=== PATIENT | female | born 1945 | race American Indian/Alaskan Native ===

== ENCOUNTER 2017-06-01 16:04 | Emergency (ER) | payer OTHER ==
[2017-06-01] MEDS ORDERED: Dexamethasone 4 MG/ML SDV IM ONE (18:30)
--- NOTE | 2017-06-01 18:30 | EDM.PDOC ---
<Muriel Pires - Last Filed: 06/01/17 18:26> ED HPI GENERAL MEDICAL PROBLEM - General Chief Complaint: ENT Problem Stated Complaint: [id number] TROUBLE SWALLOWING Time Seen by Provider: 06/01/17 18:26 Source of Information: Reports: Patient History Limitations: Reports: No Limitations - History of Present Illness INITIAL COMMENTS - FREE TEXT/NARRATIVE: 72 yo female presents with difficulty swallowing for 2 days. states that she feels like "everything is getting stuck". Pt admits to having esophagus dilated 2 weeks ago in [facility]. States that she is unable to tolerate minimal amounts of food or pills. Able to drink fluids. no other complaints. Onset Date: 05/31/17 Duration: Constant Location: Reports: Chest Quality: Reports: Ache Severity: Mild Improves with: Reports: None Worsens with: Reports: Eating Associated Symptoms: Reports: No Other Symptoms Throat Pain Score (Numeric/FACES): 6 - Related Data Allergies Allergy/AdvReac Type Severity Reaction Status Date / Time ibuprofen Allergy Unknown unknown Verified 05/03/16 22:35 adhesive Allergy Cannot Verified 05/03/16 22:35 Remember iodine AdvReac Intermediate nausea only Verified 05/03/16 22:35 Home Meds: Home Meds Aspirin [Halfprin] 81 mg PO DAILY 11/28/13 [History] Carboxymethylcellulose Sodium [Revive Plus] 1 drop EYEBOTH QID PRN 11/28/13 [ History] Docusate Sodium/Sennosides [Senokot-S] 1 each PO BEDTIME PRN 11/28/13 [History] Famotidine 40 mg PO DAILY 11/28/13 [History] Fludrocortisone [Florinef] 0.1 mg PO ACBRK 11/28/13 [History] Hydrocortisone 2 tab PO ACBRK 11/28/13 [History] Lisinopril 10 mg PO DAILY 11/28/13 [History] Magnesium Oxide 400 mg PO BID 11/28/13 [History] Metoprolol Tartrate 12.5 mg PO BID 11/28/13 [History] Montelukast Sodium 10 mg PO BEDTIME 11/28/13 [History] Multivitamin [Multivitamins] 1 each PO DAILY 11/28/13 [History] sitaGLIPtin Phos/Metformin HCl [Janumet 50-1,000 MG] 1 each PO BID 11/28/13 [ History] Acetaminophen 650 mg PO Q6H PRN 01/14/15 [History] Albuterol/Ipratropium [DuoNeb 3.0-0.5 MG/3 ML] 3 ml NEB QID 01/14/15 [History] Cholecalciferol (Vitamin D3) [Vitamin D3] 1,000 units PO DAILY 01/14/15 [History ] Formoterol/Mometasone [Dulera 100 MCG/5 MCG] 2 puff PO BID 01/14/15 [History] Hydrocortisone 10 mg PO ACDINNER 01/14/15 [History] Levothyroxine [Synthroid] 100 mcg PO DAILY 01/14/15 [History] guaiFENesin/Dextromethorphan [Guaifenesin-Dm Solution] 5 ml PO QID PRN 01/14/15 [History] Benzonatate [Tessalon Perles] 100 mg PO BID PRN #30 cap 01/17/15 [Rx] Past Medical History HEENT History: Reports: None, Other (See Below) Other HEENT History: dry eyes Cardiovascular History: Reports: Bypass, Heart Murmur, Heart Valve Replacement, Hypertension Respiratory History: Reports: Asthma, COPD Gastrointestinal History: Reports: GERD Genitourinary History: Reports: None CIRCULATOR History: Reports: None Musculoskeletal History: Reports: None Neurological History: Reports: None Psychiatric History: Reports: None Endocrine/Metabolic History: Reports: Diabetes, Type II, Hypothyroidism Hematologic History: Reports: None Other Immunologic History: Addisons disease Oncologic (Cancer) History: Reports: None Dermatologic History: Reports: None - Infectious Disease History Infectious Disease History: Reports: None Social & Family History - Family History Family Medical History: Noncontributory - Tobacco Use Smoking Status *Q: Never Smoker Years of Tobacco use: 30 Used Tobacco, but Quit: Yes Month Tobacco Last Used: unknown Second Hand Smoke Exposure: No - Caffeine Use Caffeine Use: Reports: Coffee, Tea - Alcohol Use Days Per Week of Alcohol Use: 0 - Recreational Drug Use Recreational Drug Use: No - Living Situation & Occupation Living situation: Reports: with Family Occupation: Disabled ED ROS ENT - Review of Systems Review Of Systems: ROS reveals no pertinent complaints other than HPI. ED EXAM, ENT - Physical Exam Exam: See Below Exam Limited By: No Limitations General Appearance: Alert, WD/WN, No Apparent Distress Eye Exam: Bilateral Eye: PERRL Nose: Normal Inspection, Normal Mucousa, No Blood Mouth/Throat: Normal Inspection, Normal Gums, Normal Lips, Normal Oropharynx, Normal Teeth Respiratory/Chest: No Respiratory Distress, Lungs Clear, Normal Breath Sounds, No Accessory Muscle Use, Chest Non-Tender Cardiovascular: Normal Peripheral Pulses, Regular Rate, Rhythm, No Edema, No Gallop, No JVD, No Rub, Systolic Murmur GI/Abdominal: Normal Bowel Sounds, Soft, Non-Tender, No Organomegaly, No Distention, No Abnormal Bruit, No Mass Neurological: Alert, Oriented, CN II-XII Intact, Normal Cognition, Normal Gait, No Motor/Sensory Deficits Course - Vital Signs Last Recorded V/S: Last Vital Signs Temp 36.9 C 06/01/17 16:39 Pulse 71 06/01/17 16:39 Resp 12 06/01/17 16:39 BP 199/97 H 06/01/17 16:39 Pulse Ox 95 06/01/17 16:39 - Orders/Labs/Meds Meds: Medications Discontinued Medications Generic Name Dose Route Start Last Admin Trade Name Renae PRN Reason Stop Dose Admin Dexamethasone 8 mg 06/01/17 18:30 06/01/17 18:46 Dexamethasone IM 06/01/17 18:31 8 mg ONETIME ONE Administration Departure - Departure Disposition: Home, Self-Care 01 Clinical Impression: Stenosis of esophagus - Discharge Information Instructions: Dysphagia Diet Level 3, Mechanically Advanced Forms: ED Department Discharge Additional Instructions: 1) notify Gastrologist tomorrow 2) recheck if there is any change or concerns <Pj Yi - Last Filed: 06/01/17 19:26> Course - Re-Assessments/Exams Free Text/Narrative Re-Assessment/Exam: 06/01/17 19:24 re-exam; s/p IV Rx = much better now, likes to go home. Departure - Departure Time of Disposition: 19:24 Condition: Good
[2017-06-01 19:33] VITALS: BP 173/77
== END 2017-06-01 19:33 | disposition home or self-care (01) ==
LOC: DL.ED 16:04
DX: K22.2 Esophageal obstruction (principal); I10 Essential (primary) hypertension; J44.9 Chronic obstructive pulmonary disease, unspecified; K21.9 Gastro-esophageal reflux disease without esophagitis; E11.9 Type 2 diabetes mellitus without complications; E03.9 Hypothyroidism, unspecified; Z88.8 Allergy status to other drugs, medicaments and biological substances; Z91.048 Other nonmedicinal substance allergy status; Z79.82 Long term (current) use of aspirin; Z79.899 Other long term (current) drug therapy
CPT/HCPCS: 71020; 96372; 99282; J1100

== ENCOUNTER 2017-12-17 19:20 | Emergency (ER) | payer OTHER ==
--- NOTE | 2017-12-17 19:32 | EDM.PDOC ---
ED HPI GENERAL MEDICAL PROBLEM - General Chief Complaint: Respiratory Problem Stated Complaint: COUGHING,CHEST HURTS,HARD TO BREATH [id number] Time Seen by Provider: 12/17/17 19:30 Source of Information: Reports: Patient History Limitations: Reports: No Limitations - History of Present Illness INITIAL COMMENTS - FREE TEXT/NARRATIVE: been sick a week not better coughing chest hurts afterwards feels tight lost voice. - Related Data Allergies Allergy/AdvReac Type Severity Reaction Status Date / Time ibuprofen Allergy Unknown unknown Verified 12/17/17 19:51 adhesive Allergy Cannot Verified 12/17/17 19:51 Remember iodine AdvReac Intermediate nausea only Verified 12/17/17 19:51 Home Meds: Home Meds Aspirin [Halfprin] 81 mg PO DAILY 11/28/13 [History] Carboxymethylcellulose Sodium [Revive Plus] 1 drop EYEBOTH QID PRN 11/28/13 [ History] Docusate Sodium/Sennosides [Senokot-S] 1 each PO BEDTIME PRN 11/28/13 [History] Famotidine 40 mg PO DAILY 11/28/13 [History] Fludrocortisone [Florinef] 0.1 mg PO ACBRK 11/28/13 [History] Hydrocortisone 1 tab PO ASDIRECTED 11/28/13 [History] Lisinopril 30 mg PO DAILY 11/28/13 [History] Magnesium Oxide 400 mg PO BID 11/28/13 [History] Montelukast Sodium 10 mg PO BEDTIME 11/28/13 [History] Multivitamin [Multivitamins] 1 each PO DAILY 11/28/13 [History] sitaGLIPtin Phos/Metformin HCl [Janumet 50-1,000 MG] 1 each PO BID 11/28/13 [ History] Acetaminophen 650 mg PO Q6H PRN 01/14/15 [History] Albuterol/Ipratropium [DuoNeb 3.0-0.5 MG/3 ML] 3 ml NEB QID 01/14/15 [History] Cholecalciferol (Vitamin D3) [Vitamin D3] 1,000 units PO DAILY 01/14/15 [History ] Formoterol/Mometasone [Dulera 100 MCG/5 MCG] 2 puff PO BID 01/14/15 [History] Levothyroxine [Synthroid] 100 mcg PO DAILY 01/14/15 [History] Benzonatate [Tessalon Perles] 100 mg PO BID PRN #30 cap 01/17/15 [Rx] Cetirizine [ZyrTEC] 10 mg PO DAILY 07/25/17 [History] Dextrose [Glucose] 4 tab PO ASDIRECTED 07/25/17 [History] Levalbuterol Tartrate [Xopenex Hfa] 2 puff IH Q4HR PRN 07/25/17 [History] Potassium Chloride [Klor-Con 10] 10 meq PO BID 07/25/17 [History] LORazepam 1 mg PO ASDIRECTED 08/10/17 [History] Metoprolol Succinate [Toprol XL] 25 mg PO DAILY 08/10/17 [History] Saxagliptin HCl [Onglyza] 5 mg PO DAILY 08/10/17 [History] Past Medical History HEENT History: Reports: None, Other (See Below) Other HEENT History: dry eyes Cardiovascular History: Reports: Bypass, Heart Murmur, Heart Valve Replacement, Hypertension Respiratory History: Reports: Asthma, COPD Gastrointestinal History: Reports: GERD Genitourinary History: Reports: None 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 Musculoskeletal History: Reports: None Neurological History: Reports: None Psychiatric History: Reports: None Endocrine/Metabolic History: Reports: Diabetes, Type II, Hypothyroidism Hematologic History: Reports: None Other Immunologic History: Addisons disease Oncologic (Cancer) History: Reports: None Dermatologic History: Reports: None - Infectious Disease History Infectious Disease History: Reports: None Social & Family History - Family History Family Medical History: Noncontributory - Tobacco Use Smoking Status *Q: Never Smoker Years of Tobacco use: 30 Used Tobacco, but Quit: Yes Month/Year Tobacco Last Used: unknown Second Hand Smoke Exposure: No - Caffeine Use Caffeine Use: Reports: Coffee - Alcohol Use Days Per Week of Alcohol Use: 0 - Recreational Drug Use Recreational Drug Use: No - Living Situation & Occupation Living situation: Reports: with Family Occupation: Disabled ED ROS GENERAL - Review of Systems Review Of Systems: ROS reveals no pertinent complaints other than HPI. ED EXAM, GENERAL - Physical Exam Exam: See Below Exam Limited By: No Limitations General Appearance: Alert, WD/WN, Mild Distress, Other (cough spasms) Ears: Hearing Grossly Normal Ear Exam: Bilateral Ear: TM Dull Throat/Mouth: Normal Voice, No Airway Compromise Head: Atraumatic Neck: Non-Tender, Full Range of Motion Respiratory/Chest: No Accessory Muscle Use, Decreased Breath Sounds, Rhonchi, Wheezing Cardiovascular: Regular Rate, Rhythm GI/Abdominal: Soft, Non-Tender Neurological: Alert, Oriented, Normal Cognition, Normal Gait, No Motor/Sensory Deficits Psychiatric: Flat Affect Skin Exam: Warm, Dry, Normal Color Lymphatic: No Adenopathy Course - Vital Signs Last Recorded V/S: Last Vital Signs Temp 37.7 C 12/17/17 19:51 Pulse 65 12/17/17 19:51 Resp 18 12/17/17 19:51 BP 186/85 H 12/17/17 19:51 Pulse Ox 97 12/17/17 19:51 - Orders/Labs/Meds Orders: Active Orders 24 hr Category Date Time Status RT Aerosol Therapy [RC] ASDIRECTED Care 12/17/17 19:40 Active CULTURE BLOOD [BC] Stat Lab 12/17/17 19:35 Received CULTURE STREP A CONFIRMATION [] Stat Lab 12/17/17 20:29 Results STREP SCRN A RAPID W CULT CONF [] Stat Lab 12/17/17 20:29 Results Sodium Chloride 0.9% [Normal Saline] 1,000 ml Med 12/17/17 19:45 Active IV ASDIRECTED Medication Orders Sodium Chloride (Normal Saline) 1,000 mls @ 125 mls/hr IV ASDIRECTED LO Last Admin: 12/17/17 19:46 Dose: 125 mls/hr Labs: Laboratory Tests 12/17/17 12/17/17 12/17/17 Range/Units 19:35 19:35 19:35 WBC 6.9 (5.0-10.0) 10^3/uL RBC 4.58 (4.2-5.4) 10^6/uL Hgb 13.4 (12.0-16.0) g/dL Hct 40.1 (37.0-47.0) % MCV 87.6 (80-100) fL MCH 29.3 (27.0-34.0) pg MCHC 33.4 (33.0-35.0) g/dL Plt Count 194 (150-450) 10^3/uL Neut % (Auto) 77.3 H (42.2-75.2) % Lymph % (Auto) 10.7 L (20.5-50.1) % [place] % (Auto) 10.8 H (2-8) % Eos % (Auto) 0.6 L (1.0-3.0) % Baso % (Auto) 0.6 (0.0-1.0) % Sodium 136 (135-145) mmol/L Potassium 3.7 (3.6-5.0) mmol/L Chloride 98 L (101-111) mmol/L Carbon Dioxide 30.0 (21.0-31.0) mmol/L Anion Gap 11.7 BUN 9 (7-18) mg/dL Creatinine 0.6 (0.6-1.3) mg/dL Est Cr Clr Drug Dosing 67.03 mL/min Estimated GFR (MDRD) > 60 BUN/Creatinine Ratio 15.00 Glucose 166 H (74-105) mg/dL Lactic Acid 1.7 (0.5-2.2) mmol/L Calcium 9.0 (8.4-10.2) mg/dl Total Bilirubin 1.1 H (0.2-1.0) mg/dL AST 45 H (10-42) IU/L ALT 29 (10-60) IU/L Alkaline Phosphatase 94 (42-121) IU/L Troponin I < 0.02 (0.00-0.02) ng/ml Total Protein 7.2 (6.7-8.2) g/dl Albumin 3.8 (3.2-5.5) g/dl Globulin 3.4 Albumin/Globulin Ratio 1.12 Meds: Medications Generic Name Dose Route Start Last Admin Trade Name Freq PRN Reason Stop Dose Admin Sodium Chloride 1,000 mls @ 125 mls/hr 12/17/17 19:45 12/17/17 19:46 Normal Saline IV 125 mls/hr ASDIRECTED LO Administration Discontinued Medications Generic Name Dose Route Start Last Admin Trade Name Freq PRN Reason Stop Dose Admin Hydrocodone Bitart/Acetaminophen 1 tab 12/17/17 19:39 12/17/17 19:44 [place] 325-10 Mg PO 12/17/17 19:40 1 tab ONETIME ONE Administration Albuterol/Ipratropium 3 ml 12/17/17 19:40 12/17/17 19:46 Duoneb 3.0-0.5 Mg/3 Ml NEB 12/17/17 19:41 3 ml ONETIME ONE Administration Methylprednisolone Sodium Succinate 125 mg 12/17/17 20:36 12/17/17 20:44 Solu-Medrol IVPUSH 12/17/17 20:37 125 mg ONETIME ONE Administration - Re-Assessments/Exams Free Text/Narrative Re-Assessment/Exam: 12/17/17 21:08 results discussed with pt who is feeling much better s/p IV fluids+duoneb+IV solumed. wants to go home. Departure - Departure Time of Disposition: 21:09 Disposition: Home, Self-Care 01 Condition: Good Clinical Impression: Bronchospasm with bronchitis, acute - Discharge Information Instructions: Acute Bronchitis, Adult, [id number] Forms: ED Department Discharge Additional Instructions: 1) rest 2) don't sleep flat at night 3) continue nebs at home 4) recheck if there is any change or concern rx given; medrol dospak - My Orders Last 24 Hours: My Active Orders 12/17/17 19:35 CULTURE BLOOD [BC] Stat 12/17/17 19:40 RT Aerosol Therapy [RC] ASDIRECTED 12/17/17 19:45 Sodium Chloride 0.9% [Normal Saline] 1,000 ml IV ASDIRECTED 12/17/17 20:29 CULTURE STREP A CONFIRMATION [RM] Stat STREP SCRN A RAPID W CULT CONF [RM] Stat - Assessment/Plan Last 24 Hours: My Active Orders 12/17/17 19:35 CULTURE BLOOD [BC] Stat 12/17/17 19:40 RT Aerosol Therapy [RC] ASDIRECTED 12/17/17 19:45 Sodium Chloride 0.9% [Normal Saline] 1,000 ml IV ASDIRECTED 12/17/17 20:29 CULTURE STREP A CONFIRMATION [RM] Stat STREP SCRN A RAPID W CULT CONF [RM] Stat
[2017-12-17] MEDS ORDERED: Acetaminophen/HYDROcodone 325-10 MG Tab PO ONE (19:39)
[2017-12-17] MEDS ORDERED: Albuterol/Ipratropium 3.0-0.5 MG/3 ML Neb Soln NEB ONE (19:40)
[2017-12-17] MEDS ORDERED: Sodium Chloride 0.9% 1,000 ML IV SCH (19:45)
[2017-12-17 19:52] VITALS: BP 186/85
[2017-12-17 20:24] LABS: CHLORIDE,CL 98 mmol/L (101-111); SODIUM,NA 136 mmol/L (135-145)
[2017-12-17] MEDS ORDERED: methylPREDNISolone Sodium Succinate 125 MG/2 ML SDV IVPUSH ONE (20:36)
== END 2017-12-17 21:19 | disposition home or self-care (01) ==
LOC: DL.ED 19:20
DX: J20.9 Acute bronchitis, unspecified (principal); I10 Essential (primary) hypertension; J44.9 Chronic obstructive pulmonary disease, unspecified; K21.9 Gastro-esophageal reflux disease without esophagitis; E11.9 Type 2 diabetes mellitus without complications; E03.9 Hypothyroidism, unspecified; Z79.899 Other long term (current) drug therapy; Z79.82 Long term (current) use of aspirin; Z87.891 Personal history of nicotine dependence; Z88.6 Allergy status to analgesic agent; Z91.09 Other allergy status, other than to drugs and biological substances
CPT/HCPCS: 36415; 71045; 80053; 83605; 84484; 85025; 87040; 87081; 87430; 96361; 96374; 99285; A9270; J2930; J7030

== ENCOUNTER 2018-02-28 08:28 | Emergency (ER) | payer OTHER ==
[2018-02-28 08:51] VITALS: BP 120/67
--- NOTE | 2018-02-28 09:58 | EDM.PDOC ---
ED HPI GENERAL MEDICAL PROBLEM - General Chief Complaint: ENT Problem Stated Complaint: NOT FEELING GOOD Time Seen by Provider: 02/28/18 09:35 Source of Information: Reports: Patient History Limitations: Reports: No Limitations - History of Present Illness INITIAL COMMENTS - FREE TEXT/NARRATIVE: This 72 yo female patient reports to the ED due to feeling ill "all weekend". The patient reports she has not been able to swallow any foods and has only been able to take small sips of fluids. The patient reports she has a "tightening of her esophagus" and has had to have her esophagus stretched in the past (last time was in October). The patient reports she noticed that her heart was "racing" this morning and last night. Onset Date: 02/25/18 Duration: Constant, Getting Worse Location: Reports: Neck, Chest Quality: Reports: Ache, Dull Severity: Moderate Improves with: Reports: None Worsens with: Reports: None Associated Symptoms: Reports: Nausea/Vomiting - Related Data Allergies Allergy/AdvReac Type Severity Reaction Status Date / Time ibuprofen Allergy Unknown unknown Verified 12/17/17 19:51 adhesive Allergy Cannot Verified 12/17/17 19:51 Remember iodine AdvReac Intermediate nausea only Verified 12/17/17 19:51 Home Meds: Home Meds Aspirin [Halfprin] 81 mg PO DAILY 11/28/13 [History] Carboxymethylcellulose Sodium [Revive Plus] 1 drop EYEBOTH QID PRN 11/28/13 [ History] Docusate Sodium/Sennosides [Senokot-S] 1 each PO BEDTIME PRN 11/28/13 [History] Famotidine 40 mg PO DAILY 11/28/13 [History] Fludrocortisone [Florinef] 0.1 mg PO ACBRK 11/28/13 [History] Hydrocortisone 1 tab PO ASDIRECTED 11/28/13 [History] Lisinopril 30 mg PO DAILY 11/28/13 [History] Magnesium Oxide 400 mg PO BID 11/28/13 [History] Montelukast Sodium 10 mg PO BEDTIME 11/28/13 [History] Multivitamin [Multivitamins] 1 each PO DAILY 11/28/13 [History] sitaGLIPtin Phos/Metformin HCl [Janumet 50-1,000 MG] 1 each PO BID 11/28/13 [ History] Acetaminophen 650 mg PO Q6H PRN 01/14/15 [History] Albuterol/Ipratropium [DuoNeb 3.0-0.5 MG/3 ML] 3 ml NEB QID 01/14/15 [History] Cholecalciferol (Vitamin D3) [Vitamin D3] 1,000 units PO DAILY 01/14/15 [History ] Formoterol/Mometasone [Dulera 100 MCG/5 MCG] 2 puff PO BID 01/14/15 [History] Levothyroxine [Synthroid] 100 mcg PO DAILY 01/14/15 [History] Benzonatate [Tessalon Perles] 100 mg PO BID PRN #30 cap 01/17/15 [Rx] Cetirizine [ZyrTEC] 10 mg PO DAILY 07/25/17 [History] Dextrose [Glucose] 4 tab PO ASDIRECTED 07/25/17 [History] Levalbuterol Tartrate [Xopenex Hfa] 2 puff IH Q4HR PRN 07/25/17 [History] Potassium Chloride [Klor-Con 10] 10 meq PO BID 07/25/17 [History] LORazepam 1 mg PO ASDIRECTED 08/10/17 [History] Metoprolol Succinate [Toprol XL] 25 mg PO DAILY 08/10/17 [History] Saxagliptin HCl [Onglyza] 5 mg PO DAILY 08/10/17 [History] Past Medical History HEENT History: Reports: None, Other (See Below) Other HEENT History: dry eyes Cardiovascular History: Reports: Bypass, Heart Murmur, Heart Valve Replacement, Hypertension Respiratory History: Reports: Asthma, COPD Gastrointestinal History: Reports: GERD Genitourinary History: Reports: None 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 Musculoskeletal History: Reports: None Neurological History: Reports: None Psychiatric History: Reports: None Endocrine/Metabolic History: Reports: Diabetes, Type II, Hypothyroidism Hematologic History: Reports: None Other Immunologic History: Addisons disease Oncologic (Cancer) History: Reports: None Dermatologic History: Reports: None - Infectious Disease History Infectious Disease History: Reports: None Social & Family History - Family History Family Medical History: Noncontributory - Caffeine Use Caffeine Use: Reports: Coffee - Living Situation & Occupation Living situation: Reports: with Family Occupation: Disabled ED ROS GENERAL - Review of Systems Review Of Systems: ROS reveals no pertinent complaints other than HPI. ED EXAM, GENERAL - Physical Exam Exam: See Below Exam Limited By: No Limitations General Appearance: Alert, WD/WN, Moderate Distress, Thin Eye Exam: Bilateral Eye: EOMI, Normal Inspection, PERRL Ears: Normal External Exam, Normal Canal, Hearing Grossly Normal, Normal TMs Nose: Normal Inspection, Normal Mucosa, No Blood Throat/Mouth: Normal Inspection, Normal Lips, Normal Teeth, Normal Gums, Normal Oropharynx, Normal Voice, No Airway Compromise Head: Atraumatic, Normocephalic Neck: Normal Inspection, Supple, Non-Tender, Full Range of Motion Respiratory/Chest: No Respiratory Distress, Lungs Clear, Normal Breath Sounds, No Accessory Muscle Use, Chest Non-Tender Cardiovascular: Normal Peripheral Pulses, Regular Rate, Rhythm, No Edema, No Gallop, No JVD, No Rub, Systolic Murmur GI/Abdominal: Normal Bowel Sounds, Soft, Non-Tender, No Organomegaly, No Distention, No Abnormal Bruit, No Mass (Female) Exam: Deferred Rectal (Female) Exam: Deferred Back Exam: Normal Inspection, Full Range of Motion, NT Extremities: Normal Inspection, Normal Range of Motion, Non-Tender, Normal Capillary Refill, No Pedal Edema Neurological: Alert, Oriented, CN II-XII Intact, Normal Cognition, Normal Gait, Normal Reflexes, No Motor/Sensory Deficits Psychiatric: Normal Affect, Normal Mood Skin Exam: Warm, Dry, Intact, Normal Color, No Rash Lymphatic: No Adenopathy Course - Vital Signs Last Recorded V/S: Last Vital Signs Temp 37.0 C 02/28/18 08:36 Pulse 87 02/28/18 08:36 Resp 24 H 02/28/18 08:36 BP 120/67 02/28/18 08:36 Pulse Ox 98 02/28/18 08:36 - Orders/Labs/Meds Orders: Active Orders 24 hr Category Date Time Status EKG Documentation Completion [RC] URGENT Care 02/28/18 09:48 Ordered Heparin Sodium/0.45% NaCl [Heparin 25,000 Units in 1/2 Med 02/28/18 11:00 Ordered NS 500 ML] 25,000 units in 500 ml IV TITRATE Sodium Chloride 0.9% @ 125 MLS/HR (1000ml) Med 02/28/18 10:00 Ordered Sodium Chloride 0.9% [Normal Saline] 1,000 ml IV ASDIRECTED Medication Orders Sodium Chloride (Normal Saline) 1,000 mls @ 125 mls/hr IV ASDIRECTED LO Last Admin: 02/28/18 10:20 Dose: 125 mls/hr Heparin Sodium/Sodium Chloride (Heparin 25,000 Units In 1/2 Ns 500 Ml) 25,000 units in 500 mls @ 12.954 mls/hr IV TITRATE LO Last Admin: 02/28/18 11:20 Dose: 12 units/kg/hr, 12.954 mls/hr Labs: Laboratory Tests 02/28/18 02/28/18 Range/Units 10:08 10:08 WBC 8.9 (5.0-10.0) 10^3/uL RBC 4.93 (4.2-5.4) 10^6/uL Hgb 15.0 D (12.0-16.0) g/dL Hct 42.9 (37.0-47.0) % MCV 87.0 (80-100) fL MCH 30.4 (27.0-34.0) pg MCHC 35.0 (33.0-35.0) g/dL Plt Count 196 (150-450) 10^3/uL Neut % (Auto) 60.4 (42.2-75.2) % Lymph % (Auto) 16.2 L (20.5-50.1) % [place] % (Auto) 14.7 H (2-8) % Eos % (Auto) 8.1 H (1.0-3.0) % Baso % (Auto) 0.6 (0.0-1.0) % Sodium 133 L (135-145) mmol/L Potassium 3.0 L (3.6-5.0) mmol/L Chloride 95 L (101-111) mmol/L Carbon Dioxide 20.0 L D (21.0-31.0) mmol/L Anion Gap 21.0 BUN 20 H (7-18) mg/dL Creatinine 1.0 (0.6-1.3) mg/dL Est Cr Clr Drug Dosing 40.22 mL/min Estimated GFR (MDRD) 55 BUN/Creatinine Ratio 20.00 Glucose 84 (74-105) mg/dL Calcium 9.3 (8.4-10.2) mg/dl Total Bilirubin 3.3 H (0.2-1.0) mg/dL AST 56 H (10-42) IU/L ALT 29 (10-60) IU/L Alkaline Phosphatase 79 (42-121) IU/L Troponin I 0.13 H* (0.00-0.02) ng/ml Total Protein 7.5 (6.7-8.2) g/dl Albumin 3.8 (3.2-5.5) g/dl Globulin 3.7 Albumin/Globulin Ratio 1.03 Meds: Medications Generic Name Dose Route Start Last Admin Trade Name Freq PRN Reason Stop Dose Admin Sodium Chloride 1,000 mls @ 125 mls/hr 02/28/18 10:00 02/28/18 10:20 Normal Saline IV 125 mls/hr ASDIRECTED LO Administration Heparin Sodium/Sodium Chloride 25,000 units in 500 mls @ 12.954 mls/hr 11:00 02/28/18 11:20 Heparin 25,000 Units In 1/2 Ns 500 Ml IV 12 units/kg/hr TITRATE LO 12.954 mls/hr Administration 12 UNITS/KG/HR Discontinued Medications Generic Name Dose Route Start Last Admin Trade Name Freq PRN Reason Stop Dose Admin Aspirin 324 mg 02/28/18 10:43 02/28/18 10:51 Aspirin PO 02/28/18 10:44 324 mg ONETIME ONE Administration Heparin Sodium (Porcine) 3,100 units 02/28/18 11:00 02/28/18 11:13 Heparin Sodium IVPUSH 02/28/18 11:01 3,100 units .BOLUS ONE Administration Departure - Departure Time of Disposition: 11:06 Disposition: DC/Tfer to Acute Hospital 02 Condition: Fair Clinical Impression: NSTEMI (non-ST elevated myocardial infarction), Esophageal motility disorder - Discharge Information Forms: Interfacility Transfer EMTALA Care Plan Goals: Discussed the patients history, examination, lab, EKG and x-ray results with Dr. Campbell (Hospitalist with [facility] in [place]). Dr. Campbell accepted the patient for continued evaluation and further management. The patient will be transported by [facility]. - My Orders Last 24 Hours: My Active Orders 02/28/18 09:48 EKG Documentation Completion [RC] URGENT 02/28/18 10:00 Sodium Chloride 0.9% @ 125 MLS/HR (1000ml) Sodium Chloride 0.9% [Normal Saline] 1,000 ml IV ASDIRECTED 02/28/18 11:00 Heparin Sodium/0.45% NaCl [Heparin 25,000 Units in 1/2 NS 500 ML] 25,000 units in 500 ml IV TITRATE - Assessment/Plan Last 24 Hours: My Active Orders 02/28/18 09:48 EKG Documentation Completion [RC] URGENT 02/28/18 10:00 Sodium Chloride 0.9% @ 125 MLS/HR (1000ml) Sodium Chloride 0.9% [Normal Saline] 1,000 ml IV ASDIRECTED 02/28/18 11:00 Heparin Sodium/0.45% NaCl [Heparin 25,000 Units in 1/2 NS 500 ML] 25,000 units in 500 ml IV TITRATE
[2018-02-28] MEDS ORDERED: Sodium Chloride 0.9% 1,000 ML IV SCH (10:00)
[2018-02-28] MEDS ORDERED: Aspirin 81 MG Tab.Chew PO ONE (10:43)
--- NOTE | 2018-02-28 10:59 | CR ---
CLINICAL HISTORY: 72-year-old female with history of heart disease. INTERPRETATION: Upright AP portable chest film confirm sternotomy wires but normal cardiac silhouette , size and configuration without new cephalization of vascular flow, signs of alveolar edema or depen dent pleural fluid accumulation when compared to 17 December 2017 exam. Left-sided aortic arch. No new lung mass, hilar lymphadenopathy or focal lobar pneumonia. No atelectasis/collapse. No pneumothorax. CONCLUSION: No acute new cardiopulmonary abnormality.
[2018-02-28] MEDS ORDERED: Heparin Sodium/0.45% NaCl 25,000 UNITS/500 ML BAG IV SCH (11:00)
[2018-02-28] MEDS ORDERED: Heparin Sodium 5,000 Units/ML Vial IVPUSH ONE (11:00)
--- NOTE | 2018-03-01 20:02 | EKG ---
02/28/2018 - [facility] - TIME: 9:53 a.m. FINDINGS: EKG shows a heart rate of 90 beats per minute with sinus rhythm. There is left ventricular hypertrophy, is in the Sokolow-Castillo criteria. There are T-wave inversions in the lateral chest leads V5, V6, as well as T-wave inversion in lead II and flat T-waves in III and aVL. [facility] /[id number]
== END 2018-02-28 11:50 ==
LOC: DL.ED 08:28
DX: I21.4 Non-ST elevation (NSTEMI) myocardial infarction (principal); K22.4 Dyskinesia of esophagus; I10 Essential (primary) hypertension; E11.9 Type 2 diabetes mellitus without complications; J44.9 Chronic obstructive pulmonary disease, unspecified; Z88.8 Allergy status to other drugs, medicaments and biological substances; Z88.6 Allergy status to analgesic agent; Z79.82 Long term (current) use of aspirin; Z79.899 Other long term (current) drug therapy
CPT/HCPCS: 36415; 71045; 80053; 84484; 85025; 93005; 96361; 96365; 96376; 99285; A9270; J1644; J7030

== ENCOUNTER 2018-11-18 22:08 | Emergency (ER) | payer BC, OTHER ==
[2018-11-18 22:21] VITALS: BP 174/83
[2018-11-18 22:53] LABS: ANION GAP 13.1; CHLORIDE,CL 99 mmol/L (101-111); SODIUM,NA 136 mmol/L (135-145)
[2018-11-18] MEDS ORDERED: Metoclopramide 10 MG/2 ML SDV IVPUSH ONE (22:54)
[2018-11-18] MEDS ORDERED: Famotidine 20 MG/2 ML SDV IVPUSH ONE (22:54)
[2018-11-18] MEDS ORDERED: Potassium Chloride 10 MEQ in Premix Bag 1 BAG IV ONE (22:59)
[2018-11-18] MEDS ORDERED: Aspirin 81 MG Tab.Chew ONE (23:04)
--- NOTE | 2018-11-18 23:46 | EDM.PDOC ---
ED HPI GENERAL MEDICAL PROBLEM - General Chief Complaint: Gastrointestinal Problem Stated Complaint: THROWING UP Time Seen by Provider: 11/18/18 22:15 Source of Information: Reports: Patient History Limitations: Reports: No Limitations - History of Present Illness INITIAL COMMENTS - FREE TEXT/NARRATIVE: stomach churning this [place] small emesis. drank a lot of water to keep from getting dehydrated then vomited again. felt like alot of acid, hx reflux. Richards cold tonight. No constipation or diarrhea, burning, heavy sensation up chest with emesis , resolved after vomiting. Abdomen Pain Score (Numeric/FACES): 2 - Related Data Allergies Allergy/AdvReac Type Severity Reaction Status Date / Time ibuprofen Allergy Unknown unknown Verified 11/18/18 22:37 adhesive Allergy Cannot Verified 11/18/18 22:37 Remember iodine AdvReac Intermediate nausea only Verified 11/18/18 22:37 Home Meds: Home Meds Aspirin [Halfprin] 81 mg PO DAILY 11/28/13 [History] Carboxymethylcellulose Sodium [Revive Plus] 1 drop EYEBOTH QID PRN 11/28/13 [ History] Docusate Sodium/Sennosides [Senokot-S] 1 each PO BEDTIME PRN 11/28/13 [History] Famotidine 40 mg PO DAILY 11/28/13 [History] Fludrocortisone [Florinef] 0.1 mg PO ACBRK 11/28/13 [History] Hydrocortisone 1 tab PO ASDIRECTED 11/28/13 [History] Lisinopril 30 mg PO DAILY 11/28/13 [History] Magnesium Oxide 400 mg PO BID 11/28/13 [History] Montelukast Sodium 10 mg PO BEDTIME 11/28/13 [History] Multivitamin [Multivitamins] 1 each PO DAILY 11/28/13 [History] sitaGLIPtin Phos/Metformin HCl [Janumet 50-1,000 MG] 1 each PO BID 11/28/13 [ History] Acetaminophen 650 mg PO Q6H PRN 01/14/15 [History] Albuterol/Ipratropium [DuoNeb 3.0-0.5 MG/3 ML] 3 ml NEB QID 01/14/15 [History] Cholecalciferol (Vitamin D3) [Vitamin D3] 1,000 units PO DAILY 01/14/15 [History ] Formoterol/Mometasone [Dulera 100 MCG/5 MCG] 2 puff PO BID 01/14/15 [History] Levothyroxine [Synthroid] 100 mcg PO DAILY 01/14/15 [History] Benzonatate [Tessalon Perles] 100 mg PO BID PRN #30 cap 01/17/15 [Rx] Cetirizine [ZyrTEC] 10 mg PO DAILY 07/25/17 [History] Dextrose [Glucose] 4 tab PO ASDIRECTED 07/25/17 [History] Levalbuterol Tartrate [Xopenex Hfa] 2 puff IH Q4HR PRN 07/25/17 [History] Potassium Chloride [Klor-Con 10] 10 meq PO BID 07/25/17 [History] LORazepam 1 mg PO ASDIRECTED 08/10/17 [History] Metoprolol Succinate [Toprol XL] 25 mg PO DAILY 08/10/17 [History] Saxagliptin HCl [Onglyza] 5 mg PO DAILY 08/10/17 [History] Past Medical History HEENT History: Reports: None, Other (See Below) Other HEENT History: dry eyes Cardiovascular History: Reports: Bypass, Heart Murmur, Heart Valve Replacement, Hypertension Respiratory History: Reports: Asthma, COPD Gastrointestinal History: Reports: GERD Genitourinary History: Reports: None CATALOGUE ILLUSTRATOR History: Reports: None Musculoskeletal History: Reports: None Neurological History: Reports: None Psychiatric History: Reports: None Endocrine/Metabolic History: Reports: Diabetes, Type II, Hypothyroidism Hematologic History: Reports: None Immunologic History: Reports: Other (See Below) Other Immunologic History: Addisons disease Oncologic (Cancer) History: Reports: None Dermatologic History: Reports: None - Infectious Disease History Infectious Disease History: Reports: None Social & Family History - Family History Family Medical History: Noncontributory - Tobacco Use Smoking Status *Q: Never Smoker - Caffeine Use Caffeine Use: Reports: Coffee, Energy Drinks - Recreational Drug Use Recreational Drug Use: No - Living Situation & Occupation Living situation: Reports: with Family Occupation: Disabled ED ROS GENERAL - Review of Systems Review Of Systems: ROS reveals no pertinent complaints other than HPI. ED EXAM, GI/ABD - Physical Exam Exam: See Below Exam Limited By: No Limitations General Appearance: Alert, No Apparent Distress Eyes: Bilateral: Normal Appearance, EOMI Ears: Normal External Exam Nose: Normal Inspection Throat/Mouth: Normal Inspection, Normal Oropharynx Head: Atraumatic, Normocephalic Neck: Normal Inspection, Full Range of Motion Respiratory/Chest: Lungs Clear, Normal Breath Sounds Cardiovascular: Regular Rate, Rhythm GI/Abdominal Exam: Normal Bowel Sounds, Soft, Non-Tender. No: Distended, Guarding, Rebound, Abnormal Bowel Sounds, Mass Extremities: Normal Inspection, Normal Range of Motion Neurological: Alert, Oriented, Normal Cognition Psychiatric: Normal Affect, Normal Mood Skin Exam: Warm, Dry, Intact, Normal Color Course - Vital Signs Last Recorded V/S: Last Vital Signs Temp 98.2 F 11/18/18 22:14 Pulse 71 11/18/18 22:14 Resp 18 11/18/18 22:14 BP 174/83 H 11/18/18 22:14 Pulse Ox 98 11/18/18 22:14 - Orders/Labs/Meds Labs: Laboratory Tests 11/18/18 11/18/18 11/18/18 Range/Units 22:17 22:31 22:31 WBC 6.5 (5.0-10.0) 10^3/uL RBC 4.03 L (4.2-5.4) 10^6/uL Hgb 12.1 D (12.0-16.0) g/dL Hct 37.2 (37.0-47.0) % MCV 92.3 D (80-100) fL MCH 30.0 (27.0-34.0) pg MCHC 32.5 L (33.0-35.0) g/dL Plt Count 168 (150-450) 10^3/uL Neut % (Auto) 60.1 (42.2-75.2) % Lymph % (Auto) 20.0 L (20.5-50.1) % [place] % (Auto) 12.9 H (2-8) % Eos % (Auto) 5.9 H (1.0-3.0) % Baso % (Auto) 1.1 H (0.0-1.0) % Sodium 136 (135-145) mmol/L Potassium 3.1 L (3.6-5.0) mmol/L Chloride 99 L (101-111) mmol/L Carbon Dioxide 27.0 (21.0-31.0) mmol/L Anion Gap 13.1 BUN 8 (7-18) mg/dL Creatinine 0.6 (0.6-1.3) mg/dL Est Cr Clr Drug Dosing 64.53 mL/min Estimated GFR (MDRD) > 60 BUN/Creatinine Ratio 13.33 Glucose 96 (74-105) mg/dL POC Glucose 86 (83-110) mg/dl Lactic Acid (0.5-2.2) mmol/L Calcium 8.4 (8.4-10.2) mg/dl Magnesium 1.5 L (1.8-2.5) mg/dL Total Bilirubin 1.1 H (0.2-1.0) mg/dL AST 37 (10-42) IU/L ALT 19 (10-60) IU/L Alkaline Phosphatase 68 (42-121) IU/L CK-MB (CK-2) (0.4-4.7) ng/mL Troponin I 0.03 H* (0.00-0.02) ng/ml Total Protein 6.3 L (6.7-8.2) g/dl Albumin 3.4 (3.2-5.5) g/dl Globulin 2.9 Albumin/Globulin Ratio 1.17 Amylase 45 (28-100) U/L Lipase 52 H (22-51) U/L 11/18/18 11/18/18 Range/Units 22:31 22:31 WBC (5.0-10.0) 10^3/uL RBC (4.2-5.4) 10^6/uL Hgb (12.0-16.0) g/dL Hct (37.0-47.0) % MCV (80-100) fL MCH (27.0-34.0) pg MCHC (33.0-35.0) g/dL Plt Count (150-450) 10^3/uL Neut % (Auto) (42.2-75.2) % Lymph % (Auto) (20.5-50.1) % [place] % (Auto) (2-8) % Eos % (Auto) (1.0-3.0) % Baso % (Auto) (0.0-1.0) % Sodium (135-145) mmol/L Potassium (3.6-5.0) mmol/L Chloride (101-111) mmol/L Carbon Dioxide (21.0-31.0) mmol/L Anion Gap BUN (7-18) mg/dL Creatinine (0.6-1.3) mg/dL Est Cr Clr Drug Dosing mL/min Estimated GFR (MDRD) BUN/Creatinine Ratio Glucose (74-105) mg/dL POC Glucose (83-110) mg/dl Lactic Acid 1.3 (0.5-2.2) mmol/L Calcium (8.4-10.2) mg/dl Magnesium (1.8-2.5) mg/dL Total Bilirubin (0.2-1.0) mg/dL AST (10-42) IU/L ALT (10-60) IU/L Alkaline Phosphatase (42-121) IU/L CK-MB (CK-2) 2.70 (0.4-4.7) ng/mL Troponin I (0.00-0.02) ng/ml Total Protein (6.7-8.2) g/dl Albumin (3.2-5.5) g/dl Globulin Albumin/Globulin Ratio Amylase (28-100) U/L Lipase (22-51) U/L Meds: Medications Discontinued Medications Generic Name Dose Route Start Last Admin Trade Name Freq PRN Reason Stop Dose Admin Aspirin 162 mg 11/19/18 22:52 Aspirin PO 11/19/18 22:53 ONETIME ONE Aspirin Confirm 11/18/18 23:04 11/18/18 23:07 Aspirin Administered 11/18/18 23:05 162 mg Dose Administration 162 mg .ROUTE .STK-MED ONE Famotidine 20 mg 11/18/18 22:54 11/18/18 22:58 Pepcid IVPUSH 11/18/18 22:55 20 mg ONETIME ONE Administration Potassium Chloride 10 meq/ 100 mls @ 100 mls/hr 11/18/18 22:59 11/18/18 23:06 Premix IV 11/18/18 23:58 100 mls/hr ONETIME ONE Administration Metoclopramide HCl 5 mg 11/18/18 22:54 11/18/18 23:01 Reglan IVPUSH 11/18/18 22:55 5 mg ONETIME ONE Administration - Radiology Interpretation Free Text/Narrative:: CXR: negative - Re-Assessments/Exams Free Text/Narrative Re-Assessment/Exam: 11/20/18 03:33 Symptoms resolved requesting to leave, Discussed waiting to repeat troponin level. Patient declined. Departure - Departure Time of Disposition: 00:03 Disposition: Home, Self-Care 01 Condition: Good Clinical Impression: Vomiting, Hypokalemia GERD (gastroesophageal reflux disease) Qualifiers: Esophagitis presence: with esophagitis Qualified Code(s): K21.0 - Gastro- esophageal reflux disease with esophagitis - Discharge Information *PRESCRIPTION DRUG MONITORING PROGRAM REVIEWED*: Not Applicable *COPY OF PRESCRIPTION DRUG MONITORING REPORT IN PATIENT CHRISTINA: Not Applicable Instructions: Nausea and Vomiting, Adult Forms: ED Department Discharge Additional Instructions: light bland diet, advance slowly if tolerating liquids small amounts more frequently upright 30 minutes at least after meals home medications as directed urgent follow up if chest pain change in breathing worsening that usual breathing
[2018-11-19] MEDS ORDERED: Aspirin 81 MG Tab.Chew PO ONE (22:52)
== END 2018-11-19 00:15 | disposition home or self-care (01) ==
LOC: DL.ED 22:08
DX: K21.0 Gastro-esophageal reflux disease with esophagitis (principal); E87.6 Hypokalemia; J44.9 Chronic obstructive pulmonary disease, unspecified; I10 Essential (primary) hypertension; E03.9 Hypothyroidism, unspecified; Z79.899 Other long term (current) drug therapy; Z95.4 Presence of other heart-valve replacement; Z79.82 Long term (current) use of aspirin
CPT/HCPCS: 36415; 71045; 80053; 82150; 82553; 82962; 83605; 83690; 83735; 84484; 85025; 93005; 96365; 96375; 99284; A9270-GY; J2765; J3480; J3490

== ENCOUNTER 2019-03-04 11:30 | Observation (INO) | payer BC, OTHER ==
--- NOTE | 2019-03-04 11:41 | EDM.PDOC ---
ED HPI GENERAL MEDICAL PROBLEM - General Chief Complaint: Gastrointestinal Problem Stated Complaint: THROWING UP, DEHYDRATED Time Seen by Provider: 03/04/19 11:41 Source of Information: Reports: Patient, Old Records, RN, RN Notes Reviewed History Limitations: Reports: No Limitations - History of Present Illness INITIAL COMMENTS - FREE TEXT/NARRATIVE: Pt presents to ER from home by POV with c/o onset of nausea, vomiting, fever, and mild generalized abdominal discomfort yesterday. She denies abdominal distention, diarrhea, constipation, dysuria, severe abdominal pain, or chest pain. No one else at home has been ill recently. 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 Onset: Gradual Onset Date: 03/03/19 Duration: Constant, Getting Worse Location: Reports: Chest, Abdomen Quality: Reports: Dull Severity: Mild Improves with: Reports: None Worsens with: Reports: Eating Associated Symptoms: Reports: No Other Symptoms Abdominal Pain Score (Numeric/FACES): 0 - Related Data Allergies Allergy/AdvReac Type Severity Reaction Status Date / Time ibuprofen Allergy Unknown unknown Verified 03/01/19 10:45 adhesive Allergy Cannot Verified 03/01/19 10:45 Remember iodine AdvReac Intermediate nausea only Verified 03/01/19 10:45 Home Meds: Home Meds Aspirin [Halfprin] 81 mg PO DAILY 11/28/13 [History] Carboxymethylcellulose Sodium [Revive Plus] 1 drop EYEBOTH QID PRN 11/28/13 [ History] Fludrocortisone [Florinef] 0.1 mg PO ACBRK 11/28/13 [History] Hydrocortisone 1 tab PO ASDIRECTED 11/28/13 [History] Lisinopril 10 mg PO DAILY 11/28/13 [History] Magnesium Oxide 70 mg PO DAILY 11/28/13 [History] Montelukast Sodium 10 mg PO BEDTIME 11/28/13 [History] Multivitamin [Multivitamins] 1 each PO DAILY 11/28/13 [History] sitaGLIPtin Phos/Metformin HCl [Janumet 50-1,000 MG] 1 each PO BID 11/28/13 [ History] Acetaminophen 650 mg PO Q6H PRN 01/14/15 [History] Albuterol/Ipratropium [DuoNeb 3.0-0.5 MG/3 ML] 3 ml NEB QID 01/14/15 [History] Formoterol/Mometasone [Dulera 100 MCG/5 MCG] 2 puff PO BID 01/14/15 [History] Levothyroxine [Synthroid] 100 mcg PO DAILY 01/14/15 [History] Cetirizine [ZyrTEC] 10 mg PO BEDTIME 07/25/17 [History] Dextrose [Glucose] 4 tab PO ASDIRECTED 07/25/17 [History] Levalbuterol Tartrate [Xopenex Hfa] 2 puff IH Q4HR PRN 07/25/17 [History] Potassium Chloride [Klor-Con 10] 20 meq PO BID 07/25/17 [History] Metoprolol Succinate [Toprol XL] 12.5 mg PO BID 08/10/17 [History] Ca Carbonate/Vitamin D3/Vit K [Calcium + D Soft Chewable Tab] 1 tab PO DAILY 01/19 [History] Mometasone/Formoterol [Dulera 200 Mcg/5 Mcg Inhaler] 2 puff INH BID 12/04/18 [ History] Nystatin [Mycostatin] 1 squirt PO ASDIRECTED 12/04/18 [History] Pantoprazole Sodium [Protonix] 40 mg PO DAILY 12/04/18 [History] Past Medical History HEENT History: Reports: Other (See Below) Other HEENT History: dry eyes Cardiovascular History: Reports: Bypass, Heart Murmur, Heart Valve Replacement, Hypertension Respiratory History: Reports: Asthma, COPD Gastrointestinal History: Reports: GERD Genitourinary History: Reports: None CONTRACT ADMINISTRATION MANAGER History: Reports: None Musculoskeletal History: Reports: None Neurological History: Reports: None Psychiatric History: Reports: Anxiety 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, Diabetes, Type II, Hypothyroidism Hematologic History: Reports: None Immunologic History: Reports: Other (See Below) Other Immunologic History: Addisons disease Oncologic (Cancer) History: Reports: None Dermatologic History: Reports: None, Scleroderma, Other (See Below) Other Dermatologic History: CREST syndrome - Infectious Disease History Infectious Disease History: Reports: Measles - Past Surgical History HEENT Surgical History: Reports: Adenoidectomy, Tonsillectomy Cardiovascular Surgical History: Reports: Coronary Artery Bypass, Valve Replacement, Other (See Below) Other Cardiovascular Surgeries/Procedures: Septal defect repair GI Surgical History: Reports: Appendectomy, Cholecystectomy, Colonoscopy, EGD, Esophageal Dilatation Female Surgical History: Reports: None Social & Family History - Family History Family Medical History: Noncontributory - Tobacco Use Smoking Status *Q: Never Smoker - Caffeine Use Caffeine Use: Reports: Coffee Caffeine Use Comment: 16. oz daily - Recreational Drug Use Recreational Drug Use: No - Living Situation & Occupation Living situation: Reports: with Family Occupation: Disabled ED ROS GENERAL - Review of Systems Review Of Systems: ROS reveals no pertinent complaints other than HPI. ED EXAM, GI/ABD - Physical Exam Exam: See Below Exam Limited By: No Limitations General Appearance: Alert, No Apparent Distress, Other (Chronically ill appearing) Eyes: Bilateral: Normal Appearance, EOMI Ears: Normal External Exam, Hearing Grossly Normal Nose: Normal Inspection, Normal Mucosa, No Blood Throat/Mouth: Normal Lips, Normal Oropharynx, Normal Voice, No Airway Compromise , Other (Dry oral membranes) Head: Atraumatic, Normocephalic Neck: Normal Inspection, Supple, Non-Tender, Full Range of Motion Respiratory/Chest: No Respiratory Distress, No Accessory Muscle Use, Chest Non- Tender, Decreased Breath Sounds. No: Crackles, Rales, Rhonchi, Wheezing, Stridor Cardiovascular: Normal Peripheral Pulses, Regular Rate, Rhythm, No Edema, No JVD , Systolic Murmur GI/Abdominal Exam: Soft, Non-Tender (mild discomfort to palpation in general), No Distention. No: Guarding, Rigid, Rebound (Female) Exam: Deferred Rectal (Female) Exam: Deferred Back Exam: Normal Inspection. No: CVA Tenderness (L), CVA Tenderness (R) Extremities: Normal Inspection, Normal Range of Motion, Non-Tender, Normal Capillary Refill, No Pedal Edema Neurological: Alert, Oriented, CN II-XII Intact, Normal Cognition, Normal Gait, No Motor/Sensory Deficits Psychiatric: Normal Mood Skin Exam: Warm, Dry, Intact, Normal Color, No Rash Course - Vital Signs Last Recorded V/S: Last Vital Signs Temp 38.1 C 03/04/19 13:21 Pulse 73 03/04/19 13:21 Resp 20 03/04/19 13:21 BP 92/43 L 03/04/19 13:21 Pulse Ox 99 03/04/19 13:22 - Orders/Labs/Meds Orders: Active Orders 24 hr Category Date Time Status Blood Glucose Check, Bedside [RC] ONETIME Care 03/04/19 11:51 Active Peripheral IV Care [] . DIRECTED Care 03/04/19 11:49 Active CULTURE BLOOD [BC] Stat Lab 03/04/19 11:52 Received CULTURE BLOOD [BC] Stat Lab 03/04/19 12:22 Received Potassium Chloride [KCL 20 MEQ in Water 100 ML] 20 meq Med 03/04/19 12:26 Active Premix Bag 1 bag IV ONETIME Sodium Chloride 0.9% [Saline Flush] Med 03/04/19 11:47 Active 10 ml FLUSH ASDIRECTED PRN Blood Culture x2 Reflex Set [OM.PC] Stat Oth 03/04/19 11:48 Ordered Peripheral IV Insertion Adult [OM.PC] Stat Oth 03/04/19 11:47 Ordered Medication Orders Potassium Chloride 20 meq/ (Premix) 100 mls @ 50 mls/hr IV ONETIME ONE Stop: 03/04/19 14:25 Last Admin: 03/04/19 13:13 Dose: 50 mls/hr Sodium Chloride (Saline Flush) 10 ml FLUSH ASDIRECTED PRN PRN Reason: Keep Vein Open Last Admin: 03/04/19 12:03 Dose: 10 ml Labs: Laboratory Tests 03/04/19 03/04/19 03/04/19 Range/Units 11:52 11:52 11:52 WBC 7.5 (5.0-10.0) 10^3/uL RBC 4.03 L (4.2-5.4) 10^6/uL Hgb 12.3 (12.0-16.0) g/dL Hct 36.8 L (37.0-47.0) % MCV 91.3 (80-100) fL MCH 30.5 (27.0-34.0) pg MCHC 33.4 (33.0-35.0) g/dL Plt Count 154 (150-450) 10^3/uL Neut % (Auto) 81.9 H (42.2-75.2) % Lymph % (Auto) 7.9 L (20.5-50.1) % [place] % (Auto) 7.2 (2-8) % Eos % (Auto) 2.7 (1.0-3.0) % Baso % (Auto) 0.3 (0.0-1.0) % Sodium 136 (135-145) mmol/L Potassium 2.4 L (3.6-5.0) mmol/L Chloride 99 L (101-111) mmol/L Carbon Dioxide 25.0 (21.0-31.0) mmol/L Anion Gap 14.4 BUN 13 (7-18) mg/dL Creatinine 0.7 (0.6-1.3) mg/dL Est Cr Clr Drug Dosing 54.01 mL/min Estimated GFR (MDRD) > 60 BUN/Creatinine Ratio 18.57 Glucose 113 H (74-105) mg/dL POC Glucose (83-110) mg/dl Lactic Acid 1.1 (0.5-2.2) mmol/L Calcium 8.0 L (8.4-10.2) mg/dl Total Bilirubin 1.7 H (0.2-1.0) mg/dL AST 28 (10-42) IU/L ALT 13 (10-60) IU/L Alkaline Phosphatase 51 (42-121) IU/L Total Protein 7.3 (6.7-8.2) g/dl Albumin 3.5 (3.2-5.5) g/dl Globulin 3.8 Albumin/Globulin Ratio 0.92 Amylase 85 (28-100) U/L Lipase 48 (22-51) U/L Urine Color (YELLOW) Urine Appearance (CLEAR) Urine pH (5.0-9.0) Ur Specific [place] (1.005-1.030) Urine Protein (NEGATIVE) Urine Glucose (UA) (NEGATIVE) Urine Ketones (NEGATIVE) Urine Occult Blood (NEGATIVE) Urine Nitrite (NEGATIVE) Urine Bilirubin (NEGATIVE) Urine Urobilinogen (0.2-1.0) mg/dL Ur Leukocyte Esterase (NEGATIVE) Urine RBC /HPF Urine WBC (0-5/HPF) /HPF Ur Epithelial Cells (NOT SEEN) /HPF Amorphous Sediment (NOT SEEN) /HPF Urine Bacteria (0-FEW/HPF) /HPF Urine Mucus (NOT SEEN) /LPF 03/04/19 03/04/19 Range/Units 11:54 12:04 WBC (5.0-10.0) 10^3/uL RBC (4.2-5.4) 10^6/uL Hgb (12.0-16.0) g/dL Hct (37.0-47.0) % MCV (80-100) fL MCH (27.0-34.0) pg MCHC (33.0-35.0) g/dL Plt Count (150-450) 10^3/uL Neut % (Auto) (42.2-75.2) % Lymph % (Auto) (20.5-50.1) % [place] % (Auto) (2-8) % Eos % (Auto) (1.0-3.0) % Baso % (Auto) (0.0-1.0) % Sodium (135-145) mmol/L Potassium (3.6-5.0) mmol/L Chloride (101-111) mmol/L Carbon Dioxide (21.0-31.0) mmol/L Anion Gap BUN (7-18) mg/dL Creatinine (0.6-1.3) mg/dL Est Cr Clr Drug Dosing mL/min Estimated GFR (MDRD) BUN/Creatinine Ratio Glucose (74-105) mg/dL POC Glucose 110 (83-110) mg/dl Lactic Acid (0.5-2.2) mmol/L Calcium (8.4-10.2) mg/dl Total Bilirubin (0.2-1.0) mg/dL AST (10-42) IU/L ALT (10-60) IU/L Alkaline Phosphatase (42-121) IU/L Total Protein (6.7-8.2) g/dl Albumin (3.2-5.5) g/dl Globulin Albumin/Globulin Ratio Amylase (28-100) U/L Lipase (22-51) U/L Urine Color Dark yellow (YELLOW) Urine Appearance Cloudy (CLEAR) Urine pH 7.5 (5.0-9.0) Ur Specific [place] 1.015 (1.005-1.030) Urine Protein 30 H (NEGATIVE) Urine Glucose (UA) Negative (NEGATIVE) Urine Ketones Trace H (NEGATIVE) Urine Occult Blood Trace-intact H (NEGATIVE) Urine Nitrite Negative (NEGATIVE) Urine Bilirubin Negative (NEGATIVE) Urine Urobilinogen 2.0 H (0.2-1.0) mg/dL Ur Leukocyte Esterase Negative (NEGATIVE) Urine RBC 10-20 H /HPF Urine WBC 0-5 (0-5/HPF) /HPF Ur Epithelial Cells Few (NOT SEEN) /HPF Amorphous Sediment Rare (NOT SEEN) /HPF Urine Bacteria Rare (0-FEW/HPF) /HPF Urine Mucus Many H (NOT SEEN) /LPF Meds: Medications Generic Name Dose Route Start Last Admin Trade Name Freq PRN Reason Stop Dose Admin Potassium Chloride 20 meq/ 100 mls @ 50 mls/hr 03/04/19 12:26 03/04/19 13:13 Premix IV 03/04/19 14:25 50 mls/hr ONETIME ONE Administration Sodium Chloride 10 ml 03/04/19 11:47 03/04/19 12:03 Saline Flush FLUSH 10 ml ASDIRECTED PRN Administration Keep Vein Open Discontinued Medications Generic Name Dose Route Start Last Admin Trade Name Freq PRN Reason Stop Dose Admin Dexamethasone 4 mg 03/04/19 11:50 03/04/19 12:00 Dexamethasone IVPUSH 03/04/19 11:51 4 mg ONETIME ONE Administration Sodium Chloride 1,000 mls @ 999 mls/hr 03/04/19 11:49 03/04/19 11:59 Normal Saline IV 03/04/19 12:49 999 mls/hr .BOLUS ONE Administration Iopamidol 75 ml 03/04/19 12:35 03/04/19 12:35 Isovue-300 (61%) IVPUSH 03/04/19 12:36 75 ml ONETIME ONE Administration Lidocaine HCl 1 ml 03/04/19 12:27 03/04/19 13:15 Xylocaine-Mpf 1% .XX 03/04/19 12:28 1 ml ONETIME ONE Administration Ondansetron HCl 4 mg 03/04/19 11:49 03/04/19 12:03 Zofran IV 03/04/19 11:50 4 mg ONETIME ONE Administration - Radiology Interpretation Free Text/Narrative:: [facility] Final Radiology Report Call: [phone] assistance Online chat: [email or web address] Name: SEBASTIÁN FIERRO Age: 73Years F Date: 03/04/2019 SSN: -- : 1945 Study: XR CHEST 1 VIEW FRONTAL Requesting Physician: DIEGO FRIAS Images: 1 Addl Studies: Provided Clinical History: Contrast: Contrast Medium: Contrast Amount: Contrast Method: CONFIDENTIALITY STATEMENT This report is intended only for use by the referring physician, and only in accordance with law. If you received this in error, call [phone]. Page 1 of 1 EXAM: XR Chest, 1 View EXAM DATE/TIME: 03/04/2019 11:58 AM CLINICAL HISTORY: 73 years old, female; Signs and symptoms; Cough and fever and other: Vomiting TECHNIQUE: Imaging protocol: XR of the chest, 1 view. COMPARISON: CR Chest 1V Frontal 11/18/2018 10:26 PM FINDINGS: Lungs: Unremarkable. No consolidation. Pleural space: Unremarkable. No pleural effusion. No pneumothorax. Heart/Mediastinum: Unremarkable. No cardiomegaly. Bones/joints: Midline sternotomy is noted. Old right lower rib fracture again noted IMPRESSION: No acute process Thank you for allowing us to participate in the care of your patient. Dictated and Authenticated by: Gunnar King MD 03/04/2019 12:08 PM Central Time ([place] & [place]) Departure - Departure Time of Disposition: 14:20 (admitted to Dr. Garcia) Disposition: Admitted As Inpatient 66 Condition: Fair Clinical Impression: Hypokalemia, History of Chelan's disease Vomiting Qualifiers: Vomiting type: unspecified Vomiting Intractability: non-intractable Nausea presence: with nausea Qualified Code(s): R11.2 - Nausea with vomiting, unspecified - Discharge Information *PRESCRIPTION DRUG MONITORING PROGRAM REVIEWED*: No *COPY OF PRESCRIPTION DRUG MONITORING REPORT IN PATIENT CHRISTINA: No Forms: ED Department Discharge - My Orders Last 24 Hours: My Active Orders 03/04/19 11:47 Sodium Chloride 0.9% [Saline Flush] 10 ml FLUSH ASDIRECTED PRN Peripheral IV Insertion Adult [OM.PC] Stat 03/04/19 11:48 Blood Culture x2 Reflex Set [OM.PC] Stat 03/04/19 11:49 Peripheral IV Care [RC] . DIRECTED 03/04/19 11:51 Blood Glucose Check, Bedside [RC] ONETIME 03/04/19 11:52 CULTURE BLOOD [BC] Stat 03/04/19 12:22 CULTURE BLOOD [BC] Stat 03/04/19 12:26 Potassium Chloride [KCL 20 MEQ in Water 100 ML] 20 meq Premix Bag 1 bag IV ONETIME - Assessment/Plan Last 24 Hours: My Active Orders 03/04/19 11:47 Sodium Chloride 0.9% [Saline Flush] 10 ml FLUSH ASDIRECTED PRN Peripheral IV Insertion Adult [OM.PC] Stat 03/04/19 11:48 Blood Culture x2 Reflex Set [OM.PC] Stat 03/04/19 11:49 Peripheral IV Care [RC] . DIRECTED 03/04/19 11:51 Blood Glucose Check, Bedside [RC] ONETIME 03/04/19 11:52 CULTURE BLOOD [BC] Stat 03/04/19 12:22 CULTURE BLOOD [BC] Stat 03/04/19 12:26 Potassium Chloride [KCL 20 MEQ in Water 100 ML] 20 meq Premix Bag 1 bag IV ONETIME
[2019-03-04] MEDS ORDERED: Sodium Chloride 0.9% 10 ML Syringe FLUSH PRN (11:47)
[2019-03-04] MEDS ORDERED: Ondansetron 4 MG/2 ML SDV IV ONE (11:49)
[2019-03-04] MEDS ORDERED: Sodium Chloride 0.9% 1,000 ML IV ONE (11:49)
[2019-03-04] MEDS ORDERED: Dexamethasone 4 MG/ML SDV IVPUSH ONE (11:50)
[2019-03-04 12:21] LABS: CHLORIDE,CL 99 mmol/L (101-111); SODIUM,NA 136 mmol/L (135-145)
[2019-03-04 12:25] LABS: ANION GAP 14.4
[2019-03-04] MEDS ORDERED: Potassium Chloride 20 MEQ in Premix Bag 1 BAG IV ONE ×2 (12:26→16:15)
[2019-03-04] MEDS ORDERED: Lidocaine 1% 30 ML SDV ONE (12:27)
[2019-03-04] MEDS ORDERED: Iopamidol 612 MG/ML 75 ML Bottle IVPUSH ONE (12:35)
--- NOTE | 2019-03-04 15:02 | PCM.HP ---
H&P History of Present Illness - General Date of Service: 03/04/19 Admit Problem/Dx: Admitted with: Nausea, Vomiting, weakness and Hypokalemia Source of Information: Patient, Old Records - History of Present Illness Initial Comments - Free Text/Narative: Ms Anitha Black is a 73-year-old female with medical history of coronary artery disease, status post coronary artery bypass grafting, aortic valve stenosis, status post replacement with a bovine valve ( 2009) , hypothyroidism, diabetes mellitus, dyslipidemia, additions' Disease, hypertension, and prior history of esophageal stricture for which she has required multiple dilations. She had recent Coronary angiogram on 12/22/18 showed 60-70% LAD stenosis and also has severe stenosis of the Bovine Valve, Evaluated by CT surgery and not a candidate for Re-do AVR but will be referred to TAVR clinic. Pt presented to ED at [facility] with onset of nausea, vomiting , fever, and mild generalized abdominal discomfort since yesterday, she has vomited multiple times since yesterday and has not eat or drink anything since yesterday. pt had CT abdomen Showed no acute Process, distended distal fluid- filled esophagus. consider reflux vs esophagitis, Obstructive process at the [place]unction not excluded Onset of Symptoms: Reports: Gradual Duration of Symptoms: Reports: Day(s):, Getting Worse Associated Symptoms: Reports: Nausea/Vomiting, Weakness Abdominal Pain Score (Numeric/FACES): 0 - Related Data Allergies/Adverse Reactions: Allergies Allergy/AdvReac Type Severity Reaction Status Date / Time iodine AdvReac Intermediate nausea only Verified 03/04/19 15:46 adhesive AdvReac Mild Rash Verified 03/04/19 15:46 ibuprofen AdvReac Unknown Stomach Verified 03/04/19 15:46 Upset Home Medications: Home Meds Aspirin [Halfprin] 81 mg PO DAILY 11/28/13 [History] Carboxymethylcellulose Sodium [Revive Plus] 1 drop EYEBOTH QID PRN 11/28/13 [ History] Fludrocortisone [Florinef] 0.1 mg PO ACBRK 11/28/13 [History] Hydrocortisone 10 mg PO WITHBREAKFAST 11/28/13 [History] Lisinopril 10 mg PO DAILY 11/28/13 [History] Montelukast Sodium 10 mg PO BEDTIME 11/28/13 [History] Multivitamin [Multivitamins] 1 cap PO DAILY 11/28/13 [History] sitaGLIPtin Phos/Metformin HCl [Janumet 50-1,000 MG] 1 each PO BID 11/28/13 [ History] Acetaminophen 650 mg PO Q6H PRN 01/14/15 [History] Albuterol/Ipratropium [DuoNeb 3.0-0.5 MG/3 ML] 3 ml NEB QID PRN 01/14/15 [ History] Formoterol/Mometasone [Dulera 100 MCG/5 MCG] 2 puff PO BID 01/14/15 [History] Levothyroxine [Synthroid] 100 mcg PO DAILY 01/14/15 [History] Cetirizine [ZyrTEC] 10 mg PO BEDTIME 07/25/17 [History] Dextrose [Glucose] 4 tab PO ASDIRECTED 07/25/17 [History] Levalbuterol Tartrate [Xopenex Hfa] 2 puff IH Q4HR PRN 07/25/17 [History] Potassium Chloride [Klor-Con 10] 20 meq PO BID 07/25/17 [History] Metoprolol Succinate [Toprol XL] 25 mg PO DAILY 08/10/17 [History] Ca Carbonate/Vitamin D3/Vit K [Calcium + D Soft Chewable Tab] 1 tab PO DAILY 01/19 [History] Mometasone/Formoterol [Dulera 200 Mcg/5 Mcg Inhaler] 2 puff INH BID 12/04/18 [ History] Nystatin [Mycostatin] 1 squirt PO ASDIRECTED 12/04/18 [History] Pantoprazole Sodium [Protonix] 40 mg PO DAILY 12/04/18 [History] Hydrocortisone 5 mg PO BEDTIME 03/04/19 [History] Hydrocortisone 5 mg PO DAILY@1600 03/04/19 [History] Magnesium Chloride 70 mg PO DAILY 03/04/19 [History] Past Medical History HEENT History: Reports: Other (See Below) Other HEENT History: dry eyes Cardiovascular History: Reports: Bypass, Heart Murmur, Heart Valve Replacement, Hypertension Respiratory History: Reports: Asthma, COPD Gastrointestinal History: Reports: GERD Genitourinary History: Reports: None [employer] History: Reports: None Musculoskeletal History: Reports: None Neurological History: Reports: None Psychiatric History: Reports: Anxiety 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, Diabetes, Type II, Hypothyroidism Hematologic History: Reports: None Immunologic History: Reports: Other (See Below) Other Immunologic History: Addisons disease Oncologic (Cancer) History: Reports: None Dermatologic History: Reports: None, Scleroderma, Other (See Below) Other Dermatologic History: CREST syndrome - Infectious Disease History Infectious Disease History: Reports: Measles - Past Surgical History HEENT Surgical History: Reports: Adenoidectomy, Tonsillectomy Cardiovascular Surgical History: Reports: Coronary Artery Bypass, Valve Replacement, Other (See Below) Other Cardiovascular Surgeries/Procedures: Septal defect repair GI Surgical History: Reports: Appendectomy, Cholecystectomy, Colonoscopy, EGD, Esophageal Dilatation Female Surgical History: Reports: None Social & Family History - Family History Family Medical History: Noncontributory - Tobacco Use Smoking Status *Q: Never Smoker - Caffeine Use Caffeine Use: Reports: Coffee Caffeine Use Comment: 16. oz daily - Recreational Drug Use Recreational Drug Use: No - Living Situation & Occupation Living situation: Reports: with Family Occupation: Disabled H&P Review of Systems - Review of Systems: Review Of Systems: See Below General: Reports: Weakness, Other (nausea and Vomiting). Denies: Fever, Chills HEENT: Denies: Headaches, Sinus Congestion, Sore Throat, Visual Changes Pulmonary: Denies: Shortness of Breath, Wheezing, Pleuritic Chest Pain, Cough, Sputum Cardiovascular: Denies: Chest Pain, Dyspnea on Exertion, Edema Gastrointestinal: Reports: Nausea, Vomiting. Denies: Abdominal Pain, Diarrhea Genitourinary: Denies: Dysuria, Frequency, Burning, Urgency Musculoskeletal: Denies: Neck Pain, Shoulder Pain, Foot Pain, Muscle Pain Skin: Denies: Cyanosis, Jaundice, Bruising, Pruritis, Rash Psychiatric: Denies: Confusion, Anxiety, Hallucinations Neurological: Denies: Confusion, Tingling, Tremors Hematologic/Lymphatic: Reports: No Symptoms Exam - Exam Exam: See Below - Vital Signs Vital Signs: Last Vital Signs Temp 37.8 C 03/04/19 14:20 Pulse 73 03/04/19 14:20 Resp 21 H 03/04/19 14:20 BP 98/47 L 03/04/19 14:20 Pulse Ox 95 03/04/19 14:20 Weight: 56.245 kg - Exam Quality Assessment: DVT Prophylaxis. No: Supplemental Oxygen, Urinary Catheter General: Alert, Oriented, Cooperative HEENT: Conjunctiva Clear, EOMI, Mucosa Moist & [place], Pupils Reactive Neck: Supple. No: JVD, Thyromegaly Lungs: Clear to Auscultation, Normal Respiratory Effort. No: Wheezing Cardiovascular: Regular Rate, Regular Rhythm, Systolic Murmur GI/Abdominal Exam: Normal Bowel Sounds, Non-Tender, No Organomegaly, No Distention. No: Rebound (Female) Exam: Deferred Rectal (Female) Exam: Deferred Back Exam: Normal Inspection Extremities: Normal Inspection, No Pedal Edema Skin: Warm, Dry, Intact Neurological: Cranial Nerves Intact, Reflexes Equal Bilateral Neuro Extensive - Mental Status: Alert, Oriented x3, Normal Mood/Affect, Normal Cognition, Memory Intact Neuro Extensive - Motor, Sensory, Reflexes: CN II-XII Intact, Normal Gait, Normal Reflexes Psychiatric: Alert, Normal Affect, Normal Mood - Patient Data Lab Results Last 24 hrs: Laboratory Results - last 24 hr 03/04/19 03/04/19 03/04/19 Range/Units 11:52 11:52 11:52 WBC 7.5 (5.0-10.0) 10^3/uL RBC 4.03 L (4.2-5.4) 10^6/uL Hgb 12.3 (12.0-16.0) g/dL Hct 36.8 L (37.0-47.0) % MCV 91.3 (80-100) fL MCH 30.5 (27.0-34.0) pg MCHC 33.4 (33.0-35.0) g/dL Plt Count 154 (150-450) 10^3/uL Neut % (Auto) 81.9 H (42.2-75.2) % Lymph % (Auto) 7.9 L (20.5-50.1) % [place] % (Auto) 7.2 (2-8) % Eos % (Auto) 2.7 (1.0-3.0) % Baso % (Auto) 0.3 (0.0-1.0) % Sodium 136 (135-145) mmol/L Potassium 2.4 L (3.6-5.0) mmol/L Chloride 99 L (101-111) mmol/L Carbon Dioxide 25.0 (21.0-31.0) mmol/L Anion Gap 14.4 BUN 13 (7-18) mg/dL Creatinine 0.7 (0.6-1.3) mg/dL Est Cr Clr Drug Dosing 54.01 mL/min Estimated GFR (MDRD) > 60 BUN/Creatinine Ratio 18.57 Glucose 113 H (74-105) mg/dL POC Glucose (83-110) mg/dl Lactic Acid 1.1 (0.5-2.2) mmol/L Calcium 8.0 L (8.4-10.2) mg/dl Total Bilirubin 1.7 H (0.2-1.0) mg/dL AST 28 (10-42) IU/L ALT 13 (10-60) IU/L Alkaline Phosphatase 51 (42-121) IU/L Total Protein 7.3 (6.7-8.2) g/dl Albumin 3.5 (3.2-5.5) g/dl Globulin 3.8 Albumin/Globulin Ratio 0.92 Amylase 85 (28-100) U/L Lipase 48 (22-51) U/L Urine Color (YELLOW) Urine Appearance (CLEAR) Urine pH (5.0-9.0) Ur Specific [place] (1.005-1.030) Urine Protein (NEGATIVE) Urine Glucose (UA) (NEGATIVE) Urine Ketones (NEGATIVE) Urine Occult Blood (NEGATIVE) Urine Nitrite (NEGATIVE) Urine Bilirubin (NEGATIVE) Urine Urobilinogen (0.2-1.0) mg/dL Ur Leukocyte Esterase (NEGATIVE) Urine RBC /HPF Urine WBC (0-5/HPF) /HPF Ur Epithelial Cells (NOT SEEN) /HPF Amorphous Sediment (NOT SEEN) /HPF Urine Bacteria (0-FEW/HPF) /HPF Urine Mucus (NOT SEEN) /LPF 03/04/19 03/04/19 Range/Units 11:54 12:04 WBC (5.0-10.0) 10^3/uL RBC (4.2-5.4) 10^6/uL Hgb (12.0-16.0) g/dL Hct (37.0-47.0) % MCV (80-100) fL MCH (27.0-34.0) pg MCHC (33.0-35.0) g/dL Plt Count (150-450) 10^3/uL Neut % (Auto) (42.2-75.2) % Lymph % (Auto) (20.5-50.1) % [place] % (Auto) (2-8) % Eos % (Auto) (1.0-3.0) % Baso % (Auto) (0.0-1.0) % Sodium (135-145) mmol/L Potassium (3.6-5.0) mmol/L Chloride (101-111) mmol/L Carbon Dioxide (21.0-31.0) mmol/L Anion Gap BUN (7-18) mg/dL Creatinine (0.6-1.3) mg/dL Est Cr Clr Drug Dosing mL/min Estimated GFR (MDRD) BUN/Creatinine Ratio Glucose (74-105) mg/dL POC Glucose 110 (83-110) mg/dl Lactic Acid (0.5-2.2) mmol/L Calcium (8.4-10.2) mg/dl Total Bilirubin (0.2-1.0) mg/dL AST (10-42) IU/L ALT (10-60) IU/L Alkaline Phosphatase (42-121) IU/L Total Protein (6.7-8.2) g/dl Albumin (3.2-5.5) g/dl Globulin Albumin/Globulin Ratio Amylase (28-100) U/L Lipase (22-51) U/L Urine Color Dark yellow (YELLOW) Urine Appearance Cloudy (CLEAR) Urine pH 7.5 (5.0-9.0) Ur Specific [place] 1.015 (1.005-1.030) Urine Protein 30 H (NEGATIVE) Urine Glucose (UA) Negative (NEGATIVE) Urine Ketones Trace H (NEGATIVE) Urine Occult Blood Trace-intact H (NEGATIVE) Urine Nitrite Negative (NEGATIVE) Urine Bilirubin Negative (NEGATIVE) Urine Urobilinogen 2.0 H (0.2-1.0) mg/dL Ur Leukocyte Esterase Negative (NEGATIVE) Urine RBC 10-20 H /HPF Urine WBC 0-5 (0-5/HPF) /HPF Ur Epithelial Cells Few (NOT SEEN) /HPF Amorphous Sediment Rare (NOT SEEN) /HPF Urine Bacteria Rare (0-FEW/HPF) /HPF Urine Mucus Many H (NOT SEEN) /LPF Result Diagrams: 03/04/19 11:52 03/04/19 11:52 Venkat Results Last 24 hrs: Microbiology 03/04/19 12:06 Influenza Type A Antigen Screen - Final Nasal, Unspecified NEGATIVE INFLUENZA A VIRUS AG REFERENCE RANGE: NEGATIVE Influenza Type B Antigen Screen - Final NEGATIVE INFLUENZA B VIRUS AG REFERENCE RANGE: NEGATIVE - Problem List (1) Nausea & vomiting SNOMED Code(s): 60594964 ICD Code: R11.2 - NAUSEA WITH VOMITING, UNSPECIFIED Status: Acute Current Visit: Yes (2) Hypokalemia SNOMED Code(s): 58065849 ICD Code: E87.6 - HYPOKALEMIA Status: Acute Current Visit: No Problem List Initiated/Reviewed/Updated: Yes Orders Last 24hrs: Active Orders 24 hr Category Date Time Status Blood Glucose Check, Bedside [RC] ONETIME Care 03/04/19 11:51 Active Peripheral IV Care [] . DIRECTED Care 03/04/19 11:49 Active CULTURE BLOOD [BC] Stat Lab 03/04/19 11:52 Received CULTURE BLOOD [] Stat Lab 03/04/19 12:22 Received Sodium Chloride 0.9% [Saline Flush] Med 03/04/19 11:47 Active 10 ml FLUSH ASDIRECTED PRN Blood Culture x2 Reflex Set [OM.PC] Stat Oth 03/04/19 11:48 Ordered Peripheral IV Insertion Adult [OM.PC] Stat Oth 03/04/19 11:47 Ordered Medication Orders Sodium Chloride (Saline Flush) 10 ml FLUSH ASDIRECTED PRN PRN Reason: Keep Vein Open Last Admin: 03/04/19 12:03 Dose: 10 ml Assessment/Plan Comment:: This is a 73 y/O F with Multiple complex medical problem admitted with Nausea/ Vomiting and Hypokalemia Impression and Plan: 1. Nausea/Vomiting: This is likely viral Gastroenteritis -Will continue very gentle hydration ( Severe aortic stenosis) -Will start with clear diet and advance as tolerated -Will continue zofram 4 mg IV 1q6 hrs PRN for nausea 2. Hypokalemia: This is likely from poor appetite, jimi's Disease and she is home on potassium supplement, could not take medication because of Vomiting , will replace with potassium chloride 40 meq IV X 1 dose -Recheck 1 hr after the infusion 3. Ingham's Disease: Pt is on Hydrocortisone and florinef will continue has received dexamethasone in ED 4. Hypertension: BP acceptable and will continue lisinopril 40 mg daily and Losartan at 100 mg daily and Amlodipine at 2.5 mg daily ( she is hypotensive and will not start any medication moreover she does not know what is she taking , for [facility] ( [facility]) followed by Dr. Martinez and the med list is not reliable , need to call pharmacy in AM to get the exact list of medication the pt is taking) 5. Diabetes II: on Actos 15 mg and Metformin 500 mg 2 times a day 6. GI prophylaxis: Start Omeprazole at 20 mg BID 7. DVT prophylaxis: Heparin 5000 Units TID 8. Weakness: Will place PT/OT consult for tomorrow Code status: Code status discussed with pt and she is FULL CODE
[2019-03-04] MEDS ORDERED: Heparin Sodium 5,000 Units/ML Vial SUBCUT SCH (16:00)
[2019-03-04] MEDS ORDERED: Docusate Sodium 100 MG Cap PO PRN (16:11)
[2019-03-04] MEDS ORDERED: Acetaminophen 325 MG Tab PO PRN (16:11)
[2019-03-04] MEDS ORDERED: Ondansetron 4 MG/2 ML SDV IV PRN (16:15)
[2019-03-04] MEDS: Insulin Lispro 100 Units/ML 3 ML Vial SUBCUT SCH ×2 (17:00→20:58)
[2019-03-04] MEDS ORDERED: Sodium Chloride 0.9% 1,000 ML IV SCH (17:00)
[2019-03-04] MEDS: Omeprazole 20 MG Cap.CR PO SCH (17:05)
[2019-03-04] MEDS ORDERED: Hydrocortisone 20 MG Tab PO SCH ×2 (17:13→21:00)
[2019-03-04] MEDS: Fludrocortisone 0.1 MG Tab PO SCH (18:40)
[2019-03-04] MEDS: Heparin Sodium 5,000 Units/ML Vial SUBCUT SCH (21:00)
[2019-03-04] MEDS ORDERED: Potassium Chloride 20 MEQ in Premix Bag 2 BAG IV ONE (23:17)
[2019-03-04] MEDS ORDERED: Potassium Chloride 10 MEQ in Premix Bag 1 BAG IV ONE (23:17)
[2019-03-05] MEDS: Potassium Chloride 20 MEQ in Premix Bag 1 BAG IV SCH ×3 (02:16)
[2019-03-05] MEDS: Heparin Sodium 5,000 Units/ML Vial SUBCUT SCH (05:42)
[2019-03-05] MEDS: Omeprazole 20 MG Cap.CR PO SCH (05:43)
[2019-03-05 06:34] LABS: ANION GAP 12.6; CHLORIDE,CL 105 mmol/L (101-111); SODIUM,NA 136 mmol/L (135-145)
[2019-03-05] MEDS: Insulin Lispro 100 Units/ML 3 ML Vial SUBCUT SCH ×2 (07:45→11:46)
[2019-03-05] MEDS ORDERED: Hydrocortisone 20 MG Tab PO SCH ×3 (08:00→16:00)
[2019-03-05] MEDS ORDERED: Fludrocortisone 0.1 MG Tab PO SCH (08:00)
[2019-03-05] MEDS: Fludrocortisone 0.1 MG Tab PO SCH (08:16)
--- NOTE | 2019-03-05 09:48 | PCM.DCSUM1 ---
Discharge Summary - Hospital Course Free Text/Narrative:: Ms Anitha Black is a 73-year-old female with medical history of coronary artery disease, status post coronary artery bypass grafting, aortic valve stenosis, status post replacement with a bovine valve ( 2009) , hypothyroidism, diabetes mellitus, dyslipidemia, additions' Disease, hypertension, and prior history of esophageal stricture for which she has required multiple dilations. She had recent Coronary angiogram on 12/22/18 showed 60-70% LAD stenosis and also has severe stenosis of the Bovine Valve, Evaluated by CT surgery and not a candidate for Re-do AVR but will be referred to TAVR clinic. Pt presented to ED at [facility] with onset of nausea, vomiting , fever, and mild generalized abdominal discomfort since yesterday, she has vomited multiple times since yesterday and has not eat or drink anything since yesterday. pt had CT abdomen Showed no acute Process, distended distal fluid- filled esophagus. consider reflux vs esophagitis, Obstructive process at the [place] not excluded She was noted to have hypokalemia that was replaced. Her nausea/vomiting was treated symptomatically. By next morning she was able to advance her diet and felt well. for [place]'s Disease, hypertension and diabetes she will resume prior to admission medications. Diagnosis: Stroke: No - Discharge Data Discharge Date: 03/05/19 Discharge Disposition: Home, Self-Care 01 Condition: Good - Discharge Diagnosis/Problem(s) (1) Nausea & vomiting SNOMED Code(s): 11514318 ICD Code: R11.2 - NAUSEA WITH VOMITING, UNSPECIFIED Status: Acute Current Visit: Yes - Patient Summary/Data Consults: Consultations 03/04/19 17:25 OT Evaluation and Treatment [CONS] Routine PT Evaluation and Treatment [CONS] Routine - Patient Instructions Diet: Usual Diet as Tolerated Activity: As Tolerated - Discharge Plan *PRESCRIPTION DRUG MONITORING PROGRAM REVIEWED*: Not Applicable *COPY OF PRESCRIPTION DRUG MONITORING REPORT IN PATIENT CHRISTINA: Not Applicable Home Medications: Home Meds Aspirin [Halfprin] 81 mg PO DAILY 11/28/13 [History] Carboxymethylcellulose Sodium [Revive Plus] 1 drop EYEBOTH QID PRN 11/28/13 [ History] Fludrocortisone [Florinef] 0.1 mg PO ACBRK 11/28/13 [History] Hydrocortisone 10 mg PO WITHBREAKFAST 11/28/13 [History] Lisinopril 10 mg PO DAILY 11/28/13 [History] Montelukast Sodium 10 mg PO BEDTIME 11/28/13 [History] Multivitamin [Multivitamins] 1 cap PO DAILY 11/28/13 [History] sitaGLIPtin Phos/Metformin HCl [Janumet 50-1,000 MG] 1 each PO BID 11/28/13 [ History] Acetaminophen 650 mg PO Q6H PRN 01/14/15 [History] Albuterol/Ipratropium [DuoNeb 3.0-0.5 MG/3 ML] 3 ml NEB QID PRN 01/14/15 [ History] Formoterol/Mometasone [Dulera 100 MCG/5 MCG] 2 puff PO BID 01/14/15 [History] Levothyroxine [Synthroid] 100 mcg PO DAILY 01/14/15 [History] Cetirizine [ZyrTEC] 10 mg PO BEDTIME 07/25/17 [History] Dextrose [Glucose] 4 tab PO ASDIRECTED 07/25/17 [History] Levalbuterol Tartrate [Xopenex Hfa] 2 puff IH Q4HR PRN 07/25/17 [History] Potassium Chloride [Klor-Con 10] 20 meq PO BID 07/25/17 [History] Metoprolol Succinate [Toprol XL] 25 mg PO DAILY 08/10/17 [History] Ca Carbonate/Vitamin D3/Vit K [Calcium + D Soft Chewable Tab] 1 tab PO DAILY 01/19 [History] Mometasone/Formoterol [Dulera 200 Mcg/5 Mcg Inhaler] 2 puff INH BID 12/04/18 [ History] Nystatin [Mycostatin] 1 squirt PO ASDIRECTED 12/04/18 [History] Pantoprazole Sodium [Protonix] 40 mg PO DAILY 12/04/18 [History] Hydrocortisone 5 mg PO BEDTIME 03/04/19 [History] Hydrocortisone 5 mg PO DAILY@1600 03/04/19 [History] Magnesium Chloride 70 mg PO DAILY 03/04/19 [History] Patient Handouts: Nausea and Vomiting, Adult, [id number] Referrals: PCP,None [Primary Care Provider] - (dr. Castillo in 3-4 days) - Discharge Summary/Plan Comment DC Time >30 min.: No - General Info Date of Service: 03/05/19 - Review of Systems General: Denies: Fever, Weakness Pulmonary: Denies: Shortness of Breath Cardiovascular: Denies: Chest Pain Gastrointestinal: Denies: Abdominal Pain, Nausea, Vomiting Neurological: Denies: Confusion - Patient Data Vitals - Most Recent: Last Vital Signs Temp 36.7 C 03/05/19 08:00 Pulse 58 L 03/05/19 08:00 Resp 21 H 03/05/19 08:00 BP 116/48 L 03/05/19 08:00 Pulse Ox 97 03/05/19 08:00 Weight - Most Recent: 56.245 kg I&O - Last 24 hours: Intake & Output 03/04/19 03/05/19 03/05/19 22:59 06:59 14:59 Intake Total 381 752 400 Output Total 500 Balance 381 252 400 Lab Results - Last 24 hrs: Laboratory Results - last 24 hr 03/04/19 03/04/19 03/04/19 Range/Units 11:52 11:52 11:52 WBC 7.5 (5.0-10.0) 10^3/uL RBC 4.03 L (4.2-5.4) 10^6/uL Hgb 12.3 (12.0-16.0) g/dL Hct 36.8 L (37.0-47.0) % MCV 91.3 (80-100) fL MCH 30.5 (27.0-34.0) pg MCHC 33.4 (33.0-35.0) g/dL Plt Count 154 (150-450) 10^3/uL Neut % (Auto) 81.9 H (42.2-75.2) % Lymph % (Auto) 7.9 L (20.5-50.1) % [place] % (Auto) 7.2 (2-8) % Eos % (Auto) 2.7 (1.0-3.0) % Baso % (Auto) 0.3 (0.0-1.0) % Sodium 136 (135-145) mmol/L Potassium 2.4 L (3.6-5.0) mmol/L Chloride 99 L (101-111) mmol/L Carbon Dioxide 25.0 (21.0-31.0) mmol/L Anion Gap 14.4 BUN 13 (7-18) mg/dL Creatinine 0.7 (0.6-1.3) mg/dL Est Cr Clr Drug Dosing 54.01 mL/min Estimated GFR (MDRD) > 60 BUN/Creatinine Ratio 18.57 Glucose 113 H (74-105) mg/dL POC Glucose (83-110) mg/dl Lactic Acid 1.1 (0.5-2.2) mmol/L Calcium 8.0 L (8.4-10.2) mg/dl Total Bilirubin 1.7 H (0.2-1.0) mg/dL AST 28 (10-42) IU/L ALT 13 (10-60) IU/L Alkaline Phosphatase 51 (42-121) IU/L Total Protein 7.3 (6.7-8.2) g/dl Albumin 3.5 (3.2-5.5) g/dl Globulin 3.8 Albumin/Globulin Ratio 0.92 Amylase 85 (28-100) U/L Lipase 48 (22-51) U/L Urine Color (YELLOW) Urine Appearance (CLEAR) Urine pH (5.0-9.0) Ur Specific [place] (1.005-1.030) Urine Protein (NEGATIVE) Urine Glucose (UA) (NEGATIVE) Urine Ketones (NEGATIVE) Urine Occult Blood (NEGATIVE) Urine Nitrite (NEGATIVE) Urine Bilirubin (NEGATIVE) Urine Urobilinogen (0.2-1.0) mg/dL Ur Leukocyte Esterase (NEGATIVE) Urine RBC /HPF Urine WBC (0-5/HPF) /HPF Ur Epithelial Cells (NOT SEEN) /HPF Amorphous Sediment (NOT SEEN) /HPF Urine Bacteria (0-FEW/HPF) /HPF Urine Mucus (NOT SEEN) /LPF 03/04/19 03/04/19 03/04/19 Range/Units 11:54 12:04 16:57 WBC (5.0-10.0) 10^3/uL RBC (4.2-5.4) 10^6/uL Hgb (12.0-16.0) g/dL Hct (37.0-47.0) % MCV (80-100) fL MCH (27.0-34.0) pg MCHC (33.0-35.0) g/dL Plt Count (150-450) 10^3/uL Neut % (Auto) (42.2-75.2) % Lymph % (Auto) (20.5-50.1) % [place] % (Auto) (2-8) % Eos % (Auto) (1.0-3.0) % Baso % (Auto) (0.0-1.0) % Sodium (135-145) mmol/L Potassium (3.6-5.0) mmol/L Chloride (101-111) mmol/L Carbon Dioxide (21.0-31.0) mmol/L Anion Gap BUN (7-18) mg/dL Creatinine (0.6-1.3) mg/dL Est Cr Clr Drug Dosing mL/min Estimated GFR (MDRD) BUN/Creatinine Ratio Glucose (74-105) mg/dL POC Glucose 110 126 H (83-110) mg/dl Lactic Acid (0.5-2.2) mmol/L Calcium (8.4-10.2) mg/dl Total Bilirubin (0.2-1.0) mg/dL AST (10-42) IU/L ALT (10-60) IU/L Alkaline Phosphatase (42-121) IU/L Total Protein (6.7-8.2) g/dl Albumin (3.2-5.5) g/dl Globulin Albumin/Globulin Ratio Amylase (28-100) U/L Lipase (22-51) U/L Urine Color Dark yellow (YELLOW) Urine Appearance Cloudy (CLEAR) Urine pH 7.5 (5.0-9.0) Ur Specific [place] 1.015 (1.005-1.030) Urine Protein 30 H (NEGATIVE) Urine Glucose (UA) Negative (NEGATIVE) Urine Ketones Trace H (NEGATIVE) Urine Occult Blood Trace-intact H (NEGATIVE) Urine Nitrite Negative (NEGATIVE) Urine Bilirubin Negative (NEGATIVE) Urine Urobilinogen 2.0 H (0.2-1.0) mg/dL Ur Leukocyte Esterase Negative (NEGATIVE) Urine RBC 10-20 H /HPF Urine WBC 0-5 (0-5/HPF) /HPF Ur Epithelial Cells Few (NOT SEEN) /HPF Amorphous Sediment Rare (NOT SEEN) /HPF Urine Bacteria Rare (0-FEW/HPF) /HPF Urine Mucus Many H (NOT SEEN) /LPF 03/04/19 03/04/19 03/05/19 Range/Units 20:51 22:45 05:55 WBC 6.4 (5.0-10.0) 10^3/uL RBC 4.04 L (4.2-5.4) 10^6/uL Hgb 12.3 (12.0-16.0) g/dL Hct 37.8 (37.0-47.0) % MCV 93.6 (80-100) fL MCH 30.4 (27.0-34.0) pg MCHC 32.5 L (33.0-35.0) g/dL Plt Count 157 (150-450) 10^3/uL Neut % (Auto) 81.4 H (42.2-75.2) % Lymph % (Auto) 8.9 L (20.5-50.1) % [place] % (Auto) 8.4 H (2-8) % Eos % (Auto) 1.1 (1.0-3.0) % Baso % (Auto) 0.2 (0.0-1.0) % Sodium (135-145) mmol/L Potassium 2.9 L (3.6-5.0) mmol/L Chloride (101-111) mmol/L Carbon Dioxide (21.0-31.0) mmol/L Anion Gap BUN (7-18) mg/dL Creatinine (0.6-1.3) mg/dL Est Cr Clr Drug Dosing mL/min Estimated GFR (MDRD) BUN/Creatinine Ratio Glucose (74-105) mg/dL POC Glucose 157 H (83-110) mg/dl Lactic Acid (0.5-2.2) mmol/L Calcium (8.4-10.2) mg/dl Total Bilirubin (0.2-1.0) mg/dL AST (10-42) IU/L ALT (10-60) IU/L Alkaline Phosphatase (42-121) IU/L Total Protein (6.7-8.2) g/dl Albumin (3.2-5.5) g/dl Globulin Albumin/Globulin Ratio Amylase (28-100) U/L Lipase (22-51) U/L Urine Color (YELLOW) Urine Appearance (CLEAR) Urine pH (5.0-9.0) Ur Specific [place] (1.005-1.030) Urine Protein (NEGATIVE) Urine Glucose (UA) (NEGATIVE) Urine Ketones (NEGATIVE) Urine Occult Blood (NEGATIVE) Urine Nitrite (NEGATIVE) Urine Bilirubin (NEGATIVE) Urine Urobilinogen (0.2-1.0) mg/dL Ur Leukocyte Esterase (NEGATIVE) Urine RBC /HPF Urine WBC (0-5/HPF) /HPF Ur Epithelial Cells (NOT SEEN) /HPF Amorphous Sediment (NOT SEEN) /HPF Urine Bacteria (0-FEW/HPF) /HPF Urine Mucus (NOT SEEN) /LPF 03/05/19 03/05/19 Range/Units 05:55 07:40 WBC (5.0-10.0) 10^3/uL RBC (4.2-5.4) 10^6/uL Hgb (12.0-16.0) g/dL Hct (37.0-47.0) % MCV (80-100) fL MCH (27.0-34.0) pg MCHC (33.0-35.0) g/dL Plt Count (150-450) 10^3/uL Neut % (Auto) (42.2-75.2) % Lymph % (Auto) (20.5-50.1) % [place] % (Auto) (2-8) % Eos % (Auto) (1.0-3.0) % Baso % (Auto) (0.0-1.0) % Sodium 136 (135-145) mmol/L Potassium 3.6 (3.6-5.0) mmol/L Chloride 105 (101-111) mmol/L Carbon Dioxide 22.0 (21.0-31.0) mmol/L Anion Gap 12.6 BUN 14 (7-18) mg/dL Creatinine 0.8 (0.6-1.3) mg/dL Est Cr Clr Drug Dosing 47.26 mL/min Estimated GFR (MDRD) > 60 BUN/Creatinine Ratio Glucose 90 (74-105) mg/dL POC Glucose 84 (83-110) mg/dl Lactic Acid (0.5-2.2) mmol/L Calcium 7.4 L (8.4-10.2) mg/dl Total Bilirubin (0.2-1.0) mg/dL AST (10-42) IU/L ALT (10-60) IU/L Alkaline Phosphatase (42-121) IU/L Total Protein (6.7-8.2) g/dl Albumin (3.2-5.5) g/dl Globulin Albumin/Globulin Ratio Amylase (28-100) U/L Lipase (22-51) U/L Urine Color (YELLOW) Urine Appearance (CLEAR) Urine pH (5.0-9.0) Ur Specific [place] (1.005-1.030) Urine Protein (NEGATIVE) Urine Glucose (UA) (NEGATIVE) Urine Ketones (NEGATIVE) Urine Occult Blood (NEGATIVE) Urine Nitrite (NEGATIVE) Urine Bilirubin (NEGATIVE) Urine Urobilinogen (0.2-1.0) mg/dL Ur Leukocyte Esterase (NEGATIVE) Urine RBC /HPF Urine WBC (0-5/HPF) /HPF Ur Epithelial Cells (NOT SEEN) /HPF Amorphous Sediment (NOT SEEN) /HPF Urine Bacteria (0-FEW/HPF) /HPF Urine Mucus (NOT SEEN) /LPF TIANNA Results - Last 24 hrs: Microbiology 03/04/19 12:06 Influenza Type A Antigen Screen - Final Nasal, Unspecified NEGATIVE INFLUENZA A VIRUS AG REFERENCE RANGE: NEGATIVE Influenza Type B Antigen Screen - Final NEGATIVE INFLUENZA B VIRUS AG REFERENCE RANGE: NEGATIVE Med Orders - Current: Current Medications Acetaminophen (Tylenol) 650 mg PO Q4H PRN PRN Reason: Pain (mild 1-3 )/fever Docusate Sodium (Colace) 100 mg PO DAILY PRN PRN Reason: Constipation Fludrocortisone Acetate (Florinef) 0.1 mg PO WITHBREAKFAST [facility] Last Admin: 03/05/19 08:16 Dose: 0.1 mg Heparin Sodium (Porcine) (Heparin Sodium) 5,000 units SUBCUT Q8H [facility] Last Admin: 03/05/19 05:42 Dose: 5,000 units Hydrocortisone (Cortef) 10 mg PO WITHBREAKFAST [facility] Last Admin: 03/05/19 08:17 Dose: 10 mg Hydrocortisone (Cortef) 5 mg PO BEDTIME [facility] Last Admin: 03/04/19 20:53 Dose: 5 mg Hydrocortisone (Cortef) 5 mg PO DAILY@1600 LO Sodium Chloride (Normal Saline) 1,000 mls @ 50 mls/hr IV ASDIRECTED [facility] Last Admin: 03/04/19 16:59 Dose: 50 mls/hr Insulin Human Lispro (Humalog) 0 unit SUBCUT ACBED LO; Protocol Last Admin: 03/05/19 07:45 Dose: Not Given Omeprazole (Omeprazole) 20 mg PO BIDAC [facility] Last Admin: 03/05/19 05:43 Dose: 20 mg Ondansetron HCl (Zofran) 4 mg IV Q6H PRN PRN Reason: Nausea/Vomiting Sodium Chloride (Saline Flush) 10 ml FLUSH ASDIRECTED PRN PRN Reason: Keep Vein Open Last Admin: 03/04/19 12:03 Dose: 10 ml Discontinued Medications Dexamethasone (Dexamethasone) 4 mg IVPUSH ONETIME ONE Stop: 03/04/19 11:51 Last Admin: 03/04/19 12:00 Dose: 4 mg Fludrocortisone Acetate (Florinef) 0.1 mg PO WITHBREAKFAST LO Heparin Sodium (Porcine) (Heparin Sodium) 5,000 units SUBCUT Q8H LO Last Admin: 03/04/19 16:53 Dose: Not Given Hydrocortisone (Cortef) 10 mg PO WITHBREAKFAST LO Hydrocortisone (Cortef) 10 mg PO WITHBREAKFAST LO Last Admin: 03/04/19 18:15 Dose: Not Given Sodium Chloride (Normal Saline) 1,000 mls @ 999 mls/hr IV .BOLUS ONE Stop: 03/04/19 12:49 Last Admin: 03/04/19 11:59 Dose: 999 mls/hr Potassium Chloride 20 meq/ (Premix) 100 mls @ 50 mls/hr IV ONETIME ONE Stop: 03/04/19 14:25 Last Admin: 03/04/19 13:13 Dose: 50 mls/hr Potassium Chloride 20 meq/ (Premix) 100 mls @ 50 mls/hr IV ONETIME ONE Stop: 03/04/19 18:14 Last Admin: 03/04/19 17:00 Dose: 50 mls/hr Potassium Chloride 10 meq/ (Premix) 100 mls @ 100 mls/hr IV ONETIME ONE Stop: 03/05/19 00:16 Last Infusion: 03/04/19 23:40 Dose: 50 mls/hr Potassium Chloride 20 meq/ (Premix) 0 mls @ 50 mls/hr IV ONETIME ONE Stop: 03/04/19 23:18 Last Admin: 03/04/19 23:49 Dose: Not Given Potassium Chloride 20 meq/ (Premix) 100 mls @ 50 mls/hr IV Q2H LO Stop: 03/05/19 03:44 Last Admin: 03/05/19 02:16 Dose: 50 mls/hr Iopamidol (Isovue-300 (61%)) 75 ml IVPUSH ONETIME ONE Stop: 03/04/19 12:36 Last Admin: 03/04/19 12:35 Dose: 75 ml Lidocaine HCl (Xylocaine-Mpf 1%) 1 ml .XX ONETIME ONE Stop: 03/04/19 12:28 Last Admin: 03/04/19 13:15 Dose: 1 ml Ondansetron HCl (Zofran) 4 mg IV ONETIME ONE Stop: 03/04/19 11:50 Last Admin: 03/04/19 12:03 Dose: 4 mg - Exam General: Reports: Alert, Oriented Neck: Reports: Supple Lungs: Reports: Clear to Auscultation, Normal Respiratory Effort Cardiovascular: Reports: Regular Rate, Regular Rhythm, Murmurs (syst) GI/Abdominal Exam: Normal Bowel Sounds, Soft, Non-Tender Extremities: No Pedal Edema
[2019-03-05 11:56] VITALS: BP 139/65
== END 2019-03-05 13:05 | disposition home or self-care (01) ==
LOC: DL.ED 11:30 → UNDOADMOB 14:48 → DL.MS 14:48
PROVIDERS: ADMIT Internal Medicine Nephrology; ATTEND Internal Medicine
DX: R11.2 Nausea with vomiting, unspecified (principal); E87.6 Hypokalemia; E27.1 Primary adrenocortical insufficiency; I25.10 Atherosclerotic heart disease of native coronary artery without angina pectoris; E11.9 Type 2 diabetes mellitus without complications; K21.9 Gastro-esophageal reflux disease without esophagitis; I10 Essential (primary) hypertension; E03.9 Hypothyroidism, unspecified; E78.5 Hyperlipidemia, unspecified; J45.909 Unspecified asthma, uncomplicated; J44.9 Chronic obstructive pulmonary disease, unspecified; Z79.82 Long term (current) use of aspirin; Z79.52 Long term (current) use of systemic steroids; Z79.51 Long term (current) use of inhaled steroids; Z79.84 Long term (current) use of oral hypoglycemic drugs; Z95.1 Presence of aortocoronary bypass graft; Z95.2 Presence of prosthetic heart valve; Z79.899 Other long term (current) drug therapy; Z88.6 Allergy status to analgesic agent; Z91.048 Other nonmedicinal substance allergy status
CPT/HCPCS: 36415; 71045; 74177; 80048; 80053; 81001; 82150; 82962; 83605; 83690; 84132; 85025; 87040; 87804; 96365; 96366; 96375; 97161; 97165; 99285; A4217; A9270; J1100; J1644; J1815; J2001; J2405; J3480; J7030; Q9967

== ENCOUNTER 2019-03-09 19:19 | Emergency (ER) | payer BC, OTHER ==
[2019-03-09 19:42] VITALS: BP 156/84
--- NOTE | 2019-03-09 20:22 | EDM.PDOC ---
ED HPI GENERAL MEDICAL PROBLEM - General Chief Complaint: Respiratory Problem Stated Complaint: SOB Time Seen by Provider: 03/09/19 20:10 Source of Information: Reports: Patient History Limitations: Reports: No Limitations - History of Present Illness INITIAL COMMENTS - FREE TEXT/NARRATIVE: This 73 yo female patient reports to the ED with a 2 day history of a cough and runny nose. The patient reports she was seen in the [facility] yesterday and was given a cough medication. The patient has not been taking her cough medication and last used her nebulizer last night. The patient reports she has had similar symptoms in the past that were improved with a steroid shot and a nebulizer treatment. Onset Date: 03/08/19 Duration: Day(s): (2) Location: Reports: Chest Quality: Reports: Other Severity: Moderate Improves with: Reports: None Worsens with: Reports: None Context: Reports: Other Associated Symptoms: Reports: No Other Symptoms Right Arm Pain Score (Numeric/FACES): 5 - Related Data Allergies Allergy/AdvReac Type Severity Reaction Status Date / Time iodine AdvReac Intermediate nausea only Verified 03/09/19 19:48 adhesive AdvReac Mild Rash Verified 03/09/19 19:48 ibuprofen AdvReac Unknown Stomach Verified 03/09/19 19:48 Upset Home Meds: Home Meds Aspirin [Halfprin] 81 mg PO DAILY 11/28/13 [History] Carboxymethylcellulose Sodium [Revive Plus] 1 drop EYEBOTH QID PRN 11/28/13 [ History] Fludrocortisone [Florinef] 0.1 mg PO ACBRK 11/28/13 [History] Hydrocortisone 10 mg PO WITHBREAKFAST 11/28/13 [History] Lisinopril 10 mg PO DAILY 11/28/13 [History] Montelukast Sodium 10 mg PO BEDTIME 11/28/13 [History] Multivitamin [Multivitamins] 1 cap PO DAILY 11/28/13 [History] sitaGLIPtin Phos/Metformin HCl [Janumet 50-1,000 MG] 1 each PO BID 11/28/13 [ History] Acetaminophen 650 mg PO Q6H PRN 01/14/15 [History] Albuterol/Ipratropium [DuoNeb 3.0-0.5 MG/3 ML] 3 ml NEB QID PRN 04/14/15 [ History] Formoterol/Mometasone [Dulera 100 MCG/5 MCG] 2 puff PO BID 01/14/15 [History] Levothyroxine [Synthroid] 100 mcg PO DAILY 01/14/15 [History] Cetirizine [ZyrTEC] 10 mg PO BEDTIME 07/25/17 [History] Dextrose [Glucose] 4 tab PO ASDIRECTED 07/25/17 [History] Levalbuterol Tartrate [Xopenex Hfa] 2 puff IH Q4HR PRN 07/25/17 [History] Potassium Chloride [Klor-Con 10] 20 meq PO BID 07/25/17 [History] Metoprolol Succinate [Toprol XL] 25 mg PO DAILY 08/10/17 [History] Ca Carbonate/Vitamin D3/Vit K [Calcium + D Soft Chewable Tab] 1 tab PO DAILY 01/19 [History] Mometasone/Formoterol [Dulera 200 Mcg/5 Mcg Inhaler] 2 puff INH BID 12/04/18 [ History] Nystatin [Mycostatin] 1 squirt PO ASDIRECTED 12/04/18 [History] Pantoprazole Sodium [Protonix] 40 mg PO DAILY 12/04/18 [History] Hydrocortisone 5 mg PO BEDTIME 03/04/19 [History] Hydrocortisone 5 mg PO DAILY@1600 03/04/19 [History] Magnesium Chloride 70 mg PO DAILY 03/04/19 [History] Past Medical History HEENT History: Reports: Other (See Below) Other HEENT History: dry eyes Cardiovascular History: Reports: Bypass, Heart Murmur, Heart Valve Replacement, Hypertension Respiratory History: Reports: Asthma, COPD Gastrointestinal History: Reports: GERD Genitourinary History: Reports: None DESK ASSISTANT History: Reports: None Musculoskeletal History: Reports: None Neurological History: Reports: None Psychiatric History: Reports: Anxiety Endocrine/Metabolic History: Reports: [place]'s Disease, Diabetes, Type II, Hypothyroidism Hematologic History: Reports: None Immunologic History: Reports: Other (See Below) Other Immunologic History: Addisons disease Oncologic (Cancer) History: Reports: None Dermatologic History: Reports: None, Scleroderma, Other (See Below) Other Dermatologic History: CREST syndrome - Infectious Disease History Infectious Disease History: Reports: Measles - Past Surgical History HEENT Surgical History: Reports: Adenoidectomy, Tonsillectomy Cardiovascular Surgical History: Reports: Coronary Artery Bypass, Valve Replacement, Other (See Below) Other Cardiovascular Surgeries/Procedures: Septal defect repair GI Surgical History: Reports: Appendectomy, Cholecystectomy, Colonoscopy, EGD, Esophageal Dilatation Female Surgical History: Reports: None Social & Family History - Family History Family Medical History: Noncontributory - Tobacco Use Smoking Status *Q: Never Smoker - Caffeine Use Caffeine Use: Reports: Coffee Caffeine Use Comment: 16. oz daily - Recreational Drug Use Recreational Drug Use: No - Living Situation & Occupation Living situation: Reports: with Family Occupation: Disabled ED ROS GENERAL - Review of Systems Review Of Systems: ROS reveals no pertinent complaints other than HPI. ED EXAM, GENERAL - Physical Exam Exam: See Below Exam Limited By: No Limitations General Appearance: Alert, WD/WN, Mild Distress Eye Exam: Bilateral Eye: EOMI, Normal Inspection, PERRL Ears: Normal External Exam, Normal Canal, Hearing Grossly Normal, Normal TMs Nose: Normal Inspection, Normal Mucosa, No Blood Throat/Mouth: Normal Inspection, Normal Lips, Normal Teeth, Normal Gums, Normal Oropharynx, Normal Voice, No Airway Compromise, Other (post nasal drainage) Head: Atraumatic, Normocephalic Neck: Normal Inspection, Supple, Non-Tender, Full Range of Motion Respiratory/Chest: No Respiratory Distress, Lungs Clear, Normal Breath Sounds, No Accessory Muscle Use, Chest Non-Tender Cardiovascular: Normal Peripheral Pulses, Regular Rate, Rhythm, No Edema, No Gallop, No JVD, No Murmur, No Rub GI/Abdominal: Normal Bowel Sounds, Soft, Non-Tender, No Organomegaly, No Distention, No Abnormal Bruit, No Mass (Female) Exam: Deferred Rectal (Female) Exam: Deferred Back Exam: Normal Inspection, Full Range of Motion, NT Extremities: Normal Inspection, Normal Range of Motion, Non-Tender, Normal Capillary Refill, No Pedal Edema Neurological: Alert, Oriented, CN II-XII Intact, Normal Cognition, Normal Gait, Normal Reflexes, No Motor/Sensory Deficits Psychiatric: Normal Affect, Normal Mood Skin Exam: Warm, Dry, Intact, Normal Color, No Rash Lymphatic: No Adenopathy Course - Vital Signs Last Recorded V/S: Last Vital Signs Temp 37.1 C 03/09/19 19:39 Pulse 73 03/09/19 19:39 Resp 22 H 03/09/19 19:39 BP 156/84 H 03/09/19 19:39 Pulse Ox 98 03/09/19 19:39 - Orders/Labs/Meds Orders: Active Orders 24 hr Category Date Time Status RT Aerosol Therapy [RC] ASDIRECTED Care 03/09/19 21:01 Ordered CULTURE BLOOD [BC] Stat Lab 03/09/19 19:53 Received Albuterol/Ipratropium [DuoNeb 3.0-0.5 MG/3 ML] Med 03/09/19 21:01 Once 3 ml NEB ONETIME ONE Potassium Chloride [KCl 10 MEQ in Water 100 ML] 10 meq Med 03/09/19 20:26 Ordered Premix Bag 1 bag IV ONETIME Medication Orders Potassium Chloride 10 meq/ (Premix) 100 mls @ 100 mls/hr IV ONETIME ONE Stop: 03/09/19 21:25 Last Admin: 03/09/19 20:38 Dose: 100 mls/hr Labs: Laboratory Tests 03/09/19 03/09/19 03/09/19 Range/Units 19:53 19:53 19:53 WBC 5.3 (5.0-10.0) 10^3/uL RBC 4.24 (4.2-5.4) 10^6/uL Hgb 12.8 (12.0-16.0) g/dL Hct 38.5 (37.0-47.0) % MCV 90.8 (80-100) fL MCH 30.2 (27.0-34.0) pg MCHC 33.2 (33.0-35.0) g/dL Plt Count 221 (150-450) 10^3/uL Neut % (Auto) 67.5 (42.2-75.2) % Lymph % (Auto) 16.9 L (20.5-50.1) % [place] % (Auto) 13.5 H (2-8) % Eos % (Auto) 1.7 (1.0-3.0) % Baso % (Auto) 0.4 (0.0-1.0) % Sodium 140 (135-145) mmol/L Potassium 2.9 L (3.6-5.0) mmol/L Chloride 102 (101-111) mmol/L Carbon Dioxide 26.0 (21.0-31.0) mmol/L Anion Gap 14.9 BUN 4 L (7-18) mg/dL Creatinine 0.5 L (0.6-1.3) mg/dL Est Cr Clr Drug Dosing 75.62 mL/min Estimated GFR (MDRD) > 60 BUN/Creatinine Ratio 8.00 Glucose 128 H (74-105) mg/dL Lactic Acid 1.6 (0.5-2.2) mmol/L Calcium 9.0 D (8.4-10.2) mg/dl Total Bilirubin 1.2 H (0.2-1.0) mg/dL AST 36 (10-42) IU/L ALT 18 (10-60) IU/L Alkaline Phosphatase 63 (42-121) IU/L Total Protein 7.9 (6.7-8.2) g/dl Albumin 3.9 (3.2-5.5) g/dl Globulin 4.0 Albumin/Globulin Ratio 0.98 Meds: Medications Generic Name Dose Route Start Last Admin Trade Name Freq PRN Reason Stop Dose Admin Potassium Chloride 10 meq/ 100 mls @ 100 mls/hr 03/09/19 20:26 03/09/19 20:38 Premix IV 03/09/19 21:25 100 mls/hr ONETIME ONE Administration Discontinued Medications Generic Name Dose Route Start Last Admin Trade Name Freq PRN Reason Stop Dose Admin Methylprednisolone Sodium Succinate 40 mg 03/09/19 20:31 03/09/19 20:37 Solu-Medrol IVPUSH 03/09/19 20:32 40 mg ONETIME ONE Administration - Re-Assessments/Exams Free Text/Narrative Re-Assessment/Exam: 03/09/19 20:27 Potassium level was 2.9 today. An order was placed for IV potassium (10 meq) Departure - Departure Time of Disposition: 21:39 Disposition: Home, Self-Care 01 Condition: Fair Clinical Impression: COPD exacerbation - Discharge Information *PRESCRIPTION DRUG MONITORING PROGRAM REVIEWED*: Not Applicable *COPY OF PRESCRIPTION DRUG MONITORING REPORT IN PATIENT CHRISTINA: Not Applicable Instructions: Chronic Obstructive Pulmonary Disease Exacerbation, [id number] Forms: ED Department Discharge Care Plan Goals: The patient and were advised of the examination, lab and x-ray results during the visit. The patient was given a dose of IV potassium, IV steroids and a nebulizer treatment while in the ED. The patient was discharged with a script for Prednisone (20 mg) #10 to take 2 by mouth daily for 5 days. The patient was advised to use her home nebulizer treatments 4 times per day to assist with her breathing. If the patient has any additional symptoms or concerns, the patient should either return to the emergency department or visit her primary care facility. - My Orders Last 24 Hours: My Active Orders 03/09/19 19:53 CULTURE BLOOD [BC] Stat 03/09/19 20:26 Potassium Chloride [KCl 10 MEQ in Water 100 ML] 10 meq Premix Bag 1 bag IV ONETIME 03/09/19 21:01 RT Aerosol Therapy [RC] ASDIRECTED Albuterol/Ipratropium [DuoNeb 3.0-0.5 MG/3 ML] 3 ml NEB ONETIME ONE - Assessment/Plan Last 24 Hours: My Active Orders 03/09/19 19:53 CULTURE BLOOD [BC] Stat 03/09/19 20:26 Potassium Chloride [KCl 10 MEQ in Water 100 ML] 10 meq Premix Bag 1 bag IV ONETIME 03/09/19 21:01 RT Aerosol Therapy [RC] ASDIRECTED Albuterol/Ipratropium [DuoNeb 3.0-0.5 MG/3 ML] 3 ml NEB ONETIME ONE
[2019-03-09 20:23] LABS: ANION GAP 14.9; CHLORIDE,CL 102 mmol/L (101-111); SODIUM,NA 140 mmol/L (135-145)
[2019-03-09] MEDS ORDERED: Potassium Chloride 10 MEQ in Premix Bag 1 BAG IV ONE (20:26)
[2019-03-09] MEDS ORDERED: methylPREDNISolone Sodium Succinate 40 MG/1 ML SDV IVPUSH ONE (20:31)
[2019-03-09] MEDS ORDERED: Albuterol/Ipratropium 3.0-0.5 MG/3 ML Neb Soln NEB ONE (21:01)
== END 2019-03-09 22:21 | disposition home or self-care (01) ==
LOC: DL.ED 19:19
DX: J44.1 Chronic obstructive pulmonary disease with (acute) exacerbation (principal); I10 Essential (primary) hypertension; E11.9 Type 2 diabetes mellitus without complications; E03.9 Hypothyroidism, unspecified; Z95.1 Presence of aortocoronary bypass graft; Z98.890 Other specified postprocedural states; Z90.49 Acquired absence of other specified parts of digestive tract; Z88.6 Allergy status to analgesic agent; Z91.09 Other allergy status, other than to drugs and biological substances; Z79.899 Other long term (current) drug therapy; Z79.82 Long term (current) use of aspirin; Z88.8 Allergy status to other drugs, medicaments and biological substances
CPT/HCPCS: 36415; 71046; 80053; 83605; 85025; 87040; 96365; 96366; 96375; 99285; A4217; J2920; J3480; J7620-GY

== ENCOUNTER 2019-03-15 14:50 | Emergency (ER) | payer BC, OTHER ==
--- NOTE | 2019-03-15 15:20 | EDM.PDOC ---
ED HPI GENERAL MEDICAL PROBLEM - General Chief Complaint: Respiratory Problem Stated Complaint: PNEUMONIA ? Time Seen by Provider: 03/15/19 15:00 Source of Information: Reports: Patient, Provider History Limitations: Reports: No Limitations - History of Present Illness INITIAL COMMENTS - FREE TEXT/NARRATIVE: This 73 yo female patient was sent to the ED by [facility] from the [facility] due to weakness and cough. The patient's provider reports the patient has a WBC of 10.7 and an x-ray that may show pneumonia or a pleural effusion. The patient was seen in the ED 1 week ago with shortness of breath. The patient was given steroids and advised to do her nebulizer treatment as prescribed. The patient did get a nebulizer treatment at the [facility] prior to transport. The patient reports she has continued to have a cough with no improvement. The patient reports she was following up with the clinic, but was sent back here. Duration: Week(s):, Constant, Getting Worse Location: Reports: Chest Quality: Reports: Other Severity: Moderate Improves with: Reports: None Worsens with: Reports: None Context: Reports: Other Associated Symptoms: Reports: cough w sputum, Weakness - Related Data Allergies Allergy/AdvReac Type Severity Reaction Status Date / Time iodine AdvReac Intermediate nausea only Verified 03/12/19 10:25 adhesive AdvReac Mild Rash Verified 03/12/19 10:25 ibuprofen AdvReac Unknown Stomach Verified 03/12/19 10:25 Upset Home Meds: Home Meds Aspirin [Halfprin] 81 mg PO DAILY 11/28/13 [History] Carboxymethylcellulose Sodium [Revive Plus] 1 drop EYEBOTH QID PRN 11/28/13 [ History] Fludrocortisone [Florinef] 0.1 mg PO ACBRK 11/28/13 [History] Hydrocortisone 10 mg PO WITHBREAKFAST 11/28/13 [History] Lisinopril 10 mg PO DAILY 11/28/13 [History] Montelukast Sodium 10 mg PO BEDTIME 11/28/13 [History] Multivitamin [Multivitamins] 1 cap PO DAILY 11/28/13 [History] sitaGLIPtin Phos/Metformin HCl [Janumet 50-1,000 MG] 1 each PO BID 11/28/13 [ History] Acetaminophen 650 mg PO Q6H PRN 01/14/15 [History] Albuterol/Ipratropium [DuoNeb 3.0-0.5 MG/3 ML] 3 ml NEB QID PRN 01/14/15 [ History] Formoterol/Mometasone [Dulera 100 MCG/5 MCG] 2 puff PO BID 01/14/15 [History] Levothyroxine [Synthroid] 100 mcg PO DAILY 01/14/15 [History] Cetirizine [ZyrTEC] 10 mg PO BEDTIME 07/25/17 [History] Dextrose [Glucose] 4 tab PO ASDIRECTED 07/25/17 [History] Levalbuterol Tartrate [Xopenex Hfa] 2 puff IH Q4HR PRN 07/25/17 [History] Potassium Chloride [Klor-Con 10] 20 meq PO BID 07/25/17 [History] Metoprolol Succinate [Toprol XL] 25 mg PO DAILY 08/10/17 [History] Ca Carbonate/Vitamin D3/Vit K [Calcium + D Soft Chewable Tab] 1 tab PO DAILY 01/19 [History] Mometasone/Formoterol [Dulera 200 Mcg/5 Mcg Inhaler] 2 puff INH BID 12/04/18 [ History] Nystatin [Mycostatin] 1 squirt PO ASDIRECTED 12/04/18 [History] Pantoprazole Sodium [Protonix] 40 mg PO DAILY 12/04/18 [History] Hydrocortisone 5 mg PO BEDTIME 03/04/19 [History] Hydrocortisone 5 mg PO DAILY@1600 03/04/19 [History] Magnesium Chloride 70 mg PO DAILY 03/04/19 [History] Past Medical History HEENT History: Reports: Other (See Below) Other HEENT History: dry eyes Cardiovascular History: Reports: Bypass, Heart Murmur, Heart Valve Replacement, Hypertension Respiratory History: Reports: Asthma, COPD Gastrointestinal History: Reports: GERD Genitourinary History: Reports: None CARGO AGENT History: Reports: None Musculoskeletal History: Reports: None Neurological History: Reports: None Psychiatric History: Reports: Anxiety Endocrine/Metabolic History: Reports: [place]'s Disease, Diabetes, Type II, Hypothyroidism Hematologic History: Reports: None Immunologic History: Reports: Other (See Below) Other Immunologic History: Addisons disease Oncologic (Cancer) History: Reports: None Dermatologic History: Reports: None, Scleroderma, Other (See Below) Other Dermatologic History: CREST syndrome - Infectious Disease History Infectious Disease History: Reports: Measles - Past Surgical History HEENT Surgical History: Reports: Adenoidectomy, Tonsillectomy Cardiovascular Surgical History: Reports: Coronary Artery Bypass, Valve Replacement, Other (See Below) Other Cardiovascular Surgeries/Procedures: Septal defect repair GI Surgical History: Reports: Appendectomy, Cholecystectomy, Colonoscopy, EGD, Esophageal Dilatation Female Surgical History: Reports: None Social & Family History - Family History Family Medical History: Noncontributory - Caffeine Use Caffeine Use: Reports: Coffee Caffeine Use Comment: 16. oz daily - Living Situation & Occupation Living situation: Reports: with Family Occupation: Disabled ED ROS GENERAL - Review of Systems Review Of Systems: ROS reveals no pertinent complaints other than HPI. ED EXAM, GENERAL - Physical Exam Exam: See Below Exam Limited By: No Limitations General Appearance: Alert, WD/WN, Moderate Distress Eye Exam: Bilateral Eye: EOMI, Normal Inspection, PERRL Ears: Normal External Exam, Normal Canal, Hearing Grossly Normal, Normal TMs Nose: Normal Inspection, Normal Mucosa, No Blood Throat/Mouth: Normal Inspection, Normal Lips, Normal Teeth, Normal Gums, Normal Oropharynx, Normal Voice, No Airway Compromise Head: Atraumatic, Normocephalic Neck: Normal Inspection, Supple, Non-Tender, Full Range of Motion Respiratory/Chest: Decreased Breath Sounds (throughout), Rhonchi (faint bilateral lower lobes) Cardiovascular: Normal Peripheral Pulses, Regular Rate, Rhythm, No Edema, No Gallop, No JVD, No Rub, Diastolic Murmur GI/Abdominal: Normal Bowel Sounds, Soft, Non-Tender, No Organomegaly, No Distention, No Abnormal Bruit, No Mass (Female) Exam: Deferred Rectal (Female) Exam: Deferred Back Exam: Normal Inspection, Full Range of Motion, NT Extremities: Normal Inspection, Normal Range of Motion, Non-Tender, Normal Capillary Refill, No Pedal Edema Neurological: Alert, Oriented, CN II-XII Intact, Normal Cognition, Normal Gait, Normal Reflexes, No Motor/Sensory Deficits Psychiatric: Normal Affect, Normal Mood Skin Exam: Warm, Dry, Intact, Normal Color, No Rash Lymphatic: No Adenopathy Course - Vital Signs Last Recorded V/S: Last Vital Signs Temp 37.1 C 03/15/19 14:57 Pulse 80 03/15/19 14:57 Resp 20 03/15/19 14:57 BP 155/76 H 03/15/19 14:57 Pulse Ox 93 L 03/15/19 14:57 - Orders/Labs/Meds Orders: Active Orders 24 hr Category Date Time Status CULTURE BLOOD [BC] Stat Lab 03/15/19 14:55 Ordered Sodium Chloride 0.9% [Normal Saline] 500 ml Med 03/15/19 15:45 Ordered IV .BOLUS cefTRIAXone [Rocephin] 1 gm Med 03/15/19 15:39 Ordered Sodium Chloride 0.9% [Normal Saline] 50 ml IV ONETIME Medication Orders Sodium Chloride (Normal Saline) 500 mls @ 999 mls/hr IV .BOLUS LO Ceftriaxone Sodium 1 gm/ (Sodium Chloride) 50 mls @ 50 mls/hr IV ONETIME ONE Stop: 03/15/19 16:38 Labs: Laboratory Tests 03/15/19 03/15/19 03/15/19 Range/Units 15:02 15:02 15:02 WBC 11.1 H (5.0-10.0) 10^3/uL RBC 4.68 (4.2-5.4) 10^6/uL Hgb 14.3 D (12.0-16.0) g/dL Hct 42.8 (37.0-47.0) % MCV 91.5 (80-100) fL MCH 30.6 (27.0-34.0) pg MCHC 33.4 (33.0-35.0) g/dL Plt Count 272 (150-450) 10^3/uL Neut % (Auto) 92.5 H (42.2-75.2) % Lymph % (Auto) 5.5 L (20.5-50.1) % [place] % (Auto) 2.0 (2-8) % Eos % (Auto) 0.0 L (1.0-3.0) % Baso % (Auto) 0.0 (0.0-1.0) % Sodium 138 (135-145) mmol/L Potassium 3.8 (3.6-5.0) mmol/L Chloride 98 L (101-111) mmol/L Carbon Dioxide 28.0 (21.0-31.0) mmol/L Anion Gap 15.8 BUN 9 (7-18) mg/dL Creatinine 0.7 (0.6-1.3) mg/dL Est Cr Clr Drug Dosing 54.01 mL/min Estimated GFR (MDRD) > 60 BUN/Creatinine Ratio 12.85 Glucose 302 H (74-105) mg/dL Lactic Acid 1.4 (0.5-2.2) mmol/L Calcium 8.6 (8.4-10.2) mg/dl Total Bilirubin 1.1 H (0.2-1.0) mg/dL AST 33 (10-42) IU/L ALT 16 (10-60) IU/L Alkaline Phosphatase 71 (42-121) IU/L Total Protein 7.7 (6.7-8.2) g/dl Albumin 3.6 (3.2-5.5) g/dl Globulin 4.1 Albumin/Globulin Ratio 0.88 Meds: Medications Generic Name Dose Route Start Last Admin Trade Name Freq PRN Reason Stop Dose Admin Sodium Chloride 500 mls @ 999 mls/hr 03/15/19 15:45 Normal Saline IV .BOLUS LO Ceftriaxone Sodium 1 gm/ 50 mls @ 50 mls/hr 03/15/19 15:39 Sodium Chloride IV 03/15/19 16:38 ONETIME ONE Departure - Departure Time of Disposition: 16:45 Disposition: Home, Self-Care 01 Condition: Fair Clinical Impression: CAP (community acquired pneumonia) Qualifiers: Laterality: unspecified laterality Qualified Code(s): J18.9 - Pneumonia, unspecified organism - Discharge Information *PRESCRIPTION DRUG MONITORING PROGRAM REVIEWED*: Not Applicable *COPY OF PRESCRIPTION DRUG MONITORING REPORT IN PATIENT CHRISTINA: Not Applicable Instructions: Community-Acquired Pneumonia, Adult, [id number] Forms: ED Department Discharge Care Plan Goals: The patient was advised of the examination, lab and x-ray results during the visit. The patient was given IV fluids and a dose of IV antibiotics while in the ED. The patient was discharged with a script for Azithromycin (250 mg) #6 to take 2 by mouth on day 1 and 1 by mouth on days 2-5. The patient was encouraged to continue to use her nebulizer treatments as prescribed. If the patient has any additional symptoms or concerns, the patient should either return to the emergency department or visit her primary care facility. - My Orders Last 24 Hours: My Active Orders 03/15/19 14:55 CULTURE BLOOD [BC] Stat 03/15/19 15:39 cefTRIAXone [Rocephin] 1 gm Sodium Chloride 0.9% [Normal Saline] 50 ml IV ONETIME 03/15/19 15:45 Sodium Chloride 0.9% [Normal Saline] 500 ml IV .BOLUS - Assessment/Plan Last 24 Hours: My Active Orders 03/15/19 14:55 CULTURE BLOOD [BC] Stat 03/15/19 15:39 cefTRIAXone [Rocephin] 1 gm Sodium Chloride 0.9% [Normal Saline] 50 ml IV ONETIME 03/15/19 15:45 Sodium Chloride 0.9% [Normal Saline] 500 ml IV .BOLUS
[2019-03-15 15:33] LABS: ANION GAP 15.8; CHLORIDE,CL 98 mmol/L (101-111); SODIUM,NA 138 mmol/L (135-145)
[2019-03-15] MEDS ORDERED: cefTRIAXone 1 GM in Sodium Chloride 0.9% 50 ML IV ONE (15:39)
[2019-03-15] MEDS ORDERED: Sodium Chloride 0.9% 500 ML IV SCH (15:45)
[2019-03-15 17:21] VITALS: BP 152/60; PULSE 78
== END 2019-03-15 17:15 | disposition home or self-care (01) ==
LOC: DL.ED 14:50
DX: J18.9 Pneumonia, unspecified organism (principal); J44.9 Chronic obstructive pulmonary disease, unspecified; F41.9 Anxiety disorder, unspecified; K21.9 Gastro-esophageal reflux disease without esophagitis; E11.9 Type 2 diabetes mellitus without complications; E03.9 Hypothyroidism, unspecified; Z79.899 Other long term (current) drug therapy; Z88.2 Allergy status to sulfonamides; Z88.6 Allergy status to analgesic agent; Z91.09 Other allergy status, other than to drugs and biological substances
CPT/HCPCS: 36415; 71046; 80053; 83605; 85025; 87040; 96365; 99284; J0696; J7040; J7050

== ENCOUNTER 2019-03-19 13:28 | Inpatient (IN) | payer MEDICARE, BC, OTHER ==
[2019-03-19] MEDS ORDERED: Albuterol/Ipratropium 3.0-0.5 MG/3 ML Neb Soln NEB PRN (15:30)
[2019-03-19] MEDS ORDERED: Non-Formulary Medication 1 Each (Carboxymethylcellulose Sodium 1 DROP) EYEBOTH PRN (15:30)
[2019-03-19] MEDS ORDERED: Nystatin Susp 100,000 Unit/ML 5 ML UD Cup PO PRN (15:30)
[2019-03-19] MEDS ORDERED: Acetaminophen 325 MG Tab PO PRN (15:30)
[2019-03-19] MEDS ORDERED: Glucose Gel 15 GM in 37.5 GM Tube PO SCH (15:30)
[2019-03-19] MEDS: Hydrocortisone 20 MG Tab PO SCH ×2 (16:45→21:42)
[2019-03-19 17:20] LABS: ANION GAP 14.7; CHLORIDE,CL 101 mmol/L (101-111); SODIUM,NA 139 mmol/L (135-145)
[2019-03-19] MEDS ORDERED: Potassium Chloride 20 MEQ in Premix Bag 1 BAG IV ONE (17:49)
[2019-03-19] MEDS ORDERED: Potassium Chloride 10 MEQ Tab.ER PO ONE (17:49)
[2019-03-19] MEDS ORDERED: Glucose Gel 15 GM in 37.5 GM Tube PO ONE (18:06)
[2019-03-19] MEDS: Sodium Chloride 0.9% 10 ML Syringe FLUSH PRN ×2 (18:21→20:37)
[2019-03-19] MEDS ORDERED: Formoterol/Mometasone 100-5 MCG 8.8 GM Inhaler IH SCH (21:00)
[2019-03-19] MEDS ORDERED: Potassium Chloride 10 MEQ Tab.ER PO SCH (21:00)
[2019-03-19] MEDS: Montelukast 10 MG Tab PO SCH (21:43)
[2019-03-19] MEDS: Loratadine 10 MG Tab PO SCH (21:43)
[2019-03-19] MEDS: Formoterol/Mometasone 200-5 MCG 8.8 GM Inhaler IH SCH (21:44)
--- NOTE | 2019-03-19 23:48 | PCM.HP ---
H&P History of Present Illness - General Date of Service: 03/19/19 Admit Problem/Dx: Admission Diagnosis/Problem Admission Diagnosis/Problem Weakness Source of Information: Patient - History of Present Illness Initial Comments - Free Text/Narative: patient is a 73 year old female was admitted due to generalized weakness. patient was brought to [facility] today becuase of weakness in which she is not able to get up at all. she was recently treated for pneumonia on an outpatient basis, but continue to have dry cough, subjective fever. at the clinic, was noted to have oxygen saturaiton at 90% and has improved to 94% after a dose of nebulization. on inquiry, patient denies any shortness of breath , she was noted to have hypokalemia as well she denies any diarrhea, nausea nor vomiting. patient has underlying heart disease, seeing Dr Osei. denies any chest pain or palpitaitons. denies any dizziness. - Related Data Allergies/Adverse Reactions: Allergies Allergy/AdvReac Type Severity Reaction Status Date / Time iodine AdvReac Intermediate nausea only Verified 03/19/19 14:34 adhesive AdvReac Mild Rash Verified 03/19/19 14:34 ibuprofen AdvReac Unknown Stomach Verified 03/19/19 14:34 Upset Home Medications: Home Meds Aspirin [Halfprin] 81 mg PO DAILY 11/28/13 [History] Carboxymethylcellulose Sodium [Revive Plus] 1 drop EYEBOTH QID PRN 11/28/13 [ History] Fludrocortisone [Florinef] 0.1 mg PO ACBRK 11/28/13 [History] Hydrocortisone 10 mg PO WITHBREAKFAST 11/28/13 [History] Lisinopril 10 mg PO DAILY 11/28/13 [History] Montelukast Sodium 10 mg PO BEDTIME 11/28/13 [History] Multivitamin [Multivitamins] 1 cap PO DAILY 11/28/13 [History] sitaGLIPtin Phos/Metformin HCl [Janumet 50-1,000 MG] 1 tab PO BIDMEALS 11/28/13 [History] Acetaminophen 650 mg PO Q6H PRN 01/14/15 [History] Albuterol/Ipratropium [DuoNeb 3.0-0.5 MG/3 ML] 3 ml NEB QID PRN 01/14/15 [ History] Levothyroxine [Synthroid] 100 mcg PO DAILY 01/14/15 [History] Cetirizine [ZyrTEC] 10 mg PO BEDTIME 07/25/17 [History] Dextrose [Glucose] 4 tab PO ASDIRECTED 07/25/17 [History] Levalbuterol Tartrate [Xopenex Hfa] 2 puff IH Q4HR PRN 07/25/17 [History] Potassium Chloride [Klor-Con 10] 20 meq PO BID 07/25/17 [History] Metoprolol Succinate [Toprol XL] 25 mg PO DAILY 08/10/17 [History] Ca Carbonate/Vitamin D3/Vit K [Calcium + D Soft Chewable Tab] 1 tab PO DAILY 01/19 [History] Mometasone/Formoterol [Dulera 200 Mcg/5 Mcg Inhaler] 2 puff INH BID 12/04/18 [ History] Nystatin [Mycostatin] 5 ml PO BID PRN 12/04/18 [History] Pantoprazole Sodium [Protonix] 40 mg PO DAILY 12/04/18 [History] Hydrocortisone 5 mg PO BEDTIME 03/04/19 [History] Hydrocortisone 5 mg PO DAILY@1600 03/04/19 [History] Magnesium Chloride 70 mg PO DAILY 03/04/19 [History] Past Medical History HEENT History: Reports: Other (See Below) Other HEENT History: dry eyes Cardiovascular History: Reports: Bypass, Heart Murmur, Heart Valve Replacement, Hypertension Respiratory History: Reports: Asthma, COPD Gastrointestinal History: Reports: GERD Genitourinary History: Reports: None BODY ENGINEER History: Reports: None Musculoskeletal History: Reports: None Neurological History: Reports: None Psychiatric History: Reports: Anxiety 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, Diabetes, Type II, Hypothyroidism Hematologic History: Reports: None Immunologic History: Reports: Other (See Below) Other Immunologic History: Addisons disease Oncologic (Cancer) History: Reports: None Dermatologic History: Reports: None, Scleroderma, Other (See Below) Other Dermatologic History: CREST syndrome, hyperpigmentation - Infectious Disease History Infectious Disease History: Reports: Measles - Past Surgical History HEENT Surgical History: Reports: Adenoidectomy, Tonsillectomy Cardiovascular Surgical History: Reports: Coronary Artery Bypass, Valve Replacement, Other (See Below) Other Cardiovascular Surgeries/Procedures: Septal defect repair GI Surgical History: Reports: Appendectomy, Cholecystectomy, Colonoscopy, EGD, Esophageal Dilatation Female Surgical History: Reports: None Dermatological Surgical History: Reports: None Social & Family History - Family History Family Medical History: Noncontributory - Tobacco Use Smoking Status *Q: Never Smoker Second Hand Smoke Exposure: No - Caffeine Use Caffeine Use: Reports: Coffee Caffeine Use Comment: 16. oz daily - Recreational Drug Use Recreational Drug Use: No - Living Situation & Occupation Living situation: Reports: with Family Occupation: Disabled H&P Review of Systems - Review of Systems: Review Of Systems: See Below General: Reports: Fever, Weakness Pulmonary: Reports: No Symptoms Cardiovascular: Reports: No Symptoms Gastrointestinal: Reports: No Symptoms Genitourinary: Reports: No Symptoms Exam - Vital Signs Vital Signs: Last Vital Signs Temp 98.7 F 03/19/19 20:00 Pulse 63 03/19/19 20:00 Resp 18 03/19/19 20:00 BP 144/68 H 03/19/19 20:00 Pulse Ox 94 L 03/19/19 20:00 Weight: 109 lb 6.4 oz - Patient Data Lab Results Last 24 hrs: Laboratory Results - last 24 hr 03/19/19 03/19/19 03/19/19 Range/Units 16:30 16:30 16:55 WBC 5.4 (5.0-10.0) 10^3/uL RBC 4.28 (4.2-5.4) 10^6/uL Hgb 12.8 D (12.0-16.0) g/dL Hct 39.3 (37.0-47.0) % MCV 91.8 (80-100) fL MCH 29.9 (27.0-34.0) pg MCHC 32.6 L (33.0-35.0) g/dL Plt Count 229 (150-450) 10^3/uL Neut % (Auto) 75.6 H (42.2-75.2) % Lymph % (Auto) 13.6 L (20.5-50.1) % [place] % (Auto) 8.3 H (2-8) % Eos % (Auto) 1.8 (1.0-3.0) % Baso % (Auto) 0.7 (0.0-1.0) % Sodium 139 (135-145) mmol/L Potassium 2.7 L (3.6-5.0) mmol/L Chloride 101 (101-111) mmol/L Carbon Dioxide 26.0 (21.0-31.0) mmol/L Anion Gap 14.7 BUN 8 (7-18) mg/dL Creatinine 0.6 (0.6-1.3) mg/dL Est Cr Clr Drug Dosing 63.01 mL/min Estimated GFR (MDRD) > 60 Glucose 95 (74-105) mg/dL POC Glucose (83-110) mg/dl Calcium 8.4 (8.4-10.2) mg/dl Magnesium 1.8 (1.8-2.5) mg/dL Urine Color Yellow (YELLOW) Urine Appearance Slightly cloudy (CLEAR) Urine pH 7.5 (5.0-9.0) Ur Specific [place] 1.015 (1.005-1.030) Urine Protein Negative (NEGATIVE) Urine Glucose (UA) Negative (NEGATIVE) Urine Ketones 40 H (NEGATIVE) Urine Occult Blood Negative (NEGATIVE) Urine Nitrite Negative (NEGATIVE) Urine Bilirubin Negative (NEGATIVE) Urine Urobilinogen 1.0 (0.2-1.0) mg/dL Ur Leukocyte Esterase Negative (NEGATIVE) Urine RBC 0-5 /HPF Urine WBC 0-5 (0-5/HPF) /HPF Ur Epithelial Cells Few (NOT SEEN) /HPF Amorphous Sediment Moderate H (NOT SEEN) /HPF Urine Bacteria Rare (0-FEW/HPF) /HPF Urine Mucus Few H (NOT SEEN) /LPF 03/19/19 03/19/19 Range/Units 17:28 21:03 WBC (5.0-10.0) 10^3/uL RBC (4.2-5.4) 10^6/uL Hgb (12.0-16.0) g/dL Hct (37.0-47.0) % MCV (80-100) fL MCH (27.0-34.0) pg MCHC (33.0-35.0) g/dL Plt Count (150-450) 10^3/uL Neut % (Auto) (42.2-75.2) % Lymph % (Auto) (20.5-50.1) % [place] % (Auto) (2-8) % Eos % (Auto) (1.0-3.0) % Baso % (Auto) (0.0-1.0) % Sodium (135-145) mmol/L Potassium (3.6-5.0) mmol/L Chloride (101-111) mmol/L Carbon Dioxide (21.0-31.0) mmol/L Anion Gap BUN (7-18) mg/dL Creatinine (0.6-1.3) mg/dL Est Cr Clr Drug Dosing mL/min Estimated GFR (MDRD) Glucose (74-105) mg/dL POC Glucose 116 H 142 H (83-110) mg/dl Calcium (8.4-10.2) mg/dl Magnesium (1.8-2.5) mg/dL Urine Color (YELLOW) Urine Appearance (CLEAR) Urine pH (5.0-9.0) Ur Specific [place] (1.005-1.030) Urine Protein (NEGATIVE) Urine Glucose (UA) (NEGATIVE) Urine Ketones (NEGATIVE) Urine Occult Blood (NEGATIVE) Urine Nitrite (NEGATIVE) Urine Bilirubin (NEGATIVE) Urine Urobilinogen (0.2-1.0) mg/dL Ur Leukocyte Esterase (NEGATIVE) Urine RBC /HPF Urine WBC (0-5/HPF) /HPF Ur Epithelial Cells (NOT SEEN) /HPF Amorphous Sediment (NOT SEEN) /HPF Urine Bacteria (0-FEW/HPF) /HPF Urine Mucus (NOT SEEN) /LPF Result Diagrams: 03/19/19 16:30 03/19/19 16:30 Problem List Initiated/Reviewed/Updated: Yes Orders Last 24hrs: Active Orders 24 hr Category Date Time Status Patient Status [ADT] Routine ADT 03/19/19 15:28 Active Antiembolic Devices [RC] 08,20 Care 03/19/19 15:29 Active Oxygen Therapy [RC] .PRN Care 03/19/19 15:28 Active POC Glucose [Blood Glucose Check, Bedside] [RC] Care 03/19/19 16:14 Active QIDACANDBED VTE/DVT Education [RC] PER UNIT ROUTINE Care 03/19/19 15:28 Active Vital Signs [RC] 00,04,08,12,16,20 Care 03/19/19 15:28 Active OT Evaluation and Treatment [CONS] Routine Cons 03/19/19 21:22 Active PT Evaluation and Treatment [CONS] Routine Cons 03/19/19 21:22 Active Heart Healthy Diet [DIET] Diet 03/19/19 Dinner Active Chest 2V [CR] Routine Exams 03/19/19 15:27 Taken BMP [BASIC METABOLIC PANEL,BMP] [CHEM] Routine Lab 03/20/19 06:00 Ordered CULTURE BLOOD [BC] Stat Lab 03/19/19 16:30 Received CULTURE BLOOD [BC] Stat Lab 03/19/19 16:35 Received CULTURE URINE [RM] Stat Lab 03/19/19 16:55 Received Acetaminophen [Tylenol] Med 03/19/19 15:30 Active 650 mg PO Q6HR PRN Albuterol/Ipratropium [DuoNeb 3.0-0.5 MG/3 ML] Med 03/19/19 15:30 Active 3 ml NEB QIDRT PRN Aspirin [Halfprin] Med 03/20/19 09:00 Active 81 mg PO DAILY Ca Carbonate/Vitamin D3/Vit K [Calcium + D Soft Med 03/20/19 09:00 Pending Chewable Tab] 1 tab PO DAILY Carboxymethylcellulose Sodium Med 03/19/19 15:30 Pending 1 drop EYEBOTH QID PRN Enoxaparin [Lovenox] Med 03/20/19 09:00 Active 40 mg SUBCUT DAILY Fludrocortisone [Florinef] Med 03/20/19 06:00 Active 0.1 mg PO ACBRK Hydrocortisone [Cortef] Med 03/20/19 08:00 Active 10 mg PO WITHBREAKFAST Hydrocortisone [Cortef] Med 03/19/19 21:00 Active 5 mg PO BEDTIME Hydrocortisone [Cortef] Med 03/19/19 16:00 Active 5 mg PO DAILY@1600 Levothyroxine [Synthroid] Med 03/20/19 06:00 Active 100 mcg PO ACBREAKFAST Lisinopril [Prinivil] Med 03/20/19 09:00 Active 10 mg PO DAILY Loratadine [Claritin] Med 03/19/19 21:00 Active 10 mg PO BEDTIME Magnesium Chloride [Magnesium Chloride] Med 03/20/19 09:00 Pending 70 mg PO DAILY Metoprolol Succinate [Toprol XL] Med 03/20/19 09:00 Active 25 mg PO DAILY Mometasone/Formoterol [Dulera 200-5 MCG] Med 03/19/19 21:00 Active 0 puff IH BID Montelukast [Singulair] Med 03/19/19 21:00 Active 10 mg PO BEDTIME Multivitamins,Therapeutic [Thera] Med 03/20/19 09:00 Active 1 each PO DAILY Nystatin [Mycostatin] Med 03/19/19 15:30 Active 5 ml PO BID PRN Pantoprazole [ProTONIX] Med 03/20/19 08:00 Active 40 mg PO DAILY@0800 Potassium Chloride [Klor-Con 10] Med 03/19/19 21:00 Active 20 meq PO BID Sodium Chloride 0.9% [Saline Flush] Med 03/19/19 16:26 Active 10 ml FLUSH ASDIRECTED PRN sitaGLIPtin Phos/Metformin HCl [Janumet 50-1,000 MG] Med 03/19/19 18:00 Pending 1 tab PO BIDMEALS Antiembolic Hose [OM.PC] Per Unit Routine Oth 03/19/19 15:29 Ordered Blood Culture x2 Reflex Set [OM.PC] Stat Oth 03/19/19 15:28 Ordered Saline Lock Insert [OM.PC] Routine Oth 03/19/19 16:26 Ordered Resuscitation Status Routine Resus Stat 03/19/19 15:28 Ordered Medication Orders Acetaminophen (Tylenol) 650 mg PO Q6HR PRN PRN Reason: Pain (mild, 1-3)/Fever Albuterol/Ipratropium (Duoneb 3.0-0.5 Mg/3 Ml) 3 ml NEB QIDRT PRN PRN Reason: Shortness of Breath Aspirin (Halfprin) 81 mg PO DAILY [facility] Enoxaparin Sodium (Lovenox) 40 mg SUBCUT DAILY [facility] Fludrocortisone Acetate (Florinef) 0.1 mg PO ACBRK [facility] Hydrocortisone (Cortef) 5 mg PO BEDTIME [facility] Last Admin: 03/19/19 21:42 Dose: 5 mg Hydrocortisone (Cortef) 5 mg PO DAILY@1600 [facility] Last Admin: 03/19/19 16:45 Dose: 5 mg Hydrocortisone (Cortef) 10 mg PO WITHBREAKFAST [facility] Levothyroxine Sodium (Synthroid) 100 mcg PO ACBREAKFAST [facility] Lisinopril (Prinivil) 10 mg PO DAILY [facility] Loratadine (Claritin) 10 mg PO BEDTIME [facility] Last Admin: 03/19/19 21:43 Dose: 10 mg Metoprolol Succinate (Toprol Xl) 25 mg PO DAILY [facility] Mometasone Furoate/Formoterol Fumar (Dulera 200-5 Mcg) 0 puff IH BID [facility] Last Admin: 03/19/19 21:44 Dose: 2 puff Montelukast Sodium (Singulair) 10 mg PO BEDTIME [facility] Last Admin: 03/19/19 21:43 Dose: 10 mg Multivitamins (Thera) 1 each PO DAILY [facility] Non-Formulary Medication (Ca Carbonate/Vitamin D3/Vit K [Calcium + D Soft Chewable Tab]) 1 tab PO DAILY [facility] Non-Formulary Medication (Carboxymethylcellulose Sodium) 1 drop EYEBOTH QID PRN PRN Reason: Dry Eyes Non-Formulary Medication (Magnesium Chloride [Magnesium Chloride]) 70 mg PO DAILY [facility] Non-Formulary Medication (Sitagliptin Phos/Metformin Hcl [Janumet 50-1,000 Mg]) 1 tab PO BIDMEALS [facility] Nystatin (Mycostatin) 5 ml PO BID PRN PRN Reason: Other Pantoprazole Sodium (Protonix) 40 mg PO DAILY@0800 [facility] Potassium Chloride (Klor-Con 10) 20 meq PO BID [facility] Last Admin: 03/19/19 21:44 Dose: 20 meq Sodium Chloride (Saline Flush) 10 ml FLUSH ASDIRECTED PRN PRN Reason: Keep Vein Open Last Admin: 03/19/19 20:37 Dose: 10 ml Admin: 03/19/19 18:21 Dose: 10 ml Assessment/Plan Comment:: 1. hypoakalemia, unclear etiology - replaced with Kdur 20meq and kcl 20mq IV, these in addition to her home medication of Kcl 20meq - repeat potassium and replaced as needed 2. generalized weakness - PT OT consult - likely from hypokalemia as well - no other signs of infection 3. addisons disease - continue with prednisone dose 4. Diabetes mellitus - glucochecks - continue sitagliptin and metformin 5. DVT prophylaxis - lovenox SQ
[2019-03-20] MEDS: Fludrocortisone 0.1 MG Tab PO SCH (05:58)
[2019-03-20] MEDS ORDERED: Levothyroxine 100 MCG Tab PO SCH (06:00)
[2019-03-20 06:31] LABS: ANION GAP 11.4; CHLORIDE,CL 105 mmol/L (101-111); SODIUM,NA 138 mmol/L (135-145)
[2019-03-20] MEDS: Metoprolol Succinate 25 MG Tab.ER PO SCH (08:51)
[2019-03-20] MEDS: Pantoprazole 40 MG Tab.CR PO SCH (08:51)
[2019-03-20] MEDS: Aspirin 81 MG Tab.EC PO SCH (08:52)
[2019-03-20] MEDS: Lisinopril 10 MG Tab PO SCH (08:52)
[2019-03-20] MEDS: Multivitamins,Therapeutic Tab PO SCH (08:52)
[2019-03-20] MEDS: Hydrocortisone 20 MG Tab PO SCH ×3 (08:52→20:52)
[2019-03-20] MEDS: Enoxaparin 40 MG/0.4 ML Syringe SUBCUT SCH (08:53)
[2019-03-20] MEDS: Potassium Chloride 10 MEQ Tab.ER PO SCH ×2 (08:53→20:54)
[2019-03-20] MEDS: Formoterol/Mometasone 200-5 MCG 8.8 GM Inhaler IH SCH ×2 (08:55→20:57)
[2019-03-20] MEDS ORDERED: MAGNESIUM CHLORIDE PO SCH (09:00)
[2019-03-20] MEDS ORDERED: MINERAL OIL EYEBOTH PRN (10:03)
[2019-03-20] MEDS ORDERED: MINERAL OIL LIGHT EYEBOTH PRN (10:03)
[2019-03-20] MEDS: Non-Formulary Medication 1 Each (Sitagliptin Phos/Metformin Hcl [Janumet 50-1,000 Mg] 1 TA PO SCH ×2 (10:30→10:31)
[2019-03-20] MEDS ORDERED: Levothyroxine 112 MCG Tab PO ONE (10:30)
[2019-03-20] MEDS: Doxycycline 100 MG Cap PO SCH ×2 (10:57→20:57)
[2019-03-20] MEDS: metFORMIN 500 MG Tab PO SCH ×2 (11:29→17:24)
[2019-03-20] MEDS ORDERED: methylPREDNISolone 4 MG Tab 21 Tab/Dosepak PO SCH ×3 (12:30→21:00)
--- NOTE | 2019-03-20 15:00 | PCM.PN ---
- General Info Date of Service: 03/20/19 Subjective Update: Patient 70-year-old female admitted because of generalized weakness, was noted to have hypokalemia. IV and oral replacement were done yesterday. Today, patient feels significantly better although she had an episode of coughing and shortness of breath this morning that is improved with nebulization. Chest x- ray done yesterday, Dr. pedersen. Of note, patient was treated with IV Rocephin and completed course of azithromycin last week when she was in the emergency room for pneumonia. No fever since admission. No chest pain or any palpitations. Functional Status: Reports: Pain Controlled, Tolerating Diet, Ambulating - Patient Data Vitals - Most Recent: Last Vital Signs Temp 97.4 F 03/20/19 12:00 Pulse 66 03/20/19 12:00 Resp 15 03/20/19 12:00 BP 143/67 H 03/20/19 12:00 Pulse Ox 97 03/20/19 12:00 Weight - Most Recent: 109 lb 6.4 oz I&O - Last 24 Hours: Intake & Output 03/19/19 03/20/19 03/20/19 22:59 06:59 14:59 Intake Total 981 67 9184 Output Total 200 1200 Balance 250 84 106 Lab Results Last 24 Hours: Laboratory Results - last 24 hr 03/19/19 03/19/19 03/19/19 Range/Units 16:30 16:30 16:55 WBC 5.4 (5.0-10.0) 10^3/uL RBC 4.28 (4.2-5.4) 10^6/uL Hgb 12.8 D (12.0-16.0) g/dL Hct 39.3 (37.0-47.0) % MCV 91.8 (80-100) fL MCH 29.9 (27.0-34.0) pg MCHC 32.6 L (33.0-35.0) g/dL Plt Count 229 (150-450) 10^3/uL Neut % (Auto) 75.6 H (42.2-75.2) % Lymph % (Auto) 13.6 L (20.5-50.1) % [place] % (Auto) 8.3 H (2-8) % Eos % (Auto) 1.8 (1.0-3.0) % Baso % (Auto) 0.7 (0.0-1.0) % Sodium 139 (135-145) mmol/L Potassium 2.7 L (3.6-5.0) mmol/L Chloride 101 (101-111) mmol/L Carbon Dioxide 26.0 (21.0-31.0) mmol/L Anion Gap 14.7 BUN 8 (7-18) mg/dL Creatinine 0.6 (0.6-1.3) mg/dL Est Cr Clr Drug Dosing 63.01 mL/min Estimated GFR (MDRD) > 60 Glucose 95 (74-105) mg/dL POC Glucose (83-110) mg/dl Calcium 8.4 (8.4-10.2) mg/dl Magnesium 1.8 (1.8-2.5) mg/dL Creatine Kinase (26-174) IU/L B-Natriuretic Peptide (0-100) pg/ml TSH, Ultra Sensitive (0.45-5.33) uIu/mL Urine Color Yellow (YELLOW) Urine Appearance Slightly cloudy (CLEAR) Urine pH 7.5 (5.0-9.0) Ur Specific Russell 1.015 (1.005-1.030) Urine Protein Negative (NEGATIVE) Urine Glucose (UA) Negative (NEGATIVE) Urine Ketones 40 H (NEGATIVE) Urine Occult Blood Negative (NEGATIVE) Urine Nitrite Negative (NEGATIVE) Urine Bilirubin Negative (NEGATIVE) Urine Urobilinogen 1.0 (0.2-1.0) mg/dL Ur Leukocyte Esterase Negative (NEGATIVE) Urine RBC 0-5 /HPF Urine WBC 0-5 (0-5/HPF) /HPF Ur Epithelial Cells Few (NOT SEEN) /HPF Amorphous Sediment Moderate H (NOT SEEN) /HPF Urine Bacteria Rare (0-FEW/HPF) /HPF Urine Mucus Few H (NOT SEEN) /LPF 03/19/19 03/19/19 03/20/19 Range/Units 17:28 21:03 05:55 WBC (5.0-10.0) 10^3/uL RBC (4.2-5.4) 10^6/uL Hgb (12.0-16.0) g/dL Hct (37.0-47.0) % MCV (80-100) fL MCH (27.0-34.0) pg MCHC (33.0-35.0) g/dL Plt Count (150-450) 10^3/uL Neut % (Auto) (42.2-75.2) % Lymph % (Auto) (20.5-50.1) % [place] % (Auto) (2-8) % Eos % (Auto) (1.0-3.0) % Baso % (Auto) (0.0-1.0) % Sodium 138 (135-145) mmol/L Potassium 3.4 L (3.6-5.0) mmol/L Chloride 105 (101-111) mmol/L Carbon Dioxide 25.0 (21.0-31.0) mmol/L Anion Gap 11.4 BUN 8 (7-18) mg/dL Creatinine 0.6 (0.6-1.3) mg/dL Est Cr Clr Drug Dosing 63.01 mL/min Estimated GFR (MDRD) > 60 Glucose 90 (74-105) mg/dL POC Glucose 116 H 142 H (83-110) mg/dl Calcium 7.9 L (8.4-10.2) mg/dl Magnesium (1.8-2.5) mg/dL Creatine Kinase 32 (26-174) IU/L B-Natriuretic Peptide (0-100) pg/ml TSH, Ultra Sensitive (0.45-5.33) uIu/mL Urine Color (YELLOW) Urine Appearance (CLEAR) Urine pH (5.0-9.0) Ur Specific [place] (1.005-1.030) Urine Protein (NEGATIVE) Urine Glucose (UA) (NEGATIVE) Urine Ketones (NEGATIVE) Urine Occult Blood (NEGATIVE) Urine Nitrite (NEGATIVE) Urine Bilirubin (NEGATIVE) Urine Urobilinogen (0.2-1.0) mg/dL Ur Leukocyte Esterase (NEGATIVE) Urine RBC /HPF Urine WBC (0-5/HPF) /HPF Ur Epithelial Cells (NOT SEEN) /HPF Amorphous Sediment (NOT SEEN) /HPF Urine Bacteria (0-FEW/HPF) /HPF Urine Mucus (NOT SEEN) /LPF 03/20/19 03/20/19 03/20/19 Range/Units 05:55 05:55 07:16 WBC (5.0-10.0) 10^3/uL RBC (4.2-5.4) 10^6/uL Hgb (12.0-16.0) g/dL Hct (37.0-47.0) % MCV (80-100) fL MCH (27.0-34.0) pg MCHC (33.0-35.0) g/dL Plt Count (150-450) 10^3/uL Neut % (Auto) (42.2-75.2) % Lymph % (Auto) (20.5-50.1) % [place] % (Auto) (2-8) % Eos % (Auto) (1.0-3.0) % Baso % (Auto) (0.0-1.0) % Sodium (135-145) mmol/L Potassium (3.6-5.0) mmol/L Chloride (101-111) mmol/L Carbon Dioxide (21.0-31.0) mmol/L Anion Gap BUN (7-18) mg/dL Creatinine (0.6-1.3) mg/dL Est Cr Clr Drug Dosing mL/min Estimated GFR (MDRD) Glucose (74-105) mg/dL POC Glucose 101 (83-110) mg/dl Calcium (8.4-10.2) mg/dl Magnesium 1.9 (1.8-2.5) mg/dL Creatine Kinase (26-174) IU/L B-Natriuretic Peptide 95 (0-100) pg/ml TSH, Ultra Sensitive 13.80 H (0.45-5.33) uIu/mL Urine Color (YELLOW) Urine Appearance (CLEAR) Urine pH (5.0-9.0) Ur Specific [place] (1.005-1.030) Urine Protein (NEGATIVE) Urine Glucose (UA) (NEGATIVE) Urine Ketones (NEGATIVE) Urine Occult Blood (NEGATIVE) Urine Nitrite (NEGATIVE) Urine Bilirubin (NEGATIVE) Urine Urobilinogen (0.2-1.0) mg/dL Ur Leukocyte Esterase (NEGATIVE) Urine RBC /HPF Urine WBC (0-5/HPF) /HPF Ur Epithelial Cells (NOT SEEN) /HPF Amorphous Sediment (NOT SEEN) /HPF Urine Bacteria (0-FEW/HPF) /HPF Urine Mucus (NOT SEEN) /LPF 03/20/19 Range/Units 11:29 WBC (5.0-10.0) 10^3/uL RBC (4.2-5.4) 10^6/uL Hgb (12.0-16.0) g/dL Hct (37.0-47.0) % MCV (80-100) fL MCH (27.0-34.0) pg MCHC (33.0-35.0) g/dL Plt Count (150-450) 10^3/uL Neut % (Auto) (42.2-75.2) % Lymph % (Auto) (20.5-50.1) % [place] % (Auto) (2-8) % Eos % (Auto) (1.0-3.0) % Baso % (Auto) (0.0-1.0) % Sodium (135-145) mmol/L Potassium (3.6-5.0) mmol/L Chloride (101-111) mmol/L Carbon Dioxide (21.0-31.0) mmol/L Anion Gap BUN (7-18) mg/dL Creatinine (0.6-1.3) mg/dL Est Cr Clr Drug Dosing mL/min Estimated GFR (MDRD) Glucose (74-105) mg/dL POC Glucose 147 H (83-110) mg/dl Calcium (8.4-10.2) mg/dl Magnesium (1.8-2.5) mg/dL Creatine Kinase (26-174) IU/L B-Natriuretic Peptide (0-100) pg/ml TSH, Ultra Sensitive (0.45-5.33) uIu/mL Urine Color (YELLOW) Urine Appearance (CLEAR) Urine pH (5.0-9.0) Ur Specific [place] (1.005-1.030) Urine Protein (NEGATIVE) Urine Glucose (UA) (NEGATIVE) Urine Ketones (NEGATIVE) Urine Occult Blood (NEGATIVE) Urine Nitrite (NEGATIVE) Urine Bilirubin (NEGATIVE) Urine Urobilinogen (0.2-1.0) mg/dL Ur Leukocyte Esterase (NEGATIVE) Urine RBC /HPF Urine WBC (0-5/HPF) /HPF Ur Epithelial Cells (NOT SEEN) /HPF Amorphous Sediment (NOT SEEN) /HPF Urine Bacteria (0-FEW/HPF) /HPF Urine Mucus (NOT SEEN) /LPF Venkat Results Last 24 Hours: Microbiology 03/20/19 12:45 Gram Stain - Final Sputum - Expectorated Med Orders - Current: Current Medications Acetaminophen (Tylenol) 650 mg PO Q6HR PRN PRN Reason: Pain (mild, 1-3)/Fever Albuterol/Ipratropium (Duoneb 3.0-0.5 Mg/3 Ml) 3 ml NEB QIDRT PRN PRN Reason: Shortness of Breath Last Admin: 03/20/19 06:15 Dose: 3 ml Aspirin (Halfprin) 81 mg PO DAILY [facility] [place] Last Admin: 03/20/19 08:52 Dose: 81 mg Doxycycline Hyclate (Vibramycin) 100 mg PO Q12HR [facility] [place] Last Admin: 03/20/19 10:57 Dose: 100 mg Enoxaparin Sodium (Lovenox) 40 mg SUBCUT DAILY [facility] [place] Last Admin: 03/20/19 08:53 Dose: 40 mg Fludrocortisone Acetate (Florinef) 0.1 mg PO ACBRK [facility] [place] Last Admin: 03/20/19 05:58 Dose: 0.1 mg Hydrocortisone (Cortef) 5 mg PO BEDTIME [facility] [place] Last Admin: 03/19/19 21:42 Dose: 5 mg Hydrocortisone (Cortef) 5 mg PO DAILY@1600 [facility] [place] Last Admin: 03/19/19 16:45 Dose: 5 mg Hydrocortisone (Cortef) 10 mg PO WITHBREAKFAST [facility] [place] Last Admin: 03/20/19 08:52 Dose: 10 mg Lisinopril (Prinivil) 10 mg PO DAILY [facility] [place] Last Admin: 03/20/19 08:52 Dose: 10 mg Loratadine (Claritin) 10 mg PO BEDTIME [facility] [place] Last Admin: 03/19/19 21:43 Dose: 10 mg Magnesium Oxide (Magnesium Oxide) 250 mg PO DAILY [facility] [place] Metformin HCl (Glucophage) 1,000 mg PO BIDMEALS [facility] [place] Last Admin: 03/20/19 11:29 Dose: 1,000 mg Methylprednisolone (Medrol) 8 mg PO 2100 LO; Protocol Stop: 03/20/19 21:01 Methylprednisolone (Medrol) 4 mg PO 1800 [facility] [place]; Protocol Stop: 03/20/19 18:01 Methylprednisolone (Medrol) 8 mg PO 2100 [facility] [place] Stop: 03/22/19 21:01 Methylprednisolone (Medrol) 4 mg PO 0730,1230,1800 [facility] [place] Stop: 03/21/19 18:01 Methylprednisolone (Medrol) 4 mg PO 0730,1230,1800,2100 [facility] [place] Stop: 03/22/19 21:01 Methylprednisolone (Medrol) 4 mg PO 0730,1230,2100 [facility] [place] Stop: 03/23/19 21:01 Methylprednisolone (Medrol) 4 mg PO 0730,2100 [facility] [place] Stop: 03/24/19 21:01 Methylprednisolone (Medrol) 4 mg PO 0730 [facility] [place] Stop: 03/25/19 07:31 Metoprolol Succinate (Toprol Xl) 25 mg PO DAILY [facility] [place] Last Admin: 03/20/19 08:51 Dose: 25 mg Mometasone Furoate/Formoterol Fumar (Dulera 200-5 Mcg) 0 puff IH BID [facility] [place] Last Admin: 03/20/19 08:55 Dose: 2 puff Montelukast Sodium (Singulair) 10 mg PO BEDTIME [facility] [place] Last Admin: 03/19/19 21:43 Dose: 10 mg Multivitamins (Thera) 1 each PO DAILY [facility] [place] Last Admin: 03/20/19 08:52 Dose: 1 each Calcium Citrate/Vitamin D3 [Citracal + D Maximum Caplet] Own Med 1 tab PO BID [facility] [place] Mineral Oil, Light/Mineral Oil [Soothe Xp Eye Drops] Own Med 1 drop EYEBOTH DAILY PRN PRN Reason: Dry Eyes Nystatin (Mycostatin) 5 ml PO BID PRN PRN Reason: Other Pantoprazole Sodium (Protonix) 40 mg PO DAILY@0800 [facility] [place] Last Admin: 03/20/19 08:51 Dose: 40 mg Potassium Chloride (Klor-Con 10) 30 meq PO BID [facility] [place] Last Admin: 03/20/19 08:53 Dose: 30 meq Sodium Chloride (Saline Flush) 10 ml FLUSH ASDIRECTED PRN PRN Reason: Keep Vein Open Last Admin: 03/19/19 20:37 Dose: 10 ml Discontinued Medications Dextrose (Glutose 15) 15 gm PO ASDIRECTED LO Dextrose (Glutose 15) 15 gm PO ASDIRECTED ONE Stop: 03/19/19 18:07 Last Admin: 03/19/19 19:17 Dose: Not Given Potassium Chloride 20 meq/ (Premix) 100 mls @ 50 mls/hr IV ONETIME ONE Stop: 03/19/19 19:48 Last Admin: 03/19/19 18:19 Dose: 50 mls/hr Levothyroxine Sodium (Synthroid) 100 mcg PO ACBREAKFAST [facility] [place] Last Admin: 03/20/19 05:58 Dose: 100 mcg Levothyroxine Sodium (Levothyroxine) 112 mcg PO ONETIME ONE Stop: 03/20/19 10:31 Last Admin: 03/20/19 11:29 Dose: 112 mcg Methylprednisolone (Medrol) 12 mg PO 1230 LO; Protocol Stop: 03/20/19 12:31 Last Admin: 03/20/19 12:23 Dose: 3 tab Non-Formulary Medication (Magnesium Chloride [Magnesium Chloride]) 70 mg PO DAILY [facility] [place] Last Admin: 03/20/19 14:14 Dose: Not Given Non-Formulary Medication (Sitagliptin Phos/Metformin Hcl [Janumet 50-1,000 Mg]) 1 tab PO BIDMEALS [facility] [place] Last Admin: 03/20/19 10:31 Dose: Not Given Potassium Chloride (Klor-Con 10) 20 meq PO BID [facility] [place] Last Admin: 03/19/19 21:44 Dose: 20 meq Potassium Chloride (Klor-Con 10) 20 meq PO ONETIME ONE Stop: 03/19/19 17:50 Last Admin: 03/19/19 18:17 Dose: 20 meq - Exam General: Alert, Oriented HEENT: Pupils Equal Lungs: Normal Respiratory Effort, Other (Coarse breath sounds). No: Clear to Auscultation Cardiovascular: Regular Rate, Regular Rhythm, No Murmurs GI/Abdominal Exam: Normal Bowel Sounds, Soft, Non-Tender - Problem List Review Problem List Initiated/Reviewed/Updated: Yes - My Orders Last 24 Hours: My Active Orders 03/19/19 15:28 Patient Status [ADT] Routine Oxygen Therapy [RC] .PRN VTE/DVT Education [RC] PER UNIT ROUTINE Vital Signs [RC] 00,04,08,12,16,20 Blood Culture x2 Reflex Set [OM.PC] Stat Resuscitation Status Routine 03/19/19 15:29 Antiembolic Devices [RC] 08,20 Antiembolic Hose [OM.PC] Per Unit Routine 03/19/19 15:30 Acetaminophen [Tylenol] 650 mg PO Q6HR PRN Albuterol/Ipratropium [DuoNeb 3.0-0.5 MG/3 ML] 3 ml NEB QIDRT PRN Nystatin [Mycostatin] 5 ml PO BID PRN 03/19/19 16:00 Hydrocortisone [Cortef] 5 mg PO DAILY@1600 03/19/19 16:14 POC Glucose [Blood Glucose Check, Bedside] [RC] QIDACANDBED 03/19/19 16:26 Sodium Chloride 0.9% [Saline Flush] 10 ml FLUSH ASDIRECTED PRN Saline Lock Insert [OM.PC] Routine 03/19/19 16:30 CULTURE BLOOD [BC] Stat 03/19/19 16:35 CULTURE BLOOD [BC] Stat 03/19/19 16:55 CULTURE URINE [RM] Stat 03/19/19 21:00 Hydrocortisone [Cortef] 5 mg PO BEDTIME Loratadine [Claritin] 10 mg PO BEDTIME Mometasone/Formoterol [Dulera 200-5 MCG] 0 puff IH BID Montelukast [Singulair] 10 mg PO BEDTIME 03/19/19 21:22 OT Evaluation and Treatment [CONS] Routine PT Evaluation and Treatment [CONS] Routine 03/19/19 Dinner Heart Healthy Diet [DIET] 03/20/19 06:00 Fludrocortisone [Florinef] 0.1 mg PO ACBRK 03/20/19 07:23 RT Chest Physiotherapy [RC] ASDIRECTED 03/20/19 08:00 Hydrocortisone [Cortef] 10 mg PO WITHBREAKFAST Pantoprazole [ProTONIX] 40 mg PO DAILY@0800 03/20/19 09:00 Aspirin [Halfprin] 81 mg PO DAILY Enoxaparin [Lovenox] 40 mg SUBCUT DAILY Lisinopril [Prinivil] 10 mg PO DAILY Metoprolol Succinate [Toprol XL] 25 mg PO DAILY Multivitamins,Therapeutic [Thera] 1 each PO DAILY Potassium Chloride [Klor-Con 10] 30 meq PO BID 03/20/19 09:58 Up With Assistance [RC] ASDIRECTED 03/20/19 10:00 Doxycycline [Vibramycin] 100 mg PO Q12HR 03/20/19 10:03 Mineral Oil, Light/Mineral Oil [Soothe Xp Eye Drops] 1 drop EYEBOTH DAILY PRN 03/20/19 12:00 metFORMIN [Glucophage] 1,000 mg PO BIDMEALS 03/20/19 12:45 CULTURE SPUTUM + SMEAR [RM] Routine 03/20/19 18:00 methylPREDNISolone [Medrol] 4 mg PO 1800 03/20/19 21:00 Calcium Citrate/Vitamin D3 [Citracal + D Maximum Caplet] 1 tab PO BID methylPREDNISolone [Medrol] 8 mg PO 2100 03/21/19 07:30 methylPREDNISolone [Medrol] 4 mg PO 0730,1230,1800 03/21/19 08:00 Magnesium Oxide 250 mg PO DAILY 03/21/19 21:00 methylPREDNISolone [Medrol] 8 mg PO 209903/22/19 07:30 methylPREDNISolone [Medrol] 4 mg PO 0730,1230,1800,209903/23/19 07:30 methylPREDNISolone [Medrol] 4 mg PO 0730,1230,2100 03/24/19 07:30 methylPREDNISolone [Medrol] 4 mg PO 0730,209903/25/19 07:30 methylPREDNISolone [Medrol] 4 mg PO 0730 - Plan Plan:: 1. hypoakalemia, unclear etiology - A phone call was done today to double check potassium supplementation patient from outpatient. Apparently, she was only prescribed 4 day course of potassium pills total of 60 mEq a day. - Potassium today has improved, mildly low. For now, we will change the potassium supplementation to 30 mEq twice a day. Repeat BMP tomorrow. 2. generalized weakness - PT OT consult - likely from hypokalemia 3. Bronchitis - Chest x-ray on admission show any acute findings; noted coarse crackles on auscultation today. - Do doxycycline twice a day, start Medrol Dosepak, continue with nebulizations. - Attenuated flutter valve 4. Diabetes mellitus - glucochecks - Only on metformin 5. Hypothyroidism, TSH under replaced, can still be a contributory factor to the weakness; has been taking Synthroid 100 g since December - We will increase Synthroid to 110 g - Need to have TSH rechecked in 2 months 6. DVT prophylaxis - lovenox SQ
[2019-03-20] MEDS: VITAMIN D3 PO SCH (20:50)
[2019-03-20] MEDS: CALCIUM CITRATE PO SCH (20:50)
[2019-03-20] MEDS: Loratadine 10 MG Tab PO SCH (20:52)
[2019-03-20] MEDS: Montelukast 10 MG Tab PO SCH (20:57)
[2019-03-20] MEDS: Sodium Chloride 0.9% 10 ML Syringe FLUSH PRN (21:00)
[2019-03-21] MEDS: Fludrocortisone 0.1 MG Tab PO SCH (05:21)
[2019-03-21 06:33] LABS: ANION GAP 12.5; CHLORIDE,CL 103 mmol/L (101-111); SODIUM,NA 135 mmol/L (135-145)
[2019-03-21] MEDS: Doxycycline 100 MG Cap PO SCH ×2 (08:49→20:45)
[2019-03-21] MEDS: Metoprolol Succinate 25 MG Tab.ER PO SCH (08:49)
[2019-03-21] MEDS: Multivitamins,Therapeutic Tab PO SCH (08:49)
[2019-03-21] MEDS: Potassium Chloride 10 MEQ Tab.ER PO SCH ×2 (08:49→20:45)
[2019-03-21] MEDS: Aspirin 81 MG Tab.EC PO SCH (08:49)
[2019-03-21] MEDS: Hydrocortisone 20 MG Tab PO SCH ×3 (08:50→20:46)
[2019-03-21] MEDS: Pantoprazole 40 MG Tab.CR PO SCH (08:50)
[2019-03-21] MEDS: metFORMIN 500 MG Tab PO SCH ×2 (08:50→17:04)
[2019-03-21] MEDS: Lisinopril 10 MG Tab PO SCH (08:51)
[2019-03-21] MEDS: Enoxaparin 40 MG/0.4 ML Syringe SUBCUT SCH (08:51)
[2019-03-21] MEDS: methylPREDNISolone 4 MG Tab 21 Tab/Dosepak PO SCH ×3 (08:52→17:05)
[2019-03-21] MEDS: Formoterol/Mometasone 200-5 MCG 8.8 GM Inhaler IH SCH ×2 (08:52→21:12)
[2019-03-21] MEDS: VITAMIN D3 PO SCH ×2 (08:53→20:45)
[2019-03-21] MEDS: CALCIUM CITRATE PO SCH ×2 (08:53→20:45)
[2019-03-21] MEDS: Sodium Chloride 0.9% 10 ML Syringe FLUSH PRN (09:04)
--- NOTE | 2019-03-21 10:16 | PCM.PN ---
- General Info Date of Service: 03/21/19 - Review of Systems General: Reports: Weakness, Malaise Pulmonary: Reports: Cough, Wheezing Cardiovascular: Reports: No Symptoms Gastrointestinal: Reports: No Symptoms - Patient Data Vitals - Most Recent: Last Vital Signs Temp 36.8 C 03/21/19 08:00 Pulse 70 03/21/19 08:49 Resp 22 H 03/21/19 08:00 BP 127/54 L 03/21/19 08:51 Pulse Ox 94 L 03/21/19 08:00 Weight - Most Recent: 49.623 kg I&O - Last 24 Hours: Intake & Output 03/20/19 03/21/19 03/21/19 22:59 06:59 14:59 Intake Total 770 350 Output Total 400 350 Balance 370 0 Lab Results Last 24 Hours: Laboratory Results - last 24 hr 03/20/19 03/20/19 03/20/19 Range/Units 05:55 11:29 17:01 Sodium (135-145) mmol/L Potassium (3.6-5.0) mmol/L Chloride (101-111) mmol/L Carbon Dioxide (21.0-31.0) mmol/L Anion Gap BUN (7-18) mg/dL Creatinine (0.6-1.3) mg/dL Est Cr Clr Drug Dosing mL/min Estimated GFR (MDRD) Glucose (74-105) mg/dL POC Glucose 147 H 206 H (83-110) mg/dl Calcium (8.4-10.2) mg/dl Magnesium 1.9 (1.8-2.5) mg/dL B-Natriuretic Peptide 95 (0-100) pg/ml 03/20/19 03/21/19 03/21/19 Range/Units 20:47 05:50 07:49 Sodium 135 (135-145) mmol/L Potassium 4.5 (3.6-5.0) mmol/L Chloride 103 (101-111) mmol/L Carbon Dioxide 24.0 (21.0-31.0) mmol/L Anion Gap 12.5 BUN 7 (7-18) mg/dL Creatinine 0.6 (0.6-1.3) mg/dL Est Cr Clr Drug Dosing 63.01 mL/min Estimated GFR (MDRD) > 60 Glucose 167 H (74-105) mg/dL POC Glucose 192 H 139 H (83-110) mg/dl Calcium 8.4 (8.4-10.2) mg/dl Magnesium (1.8-2.5) mg/dL B-Natriuretic Peptide (0-100) pg/ml Venkat Results Last 24 Hours: Microbiology 03/19/19 16:55 Urine Culture - Preliminary Urine, Bladder 03/20/19 12:45 Gram Stain - Final Sputum - Expectorated Sputum Culture - Preliminary 03/19/19 16:35 Aerobic Blood Culture - Preliminary Blood - Venous - Lab Draw NO GROWTH AFTER 1 DAY Anaerobic Blood Culture - Preliminary NO GROWTH AFTER 1 DAY 03/19/19 16:30 Aerobic Blood Culture - Preliminary Blood - Venous NO GROWTH AFTER 1 DAY Anaerobic Blood Culture - Preliminary NO GROWTH AFTER 1 DAY Med Orders - Current: Current Medications Acetaminophen (Tylenol) 650 mg PO Q6HR PRN PRN Reason: Pain (mild, 1-3)/Fever Albuterol/Ipratropium (Duoneb 3.0-0.5 Mg/3 Ml) 3 ml NEB QIDRT PRN PRN Reason: Shortness of Breath Last Admin: 03/20/19 06:15 Dose: 3 ml Albuterol/Ipratropium (Duoneb 3.0-0.5 Mg/3 Ml) 3 ml NEB QID LO Aspirin (Halfprin) 81 mg PO DAILY [facility] Last Admin: 03/21/19 08:49 Dose: 81 mg Doxycycline Hyclate (Vibramycin) 100 mg PO Q12HR [facility] Last Admin: 03/21/19 08:49 Dose: 100 mg Enoxaparin Sodium (Lovenox) 40 mg SUBCUT DAILY [facility] Last Admin: 03/21/19 08:51 Dose: 40 mg Fludrocortisone Acetate (Florinef) 0.1 mg PO ACBRK [facility] Last Admin: 03/21/19 05:21 Dose: 0.1 mg Hydrocortisone (Cortef) 5 mg PO BEDTIME [facility] Last Admin: 03/20/19 20:52 Dose: 5 mg Hydrocortisone (Cortef) 5 mg PO DAILY@1600 [facility] Last Admin: 03/20/19 16:00 Dose: 5 mg Hydrocortisone (Cortef) 10 mg PO WITHBREAKFAST [facility] Last Admin: 03/21/19 08:50 Dose: 10 mg Lisinopril (Prinivil) 10 mg PO DAILY [facility] Last Admin: 03/21/19 08:51 Dose: 10 mg Loratadine (Claritin) 10 mg PO BEDTIME [facility] Last Admin: 03/20/19 20:52 Dose: 10 mg Magnesium Oxide (Magnesium Oxide) 250 mg PO DAILY [facility] Last Admin: 03/21/19 09:02 Dose: Not Given Metformin HCl (Glucophage) 1,000 mg PO BIDMEALS [facility] Last Admin: 03/21/19 08:50 Dose: 1,000 mg Methylprednisolone (Medrol) 8 mg PO 2100 [facility] Stop: 03/22/19 21:01 Methylprednisolone (Medrol) 4 mg PO 0730,1230,1800 [facility] Stop: 03/21/19 18:01 Last Admin: 03/21/19 08:52 Dose: 4 mg Methylprednisolone (Medrol) 4 mg PO 0730,1230,1800,2100 [facility] Stop: 03/22/19 21:01 Methylprednisolone (Medrol) 4 mg PO 0730,1230,2100 [facility] Stop: 03/23/19 21:01 Methylprednisolone (Medrol) 4 mg PO 0730,2100 [facility] Stop: 03/24/19 21:01 Methylprednisolone (Medrol) 4 mg PO 0730 [facility] Stop: 03/25/19 07:31 Metoprolol Succinate (Toprol Xl) 25 mg PO DAILY [facility] Last Admin: 03/21/19 08:49 Dose: 25 mg Mometasone Furoate/Formoterol Fumar (Dulera 200-5 Mcg) 0 puff IH BID [facility] Last Admin: 03/21/19 08:52 Dose: 2 puff Montelukast Sodium (Singulair) 10 mg PO BEDTIME [facility] Last Admin: 03/20/19 20:57 Dose: 10 mg Multivitamins (Thera) 1 each PO DAILY [facility] Last Admin: 03/21/19 08:49 Dose: 1 each Calcium Citrate/Vitamin D3 [Citracal + D Maximum Caplet] Own Med 1 tab PO BID [facility] Last Admin: 03/21/19 08:53 Dose: 1 tab Mineral Oil, Light/Mineral Oil [Soothe Xp Eye Drops] Own Med 1 drop EYEBOTH DAILY PRN PRN Reason: Dry Eyes Nystatin (Mycostatin) 5 ml PO BID PRN PRN Reason: Other Pantoprazole Sodium (Protonix) 40 mg PO DAILY@0800 PENDING SALE TO [facility] Last Admin: 03/21/19 08:50 Dose: 40 mg Potassium Chloride (Klor-Con 10) 30 meq PO BID LO Last Admin: 03/21/19 08:49 Dose: 30 meq Sodium Chloride (Saline Flush) 10 ml FLUSH ASDIRECTED PRN PRN Reason: Keep Vein Open Last Admin: 03/21/19 09:04 Dose: 10 ml Discontinued Medications Dextrose (Glutose 15) 15 gm PO ASDIRECTED LO Dextrose (Glutose 15) 15 gm PO ASDIRECTED ONE Stop: 03/19/19 18:07 Last Admin: 03/19/19 19:17 Dose: Not Given Potassium Chloride 20 meq/ (Premix) 100 mls @ 50 mls/hr IV ONETIME ONE Stop: 03/19/19 19:48 Last Admin: 03/19/19 18:19 Dose: 50 mls/hr Levothyroxine Sodium (Synthroid) 100 mcg PO ACBREAKFAST PENDING SALE TO [facility] Last Admin: 03/20/19 05:58 Dose: 100 mcg Levothyroxine Sodium (Levothyroxine) 112 mcg PO ONETIME ONE Stop: 03/20/19 10:31 Last Admin: 03/20/19 11:29 Dose: 112 mcg Methylprednisolone (Medrol) 8 mg PO 2100 LO; Protocol Stop: 03/20/19 21:01 Last Admin: 03/20/19 20:55 Dose: 8 mg Methylprednisolone (Medrol) 12 mg PO 1230 LO; Protocol Stop: 03/20/19 12:31 Last Admin: 03/20/19 12:23 Dose: 3 tab Methylprednisolone (Medrol) 4 mg PO 1800 LO; Protocol Stop: 03/20/19 18:01 Last Admin: 03/20/19 17:25 Dose: 4 mg Non-Formulary Medication (Magnesium Chloride [Magnesium Chloride]) 70 mg PO DAILY PENDING SALE TO [facility] Last Admin: 03/20/19 14:14 Dose: Not Given Non-Formulary Medication (Sitagliptin Phos/Metformin Hcl [Janumet 50-1,000 Mg]) 1 tab PO BIDMEALS PENDING SALE TO [facility] Last Admin: 03/20/19 10:31 Dose: Not Given Potassium Chloride (Klor-Con 10) 20 meq PO BID LO Last Admin: 03/19/19 21:44 Dose: 20 meq Potassium Chloride (Klor-Con 10) 20 meq PO ONETIME ONE Stop: 03/19/19 17:50 Last Admin: 03/19/19 18:17 Dose: 20 meq - Exam General: Alert, Cooperative Lungs: Rhonchi, Wheezing Cardiovascular: Regular Rate, Regular Rhythm GI/Abdominal Exam: Normal Bowel Sounds, Soft, Non-Tender, No Organomegaly, No Distention, No Abnormal Bruit, No Mass, Pelvis Stable Extremities: Normal Inspection - Problem List Review Problem List Initiated/Reviewed/Updated: Yes - My Orders Last 24 Hours: My Active Orders 03/21/19 10:10 RT Aerosol Therapy [RC] ASDIRECTED 03/21/19 13:00 Albuterol/Ipratropium [DuoNeb 3.0-0.5 MG/3 ML] 3 ml NEB QID - Plan Plan:: 1. hypoakalemia, unclear etiology Replace when necessary 2. generalized weakness - PT OT consult - likely from hypokalemia 3. Bronchitis Patient continues to cough. - Chest x-ray on admission show any acute findings; n. - Continue doxycycline. Continue Medrol Mike - Attenuated flutter valve Sputum Gram stain is showing gram-positive and gram-negative rods. 4. Diabetes mellitus - glucochecks - Only on metformin 5. Hypothyroidism, Dose of levothyroxine increased due to elevated TSH Recheck TSH in 2 months 6. DVT prophylaxis - lovenox SQ
[2019-03-21] MEDS: Albuterol/Ipratropium 3.0-0.5 MG/3 ML Neb Soln NEB SCH ×3 (13:13→20:46)
[2019-03-21] MEDS: Loratadine 10 MG Tab PO SCH (20:45)
[2019-03-21] MEDS: Montelukast 10 MG Tab PO SCH (20:45)
[2019-03-21] MEDS ORDERED: methylPREDNISolone 4 MG Tab 21 Tab/Dosepak PO SCH (21:00)
[2019-03-21] MEDS ORDERED: Ondansetron 4 MG Tab.DIS PO PRN (23:39)
[2019-03-22] MEDS: Fludrocortisone 0.1 MG Tab PO SCH (05:40)
[2019-03-22] MEDS: Albuterol/Ipratropium 3.0-0.5 MG/3 ML Neb Soln NEB SCH ×4 (07:43→20:28)
[2019-03-22] MEDS: Aspirin 81 MG Tab.EC PO SCH (08:21)
[2019-03-22] MEDS: metFORMIN 500 MG Tab PO SCH ×2 (08:21→17:03)
[2019-03-22] MEDS: Potassium Chloride 10 MEQ Tab.ER PO SCH ×2 (08:21→20:26)
[2019-03-22] MEDS: Lisinopril 10 MG Tab PO SCH (08:21)
[2019-03-22] MEDS: Multivitamins,Therapeutic Tab PO SCH (08:21)
[2019-03-22] MEDS: Doxycycline 100 MG Cap PO SCH (08:21)
[2019-03-22] MEDS: Pantoprazole 40 MG Tab.CR PO SCH (08:22)
[2019-03-22] MEDS: Hydrocortisone 20 MG Tab PO SCH ×3 (08:22→20:27)
[2019-03-22] MEDS: Metoprolol Succinate 25 MG Tab.ER PO SCH (08:22)
[2019-03-22] MEDS: Enoxaparin 40 MG/0.4 ML Syringe SUBCUT SCH (08:23)
[2019-03-22] MEDS: methylPREDNISolone 4 MG Tab 21 Tab/Dosepak PO SCH ×4 (08:24→20:26)
[2019-03-22] MEDS: CALCIUM CITRATE PO SCH ×2 (08:25→20:29)
[2019-03-22] MEDS: VITAMIN D3 PO SCH ×2 (08:25→20:29)
[2019-03-22] MEDS: Formoterol/Mometasone 200-5 MCG 8.8 GM Inhaler IH SCH ×2 (08:26→20:28)
--- NOTE | 2019-03-22 11:48 | PCM.PN ---
- General Info Date of Service: 03/22/19 Admission Dx/Problem (Free Text): Admission Diagnosis/Problem Admission Diagnosis/Problem Weakness Subjective Update: Patient 70-year-old female admitted because of generalized weakness Noted to have hypokalemia, acute bronchitis. Feels that the shortness of breath is somewhat better. Still feeling weak. Cough with some sputum production. Functional Status: Reports: Tolerating Diet - Review of Systems General: Reports: Weakness Pulmonary: Reports: Shortness of Breath (Improved) Cardiovascular: Denies: Chest Pain Neurological: Denies: Dizziness, Headache - Patient Data Vitals - Most Recent: Last Vital Signs Temp 37.1 C 03/22/19 08:00 Pulse 63 03/22/19 11:38 Resp 16 03/22/19 08:00 BP 140/62 03/22/19 08:22 Pulse Ox 99 03/22/19 08:00 Weight - Most Recent: 49.623 kg I&O - Last 24 Hours: Intake & Output 03/21/19 03/22/19 03/22/19 22:59 06:59 14:59 Intake Total 420 Balance 420 Lab Results Last 24 Hours: Laboratory Results - last 24 hr 03/21/19 03/21/19 03/22/19 Range/Units 16:54 21:13 07:59 POC Glucose 189 H 175 H 120 H (83-110) mg/dl Venkat Results Last 24 Hours: Microbiology 03/19/19 16:55 Urine Culture - Final Urine, Bladder 03/20/19 12:45 Gram Stain - Final Sputum - Expectorated Sputum Culture - Final Klebsiella Pneumoniae 03/19/19 16:35 Aerobic Blood Culture - Preliminary Blood - Venous - Lab Draw NO GROWTH AFTER 2 DAYS Anaerobic Blood Culture - Preliminary NO GROWTH AFTER 2 DAYS 03/19/19 16:30 Aerobic Blood Culture - Preliminary Blood - Venous NO GROWTH AFTER 2 DAYS Anaerobic Blood Culture - Preliminary NO GROWTH AFTER 2 DAYS Med Orders - Current: Current Medications Acetaminophen (Tylenol) 650 mg PO Q6HR PRN PRN Reason: Pain (mild, 1-3)/Fever Albuterol/Ipratropium (Duoneb 3.0-0.5 Mg/3 Ml) 3 ml NEB QIDRT PRN PRN Reason: Shortness of Breath Last Admin: 03/20/19 06:15 Dose: 3 ml Albuterol/Ipratropium (Duoneb 3.0-0.5 Mg/3 Ml) 3 ml NEB QIDRT [facility] Last Admin: 03/22/19 11:38 Dose: 3 ml Aspirin (Halfprin) 81 mg PO DAILY [facility] Last Admin: 03/22/19 08:21 Dose: 81 mg Doxycycline Hyclate (Vibramycin) 100 mg PO Q12HR [facility] Last Admin: 03/22/19 08:21 Dose: 100 mg Enoxaparin Sodium (Lovenox) 40 mg SUBCUT DAILY [facility] Last Admin: 03/22/19 08:23 Dose: 40 mg Fludrocortisone Acetate (Florinef) 0.1 mg PO ACBRK [facility] Last Admin: 03/22/19 05:40 Dose: 0.1 mg Hydrocortisone (Cortef) 5 mg PO BEDTIME [facility] Last Admin: 03/21/19 20:46 Dose: 5 mg Hydrocortisone (Cortef) 5 mg PO DAILY@1600 [facility] Last Admin: 03/21/19 17:07 Dose: 5 mg Hydrocortisone (Cortef) 10 mg PO WITHBREAKFAST [facility] Last Admin: 03/22/19 08:22 Dose: 10 mg Lisinopril (Prinivil) 10 mg PO DAILY [facility] Last Admin: 03/22/19 08:21 Dose: 10 mg Loratadine (Claritin) 10 mg PO BEDTIME [facility] Last Admin: 03/21/19 20:45 Dose: 10 mg Magnesium Oxide (Magnesium Oxide) 250 mg PO DAILY [facility] Last Admin: 03/22/19 08:21 Dose: 250 mg Metformin HCl (Glucophage) 1,000 mg PO BIDMEALS [facility] Last Admin: 03/22/19 08:21 Dose: 1,000 mg Methylprednisolone (Medrol) 8 mg PO 2100 [facility] Stop: 03/22/19 21:01 Last Admin: 03/21/19 20:45 Dose: 8 mg Methylprednisolone (Medrol) 4 mg PO 0730,1230,1800,2100 [facility] Stop: 03/22/19 21:01 Last Admin: 03/22/19 08:24 Dose: 4 mg Methylprednisolone (Medrol) 4 mg PO 0730,1230,2100 [facility] Stop: 03/23/19 21:01 Methylprednisolone (Medrol) 4 mg PO 0730,2100 [facility] Stop: 03/24/19 21:01 Methylprednisolone (Medrol) 4 mg PO 0730 [facility] Stop: 03/25/19 07:31 Metoprolol Succinate (Toprol Xl) 25 mg PO DAILY [facility] Last Admin: 03/22/19 08:22 Dose: 25 mg Mometasone Furoate/Formoterol Fumar (Dulera 200-5 Mcg) 0 puff IH BID [facility] Last Admin: 03/22/19 08:26 Dose: 2 puff Montelukast Sodium (Singulair) 10 mg PO BEDTIME [facility] Last Admin: 03/21/19 20:45 Dose: 10 mg Multivitamins (Thera) 1 each PO DAILY [facility] Last Admin: 03/22/19 08:21 Dose: 1 each Calcium Citrate/Vitamin D3 [Citracal + D Maximum Caplet] Own Med 1 tab PO BID [facility] Last Admin: 03/22/19 08:25 Dose: 1 tab Mineral Oil, Light/Mineral Oil [Soothe Xp Eye Drops] Own Med 1 drop EYEBOTH DAILY PRN PRN Reason: Dry Eyes Nystatin (Mycostatin) 5 ml PO BID PRN PRN Reason: Other Ondansetron HCl (Zofran Odt) 4 mg PO Q6H PRN PRN Reason: Nausea Last Admin: 03/21/19 23:47 Dose: 4 mg Pantoprazole Sodium (Protonix) 40 mg PO DAILY@0800 [facility] Last Admin: 03/22/19 08:22 Dose: 40 mg Potassium Chloride (Klor-Con 10) 30 meq PO BID [facility] Last Admin: 03/22/19 08:21 Dose: 30 meq Sodium Chloride (Saline Flush) 10 ml FLUSH ASDIRECTED PRN PRN Reason: Keep Vein Open Last Admin: 03/21/19 09:04 Dose: 10 ml Discontinued Medications Dextrose (Glutose 15) 15 gm PO ASDIRECTED LO Dextrose (Glutose 15) 15 gm PO ASDIRECTED ONE Stop: 03/19/19 18:07 Last Admin: 03/19/19 19:17 Dose: Not Given Potassium Chloride 20 meq/ (Premix) 100 mls @ 50 mls/hr IV ONETIME ONE Stop: 03/19/19 19:48 Last Admin: 03/19/19 18:19 Dose: 50 mls/hr Levothyroxine Sodium (Synthroid) 100 mcg PO ACBREAKFAST [facility] Last Admin: 03/20/19 05:58 Dose: 100 mcg Levothyroxine Sodium (Levothyroxine) 112 mcg PO ONETIME ONE Stop: 03/20/19 10:31 Last Admin: 03/20/19 11:29 Dose: 112 mcg Methylprednisolone (Medrol) 8 mg PO 2100 LO; Protocol Stop: 03/20/19 21:01 Last Admin: 03/20/19 20:55 Dose: 8 mg Methylprednisolone (Medrol) 12 mg PO 1230 LO; Protocol Stop: 03/20/19 12:31 Last Admin: 03/20/19 12:23 Dose: 3 tab Methylprednisolone (Medrol) 4 mg PO 1800 LO; Protocol Stop: 03/20/19 18:01 Last Admin: 03/20/19 17:25 Dose: 4 mg Methylprednisolone (Medrol) 4 mg PO 0730,1230,1800 [facility] Stop: 03/21/19 18:01 Last Admin: 03/21/19 17:05 Dose: 4 mg Non-Formulary Medication (Magnesium Chloride [Magnesium Chloride]) 70 mg PO DAILY [facility] Last Admin: 03/20/19 14:14 Dose: Not Given Non-Formulary Medication (Sitagliptin Phos/Metformin Hcl [Janumet 50-1,000 Mg]) 1 tab PO BIDMEALS [facility] Last Admin: 03/20/19 10:31 Dose: Not Given Potassium Chloride (Klor-Con 10) 20 meq PO BID [facility] Last Admin: 03/19/19 21:44 Dose: 20 meq Potassium Chloride (Klor-Con 10) 20 meq PO ONETIME ONE Stop: 03/19/19 17:50 Last Admin: 03/19/19 18:17 Dose: 20 meq - Exam General: Alert, Oriented Neck: Supple Lungs: Normal Respiratory Effort, Rhonchi. No: Wheezing Cardiovascular: Regular Rate, Regular Rhythm GI/Abdominal Exam: Normal Bowel Sounds, Soft, Non-Tender Extremities: No Pedal Edema - Problem List & Annotations (1) Bronchospasm with bronchitis, acute SNOMED Code(s): 99899487 Code(s): J20.9 - ACUTE BRONCHITIS, UNSPECIFIED Status: Acute Current Visit: No - Problem List Review Problem List Initiated/Reviewed/Updated: Yes - Plan Plan:: 1. hypoakalemia, unclear etiology Replaced recheck Alberto 2. generalized weakness - cont with PT OT consult 3. acute Bronchitis - Chest x-ray on admission did not show any acute findings sputum cx: klebsiella - stop doxycycline. - treat with levofloxacin 4. Wheezing improved Continue Medrol Mike 4. Diabetes mellitus - glucochecks - cont on metformin 5. Hypothyroidism, Dose of levothyroxine was increased due to elevated TSH Recheck TSH in 2 months 6. DVT prophylaxis - lovenox SQ
[2019-03-22] MEDS: Levofloxacin 500 MG Tab PO SCH (14:03)
[2019-03-22] MEDS ORDERED: Calcium Carbonate 500 MG Tab.Chew PO PRN (17:37)
[2019-03-22] MEDS: Montelukast 10 MG Tab PO SCH (20:26)
[2019-03-22] MEDS: Loratadine 10 MG Tab PO SCH (20:27)
[2019-03-23] MEDS: Fludrocortisone 0.1 MG Tab PO SCH (05:41)
[2019-03-23 07:00] LABS: ANION GAP 14.4; CHLORIDE,CL 100 mmol/L (101-111); SODIUM,NA 134 mmol/L (135-145)
[2019-03-23] MEDS: Albuterol/Ipratropium 3.0-0.5 MG/3 ML Neb Soln NEB SCH ×2 (07:16→13:04)
[2019-03-23 07:58] VITALS: BP 107/62
[2019-03-23] MEDS: methylPREDNISolone 4 MG Tab 21 Tab/Dosepak PO SCH ×2 (08:09→12:43)
[2019-03-23] MEDS: metFORMIN 500 MG Tab PO SCH (08:10)
[2019-03-23] MEDS: Lisinopril 10 MG Tab PO SCH (08:10)
[2019-03-23] MEDS: Multivitamins,Therapeutic Tab PO SCH (08:10)
[2019-03-23] MEDS: Hydrocortisone 20 MG Tab PO SCH (08:11)
[2019-03-23] MEDS: Metoprolol Succinate 25 MG Tab.ER PO SCH (08:12)
[2019-03-23] MEDS: Aspirin 81 MG Tab.EC PO SCH (08:13)
[2019-03-23] MEDS: Pantoprazole 40 MG Tab.CR PO SCH (08:13)
[2019-03-23] MEDS: VITAMIN D3 PO SCH (08:14)
[2019-03-23] MEDS: Formoterol/Mometasone 200-5 MCG 8.8 GM Inhaler IH SCH (08:14)
[2019-03-23] MEDS: CALCIUM CITRATE PO SCH (08:14)
[2019-03-23] MEDS: Enoxaparin 40 MG/0.4 ML Syringe SUBCUT SCH (08:15)
[2019-03-23] MEDS: Potassium Chloride 10 MEQ Tab.ER PO SCH (08:17)
--- NOTE | 2019-03-23 11:09 | PCM.DCSUM1 ---
Discharge Summary - Hospital Course Free Text/Narrative:: h/o adrenal insufficiency, dm, hypothyroidism, copd presented with sob, cough, hypokalemia 1. hypoakalemia, Replaced continue hydrocortisone and K supplement 2. generalized weakness - improved with PT OT consult 3. acute Bronchitis - Chest x-ray on admission did not show any acute findings sputum cx: klebsiella - treat with levofloxacin 4. acute copd exacerbation improved treated with steroids, nebs cont inhalers at home 4. Diabetes mellitus - cont on metformin, januvia 5. Hypothyroidism, Dose of levothyroxine was increased from 100 to 125 mcg due to elevated TSH Recheck TSH as out pt Diagnosis: Stroke: No - Discharge Data Discharge Date: 03/23/19 Discharge Disposition: Home, Self-Care 01 Condition: Good - Discharge Diagnosis/Problem(s) (1) Bronchospasm with bronchitis, acute SNOMED Code(s): 39709794 ICD Code: J20.9 - ACUTE BRONCHITIS, UNSPECIFIED Status: Acute Current Visit: No - Patient Summary/Data Consults: Consultations 03/19/19 21:22 OT Evaluation and Treatment [CONS] Routine PT Evaluation and Treatment [CONS] Routine - Patient Instructions Diet: Diabetic Diet Activity: As Tolerated - Discharge Plan *PRESCRIPTION DRUG MONITORING PROGRAM REVIEWED*: Not Applicable *COPY OF PRESCRIPTION DRUG MONITORING REPORT IN PATIENT CHRISTINA: Not Applicable Prescriptions/Med Rec: levoFLOXacin [Levaquin] 750 mg PO Q24H #5 tablet Levothyroxine 125 mcg PO ACBREAKFAST #30 tablet Home Medications: Home Meds Aspirin [Halfprin] 81 mg PO DAILY 11/28/13 [History] Fludrocortisone [Florinef] 0.1 mg PO ACBRK 11/28/13 [History] Hydrocortisone 10 mg PO WITHBREAKFAST 11/28/13 [History] Lisinopril 10 mg PO DAILY 11/28/13 [History] Montelukast Sodium 10 mg PO BEDTIME 11/28/13 [History] Multivitamin [Multivitamins] 1 cap PO DAILY 11/28/13 [History] sitaGLIPtin Phos/Metformin HCl [Janumet 50-1,000 MG] 1 tab PO BIDMEALS 11/28/13 [History] Acetaminophen 650 mg PO Q6H PRN 01/14/15 [History] Albuterol/Ipratropium [DuoNeb 3.0-0.5 MG/3 ML] 3 ml NEB QID PRN 01/14/15 [ History] Cetirizine [ZyrTEC] 10 mg PO BEDTIME 07/25/17 [History] Dextrose [Glucose] 4 tab PO ASDIRECTED 07/25/17 [History] Levalbuterol Tartrate [Xopenex Hfa] 2 puff IH Q4HR PRN 07/25/17 [History] Potassium Chloride [Klor-Con 10] 20 meq PO BID 07/25/17 [History] Metoprolol Succinate [Toprol XL] 25 mg PO DAILY 08/10/17 [History] Mometasone/Formoterol [Dulera 200 Mcg/5 Mcg Inhaler] 2 puff INH BID 12/04/18 [ History] Nystatin [Mycostatin] 5 ml PO BID PRN 12/04/18 [History] Pantoprazole Sodium [Protonix] 40 mg PO DAILY 12/04/18 [History] Hydrocortisone 5 mg PO BEDTIME 03/04/19 [History] Hydrocortisone 5 mg PO DAILY@1600 03/04/19 [History] Magnesium Chloride 70 mg PO DAILY 03/04/19 [History] Calcium Citrate/Vitamin D3 [Citracal + D Maximum Caplet] 1 tab PO BID 03/20/19 [ History] Mineral Oil, Light/Mineral Oil [Soothe Xp Eye Drops] 1 drop EYEBOTH DAILY PRN [History] Levothyroxine 125 mcg PO ACBREAKFAST #30 tablet 03/23/19 [Rx] levoFLOXacin [Levaquin] 750 mg PO Q24H #5 tablet 03/23/19 [Rx] - Discharge Summary/Plan Comment DC Time >30 min.: No - General Info Date of Service: 03/23/19 Subjective Update: Patient 70-year-old female admitted because of generalized weakness Noted to have hypokalemia, acute bronchitis. Feels that the shortness of breath is better. Cough with some sputum production. has been able to ambulate Functional Status: Reports: Tolerating Diet, Ambulating - Review of Systems General: Denies: Fever, Weakness Pulmonary: Reports: Cough. Denies: Shortness of Breath Cardiovascular: Denies: Chest Pain Genitourinary: Denies: Dysuria Neurological: Denies: Confusion - Patient Data Vitals - Most Recent: Last Vital Signs Temp 36.7 C 03/23/19 07:57 Pulse 67 03/23/19 08:12 Resp 16 03/23/19 07:57 BP 107/62 03/23/19 08:12 Pulse Ox 100 03/23/19 07:57 Weight - Most Recent: 49.623 kg I&O - Last 24 hours: Intake & Output 03/22/19 03/23/19 03/23/19 22:59 06:59 14:59 Intake Total 220 320 Balance 220 320 Lab Results - Last 24 hrs: Laboratory Results - last 24 hr 03/22/19 03/22/19 03/22/19 Range/Units 12:01 16:49 20:53 WBC (5.0-10.0) 10^3/uL RBC (4.2-5.4) 10^6/uL Hgb (12.0-16.0) g/dL Hct (37.0-47.0) % MCV (80-100) fL MCH (27.0-34.0) pg MCHC (33.0-35.0) g/dL Plt Count (150-450) 10^3/uL Neut % (Auto) (42.2-75.2) % Lymph % (Auto) (20.5-50.1) % Greenlee % (Auto) (2-8) % Eos % (Auto) (1.0-3.0) % Baso % (Auto) (0.0-1.0) % Sodium (135-145) mmol/L Potassium (3.6-5.0) mmol/L Chloride (101-111) mmol/L Carbon Dioxide (21.0-31.0) mmol/L Anion Gap BUN (7-18) mg/dL Creatinine (0.6-1.3) mg/dL Est Cr Clr Drug Dosing mL/min Estimated GFR (MDRD) Glucose (74-105) mg/dL POC Glucose 165 H 164 H 157 H (83-110) mg/dl Calcium (8.4-10.2) mg/dl 03/23/19 03/23/19 03/23/19 Range/Units 06:17 06:17 07:52 WBC 6.2 (5.0-10.0) 10^3/uL RBC 3.73 L (4.2-5.4) 10^6/uL Hgb 11.3 L D (12.0-16.0) g/dL Hct 34.5 L (37.0-47.0) % MCV 92.5 (80-100) fL MCH 30.3 (27.0-34.0) pg MCHC 32.8 L (33.0-35.0) g/dL Plt Count 207 (150-450) 10^3/uL Neut % (Auto) 75.8 H (42.2-75.2) % Lymph % (Auto) 14.1 L (20.5-50.1) % Greenlee % (Auto) 9.7 H (2-8) % Eos % (Auto) 0.2 L (1.0-3.0) % Baso % (Auto) 0.2 (0.0-1.0) % Sodium 134 L (135-145) mmol/L Potassium 4.4 (3.6-5.0) mmol/L Chloride 100 L (101-111) mmol/L Carbon Dioxide 24.0 (21.0-31.0) mmol/L Anion Gap 14.4 BUN 9 (7-18) mg/dL Creatinine 0.7 (0.6-1.3) mg/dL Est Cr Clr Drug Dosing 54.01 mL/min Estimated GFR (MDRD) > 60 Glucose 131 H (74-105) mg/dL POC Glucose 115 H (83-110) mg/dl Calcium 8.4 (8.4-10.2) mg/dl TIANNA Results - Last 24 hrs: Microbiology 03/19/19 16:35 Aerobic Blood Culture - Preliminary Blood - Venous - Lab Draw NO GROWTH AFTER 3 DAYS Anaerobic Blood Culture - Preliminary NO GROWTH AFTER 3 DAYS 03/19/19 16:30 Aerobic Blood Culture - Preliminary Blood - Venous NO GROWTH AFTER 3 DAYS Anaerobic Blood Culture - Preliminary NO GROWTH AFTER 3 DAYS 03/19/19 16:55 Urine Culture - Final Urine, Bladder 03/20/19 12:45 Gram Stain - Final Sputum - Expectorated Sputum Culture - Final Klebsiella Pneumoniae Med Orders - Current: Current Medications Acetaminophen (Tylenol) 650 mg PO Q6HR PRN PRN Reason: Pain (mild, 1-3)/Fever Albuterol/Ipratropium (Duoneb 3.0-0.5 Mg/3 Ml) 3 ml NEB QIDRT PRN PRN Reason: Shortness of Breath Last Admin: 03/20/19 06:15 Dose: 3 ml Albuterol/Ipratropium (Duoneb 3.0-0.5 Mg/3 Ml) 3 ml NEB QIDRT [facility] Last Admin: 03/23/19 07:16 Dose: 3 ml Aspirin (Halfprin) 81 mg PO DAILY [facility] Last Admin: 03/23/19 08:13 Dose: 81 mg Calcium Carbonate/Glycine (Tums) 500 mg PO Q4H PRN PRN Reason: Heartburn Last Admin: 03/23/19 09:33 Dose: 500 mg Enoxaparin Sodium (Lovenox) 40 mg SUBCUT DAILY [facility] Last Admin: 03/23/19 08:15 Dose: 40 mg Fludrocortisone Acetate (Florinef) 0.1 mg PO ACBRK [facility] Last Admin: 03/23/19 05:41 Dose: 0.1 mg Hydrocortisone (Cortef) 5 mg PO BEDTIME [facility] Last Admin: 03/22/19 20:27 Dose: 5 mg Hydrocortisone (Cortef) 5 mg PO DAILY@1600 [facility] Last Admin: 03/22/19 17:03 Dose: 5 mg Hydrocortisone (Cortef) 10 mg PO WITHBREAKFAST [facility] Last Admin: 03/23/19 08:11 Dose: 10 mg Levofloxacin (Levaquin) 750 mg PO Q24H [facility] Last Admin: 03/22/19 14:03 Dose: 750 mg Levothyroxine Sodium (Levothyroxine) 125 mcg PO ACBREAKFAST [facility] Lisinopril (Prinivil) 10 mg PO DAILY [facility] Last Admin: 03/23/19 08:10 Dose: 10 mg Loratadine (Claritin) 10 mg PO BEDTIME [facility] Last Admin: 03/22/19 20:27 Dose: 10 mg Magnesium Oxide (Magnesium Oxide) 250 mg PO DAILY [facility] Last Admin: 03/23/19 08:12 Dose: 250 mg Metformin HCl (Glucophage) 1,000 mg PO BIDMEALS [facility] Last Admin: 03/23/19 08:10 Dose: 1,000 mg Methylprednisolone (Medrol) 4 mg PO 0730,1230,2100 [facility] Stop: 03/23/19 21:01 Last Admin: 03/23/19 08:09 Dose: 4 mg Methylprednisolone (Medrol) 4 mg PO 0730,2100 [facility] Stop: 03/24/19 21:01 Methylprednisolone (Medrol) 4 mg PO 0730 [facility] Stop: 03/25/19 07:31 Metoprolol Succinate (Toprol Xl) 25 mg PO DAILY [facility] Last Admin: 03/23/19 08:12 Dose: 25 mg Mometasone Furoate/Formoterol Fumar (Dulera 200-5 Mcg) 0 puff IH BID [facility] Last Admin: 03/23/19 08:14 Dose: 2 puff Montelukast Sodium (Singulair) 10 mg PO BEDTIME [facility] Last Admin: 03/22/19 20:26 Dose: 10 mg Multivitamins (Thera) 1 each PO DAILY [facility] Last Admin: 03/23/19 08:10 Dose: 1 each Calcium Citrate/Vitamin D3 [Citracal + D Maximum Caplet] Own Med 1 tab PO BID [facility] Last Admin: 03/23/19 08:14 Dose: 1 tab Mineral Oil, Light/Mineral Oil [Soothe Xp Eye Drops] Own Med 1 drop EYEBOTH DAILY PRN PRN Reason: Dry Eyes Nystatin (Mycostatin) 5 ml PO BID PRN PRN Reason: Other Ondansetron HCl (Zofran Odt) 4 mg PO Q6H PRN PRN Reason: Nausea Last Admin: 03/21/19 23:47 Dose: 4 mg Pantoprazole Sodium (Protonix) 40 mg PO DAILY@0800 [facility] Last Admin: 03/23/19 08:13 Dose: 40 mg Potassium Chloride (Klor-Con 10) 30 meq PO BID [facility] Last Admin: 03/23/19 08:17 Dose: 30 meq Sodium Chloride (Saline Flush) 10 ml FLUSH ASDIRECTED PRN PRN Reason: Keep Vein Open Last Admin: 03/21/19 09:04 Dose: 10 ml Discontinued Medications Dextrose (Glutose 15) 15 gm PO ASDIRECTED [facility] Dextrose (Glutose 15) 15 gm PO ASDIRECTED ONE Stop: 03/19/19 18:07 Last Admin: 03/19/19 19:17 Dose: Not Given Doxycycline Hyclate (Vibramycin) 100 mg PO Q12HR [facility] Last Admin: 03/22/19 08:21 Dose: 100 mg Potassium Chloride 20 meq/ (Premix) 100 mls @ 50 mls/hr IV ONETIME ONE Stop: 03/19/19 19:48 Last Admin: 03/19/19 18:19 Dose: 50 mls/hr Levothyroxine Sodium (Synthroid) 100 mcg PO ACBREAKFAST [facility] Last Admin: 03/20/19 05:58 Dose: 100 mcg Levothyroxine Sodium (Levothyroxine) 112 mcg PO ONETIME ONE Stop: 03/20/19 10:31 Last Admin: 03/20/19 11:29 Dose: 112 mcg Methylprednisolone (Medrol) 8 mg PO 2100 LO; Protocol Stop: 03/20/19 21:01 Last Admin: 03/20/19 20:55 Dose: 8 mg Methylprednisolone (Medrol) 12 mg PO 1230 LO; Protocol Stop: 03/20/19 12:31 Last Admin: 03/20/19 12:23 Dose: 3 tab Methylprednisolone (Medrol) 4 mg PO 1800 LO; Protocol Stop: 03/20/19 18:01 Last Admin: 03/20/19 17:25 Dose: 4 mg Methylprednisolone (Medrol) 8 mg PO 2100 [facility] Stop: 03/22/19 21:01 Last Admin: 03/21/19 20:45 Dose: 8 mg Methylprednisolone (Medrol) 4 mg PO 0730,1230,1800 [facility] Stop: 03/21/19 18:01 Last Admin: 03/21/19 17:05 Dose: 4 mg Methylprednisolone (Medrol) 4 mg PO 0730,1230,1800,2100 [facility] Stop: 03/22/19 21:01 Last Admin: 03/22/19 20:26 Dose: 4 mg Non-Formulary Medication (Magnesium Chloride [Magnesium Chloride]) 70 mg PO DAILY [facility] Last Admin: 03/20/19 14:14 Dose: Not Given Non-Formulary Medication (Sitagliptin Phos/Metformin Hcl [Janumet 50-1,000 Mg]) 1 tab PO BIDMEALS [facility] Last Admin: 03/20/19 10:31 Dose: Not Given Potassium Chloride (Klor-Con 10) 20 meq PO BID [facility] Last Admin: 03/19/19 21:44 Dose: 20 meq Potassium Chloride (Klor-Con 10) 20 meq PO ONETIME ONE Stop: 03/19/19 17:50 Last Admin: 03/19/19 18:17 Dose: 20 meq - Exam Quality Assessment: Denies: Supplemental Oxygen General: Reports: Alert, Oriented Neck: Reports: Supple Lungs: Reports: Clear to Auscultation, Normal Respiratory Effort. Denies: Rales , Wheezing GI/Abdominal Exam: Normal Bowel Sounds, Soft, Non-Tender Extremities: No Pedal Edema Skin: Reports: Warm Neurological: Reports: No New Focal Deficit Psy/Mental Status: Reports: Alert, Normal Affect, Normal Mood
[2019-03-23] MEDS ORDERED: Levothyroxine 125 MCG Tab PO SCH (11:15)
[2019-03-23] MEDS: Levofloxacin 500 MG Tab PO SCH (12:40)
[2019-03-24] MEDS ORDERED: methylPREDNISolone 4 MG Tab 21 Tab/Dosepak PO SCH (07:30)
[2019-03-25] MEDS ORDERED: methylPREDNISolone 4 MG Tab 21 Tab/Dosepak PO SCH (07:30)
== END 2019-03-23 13:10 | disposition home or self-care (01) | DRG 191 ==
LOC: DL.MS 13:54 → UNDOADMIN 13:54 → DL.MS 15:28
PROVIDERS: ADMIT Internal Medicine; ATTEND Internal Medicine
DX: J44.0 Chronic obstructive pulmonary disease with (acute) lower respiratory infection (principal); E27.1 Primary adrenocortical insufficiency; E03.9 Hypothyroidism, unspecified; J44.1 Chronic obstructive pulmonary disease with (acute) exacerbation; J20.9 Acute bronchitis, unspecified; E11.9 Type 2 diabetes mellitus without complications; E87.6 Hypokalemia; R53.1 Weakness; I10 Essential (primary) hypertension; K21.9 Gastro-esophageal reflux disease without esophagitis; F41.9 Anxiety disorder, unspecified; Z90.89 Acquired absence of other organs; Z90.49 Acquired absence of other specified parts of digestive tract; B96.1 Klebsiella pneumoniae [K. pneumoniae] as the cause of diseases classified elsewhere; Z79.899 Other long term (current) drug therapy; Z79.82 Long term (current) use of aspirin; Z88.8 Allergy status to other drugs, medicaments and biological substances; Z91.048 Other nonmedicinal substance allergy status; Z95.2 Presence of prosthetic heart valve
CPT/HCPCS: 36415; 71046; 80048; 81001; 82550; 82962; 83735; 83880; 84443; 85025; 87040; 87070; 87077; 87086; 87186; 87205; 94010; 94640; 94667; 97161-GP; 97165-GO; A4217; A9270-GY; J1650; J3480; J7620-GY

== ENCOUNTER 2019-03-25 23:00 | Emergency (ER) | payer BC, MEDICARE, OTHER ==
[2019-03-25 23:18] VITALS: BP 119/69
[2019-03-25] MEDS ORDERED: Albuterol/Ipratropium 3.0-0.5 MG/3 ML Neb Soln NEB ONE (23:25)
--- NOTE | 2019-03-25 23:28 | EDM.PDOC ---
ED HPI GENERAL MEDICAL PROBLEM - General Chief Complaint: Respiratory Problem Stated Complaint: CAN HARDLY BREATHE,COUGHING Time Seen by Provider: 03/25/19 23:26 Source of Information: Reports: Patient History Limitations: Reports: No Limitations - History of Present Illness INITIAL COMMENTS - FREE TEXT/NARRATIVE: been having coughing problem for 3 weeks, been to clinic and given Rx then was hosp' here and d/c Tuesday but still not better and been having cough spasms. - Related Data Allergies Allergy/AdvReac Type Severity Reaction Status Date / Time iodine AdvReac Intermediate nausea only Verified 03/25/19 23:14 adhesive AdvReac Mild Rash Verified 03/25/19 23:14 ibuprofen AdvReac Unknown Stomach Verified 03/25/19 23:14 Upset Home Meds: Home Meds Aspirin [Halfprin] 81 mg PO DAILY 11/28/13 [History] Fludrocortisone [Florinef] 0.1 mg PO ACBRK 11/28/13 [History] Hydrocortisone 10 mg PO WITHBREAKFAST 11/28/13 [History] Lisinopril 10 mg PO DAILY 11/28/13 [History] Montelukast Sodium 10 mg PO BEDTIME 11/28/13 [History] Multivitamin [Multivitamins] 1 cap PO DAILY 11/28/13 [History] sitaGLIPtin Phos/Metformin HCl [Janumet 50-1,000 MG] 1 tab PO BIDMEALS 11/28/13 [History] Acetaminophen 650 mg PO Q6H PRN 01/14/15 [History] Albuterol/Ipratropium [DuoNeb 3.0-0.5 MG/3 ML] 3 ml NEB QID PRN 01/14/15 [ History] Cetirizine [ZyrTEC] 10 mg PO BEDTIME 07/25/17 [History] Dextrose [Glucose] 4 tab PO ASDIRECTED 07/25/17 [History] Levalbuterol Tartrate [Xopenex Hfa] 2 puff IH Q4HR PRN 07/25/17 [History] Potassium Chloride [Klor-Con 10] 20 meq PO BID 07/25/17 [History] Metoprolol Succinate [Toprol XL] 25 mg PO DAILY 08/10/17 [History] Mometasone/Formoterol [Dulera 200 Mcg/5 Mcg Inhaler] 2 puff INH BID 12/04/18 [ History] Nystatin [Mycostatin] 5 ml PO BID PRN 12/04/18 [History] Pantoprazole Sodium [Protonix] 40 mg PO DAILY 12/04/18 [History] Hydrocortisone 5 mg PO BEDTIME 03/04/19 [History] Hydrocortisone 5 mg PO DAILY@1600 03/04/19 [History] Magnesium Chloride 70 mg PO DAILY 03/04/19 [History] Calcium Citrate/Vitamin D3 [Citracal + D Maximum Caplet] 1 tab PO BID 03/20/19 [ History] Mineral Oil, Light/Mineral Oil [Soothe Xp Eye Drops] 1 drop EYEBOTH DAILY PRN [History] Levothyroxine 125 mcg PO ACBREAKFAST #30 tablet 03/23/19 [Rx] levoFLOXacin [Levaquin] 750 mg PO Q24H #5 tablet 03/23/19 [Rx] Past Medical History HEENT History: Reports: Other (See Below) Other HEENT History: dry eyes Cardiovascular History: Reports: Bypass, Heart Murmur, Heart Valve Replacement, Hypertension Respiratory History: Reports: Asthma, COPD Gastrointestinal History: Reports: GERD Genitourinary History: Reports: None 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 Musculoskeletal History: Reports: None Neurological History: Reports: None Psychiatric History: Reports: Anxiety 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, Diabetes, Type II, Hypothyroidism Hematologic History: Reports: None Immunologic History: Reports: Other (See Below) Other Immunologic History: Addisons disease Oncologic (Cancer) History: Reports: None Dermatologic History: Reports: None, Scleroderma, Other (See Below) Other Dermatologic History: CREST syndrome, hyperpigmentation - Infectious Disease History Infectious Disease History: Reports: Measles - Past Surgical History HEENT Surgical History: Reports: Adenoidectomy, Tonsillectomy Cardiovascular Surgical History: Reports: Coronary Artery Bypass, Valve Replacement, Other (See Below) Other Cardiovascular Surgeries/Procedures: Septal defect repair GI Surgical History: Reports: Appendectomy, Cholecystectomy, Colonoscopy, EGD, Esophageal Dilatation Female Surgical History: Reports: None Dermatological Surgical History: Reports: None Social & Family History - Family History Family Medical History: Noncontributory - Caffeine Use Caffeine Use: Reports: Coffee Caffeine Use Comment: 16. oz daily - Living Situation & Occupation Living situation: Reports: with Family Occupation: Disabled [facility] - Review of Systems Review Of Systems: ROS reveals no pertinent complaints other than HPI. ED EXAM, GENERAL - Physical Exam Exam: See Below Exam Limited By: No Limitations General Appearance: Alert, WD/WN, Mild Distress, Other (cough spasms) Course - Vital Signs Last Recorded V/S: Last Vital Signs Temp 36.9 C 03/25/19 23:14 Pulse 73 03/25/19 23:14 Resp 14 03/25/19 23:14 BP 119/69 03/25/19 23:14 Pulse Ox 100 03/25/19 23:14 - Orders/Labs/Meds Orders: Active Orders 24 hr Category Date Time Status RT Aerosol Therapy [RC] ASDIRECTED Care 03/25/19 23:25 Active Labs: Laboratory Tests 03/25/19 03/25/19 Range/Units 23:35 23:35 WBC 6.7 (5.0-10.0) 10^3/uL RBC 4.28 (4.2-5.4) 10^6/uL Hgb 12.8 D (12.0-16.0) g/dL Hct 39.0 (37.0-47.0) % MCV 91.1 (80-100) fL MCH 29.9 (27.0-34.0) pg MCHC 32.8 L (33.0-35.0) g/dL Plt Count 207 (150-450) 10^3/uL Neut % (Auto) 76.1 H (42.2-75.2) % Lymph % (Auto) 13.8 L (20.5-50.1) % Collier % (Auto) 8.9 H (2-8) % Eos % (Auto) 0.9 L (1.0-3.0) % Baso % (Auto) 0.3 (0.0-1.0) % Sodium 134 L (135-145) mmol/L Potassium 3.2 L (3.6-5.0) mmol/L Chloride 100 L (101-111) mmol/L Carbon Dioxide 25.0 (21.0-31.0) mmol/L Anion Gap 12.2 BUN 8 (7-18) mg/dL Creatinine 0.7 (0.6-1.3) mg/dL Est Cr Clr Drug Dosing 54.01 mL/min Estimated GFR (MDRD) > 60 BUN/Creatinine Ratio 11.42 Glucose 102 (74-105) mg/dL Calcium 8.4 (8.4-10.2) mg/dl Total Bilirubin 1.2 H (0.2-1.0) mg/dL AST 29 (10-42) IU/L ALT 20 (10-60) IU/L Alkaline Phosphatase 50 (42-121) IU/L B-Natriuretic Peptide 67 (0-100) pg/ml Total Protein 7.3 (6.7-8.2) g/dl Albumin 3.8 (3.2-5.5) g/dl Globulin 3.5 Albumin/Globulin Ratio 1.09 Meds: Medications Discontinued Medications Generic Name Dose Route Start Last Admin Trade Name Freq PRN Reason Stop Dose Admin Albuterol/Ipratropium 3 ml 03/25/19 23:25 03/25/19 23:38 Duoneb 3.0-0.5 Mg/3 Ml NEB 03/25/19 23:26 3 ml ONETIME ONE Administration Benzonatate 100 mg 03/26/19 00:36 03/26/19 00:46 Tessalon Perles PO 03/26/19 00:37 100 mg ONETIME ONE Administration - Re-Assessments/Exams Free Text/Narrative Re-Assessment/Exam: 03/26/19 00:37 results discussed with pt Departure - Departure Time of Disposition: 00:55 Disposition: Home, Self-Care 01 Condition: Fair Clinical Impression: Bronchospasm with bronchitis, acute - Discharge Information Instructions: Acute Bronchitis, Adult, [id number] Forms: ED Department Discharge Additional Instructions: 1) continue with neb treatments 2) follow up at clinic rx given; tessalon pearles 100mg bid prn x 6 - My Orders Last 24 Hours: My Active Orders 03/25/19 23:25 RT Aerosol Therapy [RC] ASDIRECTED - Assessment/Plan Last 24 Hours: My Active Orders 03/25/19 23:25 RT Aerosol Therapy [RC] ASDIRECTED
[2019-03-26 00:12] LABS: ANION GAP 12.2; CHLORIDE,CL 100 mmol/L (101-111); SODIUM,NA 134 mmol/L (135-145)
[2019-03-26] MEDS ORDERED: Benzonatate 100 MG Cap PO ONE (00:36)
== END 2019-03-26 00:50 | disposition home or self-care (01) ==
LOC: DL.ED 23:00
DX: J20.9 Acute bronchitis, unspecified (principal); E11.9 Type 2 diabetes mellitus without complications; E03.9 Hypothyroidism, unspecified; I10 Essential (primary) hypertension; K21.9 Gastro-esophageal reflux disease without esophagitis; J44.9 Chronic obstructive pulmonary disease, unspecified; Z95.1 Presence of aortocoronary bypass graft; Z98.890 Other specified postprocedural states; Z90.49 Acquired absence of other specified parts of digestive tract; Z88.6 Allergy status to analgesic agent; Z91.09 Other allergy status, other than to drugs and biological substances; Z79.82 Long term (current) use of aspirin; Z79.899 Other long term (current) drug therapy; Z88.8 Allergy status to other drugs, medicaments and biological substances
CPT/HCPCS: 36415; 80053; 83880; 85025; 99283; A9270-GY; J7620-GY

== ENCOUNTER 2019-09-14 02:02 | Emergency (ER) | payer BC, OTHER ==
[2019-09-14] MEDS ORDERED: Lidocaine 1% with EPINEPHrine 1:100,000 20 ML MDV INJECT ONE (02:41)
[2019-09-14] MEDS ORDERED: Oxymetazoline 0.05% Nasal Spray 15 ML Bottle NAS ONE (02:43)
[2019-09-14 02:48] VITALS: BP 144/68; PULSE 74
--- NOTE | 2019-09-14 03:55 | EDM.PDOC ---
ED HPI GENERAL MEDICAL PROBLEM - General Chief Complaint: ENT Problem Stated Complaint: NOSE BLEEDING Time Seen by Provider: 09/14/19 02:30 Source of Information: Reports: Patient, RN, RN Notes Reviewed History Limitations: Reports: No Limitations - History of Present Illness INITIAL COMMENTS - FREE TEXT/NARRATIVE: patient presents to the ER with complaint of nosebleed from the right nare. Patient states this began about 10:00 this evening. States she coughed up some blood and clots that had been running down the back of her throat. Patient states she last had her INR drawn last week some time and it was 2.7 at that time patient currently takes Coumadin for valve replacements. Patient denies use of humidifier in the home. Upon arrival to the ER, there is no active bleeding from the nose. Onset: Today, Sudden - Related Data Allergies Allergy/AdvReac Type Severity Reaction Status Date / Time iodine AdvReac Intermediate nausea only Verified 09/14/19 02:40 adhesive AdvReac Mild Rash Verified 09/14/19 02:40 ibuprofen AdvReac Unknown Stomach Verified 09/14/19 02:40 Upset Home Meds: Home Meds Aspirin [Halfprin] 81 mg PO DAILY 11/28/13 [History] Fludrocortisone [Florinef] 0.1 mg PO ACBRK 11/28/13 [History] Hydrocortisone 10 mg PO WITHBREAKFAST 11/28/13 [History] Lisinopril 10 mg PO DAILY 11/28/13 [History] Montelukast Sodium 10 mg PO BEDTIME 11/28/13 [History] Multivitamin [Multivitamins] 1 cap PO DAILY 11/28/13 [History] sitaGLIPtin Phos/Metformin HCl [Janumet 50-1,000 MG] 1 tab PO BIDMEALS 11/28/13 [History] Acetaminophen 650 mg PO Q6H PRN 01/14/15 [History] Albuterol/Ipratropium [DuoNeb 3.0-0.5 MG/3 ML] 3 ml NEB QID PRN 01/14/15 [ History] Cetirizine [ZyrTEC] 10 mg PO BEDTIME 07/25/17 [History] Dextrose [Glucose] 4 tab PO ASDIRECTED 07/25/17 [History] Levalbuterol Tartrate [Xopenex Hfa] 2 puff IH Q4HR PRN 07/25/17 [History] Potassium Chloride [Klor-Con 10] 20 meq PO BID 07/25/17 [History] Metoprolol Succinate [Toprol XL] 25 mg PO DAILY 08/10/17 [History] Mometasone/Formoterol [Dulera 200 Mcg/5 Mcg Inhaler] 2 puff INH BID 12/04/18 [ History] Nystatin [Mycostatin] 5 ml PO BID PRN 12/04/18 [History] Pantoprazole Sodium [Protonix] 40 mg PO DAILY 12/04/18 [History] Hydrocortisone 5 mg PO BEDTIME 03/04/19 [History] Hydrocortisone 5 mg PO DAILY@1600 03/04/19 [History] Magnesium Chloride 70 mg PO DAILY 03/04/19 [History] Calcium Citrate/Vitamin D3 [Citracal + D Maximum Caplet] 1 tab PO BID 03/20/19 [ History] Mineral Oil, Light/Mineral Oil [Soothe Xp Eye Drops] 1 drop EYEBOTH DAILY PRN [History] Levothyroxine 125 mcg PO ACBREAKFAST #30 tablet 03/23/19 [Rx] Azithromycin [Zithromax] 250 mg PO DAILY 03/27/19 [History] Past Medical History HEENT History: Reports: Other (See Below) Other HEENT History: dry eyes Cardiovascular History: Reports: Bypass, Heart Murmur, Heart Valve Replacement, Hypertension Respiratory History: Reports: Asthma, COPD Other Respiratory History: Recently hospitalized for pneumonia, 03/2019. 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, Diabetes, Type II, Hypothyroidism Hematologic History: Reports: None Immunologic History: Reports: Other (See Below) Other Immunologic History: Addisons disease Oncologic (Cancer) History: Reports: None Dermatologic History: Reports: None, Scleroderma, Other (See Below) Other Dermatologic History: CREST syndrome, hyperpigmentation - Infectious Disease History Infectious Disease History: Reports: Measles - Past Surgical History HEENT Surgical History: Reports: Adenoidectomy, Tonsillectomy Cardiovascular Surgical History: Reports: Coronary Artery Bypass, Valve Replacement, Other (See Below) Other Cardiovascular Surgeries/Procedures: Septal defect repair GI Surgical History: Reports: Appendectomy, Cholecystectomy, Colonoscopy, EGD, Esophageal Dilatation Female Surgical History: Reports: None Dermatological Surgical History: Reports: None Social & Family History - Family History Family Medical History: Noncontributory - Tobacco Use Smoking Status *Q: Never Smoker - Caffeine Use Caffeine Use: Reports: Coffee, Tea Caffeine Use Comment: 16. oz daily - Recreational Drug Use Recreational Drug Use: No - Living Situation & Occupation Living situation: Reports: with Family Occupation: Disabled ED ROS ENT - Review of Systems Review Of Systems: Comprehensive ROS is negative, except as noted in HPI. ED EXAM, ENT - Physical Exam Exam: See Below Exam Limited By: No Limitations General Appearance: Alert, WD/WN, No Apparent Distress Eye Exam: Bilateral Eye: EOMI, Normal Inspection Ears: Normal External Exam, Hearing Grossly Normal Nose: Dried Blood, Injected Turbinates Mouth/Throat: Normal Inspection, Normal Gums, Normal Lips, Normal Oropharynx, Normal Teeth Head: Atraumatic, Normocephalic Neck: Normal Inspection, Supple, Non-Tender, Full Range of Motion Respiratory/Chest: No Respiratory Distress, Lungs Clear, Normal Breath Sounds, No Accessory Muscle Use, Chest Non-Tender Cardiovascular: Normal Peripheral Pulses, Regular Rate, Rhythm, No Edema, No Gallop, No JVD, No Murmur, No Rub GI/Abdominal: Normal Bowel Sounds, Soft, Non-Tender (Female) Exam: Deferred Rectal (Female) Exam: Deferred Back: Normal Inspection, Full Range of Motion Extremities: Normal Inspection, Normal Range of Motion, Non-Tender, No Pedal Edema, Normal Capillary Refill Neurological: Alert, Oriented, CN II-XII Intact, Normal Cognition, Normal Gait, Normal Reflexes, No Motor/Sensory Deficits Psychiatric: Normal Affect, Normal Mood Skin: Warm, Dry, Intact, Normal Color, No Rash Lymphatic: No Adenopathy Course - Vital Signs Last Recorded V/S: Last Vital Signs Temp 97.6 F 09/14/19 02:47 Pulse 74 09/14/19 02:47 Resp 18 09/14/19 02:47 BP 144/68 H 09/14/19 02:47 Pulse Ox 99 09/14/19 02:47 - Orders/Labs/Meds Labs: Laboratory Tests 09/14/19 09/14/19 Range/Units 02:50 02:50 WBC 7.7 (5.0-10.0) 10^3/uL RBC 3.96 L (4.2-5.4) 10^6/uL Hgb 10.8 L D (12.0-16.0) g/dL Hct 32.7 L (37.0-47.0) % MCV 82.6 D (80-100) fL MCH 27.3 (27.0-34.0) pg MCHC 33.0 (33.0-35.0) g/dL Plt Count 197 (150-450) 10^3/uL Neut % (Auto) 65.2 (42.2-75.2) % Lymph % (Auto) 13.3 L (20.5-50.1) % Glenn % (Auto) 12.4 H (2-8) % Eos % (Auto) 7.9 H (1.0-3.0) % Baso % (Auto) 1.2 H (0.0-1.0) % PT 41.1 H (9.0-12.0) SEC INR 4.3 H (0.9-1.2) Meds: Medications Discontinued Medications Generic Name Dose Route Start Last Admin Trade Name Freq PRN Reason Stop Dose Admin Lidocaine/Epinephrine 20 ml 09/14/19 02:41 09/14/19 03:22 Xylocaine 1% With Epinephrine 1:100,000 INJECT 09/14/19 02:42 10 ml ONETIME ONE Administration Oxymetazoline HCl 1 ml 09/14/19 02:43 09/14/19 03:22 Afrin Original 0.05% Nasal [place] LUANA 09/14/19 02:44 1 ml ONETIME ONE Administration Departure - Departure Time of Disposition: 04:12 Disposition: Home, Self-Care 01 Condition: Fair Clinical Impression: Epistaxis, Elevated INR, Chronic anticoagulation - Discharge Information *PRESCRIPTION DRUG MONITORING PROGRAM REVIEWED*: No *COPY OF PRESCRIPTION DRUG MONITORING REPORT IN PATIENT CHRISTINA: No Instructions: Bleeding Precautions When on Anticoagulant Therapy, Adult, Nosebleed, [id number] Forms: ED Department Discharge Additional Instructions: Hold Coumadin on Tuesday Resume as normal on Tuesday and Tuesday Follow up with your primary care facility on Tuesday for recheck May use Afrin/Lidocaine/Epinephrine nasal spray, 1-2 squirts to the nostril that is bleeding, up to 3 times (every 15 minutes) If bleeding continues after 3 applications, present to the ER Return to the ER with any worsening of symptoms Sepsis Event Note - Evaluation Sepsis Screening Result: No Definite Risk - Focused Exam Vital Signs: Vital Signs Temp Pulse Resp BP Pulse Ox 09/14/19 02:47 97.6 F 74 18 144/68 H 99 09/14/19 02:16 98 F 75 18 184/80 H 99 Date Exam was Performed: 09/14/19 Time Exam was Performed: 04:46
== END 2019-09-14 04:16 | disposition home or self-care (01) ==
LOC: DL.ED 02:02
DX: R04.0 Epistaxis (principal); R79.1 Abnormal coagulation profile; I10 Essential (primary) hypertension; J44.9 Chronic obstructive pulmonary disease, unspecified; E03.9 Hypothyroidism, unspecified; E11.9 Type 2 diabetes mellitus without complications; Z79.01 Long term (current) use of anticoagulants; Z79.82 Long term (current) use of aspirin; Z79.84 Long term (current) use of oral hypoglycemic drugs; Z79.890 Hormone replacement therapy; Z79.899 Other long term (current) drug therapy; Z88.6 Allergy status to analgesic agent; Z88.8 Allergy status to other drugs, medicaments and biological substances; Z91.048 Other nonmedicinal substance allergy status
CPT/HCPCS: 36415; 85025; 85610; 99283; A9270

== ENCOUNTER 2019-11-03 15:10 | Inpatient (IN) | payer BC, OTHER ==
[2019-11-03] MEDS ORDERED: Albuterol/Ipratropium 3.0-0.5 MG/3 ML Neb Soln NEB ONE (15:26)
[2019-11-03] MEDS ORDERED: methylPREDNISolone Sodium Succinate 125 MG/2 ML SDV IVPUSH ONE (15:26)
[2019-11-03] MEDS: Sodium Chloride 0.9% 10 ML Syringe FLUSH PRN ×2 (15:40→21:18)
[2019-11-03 16:11] LABS: ANION GAP 11.5; CHLORIDE,CL 93 mmol/L (101-111); SODIUM,NA 131 mmol/L (135-145)
[2019-11-03] MEDS ORDERED: Oseltamivir 75 MG Cap PO ONE (16:51)
--- NOTE | 2019-11-03 17:06 | EDM.PDOC ---
Scribed by Michelle Stafford 11/03/19 [id number] for Mingo Hadley MD ED HPI GENERAL MEDICAL PROBLEM - General Chief Complaint: Respiratory Problem Stated Complaint: CONGESTED, HARD TO BREATH, CATCH BREATH Time Seen by Provider: 11/03/19 15:31 Source of Information: Reports: Patient, RN, RN Notes Reviewed History Limitations: Reports: No Limitations - History of Present Illness INITIAL COMMENTS - FREE TEXT/NARRATIVE: Patient presents to ER with complaint of cough, fever, chills, and shortness of breath that started on 10/29/19. She went to [facility] Tuesday and they gave her prednisone but no antibiotics. They tested her for influenza and that was negative. She states no chest x ray, or lab was ordered. Last nebulizer was at 04:30 this A.M. Pt has Hx of [place]'s Disease, COPD, DM, hypokalemia, CREST syndrome, aortic stenosis, and pneumonia. Onset: Gradual Duration: Getting Worse Location: Reports: Chest Quality: Reports: Ache Severity: Moderate Improves with: Reports: None Worsens with: Reports: None Associated Symptoms: Reports: No Other Symptoms - Related Data Allergies Allergy/AdvReac Type Severity Reaction Status Date / Time iodine AdvReac Intermediate nausea only Verified 11/03/19 15:21 adhesive AdvReac Mild Rash Verified 11/03/19 15:21 ibuprofen AdvReac Unknown Stomach Verified 11/03/19 15:21 Upset Home Meds: Home Meds Aspirin [Halfprin] 81 mg PO DAILY 11/28/13 [History] Fludrocortisone [Florinef] 0.1 mg PO ACBRK 11/28/13 [History] Hydrocortisone 10 mg PO WITHBREAKFAST 11/28/13 [History] Lisinopril 10 mg PO DAILY 11/28/13 [History] Montelukast Sodium 10 mg PO BEDTIME 11/28/13 [History] Multivitamin [Multivitamins] 1 cap PO DAILY 11/28/13 [History] sitaGLIPtin Phos/Metformin HCl [Janumet 50-1,000 MG] 1 tab PO BIDMEALS 11/28/13 [History] Acetaminophen 650 mg PO Q6H PRN 01/14/15 [History] Albuterol/Ipratropium [DuoNeb 3.0-0.5 MG/3 ML] 3 ml NEB QID PRN 01/14/15 [ History] Cetirizine [ZyrTEC] 10 mg PO BEDTIME 07/25/17 [History] Dextrose [Glucose] 4 tab PO ASDIRECTED 07/25/17 [History] Levalbuterol Tartrate [Xopenex Hfa] 2 puff IH Q4HR PRN 07/25/17 [History] Potassium Chloride [Klor-Con 10] 20 meq PO BID 07/25/17 [History] Metoprolol Succinate [Toprol XL] 25 mg PO DAILY 08/10/17 [History] Mometasone/Formoterol [Dulera 200 Mcg/5 Mcg Inhaler] 2 puff INH BID 12/04/18 [ History] Nystatin [Mycostatin] 5 ml PO BID PRN 12/04/18 [History] Pantoprazole Sodium [Protonix] 40 mg PO DAILY 12/04/18 [History] Hydrocortisone 5 mg PO BEDTIME 03/04/19 [History] Hydrocortisone 5 mg PO DAILY@1600 03/04/19 [History] Magnesium Chloride 70 mg PO DAILY 03/04/19 [History] Calcium Citrate/Vitamin D3 [Citracal + D Maximum Caplet] 1 tab PO BID 03/20/19 [ History] Mineral Oil, Light/Mineral Oil [Soothe Xp Eye Drops] 1 drop EYEBOTH DAILY PRN [History] Levothyroxine 125 mcg PO ACBREAKFAST #30 tablet 03/23/19 [Rx] Azithromycin [Zithromax] 250 mg PO DAILY 03/27/19 [History] Past Medical History HEENT History: Reports: Other (See Below) Other HEENT History: dry eyes Cardiovascular History: Reports: Bypass, Heart Murmur, Heart Valve Replacement, Hypertension Respiratory History: Reports: Asthma, COPD Other Respiratory History: Recently hospitalized for pneumonia, 03/2019. 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 Musculoskeletal History: Reports: None Neurological History: Reports: None Psychiatric History: Reports: Anxiety Endocrine/Metabolic History: Reports: [place]'s Disease, Diabetes, Type II, Hypothyroidism Hematologic History: Reports: None Immunologic History: Reports: Other (See Below) Other Immunologic History: Addisons disease Oncologic (Cancer) History: Reports: None Dermatologic History: Reports: None, Scleroderma, Other (See Below) Other Dermatologic History: CREST syndrome, hyperpigmentation - Infectious Disease History Infectious Disease History: Reports: Measles - Past Surgical History HEENT Surgical History: Reports: Adenoidectomy, Tonsillectomy Cardiovascular Surgical History: Reports: Coronary Artery Bypass, Valve Replacement, Other (See Below) Other Cardiovascular Surgeries/Procedures: Septal defect repair GI Surgical History: Reports: Appendectomy, Cholecystectomy, Colonoscopy, EGD, Esophageal Dilatation Female Surgical History: Reports: None Dermatological Surgical History: Reports: None Social & Family History - Family History Family Medical History: Noncontributory - Tobacco Use Smoking Status *Q: Never Smoker - Caffeine Use Caffeine Use: Reports: Coffee, Soda Caffeine Use Comment: 16. oz daily - Recreational Drug Use Recreational Drug Use: No - Living Situation & Occupation Living situation: Reports: with Family Occupation: Disabled ED ROS GENERAL - Review of Systems Review Of Systems: Comprehensive ROS is negative, except as noted in HPI. ED EXAM, GENERAL - Physical Exam Exam: See Below Exam Limited By: No Limitations General Appearance: Alert, No Apparent Distress, Other (Ill but non-toxic appearing) Eye Exam: Bilateral Eye: Normal Inspection Ears: Normal External Exam, Normal Canal, Hearing Grossly Normal, Normal TMs Nose: Normal Inspection, Normal Mucosa, No Blood Throat/Mouth: Normal Inspection, Normal Lips, Normal Teeth, Normal Gums, Normal Oropharynx, Normal Voice, No Airway Compromise Head: Atraumatic, Normocephalic Neck: Normal Inspection, Supple, Non-Tender, Full Range of Motion Respiratory/Chest: No Respiratory Distress, No Accessory Muscle Use, Chest Non- Tender, Decreased Breath Sounds, Crackles, Wheezing (mild). No: Rales, Rhonchi Cardiovascular: Normal Peripheral Pulses, Regular Rate, Rhythm, No Edema, No JVD , No Rub, Tachycardia, Systolic Murmur (2/6) GI/Abdominal: Normal Bowel Sounds, Soft, Non-Tender, No Organomegaly, No Distention, No Abnormal Bruit, No Mass (Female) Exam: Deferred Rectal (Female) Exam: Deferred Back Exam: Normal Inspection, Full Range of Motion, NT Extremities: Normal Inspection, Normal Range of Motion, Non-Tender, Normal Capillary Refill, No Pedal Edema Neurological: Alert, Oriented, CN II-XII Intact, Normal Cognition, Normal Gait, Normal Reflexes, No Motor/Sensory Deficits Psychiatric: Normal Affect, Normal Mood Skin Exam: Warm, Dry, Intact, Normal Color, No Rash Course - Vital Signs Last Recorded V/S: Last Vital Signs Temp 100.6 F 11/03/19 15:24 Pulse 80 11/03/19 15:45 Resp 20 11/03/19 15:24 BP 170/94 H 11/03/19 15:24 Pulse Ox 94 L 11/03/19 15:24 - Orders/Labs/Meds Orders: Active Orders 24 hr Category Date Time Status Peripheral IV Care [RC] . DIRECTED Care 11/03/19 15:28 Active RT Aerosol Therapy [RC] ASDIRECTED Care 11/03/19 15:27 Active CULTURE BLOOD [BC] Stat Lab 11/03/19 15:40 Received CULTURE BLOOD [BC] Stat Lab 11/03/19 15:45 Received Sodium Chloride 0.9% [Saline Flush] Med 11/03/19 15:27 Active 10 ml FLUSH ASDIRECTED PRN Blood Culture x2 Reflex Set [OM.PC] Stat Oth 11/03/19 15:27 Ordered Peripheral IV Insertion Adult [OM.PC] Stat Oth 11/03/19 15:27 Ordered Medication Orders Sodium Chloride (Saline Flush) 10 ml FLUSH ASDIRECTED PRN PRN Reason: Keep Vein Open Last Admin: 11/03/19 15:40 Dose: 10 ml Labs: Laboratory Tests 11/03/19 11/03/19 11/03/19 Range/Units 15:40 15:40 15:40 WBC 8.2 (5.0-10.0) 10^3/uL RBC 4.36 (4.2-5.4) 10^6/uL Hgb 12.1 (12.0-16.0) g/dL Hct 36.5 L (37.0-47.0) % MCV 83.7 (80-100) fL MCH 27.8 (27.0-34.0) pg MCHC 33.2 (33.0-35.0) g/dL Plt Count 179 (150-450) 10^3/uL Neut % (Auto) 78.5 H (42.2-75.2) % Lymph % (Auto) 5.9 L (20.5-50.1) % Custer % (Auto) 14.3 H (2-8) % Eos % (Auto) 1.1 (1.0-3.0) % Baso % (Auto) 0.2 (0.0-1.0) % Sodium 131 L (135-145) mmol/L Potassium 3.5 L (3.6-5.0) mmol/L Chloride 93 L (101-111) mmol/L Carbon Dioxide 30.0 (21.0-31.0) mmol/L Anion Gap 11.5 BUN 6 L (7-18) mg/dL Creatinine 0.7 (0.6-1.3) mg/dL Est Cr Clr Drug Dosing 53.21 mL/min Estimated GFR (MDRD) > 60 BUN/Creatinine Ratio 8.57 Glucose 155 H (74-105) mg/dL Lactic Acid 1.1 (0.5-2.0) mmol/L Calcium 8.8 (8.4-10.2) mg/dl Total Bilirubin 1.2 H (0.2-1.0) mg/dL AST 40 (10-42) IU/L ALT 23 (10-60) IU/L Alkaline Phosphatase 82 (42-121) IU/L B-Natriuretic Peptide 390 H (0-100) pg/ml Total Protein 7.6 (6.7-8.2) g/dl Albumin 4.0 (3.2-5.5) g/dl Globulin 3.6 Albumin/Globulin Ratio 1.11 Urine Color (YELLOW) Urine Appearance (CLEAR) Urine pH (5.0-9.0) Ur Specific Bison (1.005-1.030) Urine Protein (NEGATIVE) Urine Glucose (UA) (NEGATIVE) Urine Ketones (NEGATIVE) Urine Occult Blood (NEGATIVE) Urine Nitrite (NEGATIVE) Urine Bilirubin (NEGATIVE) Urine Urobilinogen (0.2-1.0) mg/dL Ur Leukocyte Esterase (NEGATIVE) 11/03/19 Range/Units 15:42 WBC (5.0-10.0) 10^3/uL RBC (4.2-5.4) 10^6/uL Hgb (12.0-16.0) g/dL Hct (37.0-47.0) % MCV (80-100) fL MCH (27.0-34.0) pg MCHC (33.0-35.0) g/dL Plt Count (150-450) 10^3/uL Neut % (Auto) (42.2-75.2) % Lymph % (Auto) (20.5-50.1) % Custer % (Auto) (2-8) % Eos % (Auto) (1.0-3.0) % Baso % (Auto) (0.0-1.0) % Sodium (135-145) mmol/L Potassium (3.6-5.0) mmol/L Chloride (101-111) mmol/L Carbon Dioxide (21.0-31.0) mmol/L Anion Gap BUN (7-18) mg/dL Creatinine (0.6-1.3) mg/dL Est Cr Clr Drug Dosing mL/min Estimated GFR (MDRD) BUN/Creatinine Ratio Glucose (74-105) mg/dL Lactic Acid (0.5-2.0) mmol/L Calcium (8.4-10.2) mg/dl Total Bilirubin (0.2-1.0) mg/dL AST (10-42) IU/L ALT (10-60) IU/L Alkaline Phosphatase (42-121) IU/L B-Natriuretic Peptide (0-100) pg/ml Total Protein (6.7-8.2) g/dl Albumin (3.2-5.5) g/dl Globulin Albumin/Globulin Ratio Urine Color Yellow (YELLOW) Urine Appearance Slightly cloudy (CLEAR) Urine pH 8.5 (5.0-9.0) Ur Specific Bison 1.020 (1.005-1.030) Urine Protein Negative (NEGATIVE) Urine Glucose (UA) Negative (NEGATIVE) Urine Ketones Negative (NEGATIVE) Urine Occult Blood Negative (NEGATIVE) Urine Nitrite Negative (NEGATIVE) Urine Bilirubin Negative (NEGATIVE) Urine Urobilinogen 0.2 (0.2-1.0) mg/dL Ur Leukocyte Esterase Negative (NEGATIVE) Influenza A: POSITIVE. Influenza B: Negative. Meds: Medications Generic Name Dose Route Start Last Admin Trade Name Freq PRN Reason Stop Dose Admin Sodium Chloride 10 ml 11/03/19 15:27 11/03/19 15:40 Saline Flush FLUSH 10 ml ASDIRECTED PRN Administration Keep Vein Open Discontinued Medications Generic Name Dose Route Start Last Admin Trade Name Freq PRN Reason Stop Dose Admin Albuterol/Ipratropium 3 ml 11/03/19 15:26 11/03/19 15:42 Duoneb 3.0-0.5 Mg/3 Ml NEB 11/03/19 15:27 3 ml ONETIME ONE Administration Methylprednisolone Sodium Succinate 125 mg 11/03/19 15:26 11/03/19 15:40 Solu-Medrol IVPUSH 11/03/19 15:27 125 mg ONETIME ONE Administration Oseltamivir Phosphate 75 mg 11/03/19 16:51 Tamiflu PO 11/03/19 16:52 ONETIME ONE - Radiology Interpretation Free Text/Narrative:: Chest x-ray: Moderate cardiomegaly. No significant change is identified since the prior exam. See rad report. Departure - Departure Time of Disposition: 17:04 (admitted to Dr. Hinojosa) Disposition: Admitted As Inpatient 66 Condition: Fair Clinical Impression: Influenza A, Acute exacerbation of chronic obstructive pulmonary disease (COPD) , Hypoxia - Discharge Information *PRESCRIPTION DRUG MONITORING PROGRAM REVIEWED*: Not Applicable *COPY OF PRESCRIPTION DRUG MONITORING REPORT IN PATIENT CHRISTINA: Not Applicable Forms: ED Department Discharge Sepsis Event Note - Evaluation Sepsis Screening Result: No Definite Risk - Focused Exam Vital Signs: Vital Signs Temp Pulse Resp BP Pulse Ox 11/03/19 15:45 80 11/03/19 15:24 100.6 F 100 20 170/94 H 94 L Date Exam was Performed: 11/03/19 Time Exam was Performed: 17:03 - My Orders Last 24 Hours: My Active Orders 11/03/19 15:27 RT Aerosol Therapy [RC] ASDIRECTED Sodium Chloride 0.9% [Saline Flush] 10 ml FLUSH ASDIRECTED PRN Blood Culture x2 Reflex Set [OM.PC] Stat Peripheral IV Insertion Adult [OM.PC] Stat 11/03/19 15:28 Peripheral IV Care [RC] . DIRECTED 11/03/19 15:40 CULTURE BLOOD [BC] Stat 11/03/19 15:45 CULTURE BLOOD [BC] Stat - Assessment/Plan Last 24 Hours: My Active Orders 11/03/19 15:27 RT Aerosol Therapy [RC] ASDIRECTED Sodium Chloride 0.9% [Saline Flush] 10 ml FLUSH ASDIRECTED PRN Blood Culture x2 Reflex Set [OM.PC] Stat Peripheral IV Insertion Adult [OM.PC] Stat 11/03/19 15:28 Peripheral IV Care [RC] . DIRECTED 02/01/20 15:40 CULTURE BLOOD [BC] Stat 11/03/19 15:45 CULTURE BLOOD [BC] Stat I have read and agree with the documentation that has been completed regarding this visit. By signing this record, I attest that the documentation was completed in my physical presence and is an accurate record of the encounter.
[2019-11-03] MEDS ORDERED: Non-Formulary Medication 1 Each (Levalbuterol Tartrate [Xopenex Hfa] 2 PUFF) IH PRN (17:31)
[2019-11-03] MEDS ORDERED: Acetaminophen 325 MG Tab PO PRN ×2 (17:31→17:37)
[2019-11-03] MEDS ORDERED: Non-Formulary Medication 1 Each (Mineral Oil, Light/Mineral Oil [Soothe Xp Eye Drops] 1 DR EYEBOTH PRN (17:31)
[2019-11-03] MEDS ORDERED: oxyCODONE 5 MG Tab PO PRN (17:37)
[2019-11-03] MEDS ORDERED: Sodium Chloride 0.9% 10 ML Syringe FLUSH PRN (17:37)
[2019-11-03] MEDS ORDERED: Ondansetron 4 MG/2 ML SDV IVPUSH PRN (17:37)
--- NOTE | 2019-11-03 17:58 | PCM.HP ---
H&P History of Present Illness - General Date of Service: 11/03/19 Admit Problem/Dx: Admission Diagnosis/Problem Admission Diagnosis/Problem Influenza due to influenza A virus Source of Information: Patient History Limitations: Reports: No Limitations - History of Present Illness Initial Comments - Free Text/Narative: Anitha Black is a 74 y.o female with a medical history of coronary artery disease, status post coronary artery bypass grafting, Curry, COPD, CREST syndrome, disease, severe symptomatic aortic valve stenosis s/p AVR and valve-in -valve TAVR, hypothyroidism, diabetes mellitus, dyslipidemia, hypertension, and prior history of esophageal stricture s/p multiple dilations, who presented with cough, shortness of breath and fever. Patient reports that for the past one week she has been having shortness of breath and non-productive cough. He symptoms worsened in the past couple days with the development of chills and fever. [facility] yesterday. She was tested negative for influenza was given prednisone. Patient says she woke up at 4:30 am this morning very short of breath. She used her nebulizer but got no significant relief. Patient the presented to the ED later today. In the ED, she was tachycardic at 100, hypoxic in mid to high 80 and requiring oxygen by NC, febrile at 100.6. Labs significant for Na 131, K 3.5, TSH 13.8. CXR reported as cardiomegaly without acute changes. Patient was started on Tamiflu. - Related Data Allergies/Adverse Reactions: Allergies Allergy/AdvReac Type Severity Reaction Status Date / Time iodine AdvReac Intermediate nausea only Verified 11/03/19 17:35 adhesive AdvReac Mild Rash Verified 11/03/19 17:35 ibuprofen AdvReac Unknown Stomach Verified 11/03/19 17:35 Upset Home Medications: Home Meds Aspirin [Halfprin] 81 mg PO DAILY 11/28/13 [History] Fludrocortisone [Florinef] 0.1 mg PO ACBRK 11/28/13 [History] Hydrocortisone 10 mg PO WITHBREAKFAST 11/28/13 [History] Lisinopril 10 mg PO DAILY 11/28/13 [History] Montelukast Sodium 10 mg PO BEDTIME 11/28/13 [History] Multivitamin [Multivitamins] 1 cap PO DAILY 11/28/13 [History] sitaGLIPtin Phos/Metformin HCl [Janumet 50-1,000 MG] 1 tab PO DAILY 11/28/13 [ History] Acetaminophen 650 mg PO Q6H PRN 01/14/15 [History] Albuterol/Ipratropium [DuoNeb 3.0-0.5 MG/3 ML] 3 ml NEB QID PRN 01/14/15 [ History] Cetirizine [ZyrTEC] 10 mg PO BEDTIME 07/25/17 [History] Dextrose [Glucose] 4 tab PO ASDIRECTED PRN 07/25/17 [History] Levalbuterol Tartrate [Xopenex Hfa] 2 puff IH Q4HR PRN 07/25/17 [History] Potassium Chloride [Klor-Con 10] 10 meq PO DAILY 07/25/17 [History] Metoprolol Succinate [Toprol XL] 25 mg PO DAILY 08/10/17 [History] Mometasone/Formoterol [Dulera 200 Mcg/5 Mcg Inhaler] 2 puff INH BID 12/04/18 [ History] Nystatin [Mycostatin] 5 ml PO BID PRN 12/04/18 [History] Pantoprazole Sodium [Protonix] 40 mg PO DAILY 12/04/18 [History] Hydrocortisone 20 mg PO BEDTIME 03/04/19 [History] Magnesium Chloride 70 mg PO DAILY 03/04/19 [History] Calcium Citrate/Vitamin D3 [Citracal + D Maximum Caplet] 1 tab PO BID 03/20/19 [ History] Mineral Oil, Light/Mineral Oil [Soothe Xp Eye Drops] 1 drop EYEBOTH DAILY PRN [History] Levothyroxine 125 mcg PO ACBREAKFAST #30 tablet 03/23/19 [Rx] Spironolactone [Aldactone] 1 tab PO DAILY 11/03/19 [History] Warfarin [Coumadin] 1 tab PO DAILY 11/03/19 [History] Past Medical History HEENT History: Reports: Other (See Below) Other HEENT History: dry eyes Cardiovascular History: Reports: Bypass, Heart Murmur, Heart Valve Replacement, Hypertension Respiratory History: Reports: Asthma, COPD Other Respiratory History: Recently hospitalized for pneumonia, 03/2019. Gastrointestinal History: Reports: GERD Genitourinary History: Reports: None RESEARCH CONSULTANT History: Reports: None Musculoskeletal History: Reports: None Neurological History: Reports: None Psychiatric History: Reports: Anxiety Endocrine/Metabolic History: Reports: Curry's Disease, Diabetes, Type II, Hypothyroidism Hematologic History: Reports: None Immunologic History: Reports: Other (See Below) Other Immunologic History: Addisons disease Oncologic (Cancer) History: Reports: None Dermatologic History: Reports: None, Scleroderma, Other (See Below) Other Dermatologic History: CREST syndrome, hyperpigmentation - Infectious Disease History Infectious Disease History: Reports: Chicken Pox - Past Surgical History HEENT Surgical History: Reports: Adenoidectomy, Tonsillectomy Cardiovascular Surgical History: Reports: Coronary Artery Bypass, Valve Replacement, Other (See Below) Other Cardiovascular Surgeries/Procedures: Septal defect repair GI Surgical History: Reports: Appendectomy, Cholecystectomy, Colonoscopy, EGD, Esophageal Dilatation Female Surgical History: Reports: None Dermatological Surgical History: Reports: None Social & Family History - Family History Family Medical History: Noncontributory - Tobacco Use Smoking Status *Q: Never Smoker Second Hand Smoke Exposure: No - Caffeine Use Caffeine Use: Reports: Coffee, Tea Caffeine Use Comment: 16. oz daily - Recreational Drug Use Recreational Drug Use: No - Living Situation & Occupation Living situation: Reports: with Family Occupation: Disabled H&P Review of Systems - Review of Systems: Review Of Systems: See Below General: Reports: Fever, Chills, Malaise HEENT: Reports: Sore Throat Pulmonary: Reports: Shortness of Breath, Cough Cardiovascular: Reports: No Symptoms Gastrointestinal: Reports: No Symptoms Genitourinary: Reports: No Symptoms Musculoskeletal: Reports: No Symptoms Skin: Reports: No Symptoms Psychiatric: Reports: No Symptoms Neurological: Reports: No Symptoms Hematologic/Lymphatic: Reports: No Symptoms Immunologic: Reports: No Symptoms Exam - Exam Exam: See Below - Vital Signs Vital Signs: Last Vital Signs Temp 100.6 F 11/03/19 15:24 Pulse 80 11/03/19 15:45 Resp 20 11/03/19 15:24 BP 170/94 H 11/03/19 15:24 Pulse Ox 94 L 11/03/19 15:24 Weight: 115 lb 9.6 oz - Exam Quality Assessment: Supplemental Oxygen General: Alert, Oriented, Mild Distress HEENT: PERRLA, Hearing Intact, Mucosa Moist & [place], Nares Patent, Normal Nasal Septum, Posterior Pharynx Clear, Conjunctiva Clear, EOMI, EACs Clear, TMs Clear Neck: Supple, Trachea Midline, 2 Lungs: Rhonchi Cardiovascular: Regular Rate, Regular Rhythm, Systolic Murmur GI/Abdominal Exam: Normal Bowel Sounds, Soft, Non-Tender, No Organomegaly, No Distention, No Abnormal Bruit, No Mass, Pelvis Stable (Female) Exam: Deferred Rectal (Female) Exam: Deferred Back Exam: Normal Inspection, Full Range of Motion, NT Extremities: Normal Inspection, Normal Range of Motion, Non-Tender, No Pedal Edema, Normal Capillary Refill Skin: Warm, Dry, Intact Neurological: Cranial Nerves Intact, Reflexes Equal Bilateral Neuro Extensive - Mental Status: Alert, Oriented x3, Normal Mood/Affect, Normal Cognition Neuro Extensive - Motor, Sensory, Reflexes: CN II-XII Intact, Normal Gait, Normal Reflexes Psychiatric: Alert, Normal Affect, Normal Mood - Patient Data Lab Results Last 24 hrs: Laboratory Results - last 24 hr 11/03/19 11/03/19 11/03/19 Range/Units 15:40 15:40 15:40 WBC 8.2 (5.0-10.0) 10^3/uL RBC 4.36 (4.2-5.4) 10^6/uL Hgb 12.1 (12.0-16.0) g/dL Hct 36.5 L (37.0-47.0) % MCV 83.7 (80-100) fL MCH 27.8 (27.0-34.0) pg MCHC 33.2 (33.0-35.0) g/dL Plt Count 179 (150-450) 10^3/uL Neut % (Auto) 78.5 H (42.2-75.2) % Lymph % (Auto) 5.9 L (20.5-50.1) % [place] % (Auto) 14.3 H (2-8) % Eos % (Auto) 1.1 (1.0-3.0) % Baso % (Auto) 0.2 (0.0-1.0) % Sodium 131 L (135-145) mmol/L Potassium 3.5 L (3.6-5.0) mmol/L Chloride 93 L (101-111) mmol/L Carbon Dioxide 30.0 (21.0-31.0) mmol/L Anion Gap 11.5 BUN 6 L (7-18) mg/dL Creatinine 0.7 (0.6-1.3) mg/dL Est Cr Clr Drug Dosing 53.21 mL/min Estimated GFR (MDRD) > 60 BUN/Creatinine Ratio 8.57 Glucose 155 H (74-105) mg/dL Lactic Acid 1.1 (0.5-2.0) mmol/L Calcium 8.8 (8.4-10.2) mg/dl Total Bilirubin 1.2 H (0.2-1.0) mg/dL AST 40 (10-42) IU/L ALT 23 (10-60) IU/L Alkaline Phosphatase 82 (42-121) IU/L B-Natriuretic Peptide 390 H (0-100) pg/ml Total Protein 7.6 (6.7-8.2) g/dl Albumin 4.0 (3.2-5.5) g/dl Globulin 3.6 Albumin/Globulin Ratio 1.11 Urine Color (YELLOW) Urine Appearance (CLEAR) Urine pH (5.0-9.0) Ur Specific [place] (1.005-1.030) Urine Protein (NEGATIVE) Urine Glucose (UA) (NEGATIVE) Urine Ketones (NEGATIVE) Urine Occult Blood (NEGATIVE) Urine Nitrite (NEGATIVE) Urine Bilirubin (NEGATIVE) Urine Urobilinogen (0.2-1.0) mg/dL Ur Leukocyte Esterase (NEGATIVE) 11/03/19 Range/Units 15:42 WBC (5.0-10.0) 10^3/uL RBC (4.2-5.4) 10^6/uL Hgb (12.0-16.0) g/dL Hct (37.0-47.0) % MCV (80-100) fL MCH (27.0-34.0) pg MCHC (33.0-35.0) g/dL Plt Count (150-450) 10^3/uL Neut % (Auto) (42.2-75.2) % Lymph % (Auto) (20.5-50.1) % [place] % (Auto) (2-8) % Eos % (Auto) (1.0-3.0) % Baso % (Auto) (0.0-1.0) % Sodium (135-145) mmol/L Potassium (3.6-5.0) mmol/L Chloride (101-111) mmol/L Carbon Dioxide (21.0-31.0) mmol/L Anion Gap BUN (7-18) mg/dL Creatinine (0.6-1.3) mg/dL Est Cr Clr Drug Dosing mL/min Estimated GFR (MDRD) BUN/Creatinine Ratio Glucose (74-105) mg/dL Lactic Acid (0.5-2.0) mmol/L Calcium (8.4-10.2) mg/dl Total Bilirubin (0.2-1.0) mg/dL AST (10-42) IU/L ALT (10-60) IU/L Alkaline Phosphatase (42-121) IU/L B-Natriuretic Peptide (0-100) pg/ml Total Protein (6.7-8.2) g/dl Albumin (3.2-5.5) g/dl Globulin Albumin/Globulin Ratio Urine Color Yellow (YELLOW) Urine Appearance Slightly cloudy (CLEAR) Urine pH 8.5 (5.0-9.0) Ur Specific [place] 1.020 (1.005-1.030) Urine Protein Negative (NEGATIVE) Urine Glucose (UA) Negative (NEGATIVE) Urine Ketones Negative (NEGATIVE) Urine Occult Blood Negative (NEGATIVE) Urine Nitrite Negative (NEGATIVE) Urine Bilirubin Negative (NEGATIVE) Urine Urobilinogen 0.2 (0.2-1.0) mg/dL Ur Leukocyte Esterase Negative (NEGATIVE) Result Diagrams: 11/03/19 15:40 11/03/19 15:40 Venkat Results Last 24 hrs: Microbiology 11/03/19 16:22 Influenza Type A Antigen Screen - Final Nasal, Unspecified Positive Influenza A Ag Influenza Type B Antigen Screen - Final NEGATIVE INFLUENZA B VIRUS AG REFERENCE RANGE: NEGATIVE Problem List Initiated/Reviewed/Updated: Yes Orders Last 24hrs: Active Orders 24 hr Category Date Time Status Admission Diagnosis [ADT] Routine ADT 11/03/19 17:04 Ordered Admission Status [Patient Status] [ADT] Routine ADT 11/03/19 17:04 Active Patient Status [ADT] Routine ADT 11/03/19 17:37 Ordered Blood Glucose Check, Bedside [RC] QIDACANDBED Care 11/03/19 17:37 Ordered Oxygen Therapy [RC] PRN Care 11/03/19 17:37 Ordered Peripheral IV Care [RC] . DIRECTED Care 11/03/19 15:28 Active RT Aerosol Therapy [RC] ASDIRECTED Care 11/03/19 15:27 Active Up With Assistance [RC] ASDIRECTED Care 11/03/19 17:37 Ordered VTE/DVT Education [RC] PER UNIT ROUTINE Care 11/03/19 17:37 Ordered Vital Signs [RC] Q4H Care 11/03/19 17:37 Ordered Consistent Carbohydrate Diet [DIET] Diet 11/03/19 Dinner Ordered CULTURE BLOOD [BC] Stat Lab 11/03/19 15:40 Received CULTURE BLOOD [BC] Stat Lab 11/03/19 15:45 Received Acetaminophen [Tylenol] Med 11/03/19 17:37 Ordered 650 mg PO Q4H PRN Acetaminophen [Tylenol] Med 11/03/19 17:31 Ordered 650 mg PO Q6H PRN Albuterol/Ipratropium [DuoNeb 3.0-0.5 MG/3 ML] Med 11/03/19 17:31 Ordered 3 ml NEB QID PRN Aspirin [Halfprin] Med 11/04/19 09:00 Ordered 81 mg PO DAILY Calcium Citrate/Vitamin D3 [Citracal + D Maximum Caplet Med 11/03/19 21:00 Ordered ] 1 tab PO BID Cetirizine [ZyrTEC] Med 11/03/19 21:00 Ordered 10 mg PO BEDTIME Enoxaparin [Lovenox] Med 11/04/19 09:00 Ordered 30 mg SUBCUT DAILY Fludrocortisone [Florinef] Med 11/04/19 06:00 Ordered 0.1 mg PO ACBRK Hydrocortisone [Hydrocortisone] Med 11/04/19 08:00 Ordered 10 mg PO WITHBREAKFAST Hydrocortisone [Hydrocortisone] Med 11/03/19 21:00 Ordered 5 mg PO BEDTIME Hydrocortisone [Hydrocortisone] Med 11/04/19 16:00 Ordered 5 mg PO DAILY@1600 Levalbuterol Tartrate [Xopenex Hfa] Med 11/03/19 17:31 Ordered 2 puff IH Q4HR PRN Levothyroxine Med 11/04/19 06:00 Ordered 125 mcg PO ACBREAKFAST Magnesium Chloride [Magnesium Chloride] Med 11/04/19 09:00 Ordered 70 mg PO DAILY Metoprolol Succinate [Toprol XL] Med 11/04/19 09:00 Ordered 25 mg PO DAILY Mineral Oil, Light/Mineral Oil [Soothe Xp Eye Drops] Med 11/03/19 17:31 Ordered 1 drop EYEBOTH DAILY PRN Montelukast [Singulair] Med 11/03/19 21:00 Ordered 10 mg PO BEDTIME Multivitamin [Multivitamins] Med 11/04/19 09:00 Ordered 1 cap PO DAILY Ondansetron [Zofran] Med 11/03/19 17:37 Ordered 4 mg IVPUSH Q4H PRN Oseltamivir [Tamiflu] Med 11/03/19 21:00 Ordered 75 mg PO BID Pantoprazole [ProTONIX] Med 11/04/19 09:00 Ordered 40 mg PO DAILY Potassium Chloride [Klor-Con 10] Med 11/03/19 21:00 Ordered 20 meq PO BID Sodium Chloride 0.9% [Normal Saline] 1,000 ml Med 11/03/19 17:45 Ordered IV ASDIRECTED Sodium Chloride 0.9% [Saline Flush] Med 11/03/19 15:27 Active 10 ml FLUSH ASDIRECTED PRN Sodium Chloride 0.9% [Saline Flush] Med 11/03/19 17:37 Ordered 10 ml FLUSH ASDIRECTED PRN lisinopriL [Prinivil] Med 11/04/19 09:00 Ordered 10 mg PO DAILY oxyCODONE Med 11/03/19 17:37 Ordered 5 mg PO Q4H PRN Blood Culture x2 Reflex Set [OM.PC] Stat Oth 11/03/19 15:27 Ordered Peripheral IV Insertion Adult [OM.PC] Stat Oth 11/03/19 15:27 Ordered Saline Lock Insert [OM.PC] Routine Oth 11/03/19 17:37 Ordered Resuscitation Status Routine Resus Stat 11/03/19 17:37 Ordered Medication Orders Acetaminophen (Tylenol) 650 mg PO Q6H PRN PRN Reason: Pain/Fever Acetaminophen (Tylenol) 650 mg PO Q4H PRN PRN Reason: Pain (Mild 1-3)/fever Albuterol/Ipratropium (Duoneb 3.0-0.5 Mg/3 Ml) 3 ml NEB QID PRN PRN Reason: Shortness of Breath Aspirin (Halfprin) 81 mg PO DAILY LO Enoxaparin Sodium (Lovenox) 30 mg SUBCUT DAILY LO Fludrocortisone Acetate (Florinef) 0.1 mg PO ACBRK [facility] Sodium Chloride (Normal Saline) 1,000 mls @ 75 mls/hr IV ASDIRECTED [facility] Levothyroxine Sodium (Levothyroxine) 125 mcg PO ACBREAKFAST LO Lisinopril (Prinivil) 10 mg PO DAILY [facility] Metoprolol Succinate (Toprol Xl) 25 mg PO DAILY [facility] Montelukast Sodium (Singulair) 10 mg PO BEDTIME LO Non-Formulary Medication (Calcium Citrate/Vitamin D3 [Citracal + D Maximum Caplet]) 1 tab PO BID LO Non-Formulary Medication (Cetirizine [Zyrtec]) 10 mg PO BEDTIME LO Non-Formulary Medication (Hydrocortisone [Hydrocortisone]) 5 mg PO BEDTIME LO Non-Formulary Medication (Hydrocortisone [Hydrocortisone]) 5 mg PO DAILY@1600 LO Non-Formulary Medication (Hydrocortisone [Hydrocortisone]) 10 mg PO WITHBREAKFAST LO Non-Formulary Medication (Levalbuterol Tartrate [Xopenex Hfa]) 2 puff IH Q4HR PRN PRN Reason: Shortness of Breath Non-Formulary Medication (Magnesium Chloride [Magnesium Chloride]) 70 mg PO DAILY [facility] Non-Formulary Medication (Mineral Oil, Light/Mineral Oil [Soothe Xp Eye Drops]) 1 drop EYEBOTH DAILY PRN PRN Reason: Dry Eyes Non-Formulary Medication (Multivitamin [Multivitamins]) 1 cap PO DAILY [facility] Ondansetron HCl (Zofran) 4 mg IVPUSH Q4H PRN PRN Reason: Nausea/Vomiting Oseltamivir Phosphate (Tamiflu) 75 mg PO BID [facility] Stop: 11/08/19 21:01 Oxycodone HCl (Oxycodone) 5 mg PO Q4H PRN PRN Reason: Pain (moderate 4-6) Pantoprazole Sodium (Protonix) 40 mg PO DAILY [facility] Potassium Chloride (Klor-Con 10) 20 meq PO BID [facility] Sodium Chloride (Saline Flush) 10 ml FLUSH ASDIRECTED PRN PRN Reason: Keep Vein Open Last Admin: 11/03/19 15:40 Dose: 10 ml Sodium Chloride (Saline Flush) 10 ml FLUSH ASDIRECTED PRN PRN Reason: Keep Vein Open Assessment/Plan Comment:: Influenza A pneumonia Acute hypoxic respiratory failure Patient presented with cough, shortness of breath, chills, fever of 100.6, tachycardia of 100, tachypnea of 20, hypoxic in mid to high 80 and requiring oxygen by NC. Influenza A PCR positive. - O2 by NC to keep sats >90 - Tamiflu 100 mg BID x 5 day - IVF NS at 100 cc/h - Blood culture and sputum culture pending COPD - DuoNeb QID - Albuterol PRN - Resume other home inhalers CAD s/p CABG Hyperlipidemia - Resume home ASA and statin Jimi Disease - Resume home Florinef DM-2 - Hold oral hypoglycemics - SSI - QID BG checks - Hypoglycemia protocol Hypertension - Resume home antihypertensives Severe aortic valve stenosis s/p AVR and [id number] TAVR - No acute concerns Hypothyroidism TSH elevated at 13.8. - Will need dose adjustment when clinically stable
[2019-11-03] MEDS: Sodium Chloride 0.9% 1,000 ML IV SCH (21:18)
[2019-11-03] MEDS: Hydrocortisone 20 MG Tab PO SCH (21:22)
[2019-11-03] MEDS: Montelukast 10 MG Tab PO SCH (21:24)
[2019-11-03] MEDS: Calcium Carbonate/Vitamin D3 1250 MG-200 Unit Tab PO SCH (21:24)
[2019-11-03] MEDS: Potassium Chloride 10 MEQ Tab.ER PO SCH (21:30)
[2019-11-03] MEDS: Oseltamivir 30 MG Cap PO SCH (21:31)
[2019-11-04] MEDS: Albuterol/Ipratropium 3.0-0.5 MG/3 ML Neb Soln NEB PRN ×2 (03:36→23:14)
[2019-11-04] MEDS: Levothyroxine 125 MCG Tab PO SCH (05:43)
[2019-11-04] MEDS: Fludrocortisone 0.1 MG Tab PO SCH (05:43)
[2019-11-04 07:17] LABS: CHLORIDE,CL 99 mmol/L (101-111); SODIUM,NA 133 mmol/L (135-145)
[2019-11-04] MEDS: Sodium Chloride 0.9% 1,000 ML IV SCH ×2 (07:21→17:36)
[2019-11-04] MEDS: Pantoprazole 40 MG Tab.CR PO SCH (08:22)
[2019-11-04] MEDS: Metoprolol Succinate 25 MG Tab.ER PO SCH (08:23)
[2019-11-04] MEDS: Calcium Carbonate/Vitamin D3 1250 MG-200 Unit Tab PO SCH ×2 (08:24→21:55)
[2019-11-04] MEDS: Potassium Chloride 10 MEQ Tab.ER PO SCH ×2 (08:24→21:56)
[2019-11-04] MEDS: Multivitamins,Therapeutic Tab PO SCH (08:24)
[2019-11-04] MEDS: Oseltamivir 30 MG Cap PO SCH ×2 (08:24→21:56)
[2019-11-04] MEDS: Lisinopril 10 MG Tab PO SCH (08:25)
[2019-11-04] MEDS: Hydrocortisone 20 MG Tab PO SCH ×2 (08:25→21:56)
[2019-11-04] MEDS: Aspirin 81 MG Tab.EC PO SCH (08:26)
[2019-11-04] MEDS: Enoxaparin 40 MG/0.4 ML Syringe SUBCUT SCH (08:26)
[2019-11-04] MEDS ORDERED: MAGNESIUM CHLORIDE PO SCH (09:00)
[2019-11-04] MEDS ORDERED: Albuterol 0.083% 2.5 MG/3 ML Neb Soln NEB PRN (12:03)
[2019-11-04] MEDS ORDERED: Hydrocortisone 20 MG Tab PO SCH (16:00)
--- NOTE | 2019-11-04 17:41 | PCM.PN ---
- General Info Date of Service: 11/04/19 Admission Dx/Problem (Free Text): Admission Diagnosis/Problem Admission Diagnosis/Problem Influenza due to influenza A virus Subjective Update: Patient seen and examined today. Afebrile overnight. Still short of breath and coughing up sputum. Denies chest pain. Getting O2 by NC. - Review of Systems General: Reports: No Symptoms HEENT: Reports: No Symptoms Pulmonary: Reports: Shortness of Breath, Cough, Sputum, Wheezing Gastrointestinal: Reports: No Symptoms Genitourinary: Reports: No Symptoms Musculoskeletal: Reports: No Symptoms Skin: Reports: No Symptoms Neurological: Reports: No Symptoms Psychiatric: Reports: No Symptoms - Patient Data Vitals - Most Recent: Last Vital Signs Temp 98.8 F 11/04/19 16:00 Pulse 70 11/04/19 16:00 Resp 18 11/04/19 16:00 BP 171/92 H 11/04/19 16:00 Pulse Ox 97 11/04/19 16:00 Weight - Most Recent: 114 lb 3.2 oz I&O - Last 24 Hours: Intake & Output 11/04/19 11/04/19 11/04/19 06:59 14:59 22:59 Intake Total 250 1880 Balance 250 1880 Lab Results Last 24 Hours: Laboratory Results - last 24 hr 11/04/19 11/04/19 11/04/19 Range/Units 06:30 06:30 07:57 WBC 3.6 L (5.0-10.0) 10^3/uL RBC 3.72 L (4.2-5.4) 10^6/uL Hgb 10.4 L D (12.0-16.0) g/dL Hct 31.3 L (37.0-47.0) % MCV 84.1 (80-100) fL MCH 28.0 (27.0-34.0) pg MCHC 33.2 (33.0-35.0) g/dL Plt Count 165 (150-450) 10^3/uL Sodium 133 L (135-145) mmol/L Potassium 4.0 (3.6-5.0) mmol/L Chloride 99 L (101-111) mmol/L Carbon Dioxide 27.0 (21.0-31.0) mmol/L Anion Gap 11.0 BUN 9 (7-18) mg/dL Creatinine 0.7 (0.6-1.3) mg/dL Est Cr Clr Drug Dosing 53.21 mL/min Estimated GFR (MDRD) > 60 Glucose 210 H (74-105) mg/dL POC Glucose 179 H (83-110) mg/dl Calcium 7.9 L (8.4-10.2) mg/dl 11/04/19 11/04/19 Range/Units 11:45 17:01 WBC (5.0-10.0) 10^3/uL RBC (4.2-5.4) 10^6/uL Hgb (12.0-16.0) g/dL Hct (37.0-47.0) % MCV (80-100) fL MCH (27.0-34.0) pg MCHC (33.0-35.0) g/dL Plt Count (150-450) 10^3/uL Sodium (135-145) mmol/L Potassium (3.6-5.0) mmol/L Chloride (101-111) mmol/L Carbon Dioxide (21.0-31.0) mmol/L Anion Gap BUN (7-18) mg/dL Creatinine (0.6-1.3) mg/dL Est Cr Clr Drug Dosing mL/min Estimated GFR (MDRD) Glucose (74-105) mg/dL POC Glucose 118 H 130 H (83-110) mg/dl Calcium (8.4-10.2) mg/dl Venkat Results Last 24 Hours: Microbiology 11/03/19 15:45 Aerobic Blood Culture - Preliminary Blood - Venous - Lab Draw NO GROWTH AFTER 1 DAY Anaerobic Blood Culture - Preliminary NO GROWTH AFTER 1 DAY 11/03/19 15:40 Aerobic Blood Culture - Preliminary Blood - Venous NO GROWTH AFTER 1 DAY Anaerobic Blood Culture - Preliminary NO GROWTH AFTER 1 DAY 11/04/19 12:00 Gram Stain - Final Sputum - Expectorated 11/03/19 16:22 Influenza Type A Antigen Screen - Final Nasal, Unspecified Positive Influenza A Ag Influenza Type B Antigen Screen - Final NEGATIVE INFLUENZA B VIRUS AG REFERENCE RANGE: NEGATIVE Med Orders - Current: Current Medications Acetaminophen (Tylenol) 650 mg PO Q4H PRN PRN Reason: Pain (Mild 1-3)/fever Albuterol (Proventil Neb Soln) 2.5 mg NEB Q4HRRT PRN PRN Reason: Dyspnea Albuterol/Ipratropium (Duoneb 3.0-0.5 Mg/3 Ml) 3 ml NEB QID PRN PRN Reason: Shortness of Breath Last Admin: 11/04/19 03:36 Dose: 3 ml Aspirin (Halfprin) 81 mg PO DAILY [facility] Last Admin: 11/04/19 08:26 Dose: 81 mg Calcium Carbonate (Calcium Carbonate/Vitamin D 1250 Mg-200 Unit) 1 tab PO BID [facility] Last Admin: 11/04/19 08:24 Dose: 1 tab Enoxaparin Sodium (Lovenox) 40 mg SUBCUT DAILY [facility] Last Admin: 11/04/19 08:26 Dose: 40 mg Fludrocortisone Acetate (Florinef) 0.1 mg PO ACBRK [facility] Last Admin: 11/04/19 05:43 Dose: 0.1 mg Hydrocortisone (Cortef) 5 mg PO BEDTIME [facility] Last Admin: 11/03/19 21:22 Dose: 5 mg Hydrocortisone (Cortef) 5 mg PO DAILY@1600 [facility] Last Admin: 11/04/19 17:13 Dose: 5 mg Hydrocortisone (Cortef) 10 mg PO WITHBREAKFAST [facility] Last Admin: 11/04/19 08:25 Dose: 10 mg Sodium Chloride (Normal Saline) 1,000 mls @ 100 mls/hr IV ASDIRECTED [facility] Last Admin: 11/04/19 07:21 Dose: 100 mls/hr Levothyroxine Sodium (Levothyroxine) 125 mcg PO ACBREAKFAST [facility] Last Admin: 11/04/19 05:43 Dose: 125 mcg Lisinopril (Prinivil) 10 mg PO DAILY [facility] Last Admin: 11/04/19 08:25 Dose: 10 mg Loratadine (Claritin) 10 mg PO BEDTIME [facility] Magnesium Oxide (Magnesium Oxide) 250 mg PO BIDM [facility] Last Admin: 11/04/19 17:14 Dose: 250 mg Metoprolol Succinate (Toprol Xl) 25 mg PO DAILY [facility] Last Admin: 11/04/19 08:23 Dose: 25 mg Mineral Oil/White Petrolatum (Lacri-Lube S.O.P Oint) 0 gm EYEBOTH BEDTIME [facility] Montelukast Sodium (Singulair) 10 mg PO BEDTIME [facility] Last Admin: 11/03/19 21:24 Dose: 10 mg Multivitamins (Thera) 1 each PO DAILY [facility] Last Admin: 11/04/19 08:24 Dose: 1 each Ondansetron HCl (Zofran) 4 mg IVPUSH Q4H PRN PRN Reason: Nausea/Vomiting Oseltamivir Phosphate (Tamiflu) 30 mg PO BID [facility] Last Admin: 11/04/19 08:24 Dose: 30 mg Oxycodone HCl (Oxycodone) 5 mg PO Q4H PRN PRN Reason: Pain (moderate 4-6) Pantoprazole Sodium (Protonix) 40 mg PO DAILY [facility] Last Admin: 11/04/19 08:22 Dose: 40 mg Potassium Chloride (Klor-Con 10) 20 meq PO BID [facility] Last Admin: 11/04/19 08:24 Dose: 20 meq Sodium Chloride (Saline Flush) 10 ml FLUSH ASDIRECTED PRN PRN Reason: Keep Vein Open Last Admin: 11/03/19 21:18 Dose: 10 ml Sodium Chloride (Saline Flush) 10 ml FLUSH ASDIRECTED PRN PRN Reason: Keep Vein Open Discontinued Medications Acetaminophen (Tylenol) 650 mg PO Q6H PRN PRN Reason: Pain/Fever Albuterol/Ipratropium (Duoneb 3.0-0.5 Mg/3 Ml) 3 ml NEB ONETIME ONE Stop: 11/03/19 15:27 Last Admin: 11/03/19 15:42 Dose: 3 ml Methylprednisolone Sodium Succinate (Solu-Medrol) 125 mg IVPUSH ONETIME ONE Stop: 11/03/19 15:27 Last Admin: 11/03/19 15:40 Dose: 125 mg Non-Formulary Medication (Cetirizine [Zyrtec]) 10 mg PO BEDTIME [facility] Non-Formulary Medication (Levalbuterol Tartrate [Xopenex Hfa]) 2 puff IH Q4HR PRN PRN Reason: Shortness of Breath Non-Formulary Medication (Magnesium Chloride [Magnesium Chloride]) 70 mg PO DAILY [facility] Last Admin: 11/04/19 17:22 Dose: Not Given Non-Formulary Medication (Mineral Oil, Light/Mineral Oil [Soothe Xp Eye Drops]) 1 drop EYEBOTH DAILY PRN PRN Reason: Dry Eyes Oseltamivir Phosphate (Tamiflu) 75 mg PO ONETIME ONE Stop: 11/03/19 16:52 Last Admin: 11/03/19 17:13 Dose: 75 mg - Exam General: Alert, Oriented HEENT: Pupils Equal, Pupils Reactive, EOMI, Mucous Membr. Moist/[place] Neck: Supple Lungs: Crackles, Wheezing Cardiovascular: Regular Rate, Regular Rhythm GI/Abdominal Exam: Normal Bowel Sounds, Soft, Non-Tender, No Organomegaly, No Distention, No Abnormal Bruit, No Mass, Pelvis Stable (Female) Exam: Deferred Back Exam: Normal Inspection, Full Range of Motion Extremities: Normal Inspection, Normal Range of Motion, Non-Tender, No Pedal Edema, Normal Capillary Refill Skin: Warm, Dry, Intact Neurological: No New Focal Deficit Psy/Mental Status: Alert, Normal Affect, Normal Mood Sepsis Event Note - Evaluation Sepsis Screening Result: No Definite Risk - Focused Exam Vital Signs: Vital Signs Temp Pulse Pulse Resp BP BP Pulse Ox 11/04/19 16:00 98.8 F 70 18 171/92 H 97 11/04/19 11:35 98.5 F 66 18 145/71 H 95 11/04/19 08:25 128/61 11/04/19 08:23 60 128/61 11/04/19 08:00 98.4 F 60 20 128/61 100 Date Exam was Performed: 11/04/19 Time Exam was Performed: 17:37 - Problem List Review Problem List Initiated/Reviewed/Updated: Yes - My Orders Last 24 Hours: My Active Orders 11/03/19 17:31 Albuterol/Ipratropium [DuoNeb 3.0-0.5 MG/3 ML] 3 ml NEB QID PRN 11/03/19 17:37 Patient Status [ADT] Routine Blood Glucose Check, Bedside [RC] QIDACANDBED Oxygen Therapy [RC] PRN Up With Assistance [RC] ASDIRECTED VTE/DVT Education [RC] PER UNIT ROUTINE Vital Signs [RC] 00,04,08,12,16,20 Acetaminophen [Tylenol] 650 mg PO Q4H PRN Ondansetron [Zofran] 4 mg IVPUSH Q4H PRN Sodium Chloride 0.9% [Saline Flush] 10 ml FLUSH ASDIRECTED PRN oxyCODONE 5 mg PO Q4H PRN Saline Lock Insert [OM.PC] Routine Resuscitation Status Routine 11/03/19 17:45 Sodium Chloride 0.9% [Normal Saline] 1,000 ml IV ASDIRECTED 11/03/19 21:00 Calcium Carbonate/Vitamin D3 [Calcium Carbonate/Vitamin D 1250 MG-200 Unit] 1 tab PO BID Hydrocortisone [Cortef] 5 mg PO BEDTIME Montelukast [Singulair] 10 mg PO BEDTIME Oseltamivir [Tamiflu] 30 mg PO BID Potassium Chloride [Klor-Con 10] 20 meq PO BID 11/03/19 Dinner Consistent Carbohydrate Diet [DIET] 11/04/19 06:00 Fludrocortisone [Florinef] 0.1 mg PO ACBRK Levothyroxine 125 mcg PO ACBREAKFAST 11/04/19 08:00 Hydrocortisone [Cortef] 10 mg PO WITHBREAKFAST 11/04/19 09:00 Aspirin [Halfprin] 81 mg PO DAILY Enoxaparin [Lovenox] 40 mg SUBCUT DAILY Metoprolol Succinate [Toprol XL] 25 mg PO DAILY Multivitamins,Therapeutic [Thera] 1 each PO DAILY Pantoprazole [ProTONIX] 40 mg PO DAILY lisinopriL [Prinivil] 10 mg PO DAILY 11/04/19 11:49 IS (RT) [RT Incentive Spirometry] [RC] ASDIRECTED RT Chest Physiotherapy [RC] ASDIRECTED 11/04/19 12:00 CULTURE SPUTUM + SMEAR [RM] Routine 11/04/19 12:03 RT Aerosol Therapy [RC] ASDIRECTED Albuterol [Proventil Neb Soln] 2.5 mg NEB Q4HRRT PRN 11/04/19 16:00 Hydrocortisone [Cortef] 5 mg PO DAILY@1600 11/04/19 18:00 Magnesium Oxide 250 mg PO BIDM 11/04/19 21:00 Loratadine [Claritin] 10 mg PO BEDTIME Mineral Oil/Petrolatum Oint [Lacri-Lube S.O.P Oint] See Dose Instructions EYEBOTH BEDTIME - Plan Plan:: Influenza A pneumonia Acute hypoxic respiratory failure Patient presented with cough, shortness of breath, chills, fever of 100.6, tachycardia of 100, tachypnea of 20, hypoxic in mid to high 80 and requiring oxygen by NC. Influenza A PCR positive. - Continue O2 by NC to keep sats >90 - Continue Tamiflu 100 mg BID x 5 day - Continue IVF NS at 100 cc/h - Blood culture and sputum culture pending COPD - Continue DuoNeb QID - Continue Albuterol PRN - Continue other home inhalers CAD s/p CABG Hyperlipidemia - Continue home ASA and statin [place] Disease - Continue home Florinef DM-2 - Continue to hold oral hypoglycemics - SSI - QID BG checks - Hypoglycemia protocol Hypertension - Continue home antihypertensives Severe aortic valve stenosis s/p AVR and [id number] TAVR - No acute concerns Hypothyroidism TSH elevated at 13.8. - Will need Synthroid dose adjustment when clinically stable
[2019-11-04] MEDS ORDERED: Loratadine 10 MG Tab PO SCH (21:00)
[2019-11-04] MEDS ORDERED: Mineral Oil/Petrolatum Ophth Oint 3.5 GM Tube EYEBOTH SCH (21:00)
[2019-11-04] MEDS: Montelukast 10 MG Tab PO SCH (21:55)
[2019-11-04] MEDS: Insulin Lispro 100 Units/ML 3 ML Vial SUBCUT SCH (22:44)
[2019-11-04] MEDS ORDERED: guaiFENesin 100 MG/5 ML Soln 5 ML UD Cup PO PRN (23:12)
[2019-11-05] MEDS: Sodium Chloride 0.9% 1,000 ML IV SCH (05:00)
[2019-11-05] MEDS: Fludrocortisone 0.1 MG Tab PO SCH (05:01)
[2019-11-05] MEDS: Levothyroxine 125 MCG Tab PO SCH (05:02)
[2019-11-05 06:55] LABS: ANION GAP 9.9; CHLORIDE,CL 101 mmol/L (101-111); SODIUM,NA 135 mmol/L (135-145)
[2019-11-05 07:59] VITALS: BP 165/76; PULSE 62
[2019-11-05] MEDS: Calcium Carbonate/Vitamin D3 1250 MG-200 Unit Tab PO SCH (08:44)
[2019-11-05] MEDS: Aspirin 81 MG Tab.EC PO SCH (08:44)
[2019-11-05] MEDS: Metoprolol Succinate 25 MG Tab.ER PO SCH (08:44)
[2019-11-05] MEDS: Multivitamins,Therapeutic Tab PO SCH (08:44)
[2019-11-05] MEDS: Oseltamivir 30 MG Cap PO SCH (08:44)
[2019-11-05] MEDS: Lisinopril 10 MG Tab PO SCH (08:44)
[2019-11-05] MEDS: Potassium Chloride 10 MEQ Tab.ER PO SCH (08:44)
[2019-11-05] MEDS: Pantoprazole 40 MG Tab.CR PO SCH (08:44)
[2019-11-05] MEDS: Enoxaparin 40 MG/0.4 ML Syringe SUBCUT SCH (08:45)
[2019-11-05] MEDS: Hydrocortisone 20 MG Tab PO SCH (08:45)
[2019-11-05] MEDS: Insulin Lispro 100 Units/ML 3 ML Vial SUBCUT SCH ×2 (08:45→11:56)
--- NOTE | 2019-11-05 10:46 | PCM.DCSUM1 ---
Discharge Summary - Hospital Course Free Text/Narrative:: Anitha Black is a 74 y.o female with a medical history of coronary artery disease, status post coronary artery bypass grafting, [place], COPD, CREST syndrome, disease, severe symptomatic aortic valve stenosis s/p AVR and valve-in -valve TAVR, hypothyroidism, diabetes mellitus, dyslipidemia, hypertension, and prior history of esophageal stricture s/p multiple dilations, who presented with cough, shortness of breath and fever of one week duration. She tested positive for Influenza A virus. She was started on Tamiflu with improvement in her respiratory status. She will complete a 5 day course of Tamiflu. Patients TSH returned as 13.8. She is to follow up with her primary care doctor for Synthroid dose adjustment. Discharge diagnoses Influenza A pneumonia Acute hypoxic respiratory failure COPD CAD s/p CABG Hyperlipidemia [place] Disease DM-2 Hypertension Severe aortic valve stenosis s/p AVR and [id number] TAVR Hypothyroidism - Discharge Data Discharge Date: 11/05/19 Discharge Disposition: Home, Self-Care 01 Condition: Good - Referral to Home Health Primary Care Physician: PCP Unobtainable - Discharge Plan *PRESCRIPTION DRUG MONITORING PROGRAM REVIEWED*: Not Applicable *COPY OF PRESCRIPTION DRUG MONITORING REPORT IN PATIENT CHRISTINA: Not Applicable Prescriptions/Med Rec: guaiFENesin [Robitussin] 100 mg PO Q6H PRN #1 bottle PRN Reason: Cough Oseltamivir [Tamiflu] 30 mg PO BID 3 Days #7 cap Home Medications: Home Meds Aspirin [Halfprin] 81 mg PO DAILY 11/28/13 [History] Fludrocortisone [Florinef] 0.1 mg PO ACBRK 11/28/13 [History] Hydrocortisone 10 mg PO WITHBREAKFAST 11/28/13 [History] Lisinopril 10 mg PO DAILY 11/28/13 [History] Montelukast Sodium 10 mg PO BEDTIME 11/28/13 [History] Multivitamin [Multivitamins] 1 cap PO DAILY 11/28/13 [History] sitaGLIPtin Phos/Metformin HCl [Janumet 50-1,000 MG] 1 tab PO DAILY 11/28/13 [ History] Acetaminophen 650 mg PO Q6H PRN 01/14/15 [History] Albuterol/Ipratropium [DuoNeb 3.0-0.5 MG/3 ML] 3 ml NEB QID PRN 01/14/15 [ History] Cetirizine [ZyrTEC] 10 mg PO BEDTIME 07/25/17 [History] Dextrose [Glucose] 4 tab PO ASDIRECTED PRN 07/25/17 [History] Levalbuterol Tartrate [Xopenex Hfa] 2 puff IH Q4HR PRN 07/25/17 [History] Potassium Chloride [Klor-Con 10] 10 meq PO DAILY 07/25/17 [History] Metoprolol Succinate [Toprol XL] 25 mg PO DAILY 08/10/17 [History] Mometasone/Formoterol [Dulera 200 Mcg/5 Mcg Inhaler] 2 puff INH BID 12/04/18 [ History] Nystatin [Mycostatin] 5 ml PO BID PRN 12/04/18 [History] Pantoprazole Sodium [Protonix] 40 mg PO DAILY 12/04/18 [History] Hydrocortisone 20 mg PO BEDTIME 03/04/19 [History] Magnesium Chloride 70 mg PO DAILY 03/04/19 [History] Calcium Citrate/Vitamin D3 [Citracal + D Maximum Caplet] 1 tab PO BID 03/20/19 [ History] Mineral Oil, Light/Mineral Oil [Soothe Xp Eye Drops] 1 drop EYEBOTH DAILY PRN [History] Levothyroxine 125 mcg PO ACBREAKFAST #30 tablet 03/23/19 [Rx] Spironolactone [Aldactone] 1 tab PO DAILY 11/03/19 [History] Warfarin [Coumadin] 1 tab PO DAILY 11/03/19 [History] Oseltamivir [Tamiflu] 30 mg PO BID 3 Days #7 cap 11/05/19 [Rx] guaiFENesin [Robitussin] 100 mg PO Q6H PRN #1 bottle 11/05/19 [Rx] Patient Handouts: Influenza, Adult, [id number]-[id number], Oseltamivir oral suspension - Discharge Summary/Plan Comment DC Time >30 min.: No - General Info Date of Service: 11/05/19 Admission Dx/Problem (Free Text: Admission Diagnosis/Problem Admission Diagnosis/Problem Influenza due to influenza A virus - Review of Systems General: Reports: No Symptoms HEENT: Reports: No Symptoms Pulmonary: Reports: Cough. Denies: Shortness of Breath Cardiovascular: Reports: No Symptoms Gastrointestinal: Reports: No Symptoms Genitourinary: Reports: No Symptoms Musculoskeletal: Reports: No Symptoms Skin: Reports: No Symptoms Neurological: Reports: No Symptoms Psychiatric: Reports: No Symptoms - Patient Data Vitals - Most Recent: Last Vital Signs Temp 98.6 F 11/05/19 07:54 Pulse 62 11/05/19 08:44 Resp 18 11/05/19 07:54 BP 165/76 H 11/05/19 08:44 Pulse Ox 96 11/05/19 07:54 Weight - Most Recent: 114 lb 6.4 oz I&O - Last 24 hours: Intake & Output 11/04/19 11/05/19 11/05/19 22:59 06:59 14:59 Intake Total 500 1370 Balance 500 1370 Lab Results - Last 24 hrs: Laboratory Results - last 24 hr 11/04/19 11/04/19 11/04/19 Range/Units 11:45 17:01 20:57 WBC (5.0-10.0) 10^3/uL RBC (4.2-5.4) 10^6/uL Hgb (12.0-16.0) g/dL Hct (37.0-47.0) % MCV (80-100) fL MCH (27.0-34.0) pg MCHC (33.0-35.0) g/dL Plt Count (150-450) 10^3/uL Sodium (135-145) mmol/L Potassium (3.6-5.0) mmol/L Chloride (101-111) mmol/L Carbon Dioxide (21.0-31.0) mmol/L Anion Gap BUN (7-18) mg/dL Creatinine (0.6-1.3) mg/dL Est Cr Clr Drug Dosing mL/min Estimated GFR (MDRD) Glucose (74-105) mg/dL POC Glucose 118 H 130 H 116 H (83-110) mg/dl Calcium (8.4-10.2) mg/dl 11/05/19 11/05/19 11/05/19 Range/Units 06:05 06:05 07:38 WBC 4.3 L (5.0-10.0) 10^3/uL RBC 3.99 L (4.2-5.4) 10^6/uL Hgb 11.0 L (12.0-16.0) g/dL Hct 34.1 L (37.0-47.0) % MCV 85.5 (80-100) fL MCH 27.6 (27.0-34.0) pg MCHC 32.3 L (33.0-35.0) g/dL Plt Count 164 (150-450) 10^3/uL Sodium 135 (135-145) mmol/L Potassium 3.9 (3.6-5.0) mmol/L Chloride 101 (101-111) mmol/L Carbon Dioxide 28.0 (21.0-31.0) mmol/L Anion Gap 9.9 BUN 8 (7-18) mg/dL Creatinine 0.6 (0.6-1.3) mg/dL Est Cr Clr Drug Dosing 62.07 mL/min Estimated GFR (MDRD) > 60 Glucose 89 (74-105) mg/dL POC Glucose 77 L (83-110) mg/dl Calcium 8.2 L (8.4-10.2) mg/dl TIANNA Results - Last 24 hrs: Microbiology 11/04/19 12:00 Gram Stain - Final Sputum - Expectorated Sputum Culture - Preliminary 11/03/19 15:45 Aerobic Blood Culture - Preliminary Blood - Venous - Lab Draw NO GROWTH AFTER 1 DAY Anaerobic Blood Culture - Preliminary NO GROWTH AFTER 1 DAY 11/03/19 15:40 Aerobic Blood Culture - Preliminary Blood - Venous NO GROWTH AFTER 1 DAY Anaerobic Blood Culture - Preliminary NO GROWTH AFTER 1 DAY Med Orders - Current: Current Medications Acetaminophen (Tylenol) 650 mg PO Q4H PRN PRN Reason: Pain (Mild 1-3)/fever Albuterol (Proventil Neb Soln) 2.5 mg NEB Q4HRRT PRN PRN Reason: Dyspnea Albuterol/Ipratropium (Duoneb 3.0-0.5 Mg/3 Ml) 3 ml NEB QID PRN PRN Reason: Shortness of Breath Last Admin: 11/04/19 23:14 Dose: 3 ml Aspirin (Halfprin) 81 mg PO DAILY [facility] Last Admin: 11/05/19 08:44 Dose: 81 mg Calcium Carbonate (Calcium Carbonate/Vitamin D 1250 Mg-200 Unit) 1 tab PO BID [facility] Last Admin: 11/05/19 08:44 Dose: 1 tab Enoxaparin Sodium (Lovenox) 40 mg SUBCUT DAILY [facility] Last Admin: 11/05/19 08:45 Dose: 40 mg Fludrocortisone Acetate (Florinef) 0.1 mg PO ACBRK [facility] Last Admin: 11/05/19 05:01 Dose: 0.1 mg Guaifenesin (Robitussin) 100 mg PO Q6H PRN PRN Reason: Cough Hydrocortisone (Cortef) 5 mg PO BEDTIME [facility] Last Admin: 11/04/19 21:56 Dose: 5 mg Hydrocortisone (Cortef) 5 mg PO DAILY@1600 [facility] Last Admin: 11/04/19 17:13 Dose: 5 mg Hydrocortisone (Cortef) 10 mg PO WITHBREAKFAST [facility] Last Admin: 11/05/19 08:45 Dose: 10 mg Sodium Chloride (Normal Saline) 1,000 mls @ 100 mls/hr IV ASDIRECTED [facility] Last Admin: 11/05/19 05:00 Dose: 100 mls/hr Insulin Human Lispro (Humalog) 0 unit SUBCUT WITHMEALSANDBED [facility]; Protocol Last Admin: 11/05/19 08:45 Dose: Not Given Levothyroxine Sodium (Levothyroxine) 125 mcg PO ACBREAKFAST [facility] Last Admin: 11/05/19 05:02 Dose: 125 mcg Lisinopril (Prinivil) 10 mg PO DAILY [facility] Last Admin: 11/05/19 08:44 Dose: 10 mg Loratadine (Claritin) 10 mg PO BEDTIME [facility] Last Admin: 11/04/19 21:55 Dose: 10 mg Magnesium Oxide (Magnesium Oxide) 250 mg PO BIDM [facility] Last Admin: 11/05/19 08:44 Dose: 250 mg Metoprolol Succinate (Toprol Xl) 25 mg PO DAILY [facility] Last Admin: 11/05/19 08:44 Dose: 25 mg Mineral Oil/White Petrolatum (Lacri-Lube S.O.P Oint) 0 gm EYEBOTH BEDTIME [facility] Last Admin: 11/04/19 22:44 Dose: Not Given Montelukast Sodium (Singulair) 10 mg PO BEDTIME [facility] Last Admin: 11/04/19 21:55 Dose: 10 mg Multivitamins (Thera) 1 each PO DAILY [facility] Last Admin: 11/05/19 08:44 Dose: 1 each Ondansetron HCl (Zofran) 4 mg IVPUSH Q4H PRN PRN Reason: Nausea/Vomiting Oseltamivir Phosphate (Tamiflu) 30 mg PO BID [facility] Last Admin: 11/05/19 08:44 Dose: 30 mg Oxycodone HCl (Oxycodone) 5 mg PO Q4H PRN PRN Reason: Pain (moderate 4-6) Pantoprazole Sodium (Protonix) 40 mg PO DAILY [facility] Last Admin: 11/05/19 08:44 Dose: 40 mg Potassium Chloride (Klor-Con 10) 20 meq PO BID [facility] Last Admin: 11/05/19 08:44 Dose: 20 meq Sodium Chloride (Saline Flush) 10 ml FLUSH ASDIRECTED PRN PRN Reason: Keep Vein Open Last Admin: 11/03/19 21:18 Dose: 10 ml Sodium Chloride (Saline Flush) 10 ml FLUSH ASDIRECTED PRN PRN Reason: Keep Vein Open Discontinued Medications Acetaminophen (Tylenol) 650 mg PO Q6H PRN PRN Reason: Pain/Fever Albuterol/Ipratropium (Duoneb 3.0-0.5 Mg/3 Ml) 3 ml NEB ONETIME ONE Stop: 11/03/19 15:27 Last Admin: 11/03/19 15:42 Dose: 3 ml Methylprednisolone Sodium Succinate (Solu-Medrol) 125 mg IVPUSH ONETIME ONE Stop: 11/03/19 15:27 Last Admin: 11/03/19 15:40 Dose: 125 mg Non-Formulary Medication (Cetirizine [Zyrtec]) 10 mg PO BEDTIME [facility] Last Admin: 11/04/19 19:32 Dose: Not Given Non-Formulary Medication (Levalbuterol Tartrate [Xopenex Hfa]) 2 puff IH Q4HR PRN PRN Reason: Shortness of Breath Non-Formulary Medication (Magnesium Chloride [Magnesium Chloride]) 70 mg PO DAILY [facility] Last Admin: 11/04/19 17:22 Dose: Not Given Non-Formulary Medication (Mineral Oil, Light/Mineral Oil [Soothe Xp Eye Drops]) 1 drop EYEBOTH DAILY PRN PRN Reason: Dry Eyes Oseltamivir Phosphate (Tamiflu) 75 mg PO ONETIME ONE Stop: 11/03/19 16:52 Last Admin: 11/03/19 17:13 Dose: 75 mg - Exam General: Reports: Alert, Oriented HEENT: Reports: Pupils Equal, Pupils Reactive, EOMI, Mucous Membr. Moist/[place] Neck: Reports: Supple Lungs: Reports: Normal Respiratory Effort, Crackles (Very mild) Cardiovascular: Reports: Regular Rate, Regular Rhythm GI/Abdominal Exam: Normal Bowel Sounds, Soft, Non-Tender, No Organomegaly, No Distention, No Abnormal Bruit, No Mass, Pelvis Stable (Female) Exam: Deferred Rectal (Female) Exam: Deferred Back Exam: Reports: Normal Inspection, Full Range of Motion Extremities: Normal Inspection, Normal Range of Motion, Non-Tender, No Pedal Edema, Normal Capillary Refill Skin: Reports: Warm, Dry, Intact Neurological: Reports: No New Focal Deficit Psy/Mental Status: Reports: Alert, Normal Affect, Normal Mood
== END 2019-11-05 13:40 | disposition home or self-care (01) | DRG 139 ==
LOC: DL.ED 15:10 → DL.MS 17:04 → DL.ED 17:18
PROVIDERS: ADMIT Internal Medicine; ATTEND Internal Medicine
DX: J10.00 Influenza due to other identified influenza virus with unspecified type of pneumonia (principal); I25.10 Atherosclerotic heart disease of native coronary artery without angina pectoris; E03.9 Hypothyroidism, unspecified; E11.9 Type 2 diabetes mellitus without complications; F41.9 Anxiety disorder, unspecified; J96.01 Acute respiratory failure with hypoxia; E27.1 Primary adrenocortical insufficiency; J44.0 Chronic obstructive pulmonary disease with (acute) lower respiratory infection; J44.1 Chronic obstructive pulmonary disease with (acute) exacerbation; K21.9 Gastro-esophageal reflux disease without esophagitis; I10 Essential (primary) hypertension; E78.5 Hyperlipidemia, unspecified; M34.1 CR(E)ST syndrome; Z91.041 Radiographic dye allergy status; Z88.8 Allergy status to other drugs, medicaments and biological substances; Z79.82 Long term (current) use of aspirin; Z79.51 Long term (current) use of inhaled steroids; Z79.01 Long term (current) use of anticoagulants; Z95.2 Presence of prosthetic heart valve; Z90.89 Acquired absence of other organs; Z90.49 Acquired absence of other specified parts of digestive tract; Z99.81 Dependence on supplemental oxygen; Z95.1 Presence of aortocoronary bypass graft; Z79.899 Other long term (current) drug therapy
CPT/HCPCS: 36415; 71045; 80048; 80053; 81003; 82962; 83605; 83880; 85025; 85027; 87040; 87070; 87077; 87186; 87205; 87804; 94640; 96374; 99285-25; A9270-GY; J1650; J2930; J7030; J7620-GY

== ENCOUNTER 2019-11-06 13:56 | Emergency (ER) | payer BC, OTHER ==
[2019-11-06 15:05] VITALS: BP 133/61; PULSE 83
[2019-11-06] MEDS ORDERED: Sodium Chloride 0.9% 10 ML Syringe FLUSH PRN (15:06)
[2019-11-06] MEDS ORDERED: methylPREDNISolone Sodium Succinate 125 MG/2 ML SDV IVPUSH ONE (15:07)
[2019-11-06] MEDS ORDERED: Albuterol/Ipratropium 3.0-0.5 MG/3 ML Neb Soln NEB ONE (15:07)
--- NOTE | 2019-11-06 15:35 | EDM.PDOC ---
ED HPI GENERAL MEDICAL PROBLEM - General Chief Complaint: General Stated Complaint: RELAPSE/FLU Time Seen by Provider: 11/06/19 15:00 Source of Information: Reports: Patient, Family (), Old Records, RN, RN Notes Reviewed History Limitations: Reports: No Limitations - History of Present Illness INITIAL COMMENTS - FREE TEXT/NARRATIVE: Pt presents to ER with c/o "profound generalized weakness", shortness of breath , and chest pressure. She denies chest pain. Pt was discharged home from the hospital here yesterday after being admitted Tuesday for influenza with shortness of breath and COPD. Pt denies fever, N/V, edema, or palpitations. Admits to nausea, but not currently. Onset: Gradual Onset Date: 11/05/19 Duration: Constant, Getting Worse Location: Reports: Chest, Generalized Quality: Reports: Pressure Severity: Moderate Improves with: Reports: None Worsens with: Reports: Other (Activity) Associated Symptoms: Reports: No Other Symptoms Generalized Pain Score (Numeric/FACES): 5 - Related Data Allergies Allergy/AdvReac Type Severity Reaction Status Date / Time iodine AdvReac Intermediate nausea only Verified 11/06/19 15:05 adhesive AdvReac Mild Rash Verified 11/06/19 15:05 ibuprofen AdvReac Unknown Stomach Verified 11/06/19 15:05 Upset Home Meds: Home Meds Aspirin [Halfprin] 81 mg PO DAILY 11/28/13 [History] Fludrocortisone [Florinef] 0.1 mg PO ACBRK 11/28/13 [History] Hydrocortisone 10 mg PO WITHBREAKFAST 11/28/13 [History] Lisinopril 10 mg PO DAILY 11/28/13 [History] Montelukast Sodium 10 mg PO BEDTIME 11/28/13 [History] Multivitamin [Multivitamins] 1 cap PO DAILY 11/28/13 [History] sitaGLIPtin Phos/Metformin HCl [Janumet 50-1,000 MG] 1 tab PO DAILY 11/28/13 [ History] Acetaminophen 650 mg PO Q6H PRN 01/14/15 [History] Albuterol/Ipratropium [DuoNeb 3.0-0.5 MG/3 ML] 3 ml NEB QID PRN 01/14/15 [ History] Cetirizine [ZyrTEC] 10 mg PO BEDTIME 07/25/17 [History] Dextrose [Glucose] 4 tab PO ASDIRECTED PRN 07/25/17 [History] Levalbuterol Tartrate [Xopenex Hfa] 2 puff IH Q4HR PRN 07/25/17 [History] Potassium Chloride [Klor-Con 10] 10 meq PO DAILY 07/25/17 [History] Metoprolol Succinate [Toprol XL] 25 mg PO DAILY 08/10/17 [History] Mometasone/Formoterol [Dulera 200 Mcg/5 Mcg Inhaler] 2 puff INH BID 12/04/18 [ History] Nystatin [Mycostatin] 5 ml PO BID PRN 12/04/18 [History] Pantoprazole Sodium [Protonix] 40 mg PO DAILY 12/04/18 [History] Hydrocortisone 20 mg PO BEDTIME 03/04/19 [History] Magnesium Chloride 70 mg PO DAILY 03/04/19 [History] Calcium Citrate/Vitamin D3 [Citracal + D Maximum Caplet] 1 tab PO BID 03/20/19 [ History] Mineral Oil, Light/Mineral Oil [Soothe Xp Eye Drops] 1 drop EYEBOTH DAILY PRN [History] Levothyroxine 125 mcg PO ACBREAKFAST #30 tablet 03/23/19 [Rx] Spironolactone [Aldactone] 1 tab PO DAILY 11/03/19 [History] Warfarin [Coumadin] 1 tab PO DAILY 11/03/19 [History] Oseltamivir [Tamiflu] 30 mg PO BID 3 Days #7 cap 11/05/19 [Rx] guaiFENesin [Robitussin] 100 mg PO Q6H PRN #1 bottle 11/05/19 [Rx] Past Medical History HEENT History: Reports: Other (See Below) Other HEENT History: dry eyes Cardiovascular History: Reports: Bypass, CAD, Heart Murmur, Heart Valve Replacement, Hypertension, MS Respiratory History: Reports: Asthma, COPD Other Respiratory History: Recently hospitalized for pneumonia, 03/2019. 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, Diabetes, Type II, Hypothyroidism Hematologic History: Reports: None Immunologic History: Reports: Other (See Below) Other Immunologic History: Addisons disease Oncologic (Cancer) History: Reports: None Dermatologic History: Reports: None, Scleroderma, Other (See Below) Other Dermatologic History: CREST syndrome, hyperpigmentation - Infectious Disease History Infectious Disease History: Reports: Chicken Pox - Past Surgical History HEENT Surgical History: Reports: Adenoidectomy, Tonsillectomy Cardiovascular Surgical History: Reports: Coronary Artery Bypass, Valve Replacement, Other (See Below) Other Cardiovascular Surgeries/Procedures: Septal defect repair GI Surgical History: Reports: Appendectomy, Cholecystectomy, Colonoscopy, EGD, Esophageal Dilatation Female Surgical History: Reports: None Dermatological Surgical History: Reports: None Social & Family History - Family History Family Medical History: Noncontributory - Tobacco Use Smoking Status *Q: Never Smoker Second Hand Smoke Exposure: No - Caffeine Use Caffeine Use: Reports: None Caffeine Use Comment: 16. oz daily - Recreational Drug Use Recreational Drug Use: No - Living Situation & Occupation Living situation: Reports: with Family Occupation: Disabled ED ROS GENERAL - Review of Systems Review Of Systems: Comprehensive ROS is negative, except as noted in HPI. ED EXAM, GENERAL - Physical Exam Exam: See Below Exam Limited By: No Limitations General Appearance: Alert, No Apparent Distress, Other (Acutely ill but non- toxic appearing) Eye Exam: Bilateral Eye: Normal Inspection Throat/Mouth: Normal Lips, Normal Oropharynx, Normal Voice, No Airway Compromise , Other (Dry oral membranes) Head: Atraumatic, Normocephalic Neck: Normal Inspection, Supple, Non-Tender, Full Range of Motion Respiratory/Chest: No Respiratory Distress, No Accessory Muscle Use, Chest Non- Tender, Decreased Breath Sounds, Crackles. No: Rales, Rhonchi, Wheezing Cardiovascular: Normal Peripheral Pulses, Regular Rate, Rhythm, No Edema GI/Abdominal: Normal Bowel Sounds, Soft, Non-Tender, No Organomegaly, No Distention, No Abnormal Bruit, No Mass Back Exam: Normal Inspection Extremities: Normal Inspection, Normal Range of Motion, Non-Tender, Normal Capillary Refill, No Pedal Edema Neurological: Alert, Oriented, No Motor/Sensory Deficits Psychiatric: Normal Affect, Normal Mood Skin Exam: Warm, Dry, Intact, Normal Color, No Rash EKG INTERPRETATION EKG Date: 11/06/19 Time: 15:20 Rhythm: Other (sinus rhythm) Rate (Beats/Min): 73 [place]: Normal P-Wave: Present QRS: Other (markedly posterior QRS axis.) ST-T: Normal QT: Normal Comparison: No Change Course - Vital Signs Last Recorded V/S: Last Vital Signs Temp 98.6 F 11/06/19 14:53 Pulse 83 11/06/19 14:53 Resp 22 H 11/06/19 14:53 BP 133/61 11/06/19 14:53 Pulse Ox 94 L 11/06/19 14:53 - Orders/Labs/Meds Orders: Active Orders 24 hr Category Date Time Status EKG 12 Lead [EKG Documentation Completion] [] STAT Care 11/06/19 15:06 Active Peripheral IV Care [] . DIRECTED Care 11/06/19 15:06 Active RT Aerosol Therapy [] ASDIRECTED Care 11/06/19 15:07 Active CULTURE BLOOD [BC] Stat Lab 11/06/19 15:06 Ordered CULTURE BLOOD [BC] Stat Lab 11/06/19 15:15 Received CULTURE URINE [] Stat Lab 11/06/19 15:43 Received Sodium Chloride 0.9% [Saline Flush] Med 11/06/19 15:06 Active 10 ml FLUSH ASDIRECTED PRN Blood Culture x2 Reflex Set [OM.PC] Stat Oth 11/06/19 15:06 Ordered Peripheral IV Insertion Adult [OM.PC] Stat Oth 11/06/19 15:06 Ordered Medication Orders Sodium Chloride (Saline Flush) 10 ml FLUSH ASDIRECTED PRN PRN Reason: Keep Vein Open Last Admin: 11/06/19 15:26 Dose: 10 ml Labs: Laboratory Tests 11/06/19 11/06/19 11/06/19 Range/Units 15:15 15:15 15:15 WBC 6.2 (5.0-10.0) 10^3/uL RBC 4.74 (4.2-5.4) 10^6/uL Hgb 13.1 D (12.0-16.0) g/dL Hct 39.6 (37.0-47.0) % MCV 83.5 (80-100) fL MCH 27.6 (27.0-34.0) pg MCHC 33.1 (33.0-35.0) g/dL Plt Count 158 (150-450) 10^3/uL Neut % (Auto) 71.5 (42.2-75.2) % Lymph % (Auto) 15.8 L (20.5-50.1) % [place] % (Auto) 12.0 H (2-8) % Eos % (Auto) 0.2 L (1.0-3.0) % Baso % (Auto) 0.5 (0.0-1.0) % PT 15.0 H D (9.0-12.0) SEC INR 1.5 H (0.9-1.2) Sodium 130 L (135-145) mmol/L Potassium 3.1 L (3.6-5.0) mmol/L Chloride 96 L (101-111) mmol/L Carbon Dioxide 22.0 (21.0-31.0) mmol/L Anion Gap 15.1 BUN 18 (7-18) mg/dL Creatinine 0.8 (0.6-1.3) mg/dL Est Cr Clr Drug Dosing 46.55 mL/min Estimated GFR (MDRD) > 60 BUN/Creatinine Ratio 22.50 Glucose 70 L (74-105) mg/dL Calcium 8.2 L (8.4-10.2) mg/dl Total Bilirubin 1.5 H (0.2-1.0) mg/dL AST 101 H (10-42) IU/L ALT 40 (10-60) IU/L Alkaline Phosphatase 83 (42-121) IU/L Troponin I 0.06 H* (0.00-0.02) ng/ml B-Natriuretic Peptide 129 H (0-100) pg/ml Total Protein 6.8 (6.7-8.2) g/dl Albumin 3.6 (3.2-5.5) g/dl Globulin 3.2 Albumin/Globulin Ratio 1.13 Urine Color (YELLOW) Urine Appearance (CLEAR) Urine pH (5.0-9.0) Ur Specific [place] (1.005-1.030) Urine Protein (NEGATIVE) Urine Glucose (UA) (NEGATIVE) Urine Ketones (NEGATIVE) Urine Occult Blood (NEGATIVE) Urine Nitrite (NEGATIVE) Urine Bilirubin (NEGATIVE) Urine Urobilinogen (0.2-1.0) mg/dL Ur Leukocyte Esterase (NEGATIVE) Urine RBC /HPF Urine WBC (0-5/HPF) /HPF Ur Epithelial Cells (NOT SEEN) /HPF Amorphous Sediment (NOT SEEN) /HPF Urine Bacteria (0-FEW/HPF) /HPF Urine Mucus (NOT SEEN) /LPF 11/06/19 Range/Units 15:43 WBC (5.0-10.0) 10^3/uL RBC (4.2-5.4) 10^6/uL Hgb (12.0-16.0) g/dL Hct (37.0-47.0) % MCV (80-100) fL MCH (27.0-34.0) pg MCHC (33.0-35.0) g/dL Plt Count (150-450) 10^3/uL Neut % (Auto) (42.2-75.2) % Lymph % (Auto) (20.5-50.1) % [place] % (Auto) (2-8) % Eos % (Auto) (1.0-3.0) % Baso % (Auto) (0.0-1.0) % PT (9.0-12.0) SEC INR (0.9-1.2) Sodium (135-145) mmol/L Potassium (3.6-5.0) mmol/L Chloride (101-111) mmol/L Carbon Dioxide (21.0-31.0) mmol/L Anion Gap BUN (7-18) mg/dL Creatinine (0.6-1.3) mg/dL Est Cr Clr Drug Dosing mL/min Estimated GFR (MDRD) BUN/Creatinine Ratio Glucose (74-105) mg/dL Calcium (8.4-10.2) mg/dl Total Bilirubin (0.2-1.0) mg/dL AST (10-42) IU/L ALT (10-60) IU/L Alkaline Phosphatase (42-121) IU/L Troponin I (0.00-0.02) ng/ml B-Natriuretic Peptide (0-100) pg/ml Total Protein (6.7-8.2) g/dl Albumin (3.2-5.5) g/dl Globulin Albumin/Globulin Ratio Urine Color Yellow (YELLOW) Urine Appearance Slightly cloudy (CLEAR) Urine pH 6.0 (5.0-9.0) Ur Specific [place] 1.020 (1.005-1.030) Urine Protein Trace H (NEGATIVE) Urine Glucose (UA) Negative (NEGATIVE) Urine Ketones >=160 H (NEGATIVE) Urine Occult Blood Trace-intact H (NEGATIVE) Urine Nitrite Negative (NEGATIVE) Urine Bilirubin Small H (NEGATIVE) Urine Urobilinogen 0.2 (0.2-1.0) mg/dL Ur Leukocyte Esterase Trace H (NEGATIVE) Urine RBC 5-10 H /HPF Urine WBC 20-30 H (0-5/HPF) /HPF Ur Epithelial Cells Few (NOT SEEN) /HPF Amorphous Sediment Few (NOT SEEN) /HPF Urine Bacteria Few (0-FEW/HPF) /HPF Urine Mucus Rare (NOT SEEN) /LPF Meds: Medications Generic Name Dose Route Start Last Admin Trade Name Freq PRN Reason Stop Dose Admin Sodium Chloride 10 ml 11/06/19 15:06 11/06/19 15:26 Saline Flush FLUSH 10 ml ASDIRECTED PRN Administration Keep Vein Open Discontinued Medications Generic Name Dose Route Start Last Admin Trade Name Freq PRN Reason Stop Dose Admin Albuterol/Ipratropium 3 ml 11/06/19 15:07 11/06/19 15:26 Duoneb 3.0-0.5 Mg/3 Ml NEB 11/06/19 15:08 3 ml ONETIME ONE Administration Aspirin 324 mg 11/06/19 16:55 11/06/19 17:01 Aspirin PO 11/06/19 16:56 324 mg ONETIME ONE Administration Heparin Sodium (Porcine) 4,000 units 11/06/19 16:56 11/06/19 17:01 Heparin Sodium IVPUSH 11/06/19 16:57 4,000 units .BOLUS ONE Administration Methylprednisolone Sodium Succinate 125 mg 11/06/19 15:07 11/06/19 15:26 Solu-Medrol IVPUSH 11/06/19 15:08 125 mg ONETIME ONE Administration - Radiology Interpretation Free Text/Narrative:: [facility] Final Radiology Report Call: [phone] assistance Online chat: [email or web address] Name: SEBASTIÁN FIERRO Age: 74Years F Date: 11/06/2019 SSN: -- : 1945 Study: XR CHEST 1 VIEW FRONTAL Requesting Physician: DIEGO FRIAS Images: 1 Addl Studies: Provided Clinical History: Contrast: Contrast Medium: Contrast Amount: Contrast Method: CONFIDENTIALITY STATEMENT This report is intended only for use by the referring physician, and only in accordance with law. If you received this in error, call [phone]. Page 1 of 1 PROCEDURE INFORMATION: Exam: XR Chest, 1 View Exam date and time: 11/06/2019 3:47 PM Age: 74 years old Clinical indication: Cough and shortness of breath TECHNIQUE: Imaging protocol: XR of the chest Views: 1 view. COMPARISON: CR Chest 1V Frontal 11/03/2019 3:54 PM FINDINGS: Lungs: The lungs are normal. Pleural space: There are no pleural effusions present. Heart/Mediastinum: The heart demonstrates mild diffuse enlargement. The pulmonary arteries are not enlarged. Bones/joints: There are sternal wires consistent with previous sternotomy incision. The spine, ribs, and pectoral girdles are normal. IMPRESSION: Mild cardiomegaly. Thank you for allowing us to participate in the care of your patient. 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 Diabetes mellitus complication status: with other specified complication Qualified Code(s): E11.69 - Type 2 diabetes mellitus with other specified complication - Discharge Information Forms: ED Department Discharge Sepsis Event Note - Evaluation Sepsis Screening Result: Possible Sepsis Risk - Focused Exam Vital Signs: Vital Signs Temp Pulse Resp BP Pulse Ox 11/06/19 14:53 98.6 F 83 22 H 133/61 94 L Date Exam was Performed: 11/06/19 Time Exam was Performed: 17:39 - My Orders Last 24 Hours: My Active Orders 11/06/19 15:06 EKG 12 Lead [EKG Documentation Completion] [RC] STAT Peripheral IV Care [RC] . DIRECTED CULTURE BLOOD [BC] Stat Sodium Chloride 0.9% [Saline Flush] 10 ml FLUSH ASDIRECTED PRN Blood Culture x2 Reflex Set [OM.PC] Stat Peripheral IV Insertion Adult [OM.PC] Stat 11/06/19 15:07 RT Aerosol Therapy [RC] ASDIRECTED 11/06/19 15:15 CULTURE BLOOD [BC] Stat 11/06/19 15:43 CULTURE URINE [RM] Stat - Assessment/Plan Last 24 Hours: My Active Orders 11/06/19 15:06 EKG 12 Lead [EKG Documentation Completion] [RC] STAT Peripheral IV Care [RC] . DIRECTED CULTURE BLOOD [BC] Stat Sodium Chloride 0.9% [Saline Flush] 10 ml FLUSH ASDIRECTED PRN Blood Culture x2 Reflex Set [OM.PC] Stat Peripheral IV Insertion Adult [OM.PC] Stat 11/06/19 15:07 RT Aerosol Therapy [RC] ASDIRECTED 11/06/19 15:15 CULTURE BLOOD [BC] Stat 11/06/19 15:43 CULTURE URINE [RM] Stat
[2019-11-06 15:45] LABS: ANION GAP 15.1; CHLORIDE,CL 96 mmol/L (101-111); SODIUM,NA 130 mmol/L (135-145)
[2019-11-06] MEDS ORDERED: Aspirin 81 MG Tab.Chew PO ONE (16:55)
[2019-11-06] MEDS ORDERED: Heparin Sodium 5,000 Units/ML Vial IVPUSH ONE (16:56)
== END 2019-11-06 17:25 ==
LOC: DL.ED 13:56
DX: I21.4 Non-ST elevation (NSTEMI) myocardial infarction (principal); E11.69 Type 2 diabetes mellitus with other specified complication; J44.9 Chronic obstructive pulmonary disease, unspecified; I25.2 Old myocardial infarction; I10 Essential (primary) hypertension; I25.10 Atherosclerotic heart disease of native coronary artery without angina pectoris; K21.9 Gastro-esophageal reflux disease without esophagitis; Z86.39 Personal history of other endocrine, nutritional and metabolic disease; Z87.39 Personal history of other diseases of the musculoskeletal system and connective tissue; Z88.8 Allergy status to other drugs, medicaments and biological substances; Z91.048 Other nonmedicinal substance allergy status; Z88.6 Allergy status to analgesic agent; Z79.82 Long term (current) use of aspirin; Z79.899 Other long term (current) drug therapy; Z79.51 Long term (current) use of inhaled steroids; Z79.01 Long term (current) use of anticoagulants
CPT/HCPCS: 36415; 71045; 80053; 81001; 83880; 84484; 85025; 85610; 87040; 87086; 87088; 87186; 93005; 96374; 96375; 99285; A9270; J1644; J2930; J7620-GY

== ENCOUNTER 2019-11-21 20:49 | Emergency (ER) | payer BC, OTHER ==
--- NOTE | 2019-11-21 20:52 | EDM.PDOC ---
ED HPI GENERAL MEDICAL PROBLEM - General Chief Complaint: Respiratory Problem Stated Complaint: ABULANCE Time Seen by Provider: 11/21/19 21:10 Source of Information: Reports: Patient, EMS, EMS Notes Reviewed, Family, RN, RN Notes Reviewed History Limitations: Reports: Altered Mental Status - History of Present Illness INITIAL COMMENTS - FREE TEXT/NARRATIVE: Pt presents to ER per [facility] service with complaint of cough, increased respirations, fever. 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 Patient was diagnosed with pneumonia and admitted to [facility]. On Nov 06, 2019, the patient was transferred to [facility] in [place]. Patient was discharged from there on Nov 12. states he did not think the patient was ready to be discharged, and has not been improving at all. He states today when he came home from work he found her very sleepy, lethargic, stumbling, and confused. states she had a fever at that time, but unsure what it was. EMS reports RA sats 74-78%, up to 95 on 4L. EMS reports Temp of 102.6. Patient appears agitated, restless. Onset: Gradual - Related Data Allergies Allergy/AdvReac Type Severity Reaction Status Date / Time iodine AdvReac Intermediate nausea only Verified 11/06/19 15:05 adhesive AdvReac Mild Rash Verified 11/06/19 15:05 ibuprofen AdvReac Unknown Stomach Verified 11/06/19 15:05 Upset Home Meds: Home Meds Aspirin [Halfprin] 81 mg PO DAILY 11/28/13 [History] Fludrocortisone [Florinef] 0.1 mg PO ACBRK 11/28/13 [History] Hydrocortisone 10 mg PO WITHBREAKFAST 11/28/13 [History] Lisinopril 10 mg PO DAILY 11/28/13 [History] Montelukast Sodium 10 mg PO BEDTIME 11/28/13 [History] Multivitamin [Multivitamins] 1 cap PO DAILY 11/28/13 [History] sitaGLIPtin Phos/Metformin HCl [Janumet 50-1,000 MG] 1 tab PO DAILY 11/28/13 [ History] Acetaminophen 650 mg PO Q6H PRN 01/14/15 [History] Albuterol/Ipratropium [DuoNeb 3.0-0.5 MG/3 ML] 3 ml NEB QID PRN 01/14/15 [ History] Cetirizine [ZyrTEC] 10 mg PO BEDTIME 07/25/17 [History] Dextrose [Glucose] 4 tab PO ASDIRECTED PRN 07/25/17 [History] Levalbuterol Tartrate [Xopenex Hfa] 2 puff IH Q4HR PRN 07/25/17 [History] Potassium Chloride [Klor-Con 10] 10 meq PO DAILY 07/25/17 [History] Metoprolol Succinate [Toprol XL] 25 mg PO DAILY 08/10/17 [History] Mometasone/Formoterol [Dulera 200 Mcg-5 Mcg Inhaler] 2 puff INH BID 12/04/18 [ History] Nystatin [Mycostatin] 5 ml PO BID PRN 12/04/18 [History] Pantoprazole Sodium [Protonix] 40 mg PO DAILY 12/04/18 [History] Hydrocortisone 20 mg PO BEDTIME 03/04/19 [History] Magnesium Chloride 70 mg PO DAILY 03/04/19 [History] Calcium Citrate/Vitamin D3 [Citracal + D Maximum Caplet] 1 tab PO BID 03/20/19 [ History] Mineral Oil, Light/Mineral Oil [Soothe Xp Eye Drops] 1 drop EYEBOTH DAILY PRN [History] Levothyroxine 125 mcg PO ACBREAKFAST #30 tablet 03/23/19 [Rx] Spironolactone [Aldactone] 1 tab PO DAILY 11/03/19 [History] Warfarin [Coumadin] 1 tab PO DAILY 11/03/19 [History] Oseltamivir [Tamiflu] 30 mg PO BID 3 Days #7 cap 11/05/19 [Rx] guaiFENesin [Robitussin] 100 mg PO Q6H PRN #1 bottle 11/05/19 [Rx] Past Medical History HEENT History: Reports: Other (See Below) Other HEENT History: dry eyes Cardiovascular History: Reports: Bypass, CAD, Heart Murmur, Heart Valve Replacement, Hypertension, CA Respiratory History: Reports: Asthma, COPD Other Respiratory History: Recently hospitalized for pneumonia, 03/2019. 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: None Musculoskeletal History: Reports: None Neurological History: Reports: None Psychiatric History: Reports: Anxiety Endocrine/Metabolic History: Reports: Smithdale's Disease, Diabetes, Type II, Hypothyroidism Hematologic History: Reports: None Immunologic History: Reports: Other (See Below) Other Immunologic History: Addisons disease Oncologic (Cancer) History: Reports: None Dermatologic History: Reports: None, Scleroderma, Other (See Below) Other Dermatologic History: CREST syndrome, hyperpigmentation - Infectious Disease History Infectious Disease History: Reports: Chicken Pox - Past Surgical History HEENT Surgical History: Reports: Adenoidectomy, Tonsillectomy Cardiovascular Surgical History: Reports: Coronary Artery Bypass, Valve Replacement, Other (See Below) Other Cardiovascular Surgeries/Procedures: Septal defect repair GI Surgical History: Reports: Appendectomy, Cholecystectomy, Colonoscopy, EGD, Esophageal Dilatation Female Surgical History: Reports: None Dermatological Surgical History: Reports: None Social & Family History - Family History Family Medical History: Noncontributory - Caffeine Use Caffeine Use: Reports: None Caffeine Use Comment: 16. oz daily - Living Situation & Occupation Living situation: Reports: with Family Occupation: Disabled ED ROS GENERAL - Review of Systems Review Of Systems: Comprehensive ROS is negative, except as noted in HPI. ED EXAM, GENERAL - Physical Exam Exam: See Below Exam Limited By: No Limitations General Appearance: Alert, Lethargic, Moderate Distress, Thin Eye Exam: Bilateral Eye: EOMI, Normal Inspection Ears: Normal External Exam, Normal Canal, Hearing Grossly Normal, Normal TMs Nose: Normal Inspection Throat/Mouth: Normal Inspection, Normal Voice, No Airway Compromise Head: Atraumatic, Normocephalic Neck: Normal Inspection, Supple, Non-Tender, Full Range of Motion Respiratory/Chest: Chest Non-Tender, Decreased Breath Sounds, Crackles ( throughout), Wheezing (Insp wheezes) Cardiovascular: Normal Peripheral Pulses, No Edema, No Gallop, No JVD, No Murmur , No Rub, Tachycardia Peripheral Pulses: 1+: Radial (L), Radial (R) GI/Abdominal: Normal Bowel Sounds, Soft, Non-Tender (Female) Exam: Deferred Rectal (Female) Exam: Deferred Back Exam: Normal Inspection, Full Range of Motion Extremities: Normal Inspection, Normal Range of Motion, Non-Tender, Normal Capillary Refill, No Pedal Edema Neurological: Alert, Inattentive, Confused Psychiatric: Anxious Skin Exam: Warm, Dry, Intact, Normal Color, No Rash Lymphatic: No Adenopathy Course - Vital Signs Last Recorded V/S: Last Vital Signs Temp 100.6 F 11/21/19 22:30 Pulse 100 11/21/19 22:30 Resp 27 H 11/21/19 22:30 BP 83/64 L 11/21/19 22:30 Pulse Ox 100 11/21/19 22:30 - Orders/Labs/Meds Orders: Active Orders 24 hr Category Date Time Status RT Aerosol Therapy [RC] ASDIRECTED Care 11/21/19 21:31 Active CULTURE BLOOD [BC] Stat Lab 11/21/19 21:14 Received CULTURE BLOOD [BC] Stat Lab 11/21/19 21:33 Received Blood Culture x2 Reflex Set [OM.PC] Stat Oth 11/21/19 20:51 Ordered Labs: Laboratory Tests 11/21/19 11/21/19 11/21/19 Range/Units 21:14 21:14 21:14 WBC 17.3 H (5.0-10.0) 10^3/uL RBC 4.54 (4.2-5.4) 10^6/uL Hgb 12.6 (12.0-16.0) g/dL Hct 38.3 (37.0-47.0) % MCV 84.4 (80-100) fL MCH 27.8 (27.0-34.0) pg MCHC 32.9 L (33.0-35.0) g/dL Plt Count 192 (150-450) 10^3/uL Neut % (Auto) 81.9 H (42.2-75.2) % Lymph % (Auto) 7.8 L (20.5-50.1) % Cole % (Auto) 8.9 H (2-8) % Eos % (Auto) 1.1 (1.0-3.0) % Baso % (Auto) 0.3 (0.0-1.0) % PT (9.0-12.0) SEC INR (0.9-1.2) Sodium 130 L (135-145) mmol/L Potassium 4.5 (3.6-5.0) mmol/L Chloride 96 L (101-111) mmol/L Carbon Dioxide 23.0 (21.0-31.0) mmol/L Anion Gap 15.5 BUN 17 (7-18) mg/dL Creatinine 0.9 (0.6-1.3) mg/dL Est Cr Clr Drug Dosing 43.37 mL/min Estimated GFR (MDRD) > 60 BUN/Creatinine Ratio 18.88 Glucose 104 (74-105) mg/dL Lactic Acid 1.3 (0.5-2.0) mmol/L Calcium 8.9 (8.4-10.2) mg/dl Total Bilirubin 3.1 H (0.2-1.0) mg/dL AST 35 (10-42) IU/L ALT 17 (10-60) IU/L Alkaline Phosphatase 74 (42-121) IU/L B-Natriuretic Peptide (0-100) pg/ml Total Protein 7.4 (6.7-8.2) g/dl Albumin 3.7 (3.2-5.5) g/dl Globulin 3.7 Albumin/Globulin Ratio 1.00 11/21/19 11/21/19 Range/Units 21:14 21:14 WBC (5.0-10.0) 10^3/uL RBC (4.2-5.4) 10^6/uL Hgb (12.0-16.0) g/dL Hct (37.0-47.0) % MCV (80-100) fL MCH (27.0-34.0) pg MCHC (33.0-35.0) g/dL Plt Count (150-450) 10^3/uL Neut % (Auto) (42.2-75.2) % Lymph % (Auto) (20.5-50.1) % Cole % (Auto) (2-8) % Eos % (Auto) (1.0-3.0) % Baso % (Auto) (0.0-1.0) % PT 32.6 H D (9.0-12.0) SEC INR 3.4 H (0.9-1.2) Sodium (135-145) mmol/L Potassium (3.6-5.0) mmol/L Chloride (101-111) mmol/L Carbon Dioxide (21.0-31.0) mmol/L Anion Gap BUN (7-18) mg/dL Creatinine (0.6-1.3) mg/dL Est Cr Clr Drug Dosing mL/min Estimated GFR (MDRD) BUN/Creatinine Ratio Glucose (74-105) mg/dL Lactic Acid (0.5-2.0) mmol/L Calcium (8.4-10.2) mg/dl Total Bilirubin (0.2-1.0) mg/dL AST (10-42) IU/L ALT (10-60) IU/L Alkaline Phosphatase (42-121) IU/L B-Natriuretic Peptide 123 H (0-100) pg/ml Total Protein (6.7-8.2) g/dl Albumin (3.2-5.5) g/dl Globulin Albumin/Globulin Ratio Meds: Medications Discontinued Medications Generic Name Dose Route Start Last Admin Trade Name Freq PRN Reason Stop Dose Admin Acetaminophen 650 mg 11/21/19 21:39 11/21/19 21:41 Tylenol PO 11/21/19 21:40 650 mg NOW ONE Administration Albuterol/Ipratropium 3 ml 11/21/19 21:31 11/21/19 21:41 Duoneb 3.0-0.5 Mg/3 Ml NEB 11/21/19 21:32 3 ml ONETIME ONE Administration Azithromycin 500 mg/ Sodium 250 mls @ 250 mls/hr 11/21/19 21:31 11/21/19 21: 41 Chloride IV 11/21/19 22:30 250 mls/hr ONETIME ONE Administration Sodium Chloride 1,000 mls @ 999 mls/hr 11/21/19 22:04 11/21/19 22:24 Normal Saline IV 11/21/19 23:04 999 mls/hr .BOLUS ONE Administration Piperacillin Sod/Tazobactam 100 mls @ 200 mls/hr 11/21/19 22:18 11/21/19 23: 24 Sod 3.375 gm/ Sodium Chloride IV 11/21/19 22:47 Not Given ONETIME ONE Vancomycin HCl 1 gm/ Sodium 250 mls @ 167 mls/hr 11/21/19 22:46 11/21/19 23: 24 Chloride IV 11/22/19 00:15 Not Given ONETIME ONE Methylprednisolone Sodium Succinate 125 mg 11/21/19 21:31 11/21/19 21:41 Solu-Medrol IVPUSH 11/21/19 21:32 125 mg ONETIME ONE Administration - Radiology Interpretation Free Text/Narrative:: Chest xray: FINDINGS: Lungs: The lungs are normal. Pleural space: There are no pleural effusions present. Heart/Mediastinum: The heart demonstrates mild diffuse enlargement. The pulmonary arteries are not enlarged. Bones/joints: There are sternal wires consistent with previous sternotomy incision. IMPRESSION: 1. Mild cardiomegaly. 2. No acute abnormality. Thank you for allowing us to participate in the care of your patient. Dictated and Authenticated by: Willy Gray MD 11/21/2019 9:27 PM Central Time ([place] & [place]) See rad report - Re-Assessments/Exams Free Text/Narrative Re-Assessment/Exam: 11/21/19 22:19 Discussed patient case with Dr. Ziegler who agreed to accept the patient for transfer to [facility]. 11/21/19 22:44 As patient's blood pressure continues to decline, [facility] was called back. Dr. Ziegler asked that the patient sent to critical care. Discussed patient case with Dr. Oshea who agreed to accept the patient for transfer to [facility] Critical care. Departure - Departure Time of Disposition: 23:25 Disposition: DC/Tfer to [facility] 02 Condition: Poor, Critical Clinical Impression: Respiratory distress Pneumonia Qualifiers: Pneumonia type: due to unspecified organism Laterality: unspecified laterality Lung location: unspecified part of lung Qualified Code(s): J18.9 - Pneumonia, unspecified organism - Discharge Information *PRESCRIPTION DRUG MONITORING PROGRAM REVIEWED*: No *COPY OF PRESCRIPTION DRUG MONITORING REPORT IN PATIENT CHRISTINA: No Referrals: Sreekanth Harden [Primary Care Provider] - Forms: ED Department Discharge, Interfacility Transfer [facility] Sepsis Event Note - Focused Exam Vital Signs: Vital Signs Temp Pulse Resp BP BP Pulse Ox 11/21/19 22:30 100.6 F 100 27 H 83/64 L 100 11/21/19 21:08 100.7 F H 110 H 31 H 120/103 H 96 Date Exam was Performed: 11/22/19 Time Exam was Performed: 00:20 - My Orders Last 24 Hours: My Active Orders 11/21/19 20:51 Blood Culture x2 Reflex Set [OM.PC] Stat 11/21/19 21:14 CULTURE BLOOD [BC] Stat 11/21/19 21:31 RT Aerosol Therapy [RC] ASDIRECTED 11/21/19 21:33 CULTURE BLOOD [BC] Stat - Assessment/Plan Last 24 Hours: My Active Orders 11/21/19 20:51 Blood Culture x2 Reflex Set [OM.PC] Stat 11/21/19 21:14 CULTURE BLOOD [BC] Stat 11/21/19 21:31 RT Aerosol Therapy [RC] ASDIRECTED 11/21/19 21:33 CULTURE BLOOD [BC] Stat
[2019-11-21] MEDS ORDERED: Albuterol/Ipratropium 3.0-0.5 MG/3 ML Neb Soln NEB ONE (21:31)
[2019-11-21] MEDS ORDERED: Azithromycin 500 MG in Sodium Chloride 0.9% 250 ML IV ONE (21:31)
[2019-11-21] MEDS ORDERED: methylPREDNISolone Sodium Succinate 125 MG/2 ML SDV IVPUSH ONE (21:31)
[2019-11-21] MEDS ORDERED: Acetaminophen 325 MG Tab PO ONE (21:39)
[2019-11-21 21:48] LABS: ANION GAP 15.5; CHLORIDE,CL 96 mmol/L (101-111); SODIUM,NA 130 mmol/L (135-145)
[2019-11-21] MEDS ORDERED: Sodium Chloride 0.9% 1,000 ML IV ONE (22:04)
[2019-11-21] MEDS ORDERED: Piperacillin/Tazobactam 3.375 GM in Sodium Chloride 0.9% 100 ML IV ONE (22:18)
[2019-11-21 22:34] VITALS: BP 83/64; PULSE 100
== END 2019-11-21 23:13 ==
LOC: DL.ED 20:49
DX: J18.9 Pneumonia, unspecified organism (principal); R06.03 Acute respiratory distress; I25.10 Atherosclerotic heart disease of native coronary artery without angina pectoris; I10 Essential (primary) hypertension; I25.2 Old myocardial infarction; J44.9 Chronic obstructive pulmonary disease, unspecified; K21.9 Gastro-esophageal reflux disease without esophagitis; E11.9 Type 2 diabetes mellitus without complications; E03.9 Hypothyroidism, unspecified; Z88.8 Allergy status to other drugs, medicaments and biological substances; Z91.048 Other nonmedicinal substance allergy status; Z88.6 Allergy status to analgesic agent; Z79.82 Long term (current) use of aspirin; Z79.51 Long term (current) use of inhaled steroids; Z79.890 Hormone replacement therapy; Z79.84 Long term (current) use of oral hypoglycemic drugs
CPT/HCPCS: 36415; 71045; 80053; 83605; 83880; 85025; 85610; 87040; 87804; 96365; 96375; 99285; A9270; J0456; J2930; J7030; J7050; J7620-GY

== ENCOUNTER 2019-12-04 13:12 | Observation (INO) | payer BC, OTHER ==
--- NOTE | 2019-12-04 13:10 | EDM.PDOC ---
ED HPI GENERAL MEDICAL PROBLEM - General Chief Complaint: Respiratory Problem Stated Complaint: UNKNOWN Time Seen by Provider: 12/04/19 13:10 Source of Information: Reports: Patient, EMS, Old Records, Provider (Dr. Valentin) , RN, RN Notes Reviewed History Limitations: Reports: No Limitations - History of Present Illness INITIAL COMMENTS - FREE TEXT/NARRATIVE: Pt sent from [facility] by Dr. Valentin via ambulance with report of not feeling well in general, with blue cool finger tips, tremor/shaking, and anxiety. 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 She denies fever, chest pain, N/V, palpitations, edema, cough, headache, or motor weakness. Pt has extensive PMHx of Addisons disease, CREST syndrome, DM, CAD, COPD. She was in the hospital in 2019 with pneumonia and influenza. She has been back to work since shortly after being discharged. Family is concerned that pt may have her home medications "mixed up". Onset: Today, Gradual Duration: Constant Location: Reports: Generalized Severity: Moderate Improves with: Reports: None Worsens with: Reports: None Associated Symptoms: Reports: No Other Symptoms - Related Data Allergies Allergy/AdvReac Type Severity Reaction Status Date / Time iodine AdvReac Intermediate nausea only Verified 11/06/19 15:05 adhesive AdvReac Mild Rash Verified 11/06/19 15:05 ibuprofen AdvReac Unknown Stomach Verified 11/06/19 15:05 Upset Home Meds: Home Meds Aspirin [Halfprin] 81 mg PO DAILY 11/28/13 [History] Fludrocortisone [Florinef] 0.1 mg PO ACBRK 11/28/13 [History] Hydrocortisone 10 mg PO WITHBREAKFAST 11/28/13 [History] Lisinopril 10 mg PO DAILY 11/28/13 [History] Montelukast Sodium 10 mg PO BEDTIME 11/28/13 [History] Multivitamin [Multivitamins] 1 cap PO DAILY 11/28/13 [History] sitaGLIPtin Phos/Metformin HCl [Janumet 50-1,000 MG] 1 tab PO DAILY 11/28/13 [ History] Acetaminophen 650 mg PO Q6H PRN 01/14/15 [History] Albuterol/Ipratropium [DuoNeb 3.0-0.5 MG/3 ML] 3 ml NEB QID PRN 01/14/15 [ History] Cetirizine [ZyrTEC] 10 mg PO BEDTIME 07/25/17 [History] Dextrose [Glucose] 4 tab PO ASDIRECTED PRN 07/25/17 [History] Levalbuterol Tartrate [Xopenex Hfa] 2 puff IH Q4HR PRN 07/25/17 [History] Potassium Chloride [Klor-Con 10] 10 meq PO DAILY 07/25/17 [History] Metoprolol Succinate [Toprol XL] 25 mg PO DAILY 08/10/17 [History] Mometasone/Formoterol [Dulera 200 Mcg-5 Mcg Inhaler] 2 puff INH BID 12/04/18 [ History] Nystatin [Mycostatin] 5 ml PO BID PRN 12/04/18 [History] Pantoprazole Sodium [Protonix] 40 mg PO DAILY 12/04/18 [History] Hydrocortisone 20 mg PO BEDTIME 03/04/19 [History] Magnesium Chloride 70 mg PO DAILY 03/04/19 [History] Calcium Citrate/Vitamin D3 [Citracal + D Maximum Caplet] 1 tab PO BID 03/20/19 [ History] Mineral Oil, Light/Mineral Oil [Soothe Xp Eye Drops] 1 drop EYEBOTH DAILY PRN [History] Levothyroxine 125 mcg PO ACBREAKFAST #30 tablet 03/23/19 [Rx] Spironolactone [Aldactone] 1 tab PO DAILY 11/03/19 [History] Warfarin [Coumadin] 1 tab PO DAILY 11/03/19 [History] Oseltamivir [Tamiflu] 30 mg PO BID 3 Days #7 cap 11/05/19 [Rx] guaiFENesin [Robitussin] 100 mg PO Q6H PRN #1 bottle 11/05/19 [Rx] Past Medical History HEENT History: Reports: Other (See Below) Other HEENT History: dry eyes Cardiovascular History: Reports: Bypass, CAD, Heart Murmur, Heart Valve Replacement, Hypertension, RI Respiratory History: Reports: Asthma, COPD Other Respiratory History: Recently hospitalized for pneumonia, 03/2019. 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, Diabetes, Type II, Hypothyroidism Hematologic History: Reports: None Immunologic History: Reports: Other (See Below) Other Immunologic History: Addisons disease Oncologic (Cancer) History: Reports: None Dermatologic History: Reports: None, Scleroderma, Other (See Below) Other Dermatologic History: CREST syndrome, hyperpigmentation - Infectious Disease History Infectious Disease History: Reports: Chicken Pox - Past Surgical History HEENT Surgical History: Reports: Adenoidectomy, Tonsillectomy Cardiovascular Surgical History: Reports: Coronary Artery Bypass, Valve Replacement, Other (See Below) Other Cardiovascular Surgeries/Procedures: Septal defect repair GI Surgical History: Reports: Appendectomy, Cholecystectomy, Colonoscopy, EGD, Esophageal Dilatation Female Surgical History: Reports: None Dermatological Surgical History: Reports: None Social & Family History - Family History Family Medical History: Noncontributory - Caffeine Use Caffeine Use: Reports: None Caffeine Use Comment: 16. oz daily - Living Situation & Occupation Living situation: Reports: with Family Occupation: Employed ED ROS GENERAL - Review of Systems Review Of Systems: Comprehensive ROS is negative, except as noted in HPI. ED EXAM, GENERAL - Physical Exam Exam: See Below Exam Limited By: No Limitations General Appearance: Alert, No Apparent Distress, Thin, Other (Frail, chronically ill appearing) Eye Exam: Bilateral Eye: Normal Inspection Ears: Normal External Exam, Hearing Grossly Normal Nose: Normal Inspection Throat/Mouth: Normal Inspection, Normal Lips, Normal Voice, No Airway Compromise. No: Perioral Cyanosis Head: Atraumatic, Normocephalic Neck: Normal Inspection, Supple, Non-Tender, Full Range of Motion Respiratory/Chest: No Respiratory Distress, No Accessory Muscle Use, Chest Non- Tender, Decreased Breath Sounds. No: Crackles, Rales, Rhonchi, Wheezing, Stridor Cardiovascular: Regular Rate, Rhythm, No Edema, No JVD Peripheral Pulses: 1+: Dorsalis Pedis (L), Dorsalis Pedis (R), 3+: Radial (L), Radial (R) GI/Abdominal: Normal Bowel Sounds, Soft, Non-Tender, No Organomegaly, No Distention, No Abnormal Bruit, No Mass Back Exam: Normal Inspection Extremities: Normal Range of Motion, Non-Tender, No Pedal Edema, Slow Capillary Refill (finger tips with some distal cyanosis). No: Increased Warmth, Mottled, Pallor, Redness Neurological: Alert, Oriented, No Motor/Sensory Deficits Psychiatric: Anxious Skin Exam: Warm, Dry, Intact EKG INTERPRETATION EKG Date: 12/04/19 Time: 14:22 Rhythm: Other (SR) Rate (Beats/Min): 74 [place]: LAD-Left [place] Deviation P-Wave: Present QRS: RBBB (incomplete RBBB with LAFB) ST-T: Normal QT: Prolonged (borderline) Comparison: No Change Course - Vital Signs Last Recorded V/S: Last Vital Signs Temp 98.2 F 12/04/19 13:06 Pulse 85 12/04/19 13:06 Resp 16 12/04/19 13:06 BP 124/61 12/04/19 13:06 Pulse Ox 95 12/04/19 13:06 - Orders/Labs/Meds Orders: Active Orders 24 hr Category Date Time Status Blood Glucose Check, Bedside [] ONETIME Care 12/04/19 13:16 Active EKG 12 Lead [EKG Documentation Completion] [] STAT Care 12/04/19 14:21 Ordered Magnesium Sulfate/Water [Magnesium Sulfate in Water Med 12/04/19 14:19 Ordered Premix] 2 gm Premix Bag 1 bag IV ONETIME Potassium Chloride [KCl 10 MEQ in Water 100 ML] 10 meq Med 12/04/19 14:17 Ordered Premix Bag 1 bag IV ONETIME Medication Orders Magnesium Sulfate 2 gm/ Premix 50 mls @ 25 mls/hr IV ONETIME ONE Stop: 12/04/19 16:18 Potassium Chloride 10 meq/ (Premix) 100 mls @ 100 mls/hr IV ONETIME ONE Stop: 12/04/19 15:16 Labs: Laboratory Tests 12/04/19 12/04/19 12/04/19 Range/Units 13:20 13:20 13:20 WBC 11.8 H (5.0-10.0) 10^3/uL RBC 4.02 L (4.2-5.4) 10^6/uL Hgb 11.4 L (12.0-16.0) g/dL Hct 34.5 L (37.0-47.0) % MCV 85.8 (80-100) fL MCH 28.4 (27.0-34.0) pg MCHC 33.0 (33.0-35.0) g/dL Plt Count 173 (150-450) 10^3/uL Neut % (Auto) 90.7 H (42.2-75.2) % Lymph % (Auto) 5.1 L (20.5-50.1) % [place] % (Auto) 3.7 (2-8) % Eos % (Auto) 0.3 L (1.0-3.0) % Baso % (Auto) 0.2 (0.0-1.0) % PT 66.5 H D (9.0-12.0) SEC INR 7.2 H* (0.9-1.2) Sodium 132 L (135-145) mmol/L Potassium 2.6 L D (3.6-5.0) mmol/L Chloride 93 L (101-111) mmol/L Carbon Dioxide 29.0 (21.0-31.0) mmol/L Anion Gap 12.6 BUN 6 L (7-18) mg/dL Creatinine 0.6 (0.6-1.3) mg/dL Est Cr Clr Drug Dosing TNP Estimated GFR (MDRD) > 60 BUN/Creatinine Ratio 10.00 Glucose 168 H (74-105) mg/dL Calcium 8.8 (8.4-10.2) mg/dl Magnesium 1.3 L (1.8-2.5) mg/dL Total Bilirubin 1.7 H (0.2-1.0) mg/dL AST 36 (10-42) IU/L ALT 18 (10-60) IU/L Alkaline Phosphatase 69 (42-121) IU/L B-Natriuretic Peptide 87 (0-100) pg/ml Total Protein 6.9 (6.7-8.2) g/dl Albumin 3.7 (3.2-5.5) g/dl Globulin 3.2 Albumin/Globulin Ratio 1.16 Urine Color (YELLOW) Urine Appearance (CLEAR) Urine pH (5.0-9.0) Ur Specific [place] (1.005-1.030) Urine Protein (NEGATIVE) Urine Glucose (UA) (NEGATIVE) Urine Ketones (NEGATIVE) Urine Occult Blood (NEGATIVE) Urine Nitrite (NEGATIVE) Urine Bilirubin (NEGATIVE) Urine Urobilinogen (0.2-1.0) mg/dL Ur Leukocyte Esterase (NEGATIVE) 12/04/19 Range/Units 13:40 WBC (5.0-10.0) 10^3/uL RBC (4.2-5.4) 10^6/uL Hgb (12.0-16.0) g/dL Hct (37.0-47.0) % MCV (80-100) fL MCH (27.0-34.0) pg MCHC (33.0-35.0) g/dL Plt Count (150-450) 10^3/uL Neut % (Auto) (42.2-75.2) % Lymph % (Auto) (20.5-50.1) % [place] % (Auto) (2-8) % Eos % (Auto) (1.0-3.0) % Baso % (Auto) (0.0-1.0) % PT (9.0-12.0) SEC INR (0.9-1.2) Sodium (135-145) mmol/L Potassium (3.6-5.0) mmol/L Chloride (101-111) mmol/L Carbon Dioxide (21.0-31.0) mmol/L Anion Gap BUN (7-18) mg/dL Creatinine (0.6-1.3) mg/dL Est Cr Clr Drug Dosing Estimated GFR (MDRD) BUN/Creatinine Ratio Glucose (74-105) mg/dL Calcium (8.4-10.2) mg/dl Magnesium (1.8-2.5) mg/dL Total Bilirubin (0.2-1.0) mg/dL AST (10-42) IU/L ALT (10-60) IU/L Alkaline Phosphatase (42-121) IU/L B-Natriuretic Peptide (0-100) pg/ml Total Protein (6.7-8.2) g/dl Albumin (3.2-5.5) g/dl Globulin Albumin/Globulin Ratio Urine Color Yellow (YELLOW) Urine Appearance Clear (CLEAR) Urine pH 6.5 (5.0-9.0) Ur Specific [place] 1.010 (1.005-1.030) Urine Protein Negative (NEGATIVE) Urine Glucose (UA) Negative (NEGATIVE) Urine Ketones Negative (NEGATIVE) Urine Occult Blood Negative (NEGATIVE) Urine Nitrite Negative (NEGATIVE) Urine Bilirubin Negative (NEGATIVE) Urine Urobilinogen 0.2 (0.2-1.0) mg/dL Ur Leukocyte Esterase Negative (NEGATIVE) Meds: Medications Generic Name Dose Route Start Last Admin Trade Name Freq PRN Reason Stop Dose Admin Magnesium Sulfate 2 gm/ Premix 50 mls @ 25 mls/hr 12/04/19 14:19 IV 12/04/19 16:18 ONETIME ONE Potassium Chloride 10 meq/ 100 mls @ 100 mls/hr 12/04/19 14:17 Premix IV 12/04/19 15:16 ONETIME ONE Discontinued Medications Generic Name Dose Route Start Last Admin Trade Name Freq PRN Reason Stop Dose Admin Dexamethasone 4 mg 12/04/19 13:11 12/04/19 13:29 Dexamethasone IVPUSH 12/04/19 13:12 4 mg ONETIME ONE Administration Lidocaine HCl 1 ml 12/04/19 14:18 Xylocaine-Mpf 1% INJECT 12/04/19 14:19 ONETIME ONE Lorazepam 0.5 mg 12/04/19 13:12 12/04/19 13:36 Ativan IVPUSH 12/04/19 13:13 0.5 mg ONETIME ONE Administration Potassium Chloride 40 meq 12/04/19 14:17 Klor-Con 10 PO 12/04/19 14:18 ONETIME ONE - Radiology Interpretation Free Text/Narrative:: XR Chest: no acute process per Rad. report. Departure - Departure Time of Disposition: 14:30 (pt admitted to Dr. Ziegler) Disposition: Refer to Observation Condition: Fair Clinical Impression: Supratherapeutic INR, Hypokalemia, Hypomagnesemia, CREST (calcinosis, Raynaud' s phenomenon, esophageal dysfunction, sclerodactyly, telangiectasia), History of Bonner's disease - Discharge Information *PRESCRIPTION DRUG MONITORING PROGRAM REVIEWED*: Not Applicable *COPY OF PRESCRIPTION DRUG MONITORING REPORT IN PATIENT CHRISTINA: Not Applicable Forms: ED Department Discharge Sepsis Event Note - Focused Exam Vital Signs: Vital Signs Temp Pulse Resp BP Pulse Ox 12/04/19 13:06 98.2 F 85 16 124/61 95 Date Exam was Performed: 12/04/19 Time Exam was Performed: 14:28 - My Orders Last 24 Hours: My Active Orders 12/04/19 13:16 Blood Glucose Check, Bedside [RC] ONETIME 12/04/19 14:17 Potassium Chloride [KCl 10 MEQ in Water 100 ML] 10 meq Premix Bag 1 bag IV ONETIME 12/04/19 14:19 Magnesium Sulfate/Water [Magnesium Sulfate in Water Premix] 2 gm Premix Bag 1 bag IV ONETIME 12/04/19 14:21 EKG 12 Lead [EKG Documentation Completion] [RC] STAT - Assessment/Plan Last 24 Hours: My Active Orders 12/04/19 13:16 Blood Glucose Check, Bedside [RC] ONETIME 12/04/19 14:17 Potassium Chloride [KCl 10 MEQ in Water 100 ML] 10 meq Premix Bag 1 bag IV ONETIME 12/04/19 14:19 Magnesium Sulfate/Water [Magnesium Sulfate in Water Premix] 2 gm Premix Bag 1 bag IV ONETIME 12/04/19 14:21 EKG 12 Lead [EKG Documentation Completion] [RC] STAT
[~2019-12-04 13:12] MED LIST: Dexamethasone 4 MG/ML SDV IVPUSH ONE; LORazepam 2 MG/ML SDV IVPUSH ONE
[2019-12-04 13:45] LABS: ANION GAP 12.6; CHLORIDE,CL 93 mmol/L (101-111); SODIUM,NA 132 mmol/L (135-145)
--- NOTE | 2019-12-04 13:56 | CR ---
EXAMINATION: Chest 1V Frontal SEX: Female AGE: 74 years CLINICAL HISTORY: 74-year-old female complaining of Shortness of breath (Hx COPD). INTERPRETATION: 1. No acute new cardiopulmonary abnormality identified in the interval since 21 November or earlier 4 November 22, 2019 exams. 2. 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 (Cholecystectomy) 3. No new pulmonary vascular congestion, cephalization of flow, alveolar edema or dependent pleural fluid accumulation. 4. No new lung mass, hilar lymphadenopathy or focal lobar pneumonia. No atelectasis/collapse. 5. No pneumothorax or pneumomediastinum. CONCLUSION: No acute new cardiopulmonary abnormality.
[2019-12-04] MEDS ORDERED: Potassium Chloride 10 MEQ Tab.ER PO ONE (14:17)
[2019-12-04] MEDS ORDERED: Potassium Chloride 10 MEQ in Premix Bag 1 BAG IV ONE (14:17)
[2019-12-04] MEDS ORDERED: Lidocaine 1% 30 ML SDV INJECT ONE (14:18)
[2019-12-04] MEDS ORDERED: Magnesium Sulfate/Water 2 GM in Premix Bag 1 BAG IV ONE (14:19)
[2019-12-04] MEDS ORDERED: Acetaminophen 325 MG Tab PO PRN (15:44)
[2019-12-04] MEDS ORDERED: Ondansetron 4 MG Tab.DIS PO PRN (15:44)
[2019-12-04] MEDS ORDERED: Ondansetron 4 MG/2 ML SDV IVPUSH PRN (15:44)
--- NOTE | 2019-12-04 15:59 | PCM.HP ---
H&P History of Present Illness - General Date of Service: 12/04/19 Admit Problem/Dx: Admission Diagnosis/Problem Admission Diagnosis/Problem Hypokalemia Source of Information: Patient, Old Records, Provider - History of Present Illness Initial Comments - Free Text/Narative: Ms. Maricel Black is a 74-year-old female with medical history significant for aortic stenosis status post aortic valve replacement in 2010 and TAVR procedure in 2019, acute disease status post CABG, CREST syndrome, diastolic heart failure , type 2 diabetes, Tama's disease, hypothyroidism, anxiety, and COPD [place] was transferred to the ED for Raynaud's phenomenon. Patient reports that she went to work today and was a normal self. States that she was filing some documents when she started shaking all over. States that she had associated weakness. Reports that she called the clinic nurse. Reports that they called an ambulance for her but her niece took her to the clinic. In the clinic, she was noted to have bluish discoloration of her fingers associated desaturation and so she was sent to the ED. Reports that over the past 2 days, she has had increased. States that she has been taking sips of water because she was told that she drinks too much water. She also reports polyuria which has improved with decreased oral intake. Fevers, chills, nausea, vomiting, diarrhea, constipation, dysuria, hematuria, edema, headache, vision changes, chest pain, shortness of breath, or any new symptoms. In the ED, patient was noted to have normal O2 saturation. Discoloration of the fingers were improved. However, she was noted to have potassium of 2.6 and magnesium of 1.3. She was started on calcium and magnesium. She was also noted to have INR of 7.2. - Related Data Allergies/Adverse Reactions: Allergies Allergy/AdvReac Type Severity Reaction Status Date / Time iodine AdvReac Intermediate nausea only Verified 12/04/19 15:41 adhesive AdvReac Mild Rash Verified 12/04/19 15:41 ibuprofen AdvReac Unknown Stomach Verified 12/04/19 15:41 Upset Home Medications: Home Meds Aspirin [Halfprin] 81 mg PO DAILY 11/28/13 [History] Fludrocortisone [Florinef] 0.1 mg PO ACBRK 11/28/13 [History] Hydrocortisone 10 mg PO WITHBREAKFAST 11/28/13 [History] Lisinopril 10 mg PO DAILY 11/28/13 [History] Montelukast Sodium 10 mg PO BEDTIME 11/28/13 [History] Multivitamin [Multivitamins] 1 cap PO DAILY 11/28/13 [History] sitaGLIPtin Phos/Metformin HCl [Janumet 50-1,000 MG] 1 tab PO DAILY 11/28/13 [ History] Acetaminophen 650 mg PO Q6H PRN 01/14/15 [History] Albuterol/Ipratropium [DuoNeb 3.0-0.5 MG/3 ML] 3 ml NEB QID PRN 01/14/15 [ History] Cetirizine [ZyrTEC] 10 mg PO BEDTIME 07/25/17 [History] Dextrose [Glucose] 4 tab PO ASDIRECTED PRN 07/25/17 [History] Levalbuterol Tartrate [Xopenex Hfa] 2 puff IH Q4HR PRN 07/25/17 [History] Potassium Chloride [Klor-Con 10] 10 meq PO DAILY 07/25/17 [History] Metoprolol Succinate [Toprol XL] 25 mg PO DAILY 08/10/17 [History] Mometasone/Formoterol [Dulera 200 Mcg-5 Mcg Inhaler] 2 puff INH BID 12/04/18 [ History] Nystatin [Mycostatin] 5 ml PO BID PRN 12/04/18 [History] Pantoprazole Sodium [Protonix] 40 mg PO DAILY 12/04/18 [History] Hydrocortisone 20 mg PO BEDTIME 03/04/19 [History] Magnesium Chloride 70 mg PO DAILY 03/04/19 [History] Calcium Citrate/Vitamin D3 [Citracal + D Maximum Caplet] 1 tab PO BID 03/20/19 [ History] Mineral Oil, Light/Mineral Oil [Soothe Xp Eye Drops] 1 drop EYEBOTH DAILY PRN [History] Levothyroxine 125 mcg PO ACBREAKFAST #30 tablet 03/23/19 [Rx] Spironolactone [Aldactone] 1 tab PO DAILY 11/03/19 [History] Warfarin [Coumadin] 1 tab PO DAILY 11/03/19 [History] Oseltamivir [Tamiflu] 30 mg PO BID 3 Days #7 cap 11/05/19 [Rx] guaiFENesin [Robitussin] 100 mg PO Q6H PRN #1 bottle 11/05/19 [Rx] Past Medical History HEENT History: Reports: Other (See Below) Other HEENT History: dry eyes Cardiovascular History: Reports: Bypass, CAD, Heart Murmur, Heart Valve Replacement, Hypertension, [place] Respiratory History: Reports: Asthma, COPD Other Respiratory History: Recently hospitalized for pneumonia, 03/2019. Gastrointestinal History: Reports: GERD Genitourinary History: Reports: None DIE DESIGNER History: Reports: None Musculoskeletal History: Reports: None Neurological History: Reports: None Psychiatric History: Reports: Anxiety Endocrine/Metabolic History: Reports: Tama's Disease, Diabetes, Type II, Hypothyroidism Hematologic History: Reports: None Immunologic History: Reports: Other (See Below) Other Immunologic History: Addisons disease Oncologic (Cancer) History: Reports: None Dermatologic History: Reports: None, Scleroderma, Other (See Below) Other Dermatologic History: CREST syndrome, hyperpigmentation - Infectious Disease History Infectious Disease History: Reports: Chicken Pox - Past Surgical History HEENT Surgical History: Reports: Adenoidectomy, Tonsillectomy Cardiovascular Surgical History: Reports: Coronary Artery Bypass, Valve Replacement, Other (See Below) Other Cardiovascular Surgeries/Procedures: Septal defect repair GI Surgical History: Reports: Appendectomy, Cholecystectomy, Colonoscopy, EGD, Esophageal Dilatation Female Surgical History: Reports: None Dermatological Surgical History: Reports: None Social & Family History - Family History Family Medical History: Noncontributory - Tobacco Use Smoking Status *Q: Never Smoker - Caffeine Use Caffeine Use: Reports: Coffee, Tea Caffeine Use Comment: 16. oz daily - Recreational Drug Use Recreational Drug Use: No - Living Situation & Occupation Living situation: Reports: with Family Occupation: Employed H&P Review of Systems - Review of Systems: Review Of Systems: Comprehensive ROS is negative, except as noted in HPI. Exam - Exam Exam: See Below - Vital Signs Vital Signs: Last Vital Signs Temp 98.2 F 12/04/19 13:06 Pulse 85 12/04/19 13:06 Resp 16 12/04/19 13:06 BP 124/61 12/04/19 13:06 Pulse Ox 95 12/04/19 13:06 Weight: 107 lb 12.8 oz - Exam General: Alert, Oriented, Cooperative HEENT: Conjunctiva Clear, Hearing Intact, Mucosa Moist & [place], Pupils Equal, Pupils Reactive Neck: Supple, Trachea Midline Lungs: Clear to Auscultation, Normal Respiratory Effort Cardiovascular: Regular Rate, Regular Rhythm, Systolic Murmur GI/Abdominal Exam: Normal Bowel Sounds, Soft, Non-Tender, No Distention Extremities: Normal Inspection, Non-Tender, No Pedal Edema, Other (Fingers and toes are cool to touch.) Peripheral Pulses: 1+: Dorsalis Pedis (L), Dorsalis Pedis (R), 2+: Radial (L), Radial (R) Skin: Warm, Dry, Intact Neuro Extensive - Mental Status: Alert, Oriented x3, Normal Mood/Affect, Memory Intact Psychiatric: Alert, Normal Affect, Normal Mood - Patient Data Lab Results Last 24 hrs: Laboratory Results - last 24 hr 12/04/19 12/04/19 12/04/19 Range/Units 13:20 13:20 13:20 WBC 11.8 H (5.0-10.0) 10^3/uL RBC 4.02 L (4.2-5.4) 10^6/uL Hgb 11.4 L (12.0-16.0) g/dL Hct 34.5 L (37.0-47.0) % MCV 85.8 (80-100) fL MCH 28.4 (27.0-34.0) pg MCHC 33.0 (33.0-35.0) g/dL Plt Count 173 (150-450) 10^3/uL Neut % (Auto) 90.7 H (42.2-75.2) % Lymph % (Auto) 5.1 L (20.5-50.1) % [place] % (Auto) 3.7 (2-8) % Eos % (Auto) 0.3 L (1.0-3.0) % Baso % (Auto) 0.2 (0.0-1.0) % PT 66.5 H D (9.0-12.0) SEC INR 7.2 H* (0.9-1.2) Sodium 132 L (135-145) mmol/L Potassium 2.6 L D (3.6-5.0) mmol/L Chloride 93 L (101-111) mmol/L Carbon Dioxide 29.0 (21.0-31.0) mmol/L Anion Gap 12.6 BUN 6 L (7-18) mg/dL Creatinine 0.6 (0.6-1.3) mg/dL Est Cr Clr Drug Dosing TNP Estimated GFR (MDRD) > 60 BUN/Creatinine Ratio 10.00 Glucose 168 H (74-105) mg/dL Calcium 8.8 (8.4-10.2) mg/dl Magnesium 1.3 L (1.8-2.5) mg/dL Total Bilirubin 1.7 H (0.2-1.0) mg/dL AST 36 (10-42) IU/L ALT 18 (10-60) IU/L Alkaline Phosphatase 69 (42-121) IU/L B-Natriuretic Peptide 87 (0-100) pg/ml Total Protein 6.9 (6.7-8.2) g/dl Albumin 3.7 (3.2-5.5) g/dl Globulin 3.2 Albumin/Globulin Ratio 1.16 Urine Color (YELLOW) Urine Appearance (CLEAR) Urine pH (5.0-9.0) Ur Specific [place] (1.005-1.030) Urine Protein (NEGATIVE) Urine Glucose (UA) (NEGATIVE) Urine Ketones (NEGATIVE) Urine Occult Blood (NEGATIVE) Urine Nitrite (NEGATIVE) Urine Bilirubin (NEGATIVE) Urine Urobilinogen (0.2-1.0) mg/dL Ur Leukocyte Esterase (NEGATIVE) 12/04/19 Range/Units 13:40 WBC (5.0-10.0) 10^3/uL RBC (4.2-5.4) 10^6/uL Hgb (12.0-16.0) g/dL Hct (37.0-47.0) % MCV (80-100) fL MCH (27.0-34.0) pg MCHC (33.0-35.0) g/dL Plt Count (150-450) 10^3/uL Neut % (Auto) (42.2-75.2) % Lymph % (Auto) (20.5-50.1) % [place] % (Auto) (2-8) % Eos % (Auto) (1.0-3.0) % Baso % (Auto) (0.0-1.0) % PT (9.0-12.0) SEC INR (0.9-1.2) Sodium (135-145) mmol/L Potassium (3.6-5.0) mmol/L Chloride (101-111) mmol/L Carbon Dioxide (21.0-31.0) mmol/L Anion Gap BUN (7-18) mg/dL Creatinine (0.6-1.3) mg/dL Est Cr Clr Drug Dosing Estimated GFR (MDRD) BUN/Creatinine Ratio Glucose (74-105) mg/dL Calcium (8.4-10.2) mg/dl Magnesium (1.8-2.5) mg/dL Total Bilirubin (0.2-1.0) mg/dL AST (10-42) IU/L ALT (10-60) IU/L Alkaline Phosphatase (42-121) IU/L B-Natriuretic Peptide (0-100) pg/ml Total Protein (6.7-8.2) g/dl Albumin (3.2-5.5) g/dl Globulin Albumin/Globulin Ratio Urine Color Yellow (YELLOW) Urine Appearance Clear (CLEAR) Urine pH 6.5 (5.0-9.0) Ur Specific [place] 1.010 (1.005-1.030) Urine Protein Negative (NEGATIVE) Urine Glucose (UA) Negative (NEGATIVE) Urine Ketones Negative (NEGATIVE) Urine Occult Blood Negative (NEGATIVE) Urine Nitrite Negative (NEGATIVE) Urine Bilirubin Negative (NEGATIVE) Urine Urobilinogen 0.2 (0.2-1.0) mg/dL Ur Leukocyte Esterase Negative (NEGATIVE) Result Diagrams: 12/04/19 13:20 12/04/19 13:20 *Q Meaningful Use (ADM) - VTE *Q VTE Anticoagulation Contraindications: Alternative TX Request PT - Problem List (1) S/P TAVR (transcatheter aortic valve replacement) SNOMED Code(s): 9239956270844, 643614954, 768495399, 6688603938312 ICD Code: Z95.2 - PRESENCE OF PROSTHETIC HEART VALVE Status: Acute Current Visit: Yes (2) CREST (calcinosis, Raynaud's phenomenon, esophageal dysfunction, sclerodactyly, telangiectasia) SNOMED Code(s): 47650430 ICD Code: M34.1 - CR(E)ST SYNDROME Status: Acute Current Visit: No (3) Chronic anticoagulation SNOMED Code(s): 953912296 ICD Code: Z79.01 - SUSTAINABLE PRODUCTS MARKETING MANAGER (CURRENT) USE OF ANTICOAGULANTS Status: Acute Current Visit: No (4) DM type 2 (diabetes mellitus, type 2) SNOMED Code(s): 01209318 ICD Code: E11.9 - TYPE 2 DIABETES MELLITUS WITHOUT COMPLICATIONS Status: Acute Current Visit: No Qualifiers: Diabetes mellitus superintendent terminal insulin use: with nursing home use Diabetes mellitus complication status: with other specified complication Qualified Code (s): E11.69 - Type 2 diabetes mellitus with other specified complication; Z79.4 - termite control representative (current) use of insulin (5) History of Tama's disease SNOMED Code(s): 438073983 ICD Code: Z86.39 - PERSONAL HISTORY OF ENDO, NUTRITIONAL AND METABOLIC DISEASE Status: Acute Current Visit: No (6) History of CREST syndrome SNOMED Code(s): 107294962, 836607957 ICD Code: Z87.39 - PERSONAL HISTORY OF DISEASES OF THE MS SYS AND CONN TISS Status: Acute Current Visit: No (7) Hypokalemia SNOMED Code(s): 01871516 ICD Code: E87.6 - HYPOKALEMIA Status: Acute Current Visit: No (8) Hypomagnesemia SNOMED Code(s): 323687826 ICD Code: E83.42 - HYPOMAGNESEMIA Status: Acute Current Visit: No (9) Supratherapeutic INR SNOMED Code(s): 821687529 ICD Code: R79.1 - ABNORMAL COAGULATION PROFILE Status: Acute Current Visit: No (10) COPD (chronic obstructive pulmonary disease) SNOMED Code(s): 24868452 ICD Code: J44.9 - CHRONIC OBSTRUCTIVE PULMONARY DISEASE, UNSPECIFIED Status : Chronic Priority: Medium Current Visit: No Qualifiers: COPD type: chronic bronchitis Chronic bronchitis type: simple Qualified Code(s): J41.0 - Simple chronic bronchitis (11) Hypertension SNOMED Code(s): 28057084 ICD Code: I10 - ESSENTIAL (PRIMARY) HYPERTENSION Status: Chronic Current Visit: No (12) Hypothyroidism SNOMED Code(s): 13575670 ICD Code: E03.9 - HYPOTHYROIDISM, UNSPECIFIED Status: Chronic Current Visit: No Problem List Initiated/Reviewed/Updated: Yes Orders Last 24hrs: Active Orders 24 hr Category Date Time Status Admission Diagnosis [ADT] Routine ADT 12/04/19 14:50 Ordered Patient Status [ADT] Routine ADT 12/04/19 14:50 Active Antiembolic Devices [RC] PER UNIT ROUTINE Care 12/04/19 15:45 Ordered Blood Glucose Check, Bedside [RC] ONETIME Care 12/04/19 13:16 Active Cardiac Monitoring [RC] CONTINUOUS Care 12/04/19 15:44 Ordered EKG 12 Lead [EKG Documentation Completion] [RC] STAT Care 12/04/19 14:21 Active Oxygen Therapy [RC] PRN Care 12/04/19 15:44 Ordered Up With Assistance [RC] ASDIRECTED Care 12/04/19 15:44 Ordered VTE/DVT Education [RC] PER UNIT ROUTINE Care 12/04/19 15:44 Ordered Vital Signs [RC] Q4H Care 12/04/19 15:44 Ordered 2 Gram Sodium Diet [DIET] Diet 12/04/19 Dinner Ordered BASIC METABOLIC PANEL,BMP [CHEM] AM Lab 12/05/19 05:11 Ordered CBC W/O DIFF,HEMOGRAM [HEME] AM Lab 12/05/19 05:11 Ordered PHOSPHORUS [CHEM] AM Lab 12/05/19 05:11 Ordered PHOSPHORUS [CHEM] Routine Lab 12/04/19 15:48 Ordered POTASSIUM,K [CHEM] AM Lab 12/05/19 05:11 Ordered Acetaminophen [Tylenol] Med 12/04/19 15:44 Ordered 650 mg PO Q4H PRN Magnesium Sulfate/Water [Magnesium Sulfate in Water Med 12/04/19 14:19 Active Premix] 2 gm Premix Bag 1 bag IV ONETIME Ondansetron [Zofran ODT] Med 12/04/19 15:44 Ordered 4 mg PO Q6H PRN Ondansetron [Zofran] Med 12/04/19 15:44 Ordered 4 mg IVPUSH Q6H PRN Anticoagulation Contraindications VTE [AST] Per Unit Oth 12/04/19 15:44 Ordered Routine Sequential Compression Device [OM.PC] Per Unit Routine Oth 12/04/19 15:45 Ordered Resuscitation Status Routine Resus Stat 12/04/19 15:44 Ordered Medication Orders Acetaminophen (Tylenol) 650 mg PO Q4H PRN PRN Reason: Pain (Mild 1-3)/fever Magnesium Sulfate 2 gm/ Premix 50 mls @ 25 mls/hr IV ONETIME ONE Stop: 03/03/20 16:18 Last Admin: 12/04/19 15:48 Dose: 25 mls/hr Ondansetron HCl (Zofran Odt) 4 mg PO Q6H PRN PRN Reason: nausea, able to take PO Ondansetron HCl (Zofran) 4 mg IVPUSH Q6H PRN PRN Reason: Nausea/Vomiting Assessment/Plan Comment:: Hypokalemia: Patient with potassium of 2.6. With associated magnesium of 1.3. Aggressive potassium replacement Telemetry monitoring Replace magnesium Monitor and replace electrolytes #Supratherapeutic INR: Patient with INR of 7.2. Patient is on warfarin for mechanical valve. Hold warfarin for now No acute risk of bleeding so no need for reversal Monitor PT/INR #Weakness: Could be due to electrolyte imbalances PT/OT if patient still weak after electrolytes are normalized #History of COPD: Not in acute exacerbation Continue medications #History of Tama's disease Continue home medications #Diabetes: Continue home medications Sliding scale insulin with hypoglycemia protocol #Chronic diastolic heart failure not in acute exacerbation Continue diuretics #Crest syndrome: with Raynaud's phenomenon. Digital cyanosis resolved. Continue to monitor DVT prophylaxis: Patient has supratherapeutic INR GI prophylaxis diabetic diet, low-sodium Code status: Full code
[2019-12-04] MEDS ORDERED: Insulin Lispro 100 Units/ML 3 ML Vial SUBCUT SCH (21:00)
[2019-12-04] MEDS: Insulin Lispro 100 Units/ML 3 ML Vial SUBCUT SCH (22:36)
[2019-12-05 07:06] LABS: ANION GAP 10.4; CHLORIDE,CL 99 mmol/L (101-111); SODIUM,NA 136 mmol/L (135-145)
[2019-12-05] MEDS: Insulin Lispro 100 Units/ML 3 ML Vial SUBCUT SCH ×4 (08:01→20:48)
[2019-12-05] MEDS ORDERED: Potassium Chloride 10 MEQ Tab.ER PO ONE (10:00)
--- NOTE | 2019-12-05 10:05 | PCM.PN ---
- General Info Date of Service: 12/05/19 Admission Dx/Problem (Free Text): Admission Diagnosis/Problem Admission Diagnosis/Problem Hypokalemia Subjective Update: Admitted yesterday with hypocalcemia, hypomagnesemia I saw and examined the patient at the bedside this morning Complains of poor appetite No CP, no SOB, no abdominal pain - Review of Systems General: Reports: Appetite HEENT: Reports: No Symptoms Pulmonary: Reports: No Symptoms Cardiovascular: Reports: No Symptoms Gastrointestinal: Reports: No Symptoms Genitourinary: Reports: No Symptoms Musculoskeletal: Reports: No Symptoms Skin: Reports: No Symptoms - Patient Data Vitals - Most Recent: Last Vital Signs Temp 36.9 C 12/05/19 08:04 Pulse 68 12/05/19 08:04 Resp 20 12/05/19 08:04 BP 107/53 L 12/05/19 08:04 Pulse Ox 96 12/05/19 08:04 Weight - Most Recent: 47.684 kg I&O - Last 24 Hours: Intake & Output 12/04/19 12/05/19 12/05/19 22:59 06:59 14:59 Output Total 300 500 Balance -300 -500 Lab Results Last 24 Hours: Laboratory Results - last 24 hr 12/04/19 12/04/19 12/04/19 Range/Units 13:18 13:20 13:20 WBC 11.8 H (5.0-10.0) 10^3/uL RBC 4.02 L (4.2-5.4) 10^6/uL Hgb 11.4 L (12.0-16.0) g/dL Hct 34.5 L (37.0-47.0) % MCV 85.8 (80-100) fL MCH 28.4 (27.0-34.0) pg MCHC 33.0 (33.0-35.0) g/dL Plt Count 173 (150-450) 10^3/uL Neut % (Auto) 90.7 H (42.2-75.2) % Lymph % (Auto) 5.1 L (20.5-50.1) % Douglas % (Auto) 3.7 (2-8) % Eos % (Auto) 0.3 L (1.0-3.0) % Baso % (Auto) 0.2 (0.0-1.0) % PT 66.5 H D (9.0-12.0) SEC INR 7.2 H* (0.9-1.2) Sodium (135-145) mmol/L Potassium (3.6-5.0) mmol/L Chloride (101-111) mmol/L Carbon Dioxide (21.0-31.0) mmol/L Anion Gap BUN (7-18) mg/dL Creatinine (0.6-1.3) mg/dL Est Cr Clr Drug Dosing Estimated GFR (MDRD) BUN/Creatinine Ratio Glucose (74-105) mg/dL POC Glucose 153 H (83-110) mg/dl Calcium (8.4-10.2) mg/dl Phosphorus (2.5-4.6) mg/dL Magnesium (1.8-2.5) mg/dL Total Bilirubin (0.2-1.0) mg/dL AST (10-42) IU/L ALT (10-60) IU/L Alkaline Phosphatase (42-121) IU/L B-Natriuretic Peptide (0-100) pg/ml Total Protein (6.7-8.2) g/dl Albumin (3.2-5.5) g/dl Globulin Albumin/Globulin Ratio Urine Color (YELLOW) Urine Appearance (CLEAR) Urine pH (5.0-9.0) Ur Specific [place] (1.005-1.030) Urine Protein (NEGATIVE) Urine Glucose (UA) (NEGATIVE) Urine Ketones (NEGATIVE) Urine Occult Blood (NEGATIVE) Urine Nitrite (NEGATIVE) Urine Bilirubin (NEGATIVE) Urine Urobilinogen (0.2-1.0) mg/dL Ur Leukocyte Esterase (NEGATIVE) 12/04/19 12/04/19 12/04/19 Range/Units 13:20 13:20 13:40 WBC (5.0-10.0) 10^3/uL RBC (4.2-5.4) 10^6/uL Hgb (12.0-16.0) g/dL Hct (37.0-47.0) % MCV (80-100) fL MCH (27.0-34.0) pg MCHC (33.0-35.0) g/dL Plt Count (150-450) 10^3/uL Neut % (Auto) (42.2-75.2) % Lymph % (Auto) (20.5-50.1) % Douglas % (Auto) (2-8) % Eos % (Auto) (1.0-3.0) % Baso % (Auto) (0.0-1.0) % PT (9.0-12.0) SEC INR (0.9-1.2) Sodium 132 L (135-145) mmol/L Potassium 2.6 L D (3.6-5.0) mmol/L Chloride 93 L (101-111) mmol/L Carbon Dioxide 29.0 (21.0-31.0) mmol/L Anion Gap 12.6 BUN 6 L (7-18) mg/dL Creatinine 0.6 (0.6-1.3) mg/dL Est Cr Clr Drug Dosing TNP Estimated GFR (MDRD) > 60 BUN/Creatinine Ratio 10.00 Glucose 168 H (74-105) mg/dL POC Glucose (83-110) mg/dl Calcium 8.8 (8.4-10.2) mg/dl Phosphorus 2.9 (2.5-4.6) mg/dL Magnesium 1.3 L (1.8-2.5) mg/dL Total Bilirubin 1.7 H (0.2-1.0) mg/dL AST 36 (10-42) IU/L ALT 18 (10-60) IU/L Alkaline Phosphatase 69 (42-121) IU/L B-Natriuretic Peptide 87 (0-100) pg/ml Total Protein 6.9 (6.7-8.2) g/dl Albumin 3.7 (3.2-5.5) g/dl Globulin 3.2 Albumin/Globulin Ratio 1.16 Urine Color Yellow (YELLOW) Urine Appearance Clear (CLEAR) Urine pH 6.5 (5.0-9.0) Ur Specific [place] 1.010 (1.005-1.030) Urine Protein Negative (NEGATIVE) Urine Glucose (UA) Negative (NEGATIVE) Urine Ketones Negative (NEGATIVE) Urine Occult Blood Negative (NEGATIVE) Urine Nitrite Negative (NEGATIVE) Urine Bilirubin Negative (NEGATIVE) Urine Urobilinogen 0.2 (0.2-1.0) mg/dL Ur Leukocyte Esterase Negative (NEGATIVE) 12/04/19 12/04/19 12/05/19 Range/Units 16:53 20:47 05:55 WBC 7.4 (5.0-10.0) 10^3/uL RBC 3.28 L (4.2-5.4) 10^6/uL Hgb 9.5 L D (12.0-16.0) g/dL Hct 28.9 L (37.0-47.0) % MCV 88.1 (80-100) fL MCH 29.0 (27.0-34.0) pg MCHC 32.9 L (33.0-35.0) g/dL Plt Count 157 (150-450) 10^3/uL Neut % (Auto) (42.2-75.2) % Lymph % (Auto) (20.5-50.1) % Douglas % (Auto) (2-8) % Eos % (Auto) (1.0-3.0) % Baso % (Auto) (0.0-1.0) % PT (9.0-12.0) SEC INR (0.9-1.2) Sodium (135-145) mmol/L Potassium (3.6-5.0) mmol/L Chloride (101-111) mmol/L Carbon Dioxide (21.0-31.0) mmol/L Anion Gap BUN (7-18) mg/dL Creatinine (0.6-1.3) mg/dL Est Cr Clr Drug Dosing Estimated GFR (MDRD) BUN/Creatinine Ratio Glucose (74-105) mg/dL POC Glucose 147 H 233 H (83-110) mg/dl Calcium (8.4-10.2) mg/dl Phosphorus (2.5-4.6) mg/dL Magnesium (1.8-2.5) mg/dL Total Bilirubin (0.2-1.0) mg/dL AST (10-42) IU/L ALT (10-60) IU/L Alkaline Phosphatase (42-121) IU/L B-Natriuretic Peptide (0-100) pg/ml Total Protein (6.7-8.2) g/dl Albumin (3.2-5.5) g/dl Globulin Albumin/Globulin Ratio Urine Color (YELLOW) Urine Appearance (CLEAR) Urine pH (5.0-9.0) Ur Specific [place] (1.005-1.030) Urine Protein (NEGATIVE) Urine Glucose (UA) (NEGATIVE) Urine Ketones (NEGATIVE) Urine Occult Blood (NEGATIVE) Urine Nitrite (NEGATIVE) Urine Bilirubin (NEGATIVE) Urine Urobilinogen (0.2-1.0) mg/dL Ur Leukocyte Esterase (NEGATIVE) 12/05/19 12/05/19 Range/Units 05:55 07:56 WBC (5.0-10.0) 10^3/uL RBC (4.2-5.4) 10^6/uL Hgb (12.0-16.0) g/dL Hct (37.0-47.0) % MCV (80-100) fL MCH (27.0-34.0) pg MCHC (33.0-35.0) g/dL Plt Count (150-450) 10^3/uL Neut % (Auto) (42.2-75.2) % Lymph % (Auto) (20.5-50.1) % Douglas % (Auto) (2-8) % Eos % (Auto) (1.0-3.0) % Baso % (Auto) (0.0-1.0) % PT (9.0-12.0) SEC INR (0.9-1.2) Sodium 136 (135-145) mmol/L Potassium 3.4 L (3.6-5.0) mmol/L Chloride 99 L (101-111) mmol/L Carbon Dioxide 30.0 (21.0-31.0) mmol/L Anion Gap 10.4 BUN 6 L (7-18) mg/dL Creatinine 0.6 (0.6-1.3) mg/dL Est Cr Clr Drug Dosing 61.92 Estimated GFR (MDRD) > 60 BUN/Creatinine Ratio Glucose 99 (74-105) mg/dL POC Glucose 92 (83-110) mg/dl Calcium 8.3 L (8.4-10.2) mg/dl Phosphorus 3.1 (2.5-4.6) mg/dL Magnesium (1.8-2.5) mg/dL Total Bilirubin (0.2-1.0) mg/dL AST (10-42) IU/L ALT (10-60) IU/L Alkaline Phosphatase (42-121) IU/L B-Natriuretic Peptide (0-100) pg/ml Total Protein (6.7-8.2) g/dl Albumin (3.2-5.5) g/dl Globulin Albumin/Globulin Ratio Urine Color (YELLOW) Urine Appearance (CLEAR) Urine pH (5.0-9.0) Ur Specific [place] (1.005-1.030) Urine Protein (NEGATIVE) Urine Glucose (UA) (NEGATIVE) Urine Ketones (NEGATIVE) Urine Occult Blood (NEGATIVE) Urine Nitrite (NEGATIVE) Urine Bilirubin (NEGATIVE) Urine Urobilinogen (0.2-1.0) mg/dL Ur Leukocyte Esterase (NEGATIVE) Med Orders - Current: Current Medications Acetaminophen (Tylenol) 650 mg PO Q4H PRN PRN Reason: Pain (Mild 1-3)/fever Insulin Human Lispro (Humalog) 0 unit SUBCUT QIDACANDBED [facility]; Protocol Last Admin: 12/05/19 08:01 Dose: Not Given Ondansetron HCl (Zofran Odt) 4 mg PO Q6H PRN PRN Reason: nausea, able to take PO Ondansetron HCl (Zofran) 4 mg IVPUSH Q6H PRN PRN Reason: Nausea/Vomiting Discontinued Medications Dexamethasone (Dexamethasone) 4 mg IVPUSH ONETIME ONE Stop: 12/04/19 13:12 Last Admin: 12/04/19 13:29 Dose: 4 mg Magnesium Sulfate 2 gm/ Premix 50 mls @ 25 mls/hr IV ONETIME ONE Stop: 12/04/19 16:18 Last Infusion: 12/04/19 17:49 Dose: Infused Potassium Chloride 10 meq/ (Premix) 100 mls @ 100 mls/hr IV ONETIME ONE Stop: 12/04/19 15:16 Last Admin: 12/04/19 14:35 Dose: 100 mls/hr Insulin Human Lispro (Humalog) 0 unit SUBCUT ACBED [facility]; Protocol Lidocaine HCl (Xylocaine-Mpf 1%) 1 ml INJECT ONETIME ONE Stop: 12/04/19 14:19 Last Admin: 12/04/19 14:36 Dose: 1 ml Lorazepam (Ativan) 0.5 mg IVPUSH ONETIME ONE Stop: 12/04/19 13:13 Last Admin: 12/04/19 13:36 Dose: 0.5 mg Potassium Chloride (Klor-Con 10) 40 meq PO ONETIME ONE Stop: 12/04/19 14:18 Last Admin: 12/04/19 14:37 Dose: 40 meq Potassium Chloride (Klor-Con 10) 40 meq PO ONETIME ONE Stop: 12/05/19 10:01 - Exam General: Alert, Oriented HEENT: Pupils Equal, Pupils Reactive Neck: Supple Lungs: Clear to Auscultation, Normal Respiratory Effort Cardiovascular: Regular Rate, Regular Rhythm Extremities: Normal Inspection, Normal Range of Motion, Non-Tender, No Pedal Edema Sepsis Event Note - Evaluation Sepsis Screening Result: No Definite Risk - Focused Exam Vital Signs: Vital Signs Temp Pulse Resp BP BP Pulse Ox 12/05/19 08:04 36.9 C 68 20 107/53 L 96 12/05/19 04:00 35.9 C L 69 18 112/46 L 100 12/04/19 23:02 36.4 C 58 L 16 86/52 L 100 Date Exam was Performed: 12/05/19 Time Exam was Performed: 10:03 - Problem List Review Problem List Initiated/Reviewed/Updated: Yes - My Orders Last 24 Hours: My Active Orders 12/05/19 05:55 MAGNESIUM [CHEM] Routine 12/06/19 05:11 BASIC METABOLIC PANEL,BMP [CHEM] AM MAGNESIUM [CHEM] AM 12/07/19 05:11 BASIC METABOLIC PANEL,BMP [CHEM] AM MAGNESIUM [CHEM] AM 12/08/19 05:11 BASIC METABOLIC PANEL,BMP [CHEM] AM MAGNESIUM [CHEM] AM - Plan Plan:: Hypokalemia Monitor and replace electrolytes #Supratherapeutic INR: Patient with INR of 7.2. Patient is on warfarin for mechanical valve. Hold warfarin for now No acute risk of bleeding so no need for reversal Monitor PT/INR #Weakness: Could be due to electrolyte imbalances PT/OT if patient still weak after electrolytes are normalized #History of COPD: Not in acute exacerbation Continue medications #History of [place]'s disease Continue home medications #Diabetes: Continue home medications Sliding scale insulin with hypoglycemia protocol #Chronic diastolic heart failure not in acute exacerbation Continue diuretics #Crest syndrome: with Raynaud's phenomenon. Digital cyanosis resolved. Continue to monitor DVT prophylaxis: Patient has supratherapeutic INR GI prophylaxis diabetic diet, low-sodium Code status: Full code
[2019-12-05] MEDS ORDERED: Albuterol/Ipratropium 3.0-0.5 MG/3 ML Neb Soln NEB PRN (15:41)
[2019-12-05] MEDS ORDERED: Lidocaine 5% 700 MG Patch TOP PRN (15:41)
[2019-12-05] MEDS ORDERED: Acetaminophen 325 MG Tab PO PRN (15:41)
[2019-12-05] MEDS ORDERED: Famotidine 20 MG Tab PO PRN (15:41)
[2019-12-05] MEDS ORDERED: Docusate Sodium 100 MG Cap PO PRN (15:41)
[2019-12-05] MEDS ORDERED: Fludrocortisone 0.1 MG Tab PO SCH (15:42)
[2019-12-05] MEDS ORDERED: Non-Formulary Medication 1 Each (Ferrous Gluconate [Ferrous Gluconate] 324 MG) PO SCH (15:45)
[2019-12-05] MEDS ORDERED: Non-Formulary Medication 1 Each (Fluticasone Propion/Salmeterol [Fluticasone-Salmeterol 50 INH SCH (15:45)
[2019-12-05] MEDS ORDERED: Pantoprazole 40 MG Tab.CR PO SCH (15:45)
[2019-12-05] MEDS ORDERED: Sodium Chloride 0.9% 10 ML Syringe FLUSH PRN (20:51)
[2019-12-05] MEDS ORDERED: FAMOTIDINE 20 MG PO PRN (20:53)
[2019-12-05] MEDS ORDERED: HYDROCORTISONE 10 MG PO SCH (21:00)
[2019-12-05] MEDS ORDERED: Hydrocortisone 20 MG Tab PO SCH (21:00)
[2019-12-06] MEDS ORDERED: Fludrocortisone 0.1 MG Tab PO SCH (06:00)
[2019-12-06] MEDS ORDERED: Levothyroxine 125 MCG Tab PO SCH (06:00)
[2019-12-06] MEDS ORDERED: FLUDROCORTISONE 0.1 MG PO SCH (06:00)
[2019-12-06] MEDS ORDERED: LEVOTHYROXINE 125 MCG PO SCH (06:00)
[2019-12-06] MEDS ORDERED: Pantoprazole 40 MG Tab.CR PO SCH (06:00)
[2019-12-06 06:35] LABS: ANION GAP 10.4; CHLORIDE,CL 101 mmol/L (101-111); SODIUM,NA 136 mmol/L (135-145)
[2019-12-06] MEDS ORDERED: HYDROCORTISONE 10 MG PO SCH (08:00)
[2019-12-06] MEDS ORDERED: Hydrocortisone 20 MG Tab PO SCH (08:00)
[2019-12-06 08:02] VITALS: BP 121/55; PULSE 62
[2019-12-06] MEDS: Insulin Lispro 100 Units/ML 3 ML Vial SUBCUT SCH (08:21)
[2019-12-06] MEDS ORDERED: Losartan 50 MG Tab PO SCH (09:00)
[2019-12-06] MEDS ORDERED: ClonazePAM 0.5 MG Tab PO ONE (09:15)
--- NOTE | 2019-12-06 09:44 | PCM.DCSUM1 ---
Discharge Summary - Hospital Course Free Text/Narrative:: Ms. Maricel Black is a 74-year-old female with medical history significant for aortic stenosis status post aortic valve replacement in 2010 and TAVR procedure in 2019, acute disease status post CABG, CREST syndrome, diastolic heart failure , type 2 diabetes, [place]'s disease, hypothyroidism, anxiety, and COPD [place] was transferred to the ED for Raynaud's phenomenon. In the ED, she was found to have supratherapeutic INR and severe hypokalemia and hypomagnesemia. No bleeding noted. We held her coumadin and replenished her electrolytes which normalized. INR came down slightly. Discharge home to follow up with PCP Hold coumadin till seen by PCP on Tuesday12/10/2019 INR check on 12/10/2019 Continue potassium and magnesium oral supplementation Diagnosis: Stroke: No - Discharge Data Discharge Date: 12/06/19 Discharge Disposition: Home, Self-Care 01 Condition: Stable - Referral to Home Health Primary Care Physician: Lisbet Castillo MD - Patient Summary/Data Consults: Consultations 12/06/19 09:07 PT Evaluation and Treatment [CONS] Routine 12/06/19 09:08 OT Evaluation and Treatment [CONS] Routine - Patient Instructions Diet: Heart Healthy Diet Activity: As Tolerated - Discharge Plan *PRESCRIPTION DRUG MONITORING PROGRAM REVIEWED*: Not Applicable *COPY OF PRESCRIPTION DRUG MONITORING REPORT IN PATIENT CHRISTINA: Not Applicable Home Medications: Home Meds Aspirin [Halfprin] 81 mg PO DAILY 11/28/13 [History] Fludrocortisone [Florinef] 0.1 mg PO ACBRK 11/28/13 [History] Hydrocortisone 10 mg PO QPM 11/28/13 [History] Montelukast Sodium 10 mg PO BEDTIME 11/28/13 [History] Multivitamin [Multivitamins] 1 cap PO DAILY 11/28/13 [History] Acetaminophen 650 mg PO Q6H PRN 01/14/15 [History] Albuterol/Ipratropium [DuoNeb 3.0-0.5 MG/3 ML] 3 ml NEB QID PRN 01/14/15 [ History] Dextrose [Glucose] 4 tab PO ASDIRECTED PRN 07/25/17 [History] Pantoprazole Sodium [Protonix] 40 mg PO DAILY 12/04/18 [History] Hydrocortisone 20 mg PO QAM 03/04/19 [History] Levothyroxine 125 mcg PO ACBREAKFAST #30 tablet 03/23/19 [Rx] Spironolactone [Aldactone] 1 tab PO DAILY 11/03/19 [History] Albuterol Sulfate [Proair Hfa] 1 - 2 puff INH Q4HR PRN 12/05/19 [History] Alendronate Sodium 1 tab PO WEEKLY 12/05/19 [History] Alogliptin Benzoate [Alogliptin] 1 tab PO DAILY 12/05/19 [History] Carboxymethylcellulose Sodium [Refresh Celluvisc] 1 - 2 drop EYEBOTH ASDIRECTED PRN 12/05/19 [History] Cholecalciferol (Vitamin D3) [Vitamin D3] 1 cap PO DAILY 12/05/19 [History] ClonazePAM [KlonoPIN] 0.5 mg PO BID 12/05/19 [History] Docusate Sodium 100 mg PO BID PRN 12/05/19 [History] Famotidine 40 mg PO QPM PRN 12/05/19 [History] Ferrous Gluconate 324 mg PO BID 12/05/19 [History] Fluticasone Propion/Salmeterol [Fluticasone-Salmeterol 500-50] 1 puff INH BID [History] Fluticasone Propionate [Flonase] 1 spray NASBOTH DAILY 12/05/19 [History] Ketoconazole 120 ml TP .TWICEWEEKLY 12/05/19 [History] Lactoperoxi/Gluc Oxid/Pot Thio [Biotene Oralbalance Gel] 1 applic PO DAILY 12/04 [History] Lidocaine 5% [Lidoderm 5%] 1 patch TOP Q12HR PRN 12/05/19 [History] Loratadine 1 tab PO DAILY 12/05/19 [History] Losartan Potassium 1 tab PO DAILY 12/05/19 [History] Magnesium Oxide 400 mg PO DAILY 12/05/19 [History] Menthol/Methyl Salicylate [Icy Hot] 1 applic TOP DAILY PRN 12/05/19 [History] Nitroglycerin [Nitrostat] 0.4 mg SL .Q5MIN PRN 12/05/19 [History] Nystatin/Triamcinolone Crm [Mycolog Crm] 1 applic TOP BID 12/05/19 [History] Potassium Chloride [Potassium Chloride Solution] 30 ml PO DAILY 12/05/19 [ History] diphenhydrAMINE [Benadryl] 25 mg PO BEDTIME PRN 12/05/19 [History] metFORMIN HCl [Metformin HCl] 10 ml PO BID 12/05/19 [History] Forms: ED Department Discharge Referrals: PCP,Unobtain [Ordering Only Provider] - - Discharge Summary/Plan Comment DC Time >30 min.: Yes - General Info Date of Service: 12/06/19 Admission Dx/Problem (Free Text: Admission Diagnosis/Problem Admission Diagnosis/Problem Hypokalemia Subjective Update: Admitted with hypokalemia, hypomagnesemia I saw and examined the patient at the bedside this morning Complains of anxiety. Given home dose of clonopin with improvement Encouraged to keep follow up appointment with behavioural health and can start SSRI for severe generalized anxiety - Review of Systems General: Reports: No Symptoms HEENT: Reports: No Symptoms Pulmonary: Reports: No Symptoms Cardiovascular: Reports: No Symptoms Gastrointestinal: Reports: No Symptoms Genitourinary: Reports: No Symptoms Musculoskeletal: Reports: No Symptoms Skin: Reports: No Symptoms Neurological: Reports: No Symptoms Psychiatric: Reports: Anxiety - Patient Data Vitals - Most Recent: Last Vital Signs Temp 36.7 C 12/06/19 08:01 Pulse 62 12/06/19 08:01 Resp 20 12/06/19 08:01 BP 121/55 L 12/06/19 08:21 Pulse Ox 99 12/06/19 08:01 Weight - Most Recent: 47.536 kg I&O - Last 24 hours: Intake & Output 12/05/19 12/06/19 12/06/19 22:59 06:59 14:59 Intake Total 150 300 320 Balance 150 300 320 Lab Results - Last 24 hrs: Laboratory Results - last 24 hr 12/05/19 12/05/19 12/05/19 Range/Units 05:55 10:57 11:08 PT 64.9 H (9.0-12.0) SEC INR 7.0 H* (0.9-1.2) Sodium (135-145) mmol/L Potassium (3.6-5.0) mmol/L Chloride (101-111) mmol/L Carbon Dioxide (21.0-31.0) mmol/L Anion Gap BUN (7-18) mg/dL Creatinine (0.6-1.3) mg/dL Est Cr Clr Drug Dosing mL/min Estimated GFR (MDRD) Glucose (74-105) mg/dL POC Glucose 117 H (83-110) mg/dl Calcium (8.4-10.2) mg/dl Magnesium 1.7 L (1.8-2.5) mg/dL 12/05/19 12/05/19 12/06/19 Range/Units 16:59 20:48 05:45 PT (9.0-12.0) SEC INR (0.9-1.2) Sodium 136 (135-145) mmol/L Potassium 4.4 (3.6-5.0) mmol/L Chloride 101 (101-111) mmol/L Carbon Dioxide 29.0 (21.0-31.0) mmol/L Anion Gap 10.4 BUN 5 L (7-18) mg/dL Creatinine 0.6 (0.6-1.3) mg/dL Est Cr Clr Drug Dosing 61.73 mL/min Estimated GFR (MDRD) > 60 Glucose 94 (74-105) mg/dL POC Glucose 97 110 (83-110) mg/dl Calcium 8.4 (8.4-10.2) mg/dl Magnesium 1.6 L (1.8-2.5) mg/dL 12/06/19 12/06/19 Range/Units 05:45 07:57 PT 58.8 H (9.0-12.0) SEC INR 6.3 H* (0.9-1.2) Sodium (135-145) mmol/L Potassium (3.6-5.0) mmol/L Chloride (101-111) mmol/L Carbon Dioxide (21.0-31.0) mmol/L Anion Gap BUN (7-18) mg/dL Creatinine (0.6-1.3) mg/dL Est Cr Clr Drug Dosing mL/min Estimated GFR (MDRD) Glucose (74-105) mg/dL POC Glucose 87 (83-110) mg/dl Calcium (8.4-10.2) mg/dl Magnesium (1.8-2.5) mg/dL Med Orders - Current: Current Medications Acetaminophen (Tylenol) 650 mg PO Q6H PRN PRN Reason: Pain/Fever Albuterol/Ipratropium (Duoneb 3.0-0.5 Mg/3 Ml) 3 ml NEB QID PRN PRN Reason: Shortness of Breath Docusate Sodium (Colace) 100 mg PO BID PRN PRN Reason: Constipation Insulin Human Lispro (Humalog) 0 unit SUBCUT QIDACANDBED [facility]; Protocol Last Admin: 12/06/19 08:21 Dose: Not Given Lidocaine (Lidoderm 5%) 700 mg TOP Q12HR PRN PRN Reason: Pain Losartan Potassium (Cozaar) 100 mg PO DAILY [facility] Last Admin: 12/06/19 08:21 Dose: Not Given Non-Formulary Medication (Ferrous Gluconate [Ferrous Gluconate]) 324 mg PO BID [facility] Non-Formulary Medication (Fluticasone Propion/Salmeterol [Fluticasone- Salmeterol 500-50]) 1 puff INH BID [facility] Ondansetron HCl (Zofran Odt) 4 mg PO Q6H PRN PRN Reason: nausea, able to take PO Ondansetron HCl (Zofran) 4 mg IVPUSH Q6H PRN PRN Reason: Nausea/Vomiting Pantoprazole Sodium (Protonix) 40 mg PO ACBRK [facility] Last Admin: 12/06/19 05:50 Dose: 40 mg Hydrocortisone 10 Mg (Tab*Pt Own Med*) 0 each PO BEDTIME [facility] Last Admin: 12/05/19 20:47 Dose: 1 each Hydrocortisone 10 Mg (Tab*Pt Own Med*) 2 each PO DAILY@0800 [facility] Last Admin: 12/06/19 08:20 Dose: 2 each Fludrocortisone 0.1 (Mg Tab*Pt Own Med*) 0 each PO ACBREAKFAST [facility] Last Admin: 12/06/19 05:51 Dose: 1 each Levothyroxine 125 (Mcg Tab*Pt Own Med*) 0 each PO ACBREAKFAST [facility] Last Admin: 12/06/19 05:50 Dose: 1 each Famotidine 20 Mg Tab (*Pt Own Med*) 0 each PO BEDTIME PRN PRN Reason: HEARTBURN Sodium Chloride (Saline Flush) 10 ml FLUSH ASDIRECTED PRN PRN Reason: IV Use Discontinued Medications Clonazepam (Klonopin) 0.5 mg PO ONETIME ONE Stop: 12/06/19 09:16 Last Admin: 12/06/19 09:32 Dose: 0.5 mg Dexamethasone (Dexamethasone) 4 mg IVPUSH ONETIME ONE Stop: 12/04/19 13:12 Last Admin: 12/04/19 13:29 Dose: 4 mg Magnesium Sulfate 2 gm/ Premix 50 mls @ 25 mls/hr IV ONETIME ONE Stop: 12/04/19 16:18 Last Infusion: 12/04/19 17:49 Dose: Infused Potassium Chloride 10 meq/ (Premix) 100 mls @ 100 mls/hr IV ONETIME ONE Stop: 12/04/19 15:16 Last Admin: 12/04/19 14:35 Dose: 100 mls/hr Magnesium Sulfate/Dextrose 1 (gm/ Premix) 100 mls @ 100 mls/hr IV ONETIME ONE Stop: 12/05/19 11:59 Last Infusion: 12/05/19 11:58 Dose: Infused Insulin Human Lispro (Humalog) 0 unit SUBCUT ACBED [facility]; Protocol Lidocaine HCl (Xylocaine-Mpf 1%) 1 ml INJECT ONETIME ONE Stop: 12/04/19 14:19 Last Admin: 12/04/19 14:36 Dose: 1 ml Lorazepam (Ativan) 0.5 mg IVPUSH ONETIME ONE Stop: 12/04/19 13:13 Last Admin: 12/04/19 13:36 Dose: 0.5 mg Potassium Chloride (Klor-Con 10) 40 meq PO ONETIME ONE Stop: 12/04/19 14:18 Last Admin: 12/04/19 14:37 Dose: 40 meq Potassium Chloride (Klor-Con 10) 40 meq PO ONETIME ONE Stop: 12/05/19 10:01 Last Admin: 12/05/19 10:45 Dose: 40 meq - Exam General: Reports: Alert, Oriented HEENT: Reports: Pupils Equal, Pupils Reactive Neck: Reports: Supple Lungs: Reports: Clear to Auscultation, Normal Respiratory Effort Cardiovascular: Reports: Regular Rate, Regular Rhythm GI/Abdominal Exam: Normal Bowel Sounds, Soft, Non-Tender Extremities: Normal Inspection, Normal Range of Motion, Non-Tender, No Pedal Edema *Q Meaningful Use (DIS) - VTE *Q VTE Anticoagulation Contraindications: Alternative [place] Request PT
== END 2019-12-06 11:26 | disposition home or self-care (01) ==
LOC: DL.ED 13:12 → DL.MS 14:50
PROVIDERS: ADMIT Internal Medicine; ATTEND Hospitalist
DX: E87.6 Hypokalemia (principal); E83.42 Hypomagnesemia; R79.1 Abnormal coagulation profile; M34.1 CR(E)ST syndrome; E11.69 Type 2 diabetes mellitus with other specified complication; J44.9 Chronic obstructive pulmonary disease, unspecified; E03.9 Hypothyroidism, unspecified; I11.0 Hypertensive heart disease with heart failure; I50.32 Chronic diastolic (congestive) heart failure; I25.10 Atherosclerotic heart disease of native coronary artery without angina pectoris; F41.1 Generalized anxiety disorder; Z95.2 Presence of prosthetic heart valve; Z79.01 Long term (current) use of anticoagulants; Z79.4 Long term (current) use of insulin; Z86.39 Personal history of other endocrine, nutritional and metabolic disease; Z79.1 Long term (current) use of non-steroidal anti-inflammatories (NSAID); Z88.8 Allergy status to other drugs, medicaments and biological substances; Z91.048 Other nonmedicinal substance allergy status; Z79.899 Other long term (current) drug therapy; Z79.82 Long term (current) use of aspirin
CPT/HCPCS: 36415; 71045; 80048; 80053; 81003; 82962; 83735; 83880; 84100; 85025; 85027; 85610; 93005; 97162; 99285; A9270; J1100; J1815; J2001; J2060; J3475; J3480

== ENCOUNTER 2020-09-24 13:59 | Emergency (ER) | payer BC, OTHER ==
[2020-09-24 14:31] VITALS: BP 135/86; PULSE 83
--- NOTE | 2020-09-24 14:43 | EDM.PDOC ---
ED HPI GENERAL MEDICAL PROBLEM - General Chief Complaint: General Stated Complaint: SENT FROM [facility] Time Seen by Provider: 09/24/20 14:42 Source of Information: Reports: Patient, RN, RN Notes Reviewed History Limitations: Reports: No Limitations - History of Present Illness INITIAL COMMENTS - FREE TEXT/NARRATIVE: Patient is a 75 year old female who presents to ER with c/o SOB, right shoulder pain, groin pain, and new onset right arm tremor. Patient states she was seen at and was evaluated there for "shortness of breath and just not feeling right". Patient states the nurses got "all worked up" about her blood pressure. She states they put her on oxygen for a while. Patient states she had an appointment set up with Dr. Mcmillan this afternoon. She states she came to the appointment and Dr. Mcmillan and he looked at her paperwork and told her she needed to be evaluated in the ER. Patient states she has had SOB from time to time. C/o pain in the right shoulder/upper anterior chest pain. She denies fever or chills. Denies nausea, vomiting, diarrhea. She states her stools have been dark in color. Stool for occult blood was performed the last time the patient was to the ER and this was negative. Patient was seen in the ER for epistaxis. Patient is on anticoagulation. Patient states she has had some pain in the bilateral groin, that she states lessens when she gets up and walks around. Patient also remembers during the interview that she tripped over the dog and fell a few days ago. Patient states she takes her medications as prescribed. Patient states this past summer she was exposed to Covid as her grandchildren had it. She states she has not had any known exposure recently. Patient later states she was positive for COVID on September 07. Patient is out of quarantine at this time. Onset: Gradual Lower Abdomen Pain Score (Numeric/FACES): 4 - Related Data Allergies Allergy/AdvReac Type Severity Reaction Status Date / Time iodine AdvReac Intermediate nausea only Verified 09/24/20 14:31 adhesive AdvReac Mild Rash Verified 09/24/20 14:31 ibuprofen AdvReac Unknown Stomach Verified 09/24/20 14:31 Upset Home Meds: Home Meds Aspirin [Halfprin] 81 mg PO DAILY 11/28/13 [History] Fludrocortisone [Florinef] 0.1 mg PO ACBRK 11/28/13 [History] Hydrocortisone 10 mg PO QPM 11/28/13 [History] Montelukast Sodium 10 mg PO BEDTIME 11/28/13 [History] Multivitamin [Multivitamins] 1 cap PO DAILY 11/28/13 [History] Acetaminophen 650 mg PO Q6H PRN 01/14/15 [History] Albuterol/Ipratropium [DuoNeb 3.0-0.5 MG/3 ML] 3 ml NEB QID PRN 01/14/15 [History] Dextrose [Glucose] 4 tab PO ASDIRECTED PRN 07/25/17 [History] Pantoprazole Sodium [Protonix] 40 mg PO DAILY 12/04/18 [History] Hydrocortisone 20 mg PO QAM 03/04/19 [History] Levothyroxine 125 mcg PO ACBREAKFAST #30 tablet 03/23/19 [Rx] Spironolactone [Aldactone] 1 tab PO DAILY 11/03/19 [History] Albuterol Sulfate [Proair Hfa] 1 - 2 puff INH Q4HR PRN 12/05/19 [History] Alendronate Sodium 1 tab PO WEEKLY 12/05/19 [History] Alogliptin Benzoate [Alogliptin] 1 tab PO DAILY 12/05/19 [History] Carboxymethylcellulose Sodium [Refresh Celluvisc] 1 - 2 drop EYEBOTH ASDIRECTED PRN 12/05/19 [History] Cholecalciferol (Vitamin D3) [Vitamin D3] 1 cap PO DAILY 12/05/19 [History] ClonazePAM [KlonoPIN] 0.5 mg PO BID 12/05/19 [History] Docusate Sodium 100 mg PO BID PRN 12/05/19 [History] Famotidine 40 mg PO QPM PRN 12/05/19 [History] Ferrous Gluconate 324 mg PO BID 12/05/19 [History] Fluticasone Propion/Salmeterol [Fluticasone-Salmeterol 500-50] 1 puff INH BID 12/05/19 [History] Fluticasone Propionate [Flonase] 1 spray NASBOTH DAILY 12/05/19 [History] Ketoconazole 120 ml TP .TWICEWEEKLY 12/05/19 [History] Lactoperoxi/Gluc Oxid/Pot Thio [Biotene Oralbalance Gel] 1 applic PO DAILY 12/05/19 [History] Lidocaine 5% [Lidoderm 5%] 1 patch TOP Q12HR PRN 12/05/19 [History] Loratadine 1 tab PO DAILY 12/05/19 [History] Losartan Potassium 1 tab PO DAILY 12/05/19 [History] Magnesium Oxide 400 mg PO DAILY 12/05/19 [History] Menthol/Methyl Salicylate [Icy Hot] 1 applic TOP DAILY PRN 12/05/19 [History] Nitroglycerin [Nitrostat] 0.4 mg SL .Q5MIN PRN 12/05/19 [History] Nystatin/Triamcinolone Crm [Mycolog Crm] 1 applic TOP BID 12/05/19 [History] Potassium Chloride [Potassium Chloride Solution] 30 ml PO DAILY 12/05/19 [History] diphenhydrAMINE [Benadryl] 25 mg PO BEDTIME PRN 12/05/19 [History] metFORMIN HCl [Metformin HCl] 10 ml PO BID 12/05/19 [History] Past Medical History HEENT History: Reports: Other (See Below) Other HEENT History: dry eyes, hx nose bleeds Cardiovascular History: Reports: Bypass, CAD, Heart Murmur, Heart Valve Replacement, Hypertension, MD Respiratory History: Reports: Asthma, COPD Other Respiratory History: Recently hospitalized for pneumonia, 03/2019. Gastrointestinal History: Reports: GERD Genitourinary History: Reports: None SOFTWARE QA SYSTEM SPECIALIST History: Reports: None Musculoskeletal History: Reports: None Neurological History: Reports: None Psychiatric History: Reports: Anxiety Endocrine/Metabolic History: Reports: [place]'s Disease, Diabetes, Type II, Hypothyroidism Hematologic History: Reports: None Immunologic History: Reports: Other (See Below) Other Immunologic History: Addisons disease Oncologic (Cancer) History: Reports: None Dermatologic History: Reports: Scleroderma, Other (See Below) Other Dermatologic History: CREST syndrome, hyperpigmentation - Infectious Disease History Infectious Disease History: Reports: Chicken Pox - Past Surgical History Head Surgeries/Procedures: Reports: None HEENT Surgical History: Reports: Adenoidectomy, Tonsillectomy Cardiovascular Surgical History: Reports: Coronary Artery Bypass, Valve R eplacement, Other (See Below) Other Cardiovascular Surgeries/Procedures: Septal defect repair GI Surgical History: Reports: Appendectomy, Cholecystectomy, Colonoscopy, EGD, Esophageal Dilatation Female Surgical History: Reports: None Dermatological Surgical History: Reports: None Social & Family History - Family History Family Medical History: No Pertinent Family History - Tobacco Use Tobacco Use Status *Q: Never Tobacco User Second Hand Smoke Exposure: No - Caffeine Use Caffeine Use: Reports: Coffee Caffeine Use Comment: 16. oz daily - Recreational Drug Use Recreational Drug Use: No - Living Situation & Occupation Living situation: Reports: with Family Occupation: Employed ED ROS GENERAL - Review of Systems Review Of Systems: Comprehensive ROS is negative, except as noted in HPI. ED EXAM, GENERAL - Physical Exam Exam: See Below Exam Limited By: No Limitations General Appearance: Alert, WD/WN, No Apparent Distress Eye Exam: Bilateral Eye: EOMI Ears: Normal External Exam, Hearing Grossly Normal Nose: Normal Inspection Throat/Mouth: Normal Inspection, Normal Voice, No Airway Compromise Head: Atraumatic, Normocephalic Neck: Normal Inspection, Supple, Non-Tender, Full Range of Motion Respiratory/Chest: No Respiratory Distress, No Accessory Muscle Use, Chest Non- Tender, Crackles (throughout) Cardiovascular: Normal Peripheral Pulses, Regular Rate, Rhythm, No Edema, No Gallop, No JVD, No Murmur, No Rub Peripheral Pulses: 2+: Radial (L), Radial (R) GI/Abdominal: Normal Bowel Sounds, Soft, Non-Tender (Female) Exam: Deferred Rectal (Female) Exam: Deferred Back Exam: Normal Inspection, Full Range of Motion, NT Extremities: Non-Tender, No Pedal Edema, Normal Capillary Refill, Other (tremor to right arm, new to patient) Neurological: Alert, Oriented, Normal Cognition, Normal Gait, No Motor/Sensory Deficits Psychiatric: Normal Affect, Normal Mood Skin Exam: Warm, Dry, Intact, Normal Color, No Rash Lymphatic: No Adenopathy Course - Vital Signs Last Recorded V/S: Last Vital Signs Temp 98 F 09/24/20 14:24 Pulse 83 09/24/20 14:24 Resp 20 09/24/20 14:24 BP 135/86 09/24/20 14:24 Pulse Ox 98 09/24/20 14:24 - Orders/Labs/Meds Orders: Active Orders 24 hr Category Date Time Status EKG 12 Lead [EKG Documentation Completion] [RC] STAT Care 09/24/20 14:17 Active UA RFX TIANNA AND CULT IF INDIC [URIN] Stat Lab 09/24/20 14:21 Ordered Magnesium Sulfate/D5W [Magnesium Sulfate in D5W 100 Med 09/24/20 15:38 Active Premix] 1 gm in 100 ml IV ONETIME Medication Orders Magnesium Sulfate/Dextrose (Magnesium Sulfate In D5w 100 Premix) 1 gm in 100 mls @ 100 mls/hr IV ONETIME ONE Stop: 09/24/20 16:37 Last Admin: 09/24/20 15:46 Dose: 100 mls/hr Documented by: RUSH Labs: Laboratory Tests 09/24/20 09/24/20 09/24/20 Range/Units 14:34 14:34 14:34 WBC 8.1 (5.0-10.0) 10^3/uL RBC 3.08 L (4.2-5.4) 10^6/uL Hgb 9.3 L (12.0-16.0) g/dL Hct 28.0 L (37.0-47.0) % MCV 90.9 (80-100) fL MCH 30.2 (27.0-34.0) pg MCHC 33.2 (33.0-35.0) g/dL Plt Count 190 (150-450) 10^3/uL Neut % (Auto) 84.0 H (42.2-75.2) % Lymph % (Auto) 5.0 L (20.5-50.1) % [place] % (Auto) 5.7 (2-8) % Eos % (Auto) 4.8 H (1.0-3.0) % Baso % (Auto) 0.5 (0.0-1.0) % PT 50.0 H D (9.0-12.0) SEC INR 5.4 H* (0.9-1.2) APTT 45.9 H (22.0-34.0) SEC D-Dimer, Quantitative 758 H (0-400) ng/mL Sodium 138 (136-145) mmol/L Potassium 3.3 L (3.5-5.1) mmol/L Chloride 100 (98-107) mmol/L Carbon Dioxide 28 (21-32) mmol/L Anion Gap 13.3 H (7-13) mEq/L BUN 8 (7-18) mg/dL Creatinine 0.85 (0.55-1.02) mg/dL Est Cr Clr Drug Dosing 43.15 mL/min Estimated GFR (MDRD) > 60 BUN/Creatinine Ratio 9.4 (No establ ref range) Glucose 131 H (74-99) mg/dL Calcium 8.5 (8.5-10.1) mg/dL Magnesium (1.8-2.4) mg/dL Total Bilirubin 0.9 (0.2-1.0) mg/dL AST 29 (15-37) U/L ALT 23 (14-59) U/L Alkaline Phosphatase 67 (46-116) U/L Troponin I 0.162 H* (0.000-0.056) ng/mL Total Protein 6.4 (6.4-8.2) g/dL Albumin 3.2 L (3.4-5.0) g/dL Globulin 3.2 Albumin/Globulin Ratio 1.00 TSH, Ultra Sensitive (0.36-3.74) uIU/mL SARS-CoV-2 RNA (VÍCTOR) (NEGATIVE) 09/24/20 09/24/20 Range/Units 14:34 14:35 WBC (5.0-10.0) 10^3/uL RBC (4.2-5.4) 10^6/uL Hgb (12.0-16.0) g/dL Hct (37.0-47.0) % MCV (80-100) fL MCH (27.0-34.0) pg MCHC (33.0-35.0) g/dL Plt Count (150-450) 10^3/uL Neut % (Auto) (42.2-75.2) % Lymph % (Auto) (20.5-50.1) % [place] % (Auto) (2-8) % Eos % (Auto) (1.0-3.0) % Baso % (Auto) (0.0-1.0) % PT (9.0-12.0) SEC INR (0.9-1.2) APTT (22.0-34.0) SEC D-Dimer, Quantitative (0-400) ng/mL Sodium (136-145) mmol/L Potassium (3.5-5.1) mmol/L Chloride (98-107) mmol/L Carbon Dioxide (21-32) mmol/L Anion Gap (7-13) mEq/L BUN (7-18) mg/dL Creatinine (0.55-1.02) mg/dL Est Cr Clr Drug Dosing mL/min Estimated GFR (MDRD) BUN/Creatinine Ratio (No establ ref range) Glucose (74-99) mg/dL Calcium (8.5-10.1) mg/dL Magnesium 1.5 L (1.8-2.4) mg/dL Total Bilirubin (0.2-1.0) mg/dL AST (15-37) U/L ALT (14-59) U/L Alkaline Phosphatase (46-116) U/L Troponin I (0.000-0.056) ng/mL Total Protein (6.4-8.2) g/dL Albumin (3.4-5.0) g/dL Globulin Albumin/Globulin Ratio TSH, Ultra Sensitive 2.74 (0.36-3.74) uIU/mL SARS-CoV-2 RNA (VÍCTOR) Positive H (NEGATIVE) Meds: Medications Generic Name Dose Route Start Last Admin Trade Name Freq PRN Reason Stop Dose Admin Magnesium Sulfate/Dextrose 1 gm in 100 mls @ 100 mls/hr 09/24/20 15:38 09/24/20 15:46 Magnesium Sulfate In D5w 100 Premix IV 09/24/20 16:37 100 mls/hr ONETIME ONE Administration - Re-Assessments/Exams Free Text/Narrative Re-Assessment/Exam: 09/24/20 15:50 Patient case discussed with Dr. Galan who agreed to accept the patient for transfer to [facility] in [place]. 09/24/20 15:55 Attempting to get records from , but they closed at noon today. Departure - Departure Time of Disposition: 15:51 Disposition: DC/Tfer to Acute Hospital 02 Condition: Fair Clinical Impression: Blood coagulation disorder, Elevated troponin, Hypomagnesemia, SOB (shortness of breath), Elevated d-dimer, History of 2019 novel coronavirus disease (COVID- 19) Anemia Qualifiers: Anemia type: unspecified type Qualified Code(s): D64.9 - Anemia, unspecified - Discharge Information *PRESCRIPTION DRUG MONITORING PROGRAM REVIEWED*: No *COPY OF PRESCRIPTION DRUG MONITORING REPORT IN PATIENT CHRISTINA: No Forms: ED Department Discharge, Interfacility Transfer [facility] Sepsis Event Note (ED) - Evaluation Sepsis Screening Result: No Definite Risk - Focused Exam Vital Signs: Vital Signs Temp Pulse Resp BP Pulse Ox 09/24/20 14:24 98 F 83 20 135/86 98 - My Orders Last 24 Hours: My Active Orders 09/24/20 15:38 Magnesium Sulfate/D5W [Magnesium Sulfate in D5W 100 Premix] 1 gm in 100 ml IV ONETIME - Assessment/Plan Last 24 Hours: My Active Orders 09/24/20 15:38 Magnesium Sulfate/D5W [Magnesium Sulfate in D5W 100 Premix] 1 gm in 100 ml IV ONETIME
[2020-09-24 15:10] LABS: ANION GAP 13.3 mEq/L (7-13); CHLORIDE,CL 100 mmol/L (98-107); SODIUM,NA 138 mmol/L (136-145)
[2020-09-24 15:16] LABS: PTT,PARTIAL THROMBOPLSTIN TIME 45.9 SEC (22.0-34.0)
[2020-09-24] MEDS ORDERED: Magnesium Sulfate/D5W 1 GM/100 ML BAG IV ONE (15:38)
== END 2020-09-24 16:10 ==
LOC: DL.ED 13:59
DX: U07.1 COVID-19 (principal); E83.42 Hypomagnesemia; D68.9 Coagulation defect, unspecified; R79.89 Other specified abnormal findings of blood chemistry; D64.9 Anemia, unspecified; R25.1 Tremor, unspecified; M25.511 Pain in right shoulder; I25.10 Atherosclerotic heart disease of native coronary artery without angina pectoris; J44.9 Chronic obstructive pulmonary disease, unspecified; K21.9 Gastro-esophageal reflux disease without esophagitis; F41.9 Anxiety disorder, unspecified; E11.9 Type 2 diabetes mellitus without complications; E03.9 Hypothyroidism, unspecified; Z88.8 Allergy status to other drugs, medicaments and biological substances; Z91.048 Other nonmedicinal substance allergy status; Z88.6 Allergy status to analgesic agent; Z79.82 Long term (current) use of aspirin; Z79.899 Other long term (current) drug therapy
CPT/HCPCS: 36415; 80053; 81003; 83735; 84443; 84484; 85025; 85379; 85610; 85730; 87635; 93005; 96365; 99285; J3475; U0002

== ENCOUNTER 2020-11-11 16:56 | Emergency (ER) | payer BC, OTHER ==
--- NOTE | 2020-11-11 17:07 | EDM.PDOC ---
ED HPI GENERAL MEDICAL PROBLEM - General Chief Complaint: Chest Pain Stated Complaint: CHEST PAIN Time Seen by Provider: 11/11/20 17:06 Source of Information: Reports: Patient, EMS, Old Records, RN, RN Notes Reviewed History Limitations: Reports: No Limitations - History of Present Illness INITIAL COMMENTS - FREE TEXT/NARRATIVE: Pt arrives to ER from home by [facility] with c/o chest pain that has been recurring since this morning. She describes the pain as a pressure. Nothing seems to cause, relieve, or aggravate this pain. Pt had states she had an WI in 2019. She also reports a separate type of pressure and burning in her chest that seems to be caused or worsened after swallowing. 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 The symptoms return every time she eats or drinks. She feels that she has to strain to get food down. Pt has Hx of scleroderma, and esophageal strictures which have required dilatation in the past. The pt does not remember having that problem, but she is known to me and I clearly recall her having swallowing difficulties prior to past esophageal dilatation. Records review reveals that pt has had several past ER visits complaining of chest pain and of swallowing difficulties, and those frequent of those visits stopped entirely for a couple of years after she return to gastroenterology for esophageal dilatation. She denies nausea, vomiting, acid reflux, or esophageal food impaction. Onset: Gradual, Unknown/Unsure Duration: Getting Worse, Intermittent, Waxing/Waning Location: Reports: Chest, Other (Throat) Quality: Reports: Pressure Severity: Moderate Improves with: Reports: None Worsens with: Reports: None Associated Symptoms: Reports: No Other Symptoms Treatments SWITCHING CLERK: Reports: Aspirin (324mg just prior to arrival to ER) Upper Chest Pain Score (Numeric/FACES): 4 - Related Data Allergies Allergy/AdvReac Type Severity Reaction Status Date / Time iodine AdvReac Intermediate nausea only Verified 09/24/20 14:31 adhesive AdvReac Mild Rash Verified 09/24/20 14:31 ibuprofen AdvReac Unknown Stomach Verified 09/24/20 14:31 Upset Home Meds: Home Meds Aspirin [Halfprin] 81 mg PO DAILY 11/28/13 [History] Fludrocortisone [Florinef] 0.1 mg PO ACBRK 11/28/13 [History] Hydrocortisone 10 mg PO QPM 11/28/13 [History] Montelukast Sodium 10 mg PO BEDTIME 11/28/13 [History] Multivitamin [Multivitamins] 1 cap PO DAILY 11/28/13 [History] Acetaminophen 650 mg PO Q6H PRN 01/14/15 [History] Albuterol/Ipratropium [DuoNeb 3.0-0.5 MG/3 ML] 3 ml NEB QID PRN 01/14/15 [History] Dextrose [Glucose] 4 tab PO ASDIRECTED PRN 07/25/17 [History] Pantoprazole Sodium [Protonix] 40 mg PO DAILY 12/04/18 [History] Hydrocortisone 20 mg PO QAM 03/04/19 [History] Levothyroxine 125 mcg PO ACBREAKFAST #30 tablet 03/23/19 [Rx] Spironolactone [Aldactone] 1 tab PO DAILY 11/03/19 [History] Albuterol Sulfate [Proair Hfa] 1 - 2 puff INH Q4HR PRN 12/05/19 [History] Alendronate Sodium 1 tab PO WEEKLY 12/05/19 [History] Alogliptin Benzoate [Alogliptin] 1 tab PO DAILY 12/05/19 [History] Carboxymethylcellulose Sodium [Refresh Celluvisc] 1 - 2 drop EYEBOTH ASDIRECTED PRN 12/05/19 [History] Cholecalciferol (Vitamin D3) [Vitamin D3] 1 cap PO DAILY 12/05/19 [History] ClonazePAM [KlonoPIN] 0.5 mg PO BID 12/05/19 [History] Docusate Sodium 100 mg PO BID PRN 12/05/19 [History] Famotidine 40 mg PO QPM PRN 12/05/19 [History] Ferrous Gluconate 324 mg PO BID 12/05/19 [History] Fluticasone Propion/Salmeterol [Fluticasone-Salmeterol 500-50] 1 puff INH BID 12/05/19 [History] Fluticasone Propionate [Flonase] 1 spray NASBOTH DAILY 12/05/19 [History] Ketoconazole 120 ml TP .TWICEWEEKLY 12/05/19 [History] Lactoperoxi/Gluc Oxid/Pot Thio [Biotene Oralbalance Gel] 1 applic PO DAILY 12/05/19 [History] Lidocaine 5% [Lidoderm 5%] 1 patch TOP Q12HR PRN 12/05/19 [History] Loratadine 1 tab PO DAILY 12/05/19 [History] Losartan Potassium 1 tab PO DAILY 12/05/19 [History] Magnesium Oxide 400 mg PO DAILY 12/05/19 [History] Menthol/Methyl Salicylate [Icy Hot] 1 applic TOP DAILY PRN 12/05/19 [History] Nitroglycerin [Nitrostat] 0.4 mg SL .Q5MIN PRN 12/05/19 [History] Nystatin/Triamcinolone Crm [Mycolog Crm] 1 applic TOP BID 12/05/19 [History] Potassium Chloride [Potassium Chloride Solution] 30 ml PO DAILY 12/05/19 [History] diphenhydrAMINE [Benadryl] 25 mg PO BEDTIME PRN 12/05/19 [History] metFORMIN HCl [Metformin HCl] 10 ml PO BID 12/05/19 [History] Past Medical History HEENT History: Reports: Other (See Below) Other HEENT History: dry eyes, hx nose bleeds Cardiovascular History: Reports: Bypass, CAD, Heart Murmur, Heart Valve Replacement, Hypertension, WI Respiratory History: Reports: Asthma, COPD Other Respiratory History: Recently hospitalized for pneumonia, 03/2019. 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, Diabetes, Type II, Hypothyroidism Hematologic History: Reports: None Immunologic History: Reports: Other (See Below) Other Immunologic History: Addisons disease Oncologic (Cancer) History: Reports: None Dermatologic History: Reports: Scleroderma, Other (See Below) Other Dermatologic History: CREST syndrome, hyperpigmentation - Infectious Disease History Infectious Disease History: Reports: Chicken Pox - Past Surgical History Head Surgeries/Procedures: Reports: None HEENT Surgical History: Reports: Adenoidectomy, Tonsillectomy Cardiovascular Surgical History: Reports: Coronary Artery Bypass, Valve Replacement, Other (See Below) Other Cardiovascular Surgeries/Procedures: Septal defect repair GI Surgical History: Reports: Appendectomy, Cholecystectomy, Colonoscopy, EGD, Esophageal Dilatation Female Surgical History: Reports: None Dermatological Surgical History: Reports: None Social & Family History - Family History Family Medical History: No Pertinent Family History - Caffeine Use Caffeine Use: Reports: Coffee Caffeine Use Comment: 16. oz daily - Living Situation & Occupation Living situation: Reports: with Family Occupation: Employed ED ROS GENERAL - Review of Systems Review Of Systems: Comprehensive ROS is negative, except as noted in HPI. ED EXAM, GENERAL - Physical Exam Exam: See Below Exam Limited By: No Limitations General Appearance: Alert, No Apparent Distress, Thin, Other (Chronically ill appearing elderly female) Eye Exam: Bilateral Eye: Normal Inspection Nose: Normal Inspection, Normal Mucosa, No Blood Throat/Mouth: Normal Lips, Normal Voice, No Airway Compromise Head: Atraumatic, Normocephalic Neck: Normal Inspection, Supple, Non-Tender, Full Range of Motion. No: Lymphadenopathy (L), Lymphadenopathy (R) Respiratory/Chest: No Respiratory Distress, Lungs Clear, No Accessory Muscle Use, Chest Non-Tender, Decreased Breath Sounds, Prolonged Expiration Cardiovascular: Regular Rate, Rhythm, No Edema, No JVD, Systolic Murmur (2/6 SRINATH) GI/Abdominal: Normal Bowel Sounds, Soft, Non-Tender, No Distention Back Exam: Normal Inspection Extremities: Normal Inspection, Normal Range of Motion, Non-Tender, Normal Capillary Refill, No Pedal Edema Neurological: Alert, Oriented, CN II-XII Intact, Normal Cognition, No Motor/Sensory Deficits, Memory Loss Recent Events Psychiatric: Normal Affect, Normal Mood Skin Exam: Warm, Dry, Intact #1 Interpretation EKG Date: 11/11/20 Time: 17:04 Rhythm: Other (SR) Rate (Beats/Min): 84 [place]: LAD-Left Seligman Deviation P-Wave: Present (with probable left atrial abnormality) QRS: Other (LAFB) ST-T: Normal QT: Normal Comparison: No Change Course - Vital Signs Last Recorded V/S: Last Vital Signs Temp 97.2 F 11/11/20 16:57 Pulse 85 11/11/20 16:57 Resp 19 11/11/20 16:57 BP 174/84 H 11/11/20 16:57 Pulse Ox 98 11/11/20 16:57 - Orders/Labs/Meds Orders: Active Orders 24 hr Category Date Time Status EKG 12 Lead [EKG Documentation Completion] [RC] STAT Care 11/11/20 17:07 Active Peripheral IV Care [RC] . DIRECTED Care 11/11/20 17:27 Active Heparin Sodium/0.45% NaCl [Heparin 25,000 Units in 1/2 Med 11/11/20 18:15 Active NS 500 ML] 25,000 units in 500 ml IV TITRATE Sodium Chloride 0.9% [Saline Flush] Med 11/11/20 17:26 Active 10 ml FLUSH ASDIRECTED PRN Peripheral IV Insertion Adult [OM.PC] Stat Oth 11/11/20 17:27 Ordered Medication Orders Heparin Sodium/Sodium Chloride (Heparin 25,000 Units In 1/2 Ns 500 Ml) 25,000 units in 500 mls @ 13.26 mls/hr IV TITRATE LO; Protocol Last Admin: 11/11/20 18:18 Dose: 12 units/kg/hr, 13.26 mls/hr Documented by: ANALY Cosigned by: COREY Sodium Chloride (Saline Flush) 10 ml FLUSH ASDIRECTED PRN PRN Reason: Keep Vein Open Last Admin: 11/11/20 18:16 Dose: 10 ml Documented by: ANALY Labs: Laboratory Tests 11/11/20 11/11/20 11/11/20 Range/Units 17:37 17:37 17:37 WBC 7.4 (5.0-10.0) 10^3/uL RBC 3.47 L (4.2-5.4) 10^6/uL Hgb 9.6 L (12.0-16.0) g/dL Hct 30.1 L (37.0-47.0) % MCV 86.7 D (80-100) fL MCH 27.7 (27.0-34.0) pg MCHC 31.9 L (33.0-35.0) g/dL Plt Count 222 (150-450) 10^3/uL Neut % (Auto) 91.0 H (42.2-75.2) % Lymph % (Auto) 4.0 L (20.5-50.1) % Crosby % (Auto) 4.8 (2-8) % Eos % (Auto) 0.1 L (1.0-3.0) % Baso % (Auto) 0.1 (0.0-1.0) % PT 37.9 H (9.0-12.0) SEC INR 4.1 H (0.9-1.2) APTT 38.9 H (22.0-34.0) SEC Sodium 137 (136-145) mmol/L Potassium 3.3 L (3.5-5.1) mmol/L Chloride 99 (98-107) mmol/L Carbon Dioxide 30 (21-32) mmol/L Anion Gap 11.3 (7-13) mEq/L BUN 6 L (7-18) mg/dL Creatinine 0.77 (0.55-1.02) mg/dL Est Cr Clr Drug Dosing 47.64 mL/min Estimated GFR (MDRD) > 60 BUN/Creatinine Ratio 7.8 (No establ ref range) Glucose 175 H (74-99) mg/dL Calcium 8.2 L (8.5-10.1) mg/dL Total Bilirubin 0.8 (0.2-1.0) mg/dL AST 23 (15-37) U/L ALT 23 (14-59) U/L Alkaline Phosphatase 77 (46-116) U/L Troponin I 0.238 H* (0.000-0.056) ng/mL B-Natriuretic Peptide 433 H (0-100) pg/ml Total Protein 6.9 (6.4-8.2) g/dL Albumin 3.4 (3.4-5.0) g/dL Globulin 3.5 Albumin/Globulin Ratio 1.0 Amylase 39 (25-115) U/L Lipase 156 (73-393) U/L Meds: Medications Generic Name Dose Route Start Last Admin Trade Name Freq PRN Reason Stop Dose Admin Heparin Sodium/Sodium Chloride 25,000 units in 500 mls @ 13.26 mls/hr 11/11/20 18:15 11/11/20 18:18 Heparin 25,000 Units In 1/2 Ns 500 Ml IV 12 units/kg/hr TITRATE LO 13.26 mls/hr Administration Protocol 12 UNITS/KG/HR Sodium Chloride 10 ml 11/11/20 17:26 11/11/20 18:16 Saline Flush FLUSH 10 ml ASDIRECTED PRN Administration Keep Vein Open Discontinued Medications Generic Name Dose Route Start Last Admin Trade Name Freq PRN Reason Stop Dose Admin Dexamethasone 4 mg 11/11/20 18:13 11/11/20 18:15 Decadron IVPUSH 11/11/20 18:14 4 mg ONETIME ONE Administration Heparin Sodium (Porcine) 4,000 units 11/11/20 18:06 11/11/20 18:18 Heparin Sodium IVPUSH 11/11/20 18:07 4,000 units .BOLUS ONE Administration - Radiology Interpretation Free Text/Narrative:: [facility] Final Radiology Report Call: [phone] assistance Online chat: [email or web address] Name: SEBASTIÁN FIERRO Age: 75Years F Date: 11/11/2020 SSN: -- : 1945 Study: CR CHEST 1V FRONTAL Requesting Physician: DIEGO FRIAS Images: 1 Addl Studies: Provided Clinical History: chest pain Contrast: Contrast Medium: Contrast Amount: Contrast Method: CONFIDENTIALITY STATEMENT This report is intended only for use by the referring physician, and only in accordance with law. If you received this in error, call [phone]. Page 1 of 1 PROCEDURE INFORMATION: Exam: XR Chest, 1 View Exam date and time: 11/11/2020 5:41 PM Age: 75 years old Clinical indication: Chest pain; Type not specified TECHNIQUE: Imaging protocol: XR of the chest Views: 1 view. COMPARISON: No relevant prior studies available. FINDINGS: Tubes, catheters and devices: Median sternotomy sutures. Lungs: Lungs hyperexpanded. No consolidation. Pleural spaces: Unremarkable. No pleural effusion. No pneumothorax. Heart/Mediastinum: Cardiac silhouette prominent. Bones/joints: Unremarkable. IMPRESSION: COPD. Post thoracotomy. Borderline cardiomegaly. No acute findings. Thank you for allowing us to participate in the care of your patient. Dictated and Authenticated by: Jorge Lovett MD 11/11/2020 5:52 PM Central Time ([place] & [place]) Departure - Departure Time of Disposition: 18:25 Disposition: DC/Tfer to [facility], [facility] 02 Reason for Transfer *Q: Other Condition: Serious Clinical Impression: Non-STEMI (non-ST elevated myocardial infarction), Esophageal dysphagia, Jimi's disease DM type 2 (diabetes mellitus, type 2) Qualifiers: Diabetes mellitus terminal clerk insulin use: with intermediate use Diabetes mellitus complication status: with other specified complication Qualified Code(s): E11.69 - Type 2 diabetes mellitus with other specified complication Forms: ED Department Discharge, Interfacility Transfer [facility] Sepsis Event Note (ED) - Focused Exam Vital Signs: Vital Signs Temp Pulse Resp BP Pulse Ox 11/11/20 16:57 97.2 F 85 19 174/84 H 98 - My Orders Last 24 Hours: My Active Orders 11/11/20 17:07 EKG 12 Lead [EKG Documentation Completion] [RC] STAT 11/11/20 17:26 Sodium Chloride 0.9% [Saline Flush] 10 ml FLUSH ASDIRECTED PRN 11/11/20 17:27 Peripheral IV Care [RC] . DIRECTED Peripheral IV Insertion Adult [OM.PC] Stat 11/11/20 18:15 Heparin Sodium/0.45% NaCl [Heparin 25,000 Units in 1/2 NS 500 ML] 25,000 units in 500 ml IV TITRATE - Assessment/Plan Last 24 Hours: My Active Orders 11/11/20 17:07 EKG 12 Lead [EKG Documentation Completion] [RC] STAT 11/11/20 17:26 Sodium Chloride 0.9% [Saline Flush] 10 ml FLUSH ASDIRECTED PRN 11/11/20 17:27 Peripheral IV Care [RC] . DIRECTED Peripheral IV Insertion Adult [OM.PC] Stat 11/11/20 18:15 Heparin Sodium/0.45% NaCl [Heparin 25,000 Units in 1/2 NS 500 ML] 25,000 units in 500 ml IV TITRATE
[2020-11-11 17:22] VITALS: BP 174/84; PULSE 85
[2020-11-11] MEDS ORDERED: Sodium Chloride 0.9% 10 ML Syringe FLUSH PRN (17:26)
--- NOTE | 2020-11-11 17:53 | CR ---
PROCEDURE INFORMATION: Exam: XR Chest, 1 View Exam date and time: 11/11/2020 5:41 PM Age: 75 years old Clinical indication: Chest pain; Type not specified TECHNIQUE: Imaging protocol: XR of the chest Views: 1 view. COMPARISON: No relevant prior studies available. FINDINGS: Tubes, catheters and devices: Median sternotomy sutures. Lungs: Lungs hyperexpanded. No consolidation. Pleural spaces: Unremarkable. No pleural effusion. No pneumothorax. Heart/Mediastinum: Cardiac silhouette prominent. Bones/joints: Unremarkable. IMPRESSION: COPD. Post thoracotomy. Borderline cardiomegaly. No acute findings.
[2020-11-11 18:04] LABS: ANION GAP 11.3 mEq/L (7-13); CHLORIDE,CL 99 mmol/L (98-107); SODIUM,NA 137 mmol/L (136-145)
[2020-11-11] MEDS ORDERED: Heparin Sodium 5,000 Units/ML Vial IVPUSH ONE (18:06)
[2020-11-11 18:07] LABS: PTT,PARTIAL THROMBOPLSTIN TIME 38.9 SEC (22.0-34.0)
[2020-11-11] MEDS ORDERED: Dexamethasone 4 MG/ML SDV IVPUSH ONE (18:13)
[2020-11-11] MEDS ORDERED: Heparin Sodium/0.45% NaCl 25,000 UNITS/500 ML BAG IV SCH (18:15)
[2020-11-11] MEDS ORDERED: LORazepam 2 MG/ML SDV IVPUSH ONE (18:29)
== END 2020-11-11 18:45 ==
LOC: DL.ED 16:56
DX: I21.4 Non-ST elevation (NSTEMI) myocardial infarction (principal); R13.11 Dysphagia, oral phase; E11.69 Type 2 diabetes mellitus with other specified complication; E27.1 Primary adrenocortical insufficiency; I25.10 Atherosclerotic heart disease of native coronary artery without angina pectoris; J44.9 Chronic obstructive pulmonary disease, unspecified; M19.90 Unspecified osteoarthritis, unspecified site; E03.9 Hypothyroidism, unspecified; F03.90 Unspecified dementia, unspecified severity, without behavioral disturbance, psychotic disturbance, mood disturbance, and anxiety; I10 Essential (primary) hypertension; Z91.048 Other nonmedicinal substance allergy status; Z88.6 Allergy status to analgesic agent; Z79.82 Long term (current) use of aspirin; Z79.899 Other long term (current) drug therapy; Z95.1 Presence of aortocoronary bypass graft
CPT/HCPCS: 36415; 71045; 80053; 82150; 83690; 83880; 84484; 85025; 85610; 85730; 93005; 96365; 96375; 99285; J1100; J1644; J2060; 93010

== ENCOUNTER 2021-03-31 09:02 | Observation (INO) | payer MEDICARE, OTHER ==
[2021-03-31] MEDS ORDERED: Acetaminophen 500 MG Tab PO ONE ×2 (09:58→16:08)
[2021-03-31 10:00] LABS: ANION GAP 14.1 mEq/L (7-13); CHLORIDE,CL 93 mmol/L (98-107); SODIUM,NA 132 mmol/L (136-145)
--- NOTE | 2021-03-31 10:04 | EDM.PDOC ---
ED HPI GENERAL MEDICAL PROBLEM - General Chief Complaint: Back Pain or Injury Stated Complaint: AMBULANCE Time Seen by Provider: 03/31/21 09:45 Source of Information: Reports: Patient, EMS, RN, RN Notes Reviewed History Limitations: Reports: No Limitations - History of Present Illness INITIAL COMMENTS - FREE TEXT/NARRATIVE: Anitha is a 75 y/o female who presents to the ED via [facility] with complaints of low back pain. The patient reports her back pain started last night after opening a window in her home. She notes she was examined four days ago at [facility] and was started on Cipro for a UTI. She denies fever, palpitations, nausea, vomiting, dysuria, hematuria, inability to void, or diarrhea. She has not taken any medications for her pain as she has no OTC medications available to her. EMS reports her blood sugar was 31 en route; D10 was started. Bilateral Lower Back Pain Score (Numeric/FACES): 8 - Related Data Allergies Allergy/AdvReac Type Severity Reaction Status Date / Time iodine AdvReac Intermediate nausea only Verified 03/31/21 09:40 adhesive AdvReac Mild Rash Verified 03/31/21 09:40 ibuprofen AdvReac Unknown Stomach Verified 03/31/21 09:40 Upset Home Meds: Home Meds Aspirin [Halfprin] 81 mg PO DAILY 11/28/13 [History] Fludrocortisone [Florinef] 0.1 mg PO ACBRK 11/28/13 [History] Hydrocortisone 10 mg PO QPM 11/28/13 [History] Montelukast Sodium 10 mg PO BEDTIME 11/28/13 [History] Multivitamin [Multivitamins] 1 cap PO DAILY 11/28/13 [History] Acetaminophen 650 mg PO Q6H PRN 01/14/15 [History] Albuterol/Ipratropium [DuoNeb 3.0-0.5 MG/3 ML] 3 ml NEB QID PRN 01/14/15 [History] Dextrose [Glucose] 4 tab PO ASDIRECTED PRN 07/25/17 [History] Pantoprazole Sodium [Protonix] 40 mg PO DAILY 12/04/18 [History] Hydrocortisone 20 mg PO QAM 03/04/19 [History] Levothyroxine 125 mcg PO ACBREAKFAST #30 tablet 03/23/19 [Rx] Spironolactone [Aldactone] 1 tab PO DAILY 11/03/19 [History] Albuterol Sulfate [Proair Hfa] 1 - 2 puff INH Q4HR PRN 12/05/19 [History] Alendronate Sodium 1 tab PO WEEKLY 12/05/19 [History] Alogliptin Benzoate [Alogliptin] 1 tab PO DAILY 12/05/19 [History] Carboxymethylcellulose Sodium [Refresh Celluvisc] 1 - 2 drop EYEBOTH ASDIRECTED PRN 12/05/19 [History] Cholecalciferol (Vitamin D3) [Vitamin D3] 1 cap PO DAILY 12/05/19 [History] ClonazePAM [KlonoPIN] 0.5 mg PO BID 12/05/19 [History] Docusate Sodium 100 mg PO BID PRN 12/05/19 [History] Famotidine 40 mg PO QPM PRN 12/05/19 [History] Ferrous Gluconate 324 mg PO BID 12/05/19 [History] Fluticasone Propion/Salmeterol [Fluticasone-Salmeterol 500-50] 1 puff INH BID 12/05/19 [History] Fluticasone Propionate [Flonase] 1 spray NASBOTH DAILY 12/05/19 [History] Ketoconazole 120 ml TP .TWICEWEEKLY 12/05/19 [History] Lactoperoxi/Gluc Oxid/Pot Thio [Biotene Oralbalance Gel] 1 applic PO DAILY 12/05/19 [History] Lidocaine 5% [Lidoderm 5%] 1 patch TOP Q12HR PRN 12/05/19 [History] Loratadine 1 tab PO DAILY 12/05/19 [History] Losartan Potassium 1 tab PO DAILY 12/05/19 [History] Magnesium Oxide 400 mg PO DAILY 12/05/19 [History] Menthol/Methyl Salicylate [Icy Hot] 1 applic TOP DAILY PRN 12/05/19 [History] Nitroglycerin [Nitrostat] 0.4 mg SL .Q5MIN PRN 12/05/19 [History] Nystatin/Triamcinolone Crm [Mycolog Crm] 1 applic TOP BID 12/05/19 [History] Potassium Chloride [Potassium Chloride Solution] 30 ml PO DAILY 12/05/19 [History] diphenhydrAMINE [Benadryl] 25 mg PO BEDTIME PRN 12/05/19 [History] metFORMIN HCl [Metformin HCl] 10 ml PO BID 12/05/19 [History] Past Medical History HEENT History: Reports: Other (See Below) Other HEENT History: dry eyes, hx nose bleeds Cardiovascular History: Reports: Bypass, CAD, Heart Murmur, Heart Valve Replacement, Hypertension, ND Respiratory History: Reports: Asthma, COPD Other Respiratory History: Recently hospitalized for pneumonia, 03/2019. 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, Diabetes, Type II, Hypothyroidism Hematologic History: Reports: None Immunologic History: Reports: Other (See Below) Other Immunologic History: Addisons disease Oncologic (Cancer) History: Reports: None Dermatologic History: Reports: Scleroderma, Other (See Below) Other Dermatologic History: CREST syndrome, hyperpigmentation - Infectious Disease History Infectious Disease History: Reports: Chicken Pox - Past Surgical History Head Surgeries/Procedures: Reports: None HEENT Surgical History: Reports: Adenoidectomy, Tonsillectomy Cardiovascular Surgical History: Reports: Coronary Artery Bypass, Valve Replacement, Other (See Below) Other Cardiovascular Surgeries/Procedures: Septal defect repair GI Surgical History: Reports: Appendectomy, Cholecystectomy, Colonoscopy, EGD, Esophageal Dilatation Female Surgical History: Reports: None Dermatological Surgical History: Reports: None Social & Family History - Family History Family Medical History: No Pertinent Family History - Tobacco Use Tobacco Use Status *Q: Never Tobacco User - Caffeine Use Caffeine Use: Reports: Coffee Caffeine Use Comment: 16. oz daily - Recreational Drug Use Recreational Drug Use: No - Living Situation & Occupation Living situation: Reports: with Family Occupation: Employed ED ROS GENERAL - Review of Systems Review Of Systems: Comprehensive ROS is negative, except as noted in HPI. ED EXAM,LOWER BACK PAIN/INJURY - Physical Exam Exam: See Below Exam Limited By: No Limitations General Appearance: No Apparent Distress, Lethargic (Sleepy, but rousable for interview and assessment), Thin Eye Exam: Bilateral Eye: EOMI, PERRL (2mm), Other (Cataract) Ears: Normal External Exam, Hearing Grossly Normal Nose: Normal Inspection, Normal Mucosa, No Blood Throat/Mouth: Normal Lips, Normal Voice, No Airway Compromise. No: Normal Teeth (Poor dentition, multiple missing teeth), Normal Oropharynx (Very dry mucous membranes) Head: Atraumatic, Normocephalic Neck: Normal Inspection, Supple, Non-Tender, Full Range of Motion Respiratory/Chest: No Respiratory Distress, Lungs Clear, Normal Breath Sounds, No Accessory Muscle Use, Chest Non-Tender Cardiovascular: Normal Peripheral Pulses, Regular Rate, Rhythm, No Edema, No Gallop, No JVD, No Rub, Systolic Murmur (Holosystolic, 4/6, loudest over the pulmonic area; No radiation into carotids) GI/Abdominal: Normal Bowel Sounds, Soft, Non-Tender, No Distention, No Abnormal Bruit, No Mass, Pelvis Stable Back Exam: Decreased Range of Motion, Vertebral Tenderness (To midline lower back, no radiation of pain). No: CVA Tenderness (L), CVA Tenderness (R), Muscle Spasm, Paraspinal Tenderness Extremities: Normal Range of Motion, Non-Tender, No Pedal Edema, Normal Capillary Refill Neurological: Alert, Normal Mood/Affect, Normal Dorsiflexion, CN II-XII Intact, Normal Plantar Flexion, No Motor/Sensory Deficits, Oriented x 3, Abnormal Gait (Hunched gait), Straight Leg Raise (L), Straight Leg Raise (R). No: Saddle Anesthesia Psychiatric: Normal Affect, Normal Mood Skin Exam: Warm, Dry, Intact, Normal Color, No Rash. No: Cyanosis, Erythema, Jaundice, Mottled, Pallor, Petechiae Course - Vital Signs Last Recorded V/S: Last Vital Signs Temp 97.8 F 03/31/21 18:09 Pulse 70 03/31/21 18:09 Resp 20 03/31/21 18:09 BP 141/77 H 03/31/21 18:09 Pulse Ox 99 03/31/21 18:09 - Orders/Labs/Meds Orders: Active Orders 24 hr Category Date Time Status Late Tray [DIET] Routine Diet 03/31/21 10:58 Active Medication Orders Acetaminophen (Acetaminophen 325 Mg Tab) 650 mg PO Q4H PRN PRN Reason: Pain (Mild 1-3)/fever Dextrose/Water (50% Dextrose In Water 50 Ml Syringe) 50 ml IVPUSH Q15M PRN PRN Reason: Hypoglycemia Glucagon (Glucagon,Human Recombinant 1 Mg Vial) 1 mg IM Q15M PRN PRN Reason: Hypoglycemia Dextrose/Sodium Chloride (Dextrose 5%-Normal Saline) 1,000 mls @ 75 mls/hr IV ASDIRECTED [facility] Last Admin: 03/31/21 18:06 Dose: 75 mls/hr Documented by: IRLANDA Insulin Human Lispro (Insulin Lispro 100 Units/Ml 3 Ml Vial) 0 unit SUBCUT Q4H [facility]; Protocol Last Admin: 03/31/21 19:30 Dose: Not Given Documented by: IRLANDA Morphine Sulfate (Morphine 2 Mg/Ml Syringe) 1 mg IVPUSH Q4H PRN PRN Reason: Pain (severe 7-10) Ondansetron HCl (Ondansetron 4 Mg/2 Ml Sdv) 4 mg IVPUSH Q4H PRN PRN Reason: Nausea/Vomiting Oxycodone/Acetaminophen (Acetaminophen/Oxycodone 325-5 Mg Tab) 1 tab PO Q4H PRN PRN Reason: Pain (moderate 4-6) Sodium Chloride (Sodium Chloride 0.9% 10 Ml Syringe) 10 ml FLUSH ASDIRECTED PRN PRN Reason: Keep Vein Open Labs: Laboratory Tests 03/31/21 03/31/21 03/31/21 Range/Units 09:28 09:36 09:36 WBC 8.0 (5.0-10.0) 10^3/uL RBC 5.04 (4.2-5.4) 10^6/uL Hgb 12.8 D (12.0-16.0) g/dL Hct 39.1 (37.0-47.0) % MCV 77.6 L D (80-100) fL MCH 25.4 L (27.0-34.0) pg MCHC 32.7 L (33.0-35.0) g/dL Plt Count 194 (150-450) 10^3/uL Neut % (Auto) 77.6 H (42.2-75.2) % Lymph % (Auto) 7.4 L (20.5-50.1) % [place] % (Auto) 10.4 H (2-8) % Eos % (Auto) 4.1 H (1.0-3.0) % Baso % (Auto) 0.5 (0.0-1.0) % Sodium 132 L (136-145) mmol/L Potassium 3.1 L (3.5-5.1) mmol/L Chloride 93 L (98-107) mmol/L Carbon Dioxide 28 (21-32) mmol/L Anion Gap 14.1 H (7-13) mEq/L BUN 8 (7-18) mg/dL Creatinine 0.81 (0.55-1.02) mg/dL Est Cr Clr Drug Dosing 45.28 mL/min Estimated GFR (MDRD) > 60 BUN/Creatinine Ratio 9.9 (No establ ref range) Glucose 146 H (70-99) mg/dL POC Glucose (70-99) mg/dL Lactic Acid (0.4-2.0) mmol/L Calcium 8.0 L (8.5-10.1) mg/dL Magnesium 1.5 L (1.8-2.4) mg/dL Iron (50-175) ug/dL TIBC (250-450) ug/dL % Saturation (20.0-50.0) % Ferritin (8-252) mg/mL Total Bilirubin 2.3 H (0.2-1.0) mg/dL Direct Bilirubin (0.0-0.2) mg/dL AST 51 H (15-37) U/L ALT 27 (14-59) U/L Alkaline Phosphatase 129 H (46-116) U/L Total Protein 7.3 (6.4-8.2) g/dL Albumin 3.2 L (3.4-5.0) g/dL Globulin 4.1 Albumin/Globulin Ratio 0.78 Free T4 (0.76-1.46) ng/dL TSH, Ultra Sensitive (0.36-3.74) uIU/mL Urine Color Yellow (YELLOW) Urine Appearance Clear (CLEAR) Urine pH 7.0 (5.0-9.0) Ur Specific [place] 1.020 (1.005-1.030) Urine Protein Negative (NEGATIVE) Urine Glucose (UA) 100 H (NEGATIVE) Urine Ketones >=160 H (NEGATIVE) Urine Occult Blood Trace-intact H (NEGATIVE) Urine Nitrite Negative (NEGATIVE) Urine Bilirubin Negative (NEGATIVE) Urine Urobilinogen 1.0 (0.2-1.0) mg/dL Ur Leukocyte Esterase Negative (NEGATIVE) Urine RBC 0-5 /HPF Urine WBC 0-5 (0-5/HPF) /HPF Ur Epithelial Cells Few (NOT SEEN) /HPF Urine Bacteria Not seen (0-FEW/HPF) /HPF SARS-CoV-2 RNA (VÍCTOR) (NEGATIVE) 03/31/21 03/31/21 03/31/21 Range/Units 09:36 09:36 09:36 WBC (5.0-10.0) 10^3/uL RBC (4.2-5.4) 10^6/uL Hgb (12.0-16.0) g/dL Hct (37.0-47.0) % MCV (80-100) fL MCH (27.0-34.0) pg MCHC (33.0-35.0) g/dL Plt Count (150-450) 10^3/uL Neut % (Auto) (42.2-75.2) % Lymph % (Auto) (20.5-50.1) % Alger % (Auto) (2-8) % Eos % (Auto) (1.0-3.0) % Baso % (Auto) (0.0-1.0) % Sodium (136-145) mmol/L Potassium (3.5-5.1) mmol/L Chloride (98-107) mmol/L Carbon Dioxide (21-32) mmol/L Anion Gap (7-13) mEq/L BUN (7-18) mg/dL Creatinine (0.55-1.02) mg/dL Est Cr Clr Drug Dosing mL/min Estimated GFR (MDRD) BUN/Creatinine Ratio (No establ ref range) Glucose (70-99) mg/dL POC Glucose (70-99) mg/dL Lactic Acid 1.3 (0.4-2.0) mmol/L Calcium (8.5-10.1) mg/dL Magnesium (1.8-2.4) mg/dL Iron 62 (50-175) ug/dL TIBC 376 (250-450) ug/dL % Saturation 16.5 L (20.0-50.0) % Ferritin 63 (8-252) mg/mL Total Bilirubin (0.2-1.0) mg/dL Direct Bilirubin 0.5 H (0.0-0.2) mg/dL AST (15-37) U/L ALT (14-59) U/L Alkaline Phosphatase (46-116) U/L Total Protein (6.4-8.2) g/dL Albumin (3.4-5.0) g/dL Globulin Albumin/Globulin Ratio Free T4 (0.76-1.46) ng/dL TSH, Ultra Sensitive (0.36-3.74) uIU/mL Urine Color (YELLOW) Urine Appearance (CLEAR) Urine pH (5.0-9.0) Ur Specific [place] (1.005-1.030) Urine Protein (NEGATIVE) Urine Glucose (UA) (NEGATIVE) Urine Ketones (NEGATIVE) Urine Occult Blood (NEGATIVE) Urine Nitrite (NEGATIVE) Urine Bilirubin (NEGATIVE) Urine Urobilinogen (0.2-1.0) mg/dL Ur Leukocyte Esterase (NEGATIVE) Urine RBC /HPF Urine WBC (0-5/HPF) /HPF Ur Epithelial Cells (NOT SEEN) /HPF Urine Bacteria (0-FEW/HPF) /HPF SARS-CoV-2 RNA (VÍCTOR) (NEGATIVE) 03/31/21 03/31/21 03/31/21 Range/Units 09:36 13:26 13:40 WBC (5.0-10.0) 10^3/uL RBC (4.2-5.4) 10^6/uL Hgb (12.0-16.0) g/dL Hct (37.0-47.0) % MCV (80-100) fL MCH (27.0-34.0) pg MCHC (33.0-35.0) g/dL Plt Count (150-450) 10^3/uL Neut % (Auto) (42.2-75.2) % Lymph % (Auto) (20.5-50.1) % [place] % (Auto) (2-8) % Eos % (Auto) (1.0-3.0) % Baso % (Auto) (0.0-1.0) % Sodium (136-145) mmol/L Potassium (3.5-5.1) mmol/L Chloride (98-107) mmol/L Carbon Dioxide (21-32) mmol/L Anion Gap (7-13) mEq/L BUN (7-18) mg/dL Creatinine (0.55-1.02) mg/dL Est Cr Clr Drug Dosing mL/min Estimated GFR (MDRD) BUN/Creatinine Ratio (No establ ref range) Glucose (70-99) mg/dL POC Glucose 79 (70-99) mg/dL Lactic Acid (0.4-2.0) mmol/L Calcium (8.5-10.1) mg/dL Magnesium (1.8-2.4) mg/dL Iron (50-175) ug/dL TIBC (250-450) ug/dL % Saturation (20.0-50.0) % Ferritin (8-252) mg/mL Total Bilirubin (0.2-1.0) mg/dL Direct Bilirubin (0.0-0.2) mg/dL AST (15-37) U/L ALT (14-59) U/L Alkaline Phosphatase (46-116) U/L Total Protein (6.4-8.2) g/dL Albumin (3.4-5.0) g/dL Globulin Albumin/Globulin Ratio Free T4 1.48 H (0.76-1.46) ng/dL TSH, Ultra Sensitive 23.38 H (0.36-3.74) uIU/mL Urine Color (YELLOW) Urine Appearance (CLEAR) Urine pH (5.0-9.0) Ur Specific [place] (1.005-1.030) Urine Protein (NEGATIVE) Urine Glucose (UA) (NEGATIVE) Urine Ketones (NEGATIVE) Urine Occult Blood (NEGATIVE) Urine Nitrite (NEGATIVE) Urine Bilirubin (NEGATIVE) Urine Urobilinogen (0.2-1.0) mg/dL Ur Leukocyte Esterase (NEGATIVE) Urine RBC /HPF Urine WBC (0-5/HPF) /HPF Ur Epithelial Cells (NOT SEEN) /HPF Urine Bacteria (0-FEW/HPF) /HPF SARS-CoV-2 RNA (VÍCTOR) Negative (NEGATIVE) 03/31/21 03/31/21 Range/Units 14:09 16:47 WBC (5.0-10.0) 10^3/uL RBC (4.2-5.4) 10^6/uL Hgb (12.0-16.0) g/dL Hct (37.0-47.0) % MCV (80-100) fL MCH (27.0-34.0) pg MCHC (33.0-35.0) g/dL Plt Count (150-450) 10^3/uL Neut % (Auto) (42.2-75.2) % Lymph % (Auto) (20.5-50.1) % [place] % (Auto) (2-8) % Eos % (Auto) (1.0-3.0) % Baso % (Auto) (0.0-1.0) % Sodium (136-145) mmol/L Potassium (3.5-5.1) mmol/L Chloride (98-107) mmol/L Carbon Dioxide (21-32) mmol/L Anion Gap (7-13) mEq/L BUN (7-18) mg/dL Creatinine (0.55-1.02) mg/dL Est Cr Clr Drug Dosing mL/min Estimated GFR (MDRD) BUN/Creatinine Ratio (No establ ref range) Glucose (70-99) mg/dL POC Glucose 61 L 66 L (70-99) mg/dL Lactic Acid (0.4-2.0) mmol/L Calcium (8.5-10.1) mg/dL Magnesium (1.8-2.4) mg/dL Iron (50-175) ug/dL TIBC (250-450) ug/dL % Saturation (20.0-50.0) % Ferritin (8-252) mg/mL Total Bilirubin (0.2-1.0) mg/dL Direct Bilirubin (0.0-0.2) mg/dL AST (15-37) U/L ALT (14-59) U/L Alkaline Phosphatase (46-116) U/L Total Protein (6.4-8.2) g/dL Albumin (3.4-5.0) g/dL Globulin Albumin/Globulin Ratio Free T4 (0.76-1.46) ng/dL TSH, Ultra Sensitive (0.36-3.74) uIU/mL Urine Color (YELLOW) Urine Appearance (CLEAR) Urine pH (5.0-9.0) Ur Specific [place] (1.005-1.030) Urine Protein (NEGATIVE) Urine Glucose (UA) (NEGATIVE) Urine Ketones (NEGATIVE) Urine Occult Blood (NEGATIVE) Urine Nitrite (NEGATIVE) Urine Bilirubin (NEGATIVE) Urine Urobilinogen (0.2-1.0) mg/dL Ur Leukocyte Esterase (NEGATIVE) Urine RBC /HPF Urine WBC (0-5/HPF) /HPF Ur Epithelial Cells (NOT SEEN) /HPF Urine Bacteria (0-FEW/HPF) /HPF SARS-CoV-2 RNA (VÍCTOR) (NEGATIVE) Meds: Medications Generic Name Dose Route Start Last Admin Trade Name Renae PRN Reason Stop Dose Admin Acetaminophen 650 mg 03/31/21 17:55 Acetaminophen 325 Mg Tab PO Q4H PRN Pain (Mild 1-3)/fever Dextrose/Water 50 ml 03/31/21 18:00 50% Dextrose In Water 50 Ml Syringe IVPUSH Q15M PRN Hypoglycemia Glucagon 1 mg 03/31/21 18:00 Glucagon,Human Recombinant 1 Mg Vial IM Q15M PRN Hypoglycemia Dextrose/Sodium Chloride 1,000 mls @ 75 mls/hr 03/31/21 18:00 03/31/21 18:06 Dextrose 5%-Normal Saline IV 75 mls/hr ASDIRECTED LO Administration Insulin Human Lispro 0 unit 03/31/21 18:00 03/31/21 19:30 Insulin Lispro 100 Units/Ml 3 Ml Vial SUBCUT Not Given Q4H LO Protocol Morphine Sulfate 1 mg 03/31/21 17:55 Morphine 2 Mg/Ml Syringe IVPUSH Q4H PRN Pain (severe 7-10) Ondansetron HCl 4 mg 03/31/21 17:55 Ondansetron 4 Mg/2 Ml Sdv IVPUSH Q4H PRN Nausea/Vomiting Oxycodone/Acetaminophen 1 tab 03/31/21 17:55 Acetaminophen/Oxycodone 325-5 Mg Tab PO Q4H PRN Pain (moderate 4-6) Sodium Chloride 10 ml 03/31/21 17:55 Sodium Chloride 0.9% 10 Ml Syringe FLUSH ASDIRECTED PRN Keep Vein Open Discontinued Medications Generic Name Dose Route Start Last Admin Trade Name Renae PRN Reason Stop Dose Admin Acetaminophen 1,000 mg 03/31/21 09:58 03/31/21 10:13 Acetaminophen 500 Mg Tab PO 03/31/21 09:59 1,000 mg ONETIME ONE Administration Acetaminophen 1,000 mg 03/31/21 16:08 03/31/21 16:18 Acetaminophen 500 Mg Tab PO 03/31/21 16:09 1,000 mg ONETIME ONE Administration Acetaminophen Confirm 03/31/21 16:44 Acetaminophen 500 Mg Tab Administered 03/31/21 16:45 Dose 1,000 mg .ROUTE .STK-MED ONE Potassium Chloride 20 meq/ 100 mls @ 50 mls/hr 03/31/21 10:37 03/31/21 10:53 Premix IV 03/31/21 12:36 50 mls/hr ONETIME ONE Administration Magnesium Sulfate 2 gm/ Premix 50 mls @ 25 mls/hr 03/31/21 10:37 03/31/21 10:53 IV 03/31/21 12:36 25 mls/hr ONETIME ONE Administration Sodium Chloride 500 mls @ 999 mls/hr 03/31/21 12:46 03/31/21 12:47 Normal Saline IV 03/31/21 13:16 999 mls/hr .BOLUS ONE Administration Lidocaine HCl 1 ml 03/31/21 10:41 03/31/21 10:53 Lidocaine 1% 30 Ml Sdv INJECT 03/31/21 10:42 1 ml ONETIME ONE Administration Potassium Chloride 40 meq 03/31/21 17:58 03/31/21 18:12 Potassium Chloride 10 Meq Tab.Er PO 03/31/21 17:59 40 meq ONETIME ONE Administration - Re-Assessments/Exams Free Text/Narrative Re-Assessment/Exam: 03/31/21 Shortly following patient's arrival, her arrived stating the patient had been sleeping in bed and not eating for the past five days. He states she will rouse for conversation for a time, but will not eat as she has no appetite. The patient has a history of esophageal stricture and has required previous dilations. Patient denies sensation of a food bolus at this time and states she is not hungry. Potassium and Magnesium replaced. NS 500cc bolus for hypotension into 70s while resting; BP improved to 110s following bolus. Discussed case with Dr. Cameron, for observation for failure to thrive. Dr Cameron requested further investigation into back pain, given presenting complaint. Xray of lumbar and sacrum revealed T12 compression fracture, acute at 75% reduction when compared to films three years prior. Findings of imaging reviewed with patient who again confirms no falls, inability to void, or incontinence. Patient states patient reduced with previous Tylenol dose, will administer another dose. Given degree of compression with comparison films in the presence fracture, Dr. Cameron requesting neurosurgical consultation prior to consideration for observation. Export Coordinator spoke with Dr. Longoria, neurosurgeon at [facility] in [place] ([facility] neurosurgeon currently in long case and not available for consult), who reviewed images. Dr. Longoria states patient would require a TLSO brace when lifting >50 pounds, or should the patients pain become too great with ambulation, but does not require brace in bed or while sitting. Dr. Longoria states the patient does not require acute surgical needs but she is agreeable for consult in the outpatient setting. Discussion with Dr. Longoria reviewed with Dr. Cameron who kindly agreed to refer the patient to observation. Plan of care reviewed with patient and who verbalized understanding and agreement with plan of care. Departure - Departure Time of Disposition: 17:48 Disposition: Refer to Observation Clinical Impression: Anorexia, Hypokalemia, Hypomagnesemia, Total bilirubin, elevated T12 compression fracture Qualifiers: Encounter type: initial encounter Qualified Code(s): S22.080A - Wedge compression fracture of T11-T12 vertebra, initial encounter for closed fracture Failure to thrive Qualifiers: Failure to thrive age range: in adult Qualified Code(s): R62.7 - Adult failure to thrive - Discharge Information Sepsis Event Note (ED) - Evaluation Sepsis Screening Result: No Definite Risk - Focused Exam Vital Signs: Vital Signs Temp Pulse Resp BP Pulse Ox 03/31/21 13:20 126/62 03/31/21 12:46 76/46 L 03/31/21 09:36 96.6 F L 78 16 160/75 H 96 - My Orders Last 24 Hours: My Active Orders 03/31/21 10:58 Late Tray [DIET] Routine - Assessment/Plan Last 24 Hours: My Active Orders 03/31/21 10:58 Late Tray [DIET] Routine
[2021-03-31] MEDS ORDERED: Potassium Chloride 20 MEQ in Premix Bag 1 BAG IV ONE (10:37)
[2021-03-31] MEDS ORDERED: Magnesium Sulfate/Water 2 GM in Premix Bag 1 BAG IV ONE (10:37)
[2021-03-31] MEDS ORDERED: Lidocaine 1% 30 ML SDV INJECT ONE (10:41)
[2021-03-31] MEDS ORDERED: Sodium Chloride 0.9% 500 ML IV ONE (12:46)
--- NOTE | 2021-03-31 15:59 | CR ---
EXAMINATION: Lumbar Spine 2 SEX: Female AGE: 75 years CLINICAL HISTORY: 75-year-old female experiencing low back pain (associated with "opening window"). Interpretation: 1. Sternotomy wires and cardiac valve prosthesis. Cluster surgical omar gallbladder fossa RUQ. 2. Atheromatous calcifications normal caliber abdominal aorta. 3. Osteoporosis and 75% collapse of the T12 vertebral body. Note: This fracture is new since sagittal CT images lumbar spine March,. 4. Chronic L5-S1 disc degeneration. 5. Exaggerated lordosis. No lumbar fracture or dislocation. CONCLUSION: Acute, new insufficiency (compression) FRACTURE T12 vertebral body. Osteoporosis.
--- NOTE | 2021-03-31 16:01 | CR ---
EXAMINATION: Sacrum Coccyx Min 2V SEX: Female AGE: 75 years CLINICAL HISTORY: 75-year-old female low back pain (opening window). Acute new T12 compression fracture (75%) since 2019 comparison film. Interpretation: Osteoporosis. Exaggerated lumbar lordosis. Chronic L5-S1 disc disease. No lower lumbar fracture or spondylolisthesis. No sign of sacral fracture or sacrococcygeal dislocation. Symmetric spacing normal-appearing SI and hip joints. No foreign bodies.
[2021-03-31] MEDS ORDERED: Acetaminophen 500 MG Tab ONE (16:44)
[2021-03-31] MEDS ORDERED: Acetaminophen/oxyCODONE 325-5 MG Tab PO PRN (17:55)
[2021-03-31] MEDS ORDERED: Sodium Chloride 0.9% 10 ML Syringe FLUSH PRN (17:55)
[2021-03-31] MEDS ORDERED: Ondansetron 4 MG/2 ML SDV IVPUSH PRN (17:55)
[2021-03-31] MEDS ORDERED: Morphine 2 MG/ML SYRINGE IVPUSH PRN (17:55)
[2021-03-31] MEDS ORDERED: Acetaminophen 325 MG Tab PO PRN (17:55)
[2021-03-31] MEDS ORDERED: Potassium Chloride 10 MEQ Tab.ER PO ONE (17:58)
[2021-03-31] MEDS ORDERED: Glucagon,Human Recombinant 1 MG Vial IM PRN (18:00)
[2021-03-31] MEDS ORDERED: 50% Dextrose in Water 50 ML Syringe IVPUSH PRN (18:00)
[2021-03-31] MEDS: Dextrose 5%-0.9% NaCl 1,000 ML IV SCH (18:06)
--- NOTE | 2021-03-31 18:07 | PCM.HP ---
H&P History of Present Illness - General Date of Service: 03/31/21 Admit Problem/Dx: Admission Diagnosis/Problem Admission Diagnosis/Problem Failure to thrive in adult - History of Present Illness Initial Comments - Free Text/Narative: The patient is a 75-year-old female who presents with chief plaint of back pain. She states it started proximately 1 week prior to admission. She states at that time she tried opening a window and she suddenly felt pain in her lower central back. She denies radiation of the pain. She denies any episodes of falls or injury otherwise. She denies paresthesia/anesthesia/myasthenia of her lower extremities. She denies bowel incontinence and she denies bladder incontinence. She currently rates the back pain is 2 out of 10 describes it as dull and has been intermittent since the time of onset. She states that she took Tylenol at home which improved the pain mildly to moderately. I was notified by staff in the emergency department that the patient's case was discussed with the neurosurgeon who indicated that the patient did not require transfer and that she should be fitted with a TLSO brace. She presents for further evaluation Bilateral Lower Back Pain Score (Numeric/FACES): 8 - Related Data Allergies/Adverse Reactions: Allergies Allergy/AdvReac Type Severity Reaction Status Date / Time iodine AdvReac Intermediate nausea only Verified 03/31/21 09:40 adhesive AdvReac Mild Rash Verified 03/31/21 09:40 ibuprofen AdvReac Unknown Stomach Verified 03/31/21 09:40 Upset Home Medications: Home Meds Aspirin [Halfprin] 81 mg PO DAILY 11/28/13 [History] Fludrocortisone [Florinef] 0.1 mg PO ACBRK 11/28/13 [History] Hydrocortisone 10 mg PO QPM 11/28/13 [History] Montelukast Sodium 10 mg PO BEDTIME 11/28/13 [History] Multivitamin [Multivitamins] 1 cap PO DAILY 11/28/13 [History] Acetaminophen 650 mg PO Q6H PRN 01/14/15 [History] Albuterol/Ipratropium [DuoNeb 3.0-0.5 MG/3 ML] 3 ml NEB QID PRN 01/14/15 [History] Dextrose [Glucose] 4 tab PO ASDIRECTED PRN 10/23/17 [History] Pantoprazole Sodium [Protonix] 40 mg PO DAILY 12/04/18 [History] Hydrocortisone 20 mg PO QAM 03/04/19 [History] Levothyroxine 125 mcg PO ACBREAKFAST #30 tablet 03/23/19 [Rx] Spironolactone [Aldactone] 1 tab PO DAILY 11/03/19 [History] Albuterol Sulfate [Proair Hfa] 1 - 2 puff INH Q4HR PRN 12/05/19 [History] Alendronate Sodium 1 tab PO WEEKLY 12/05/19 [History] Alogliptin Benzoate [Alogliptin] 1 tab PO DAILY 12/05/19 [History] Carboxymethylcellulose Sodium [Refresh Celluvisc] 1 - 2 drop EYEBOTH ASDIRECTED PRN 12/05/19 [History] Cholecalciferol (Vitamin D3) [Vitamin D3] 1 cap PO DAILY 12/05/19 [History] ClonazePAM [KlonoPIN] 0.5 mg PO BID 12/05/19 [History] Docusate Sodium 100 mg PO BID PRN 12/05/19 [History] Famotidine 40 mg PO QPM PRN 12/05/19 [History] Ferrous Gluconate 324 mg PO BID 12/05/19 [History] Fluticasone Propion/Salmeterol [Fluticasone-Salmeterol 500-50] 1 puff INH BID 12/05/19 [History] Fluticasone Propionate [Flonase] 1 spray NASBOTH DAILY 12/05/19 [History] Ketoconazole 120 ml TP .TWICEWEEKLY 12/05/19 [History] Lactoperoxi/Gluc Oxid/Pot Thio [Biotene Oralbalance Gel] 1 applic PO DAILY 12/05/19 [History] Lidocaine 5% [Lidoderm 5%] 1 patch TOP Q12HR PRN 12/05/19 [History] Loratadine 1 tab PO DAILY 12/05/19 [History] Losartan Potassium 1 tab PO DAILY 12/05/19 [History] Magnesium Oxide 400 mg PO DAILY 12/05/19 [History] Menthol/Methyl Salicylate [Icy Hot] 1 applic TOP DAILY PRN 12/05/19 [History] Nitroglycerin [Nitrostat] 0.4 mg SL .Q5MIN PRN 12/05/19 [History] Nystatin/Triamcinolone Crm [Mycolog Crm] 1 applic TOP BID 12/05/19 [History] Potassium Chloride [Potassium Chloride Solution] 30 ml PO DAILY 12/05/19 [History] diphenhydrAMINE [Benadryl] 25 mg PO BEDTIME PRN 12/05/19 [History] metFORMIN HCl [Metformin HCl] 10 ml PO BID 12/05/19 [History] Past Medical History HEENT History: Reports: Other (See Below) Other HEENT History: dry eyes, hx nose bleeds Cardiovascular History: Reports: Bypass, CAD, Heart Murmur, Heart Valve Replacement, Hypertension, NH Respiratory History: Reports: Asthma, COPD Other Respiratory History: Recently hospitalized for pneumonia, 03/2019. 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 Musculoskeletal History: Reports: None, Osteoarthritis Neurological History: Reports: Other (See Below) Psychiatric History: Reports: Anxiety, Dementia Endocrine/Metabolic History: Reports: [place]'s Disease, Diabetes, Type II, Hypothyroidism Hematologic History: Reports: None Immunologic History: Reports: Other (See Below) Other Immunologic History: Addisons disease Oncologic (Cancer) History: Reports: None Dermatologic History: Reports: Scleroderma, Other (See Below) Other Dermatologic History: CREST syndrome, hyperpigmentation - Infectious Disease History Infectious Disease History: Reports: Chicken Pox - Past Surgical History Head Surgeries/Procedures: Reports: None HEENT Surgical History: Reports: Adenoidectomy, Tonsillectomy Cardiovascular Surgical History: Reports: Coronary Artery Bypass, Valve Replacement, Other (See Below) Other Cardiovascular Surgeries/Procedures: Septal defect repair GI Surgical History: Reports: Appendectomy, Cholecystectomy, Colonoscopy, EGD, Esophageal Dilatation Female Surgical History: Reports: None Dermatological Surgical History: Reports: None Social & Family History - Family History Family Medical History: No Pertinent Family History - Tobacco Use Tobacco Use Status *Q: Never Tobacco User - Caffeine Use Caffeine Use: Reports: Coffee Caffeine Use Comment: 16. oz daily - Recreational Drug Use Recreational Drug Use: No - Living Situation & Occupation Living situation: Reports: with Family Occupation: Employed H&P Review of Systems - Review of Systems: Review Of Systems: See Below General: Reports: No Symptoms HEENT: Reports: No Symptoms Pulmonary: Reports: No Symptoms Cardiovascular: Reports: No Symptoms Gastrointestinal: Reports: No Symptoms Genitourinary: Reports: No Symptoms Musculoskeletal: Reports: Back Pain Skin: Reports: No Symptoms Psychiatric: Reports: No Symptoms Neurological: Reports: No Symptoms Hematologic/Lymphatic: Reports: No Symptoms Immunologic: Reports: No Symptoms Exam - Exam Exam: See Below - Vital Signs Vital Signs: Last Vital Signs Temp 96.6 F L 03/31/21 09:36 Pulse 78 03/31/21 09:36 Resp 16 03/31/21 09:36 BP 126/62 03/31/21 13:20 Pulse Ox 96 03/31/21 09:36 Weight: 110 lb - Exam General: Alert, Oriented, 4 HEENT: PERRLA, Hearing Intact, Mucosa Moist & Cassel, Nares Patent, Normal Nasal Septum, Posterior Pharynx Clear, Conjunctiva Clear, EOMI, EACs Clear, TMs Clear Neck: Supple, Trachea Midline, 2 Lungs: Clear to Auscultation, Normal Respiratory Effort Cardiovascular: Regular Rate, Regular Rhythm GI/Abdominal Exam: Normal Bowel Sounds, Soft, Non-Tender, No Organomegaly, No Di stention, No Abnormal Bruit, No Mass, Pelvis Stable Back Exam: Other (Back pain) Extremities: Normal Inspection, Normal Range of Motion, Non-Tender, No Pedal Edema, Normal Capillary Refill Peripheral Pulses: 2+: Carotid (L), Carotid (R), Brachial (L), Brachial (R), Radial (L), Radial (R), Femoral (L), Femoral (R), Popliteal (L), Popliteal (R), Posterior Tibial (L), Posterior Tibial (R), Dorsalis Pedis (L), Dorsalis Pedis (R) Skin: Warm, Dry, Intact Neurological: Cranial Nerves Intact, Reflexes Equal Bilateral Neuro Extensive - Mental Status: Alert, Oriented x3, Normal Mood/Affect, Normal Cognition Neuro Extensive - Motor, Sensory, Reflexes: CN II-XII Intact, Normal Gait, Normal Reflexes DTR: 2+: Bicep (L), Bicep (R), Tricep (L), Tricep (R), Patella (L), Patella (R), Achilles (L), Achilles (R) Psychiatric: Alert, Normal Affect, Normal Mood - Patient Data Lab Results Last 24 hrs: Laboratory Results - last 24 hr 03/31/21 03/31/21 03/31/21 Range/Units 09:28 09:36 09:36 WBC 8.0 (5.0-10.0) 10^3/uL RBC 5.04 (4.2-5.4) 10^6/uL Hgb 12.8 D (12.0-16.0) g/dL Hct 39.1 (37.0-47.0) % MCV 77.6 L D (80-100) fL MCH 25.4 L (27.0-34.0) pg MCHC 32.7 L (33.0-35.0) g/dL Plt Count 194 (150-450) 10^3/uL Neut % (Auto) 77.6 H (42.2-75.2) % Lymph % (Auto) 7.4 L (20.5-50.1) % Bond % (Auto) 10.4 H (2-8) % Eos % (Auto) 4.1 H (1.0-3.0) % Baso % (Auto) 0.5 (0.0-1.0) % Sodium 132 L (136-145) mmol/L Potassium 3.1 L (3.5-5.1) mmol/L Chloride 93 L (98-107) mmol/L Carbon Dioxide 28 (21-32) mmol/L Anion Gap 14.1 H (7-13) mEq/L BUN 8 (7-18) mg/dL Creatinine 0.81 (0.55-1.02) mg/dL Est Cr Clr Drug Dosing 45.28 mL/min Estimated GFR (MDRD) > 60 BUN/Creatinine Ratio 9.9 (No establ ref range) Glucose 146 H (70-99) mg/dL POC Glucose (70-99) mg/dL Lactic Acid (0.4-2.0) mmol/L Calcium 8.0 L (8.5-10.1) mg/dL Magnesium 1.5 L (1.8-2.4) mg/dL Total Bilirubin 2.3 H (0.2-1.0) mg/dL Direct Bilirubin (0.0-0.2) mg/dL AST 51 H (15-37) U/L ALT 27 (14-59) U/L Alkaline Phosphatase 129 H (46-116) U/L Total Protein 7.3 (6.4-8.2) g/dL Albumin 3.2 L (3.4-5.0) g/dL Globulin 4.1 Albumin/Globulin Ratio 0.78 Urine Color Yellow (YELLOW) Urine Appearance Clear (CLEAR) Urine pH 7.0 (5.0-9.0) Ur Specific Raven[place] 1.020 (1.005-1.030) Urine Protein Negative (NEGATIVE) Urine Glucose (UA) 100 H (NEGATIVE) Urine Ketones >=160 H (NEGATIVE) Urine Occult Blood Trace-intact H (NEGATIVE) Urine Nitrite Negative (NEGATIVE) Urine Bilirubin Negative (NEGATIVE) Urine Urobilinogen 1.0 (0.2-1.0) mg/dL Ur Leukocyte Esterase Negative (NEGATIVE) Urine RBC 0-5 /HPF Urine WBC 0-5 (0-5/HPF) /HPF Ur Epithelial Cells Few (NOT SEEN) /HPF Urine Bacteria Not seen (0-FEW/HPF) /HPF SARS-CoV-2 RNA (VÍCTOR) (NEGATIVE) 03/31/21 03/31/21 03/31/21 Range/Units 09:36 09:36 13:26 WBC (5.0-10.0) 10^3/uL RBC (4.2-5.4) 10^6/uL Hgb (12.0-16.0) g/dL Hct (37.0-47.0) % MCV (80-100) fL MCH (27.0-34.0) pg MCHC (33.0-35.0) g/dL Plt Count (150-450) 10^3/uL Neut % (Auto) (42.2-75.2) % Lymph % (Auto) (20.5-50.1) % Bond % (Auto) (2-8) % Eos % (Auto) (1.0-3.0) % Baso % (Auto) (0.0-1.0) % Sodium (136-145) mmol/L Potassium (3.5-5.1) mmol/L Chloride (98-107) mmol/L Carbon Dioxide (21-32) mmol/L Anion Gap (7-13) mEq/L BUN (7-18) mg/dL Creatinine (0.55-1.02) mg/dL Est Cr Clr Drug Dosing mL/min Estimated GFR (MDRD) BUN/Creatinine Ratio (No establ ref range) Glucose (70-99) mg/dL POC Glucose 79 (70-99) mg/dL Lactic Acid 1.3 (0.4-2.0) mmol/L Calcium (8.5-10.1) mg/dL Magnesium (1.8-2.4) mg/dL Total Bilirubin (0.2-1.0) mg/dL Direct Bilirubin 0.5 H (0.0-0.2) mg/dL AST (15-37) U/L ALT (14-59) U/L Alkaline Phosphatase (46-116) U/L Total Protein (6.4-8.2) g/dL Albumin (3.4-5.0) g/dL Globulin Albumin/Globulin Ratio Urine Color (YELLOW) Urine Appearance (CLEAR) Urine pH (5.0-9.0) Ur Specific Raven[place] (1.005-1.030) Urine Protein (NEGATIVE) Urine Glucose (UA) (NEGATIVE) Urine Ketones (NEGATIVE) Urine Occult Blood (NEGATIVE) Urine Nitrite (NEGATIVE) Urine Bilirubin (NEGATIVE) Urine Urobilinogen (0.2-1.0) mg/dL Ur Leukocyte Esterase (NEGATIVE) Urine RBC /HPF Urine WBC (0-5/HPF) /HPF Ur Epithelial Cells (NOT SEEN) /HPF Urine Bacteria (0-FEW/HPF) /HPF SARS-CoV-2 RNA (VÍCTOR) (NEGATIVE) 03/31/21 03/31/21 03/31/21 Range/Units 13:40 14:09 16:47 WBC (5.0-10.0) 10^3/uL RBC (4.2-5.4) 10^6/uL Hgb (12.0-16.0) g/dL Hct (37.0-47.0) % MCV (80-100) fL MCH (27.0-34.0) pg MCHC (33.0-35.0) g/dL Plt Count (150-450) 10^3/uL Neut % (Auto) (42.2-75.2) % Lymph % (Auto) (20.5-50.1) % Bond % (Auto) (2-8) % Eos % (Auto) (1.0-3.0) % Baso % (Auto) (0.0-1.0) % Sodium (136-145) mmol/L Potassium (3.5-5.1) mmol/L Chloride (98-107) mmol/L Carbon Dioxide (21-32) mmol/L Anion Gap (7-13) mEq/L BUN (7-18) mg/dL Creatinine (0.55-1.02) mg/dL Est Cr Clr Drug Dosing mL/min Estimated GFR (MDRD) BUN/Creatinine Ratio (No establ ref range) Glucose (70-99) mg/dL POC Glucose 61 L 66 L (70-99) mg/dL Lactic Acid (0.4-2.0) mmol/L Calcium (8.5-10.1) mg/dL Magnesium (1.8-2.4) mg/dL Total Bilirubin (0.2-1.0) mg/dL Direct Bilirubin (0.0-0.2) mg/dL AST (15-37) U/L ALT (14-59) U/L Alkaline Phosphatase (46-116) U/L Total Protein (6.4-8.2) g/dL Albumin (3.4-5.0) g/dL Globulin Albumin/Globulin Ratio Urine Color (YELLOW) Urine Appearance (CLEAR) Urine pH (5.0-9.0) Ur Specific Raven[place] (1.005-1.030) Urine Protein (NEGATIVE) Urine Glucose (UA) (NEGATIVE) Urine Ketones (NEGATIVE) Urine Occult Blood (NEGATIVE) Urine Nitrite (NEGATIVE) Urine Bilirubin (NEGATIVE) Urine Urobilinogen (0.2-1.0) mg/dL Ur Leukocyte Esterase (NEGATIVE) Urine RBC /HPF Urine WBC (0-5/HPF) /HPF Ur Epithelial Cells (NOT SEEN) /HPF Urine Bacteria (0-FEW/HPF) /HPF SARS-CoV-2 RNA (VÍCTOR) Negative (NEGATIVE) Result Diagrams: 03/31/21 09:36 03/31/21 09:36 Problem List Initiated/Reviewed/Updated: Yes Orders Last 24hrs: Active Orders 24 hr Category Date Time Status Admission Diagnosis [ADT] Stat ADT 03/31/21 17:20 Ordered Admission Status [Patient Status] [ADT] Routine ADT 03/31/21 17:20 Active Antiembolic Devices [RC] PER UNIT ROUTINE Care 03/31/21 17:56 Ordered Bedrest Bedside Commode [RC] ASDIRECTED Care 03/31/21 17:55 Ordered Blood Glucose Check, Bedside [RC] Q4H Care 03/31/21 17:55 Ordered Communication Order [RC] 08,20 Care 03/31/21 18:01 Ordered Peripheral IV Care [RC] . DIRECTED Care 03/31/21 17:56 Ordered Vital Signs [RC] Q4H Care 03/31/21 17:55 Ordered Consult to Case Management/Stamp Collector [CONS] Cons 03/31/21 17:55 Ordered Routine PT Evaluation and Treatment [CONS] Routine Cons 03/31/21 17:55 Ordered Consistent Carbohydrate Diet [DIET] Diet 03/31/21 Dinner Ordered Late Tray [DIET] Routine Diet 03/31/21 10:58 Active CMP [COMPREHENSIVE METABOLIC PN,CMP] [CHEM] Routine Lab 04/01/21 05:00 Ordered FERRITIN [CHEM] Routine Lab 03/31/21 17:59 Ordered INR,PT,PROTHROMBIN TIME [COAG] Routine Lab 03/31/21 17:59 Ordered IRON/TIBC [CHEM] Routine Lab 03/31/21 17:59 Ordered MAGNESIUM [CHEM] Routine Lab 04/01/21 05:00 Ordered OCCULT BLOOD DIAGNOSTIC [OP] Routine Lab 03/31/21 17:59 Ordered T4 FREE [CHEM] Routine Lab 03/31/21 17:59 Ordered TSH ULTRASENSITIVE [CHEM] Routine Lab 03/31/21 17:59 Ordered Acetaminophen [TylenoL] Med 03/31/21 17:55 Ordered 650 mg PO Q4H PRN Acetaminophen/oxyCODONE [Percocet 325-5 MG] Med 03/31/21 17:55 Ordered 1 tab PO Q4H PRN Dextrose 5%-Normal Saline @ 75 MLS/HR(1000ml) Med 03/31/21 18:00 Ordered Dextrose 5%-0.9% NaCl [Dextrose 5%-Normal Saline] 1,000 ml IV ASDIRECTED Dextrose 50% in Water Med 03/31/21 18:00 Ordered 50 ml IVPUSH Q15M PRN Glucagon,Human Recombinant [GlucaGen] Med 03/31/21 18:00 Ordered 1 mg IM Q15M PRN Insulin Lispro [HumaLOG] Med 03/31/21 18:00 Ordered See Protocol SUBCUT Q4H Morphine Med 03/31/21 17:55 Ordered 1 mg IVPUSH Q4H PRN Ondansetron [Zofran] Med 03/31/21 17:55 Ordered 4 mg IVPUSH Q4H PRN Potassium Chloride [Klor-Con 10] Med 03/31/21 17:58 Once 40 meq PO ONETIME ONE Sodium Chloride 0.9% [Saline Flush] Med 03/31/21 17:55 Ordered 10 ml FLUSH ASDIRECTED PRN Peripheral IV Insertion Adult [OM.PC] Routine Oth 03/31/21 17:55 Ordered Sequential Compression Device [OM.PC] Per Unit Routine Oth 03/31/21 17:55 Orde red Resuscitation Status Routine Resus Stat 03/31/21 17:55 Ordered Medication Orders Acetaminophen (Acetaminophen 325 Mg Tab) 650 mg PO Q4H PRN PRN Reason: Pain (Mild 1-3)/fever Dextrose/Sodium Chloride (Dextrose 5%-Normal Saline) 1,000 mls @ 75 mls/hr IV ASDIRECTED LO Morphine Sulfate (Morphine 2 Mg/Ml Syringe) 1 mg IVPUSH Q4H PRN PRN Reason: Pain (severe 7-10) Ondansetron HCl (Ondansetron 4 Mg/2 Ml Sdv) 4 mg IVPUSH Q4H PRN PRN Reason: Nausea/Vomiting Oxycodone/Acetaminophen (Acetaminophen/Oxycodone 325-5 Mg Tab) 1 tab PO Q4H PRN PRN Reason: Pain (moderate 4-6) Potassium Chloride (Potassium Chloride 10 Meq Tab.Er) 40 meq PO ONETIME ONE Stop: 03/31/21 17:59 Sodium Chloride (Sodium Chloride 0.9% 10 Ml Syringe) 10 ml FLUSH ASDIRECTED PRN PRN Reason: Keep Vein Open Assessment/Plan Comment:: Surgical History: Cholecystectomy, appendectomy, tonsillectomy, adenoidectomy, ventral herniorrhaphy, CABG, bilateral cataract surgery, cardiac septal defect repair, bioprosthetic aortic valve replacement, subsequent TAVR Family History: Stroke, diabetes, hypertension, hyperlipidemia Social History: Tobacco: Never Alcohol: Denies Caffeine: Coffee Drugs: Never Allergies: Iodine, adhesive tape, ibuprofen, Keflex Code Status: Full Assessment / Plan: Acute T12 compression fracture. Per staffing emergency department, the patient was discussed with neurosurgery who indicated that transfer was not necessary. As needed analgesia. Patient will need to be fitted with TLSO brace. Physical therapy consult. Hypomagnesemia. Will monitor magnesium levels intermittently and supplement as necessary Hypoglycemia. Will monitor serum glucose levels every 4 hours. IV D5 NS at 75 mils per hour Hypokalemia. Will monitor potassium levels intermittently and supplement as necessary Hyponatremia. Will monitor sodium levels intermittently. IV D5 NS at 75 mils per hour Microcytosis. Check serum ferritin, iron panel, fecal occult blood Osteoporosis Hypothyroidism. Check TSH, check free T4 Hyperbilirubinemia, chronic. Will monitor LFTs periodically with CMP COPD Grade 1 diastolic dysfunction Moderate tricuspid regurgitation Moderate pulmonary regurgitation Coronary artery disease, status post NH, status post CABG Diabetes. Will check fingerstick glucose every 4 hours and provide insulin sign scale GERD Hyperlipidemia Hypertension History of aortic stenosis, status post bioprosthetic aortic valve replacement [place]'s disease Anxiety Constipation Seasonal allergies Osteoarthritis Dementia Scleroderma History of esophageal stricture with history of dilatation Spinal stenosis Cough syndrome DVT prophylaxis. Bilateral SCD Disposition: I requested case management evaluate the patient along with physical therapy to determine discharge planning as the patient may require rehabilitation and swing bed versus group home placement. At the time of admission, patient's home medications were not yet input to the EMR/DHR system. Once they are, they will be reviewed and reconciled END OF DOCTOR EMAMIS HISTORY AND PHYSICAL / CONSULTATION NOTE
[2021-03-31] MEDS: Insulin Lispro 100 Units/ML 3 ML Vial SUBCUT SCH ×2 (19:30→22:19)
[2021-04-01] MEDS: Insulin Lispro 100 Units/ML 3 ML Vial SUBCUT SCH ×3 (02:02→12:47)
[2021-04-01 06:52] LABS: ANION GAP 11.5 mEq/L (7-13); CHLORIDE,CL 98 mmol/L (98-107); SODIUM,NA 133 mmol/L (136-145)
[2021-04-01] MEDS: Dextrose 5%-0.9% NaCl 1,000 ML IV SCH (07:00)
--- NOTE | 2021-04-01 07:22 | PCM.PN ---
- General Info Date of Service: 04/01/21 Subjective Update: The patient complains of minor medial lower back pain. She currently rates it as a 3 out of 10 and indicates that really she only feels pain with movement. She denies paresthesia/anesthesia/myasthenia but her bilateral lower extremities. Denies fever, rigors, nausea, vomiting, cough, wheeze, abdominal pain, chest pain, dyspnea, or any other constitutional complaints. I explained to the patient her current medical condition and plan of care and I have an swered all of her questions Functional Status: Reports: Pain Controlled - Review of Systems General: Reports: No Symptoms HEENT: Reports: No Symptoms Pulmonary: Reports: No Symptoms Cardiovascular: Reports: No Symptoms Gastrointestinal: Reports: No Symptoms Genitourinary: Reports: No Symptoms Musculoskeletal: Reports: Back Pain Neurological: Reports: No Symptoms Psychiatric: Reports: No Symptoms - Patient Data Vitals - Most Recent: Last Vital Signs Temp 98.4 F 04/01/21 06:00 Pulse 66 04/01/21 06:00 Resp 18 04/01/21 06:00 BP 116/64 04/01/21 06:00 Pulse Ox 96 04/01/21 06:00 Weight - Most Recent: 100 lb 3.2 oz I&O - Last 24 Hours: Intake & Output 03/31/21 04/01/21 04/01/21 22:59 06:59 14:59 Intake Total 50 250 Balance 50 250 Lab Results Last 24 Hours: Laboratory Results - last 24 hr 03/31/21 03/31/21 03/31/21 Range/Units 09:28 09:36 09:36 WBC 8.0 (5.0-10.0) 10^3/uL RBC 5.04 (4.2-5.4) 10^6/uL Hgb 12.8 D (12.0-16.0) g/dL Hct 39.1 (37.0-47.0) % MCV 77.6 L D (80-100) fL MCH 25.4 L (27.0-34.0) pg MCHC 32.7 L (33.0-35.0) g/dL Plt Count 194 (150-450) 10^3/uL Neut % (Auto) 77.6 H (42.2-75.2) % Lymph % (Auto) 7.4 L (20.5-50.1) % Clare % (Auto) 10.4 H (2-8) % Eos % (Auto) 4.1 H (1.0-3.0) % Baso % (Auto) 0.5 (0.0-1.0) % PT (9.0-12.0) SEC INR (0.9-1.2) Sodium 132 L (136-145) mmol/L Potassium 3.1 L (3.5-5.1) mmol/L Chloride 93 L (98-107) mmol/L Carbon Dioxide 28 (21-32) mmol/L Anion Gap 14.1 H (7-13) mEq/L BUN 8 (7-18) mg/dL Creatinine 0.81 (0.55-1.02) mg/dL Est Cr Clr Drug Dosing 45.28 mL/min Estimated GFR (MDRD) > 60 BUN/Creatinine Ratio 9.9 (No establ ref range) Glucose 146 H (70-99) mg/dL POC Glucose (70-99) mg/dL Lactic Acid (0.4-2.0) mmol/L Calcium 8.0 L (8.5-10.1) mg/dL Magnesium 1.5 L (1.8-2.4) mg/dL Iron (50-175) ug/dL TIBC (250-450) ug/dL % Saturation (20.0-50.0) % Ferritin (8-252) mg/mL Total Bilirubin 2.3 H (0.2-1.0) mg/dL Direct Bilirubin (0.0-0.2) mg/dL AST 51 H (15-37) U/L ALT 27 (14-59) U/L Alkaline Phosphatase 129 H (46-116) U/L Total Protein 7.3 (6.4-8.2) g/dL Albumin 3.2 L (3.4-5.0) g/dL Globulin 4.1 Albumin/Globulin Ratio 0.78 Free T4 (0.76-1.46) ng/dL TSH, Ultra Sensitive (0.36-3.74) uIU/mL Urine Color Yellow (YELLOW) Urine Appearance Clear (CLEAR) Urine pH 7.0 (5.0-9.0) Ur Specific [place] 1.020 (1.005-1.030) Urine Protein Negative (NEGATIVE) Urine Glucose (UA) 100 H (NEGATIVE) Urine Ketones >=160 H (NEGATIVE) Urine Occult Blood Trace-intact H (NEGATIVE) Urine Nitrite Negative (NEGATIVE) Urine Bilirubin Negative (NEGATIVE) Urine Urobilinogen 1.0 (0.2-1.0) mg/dL Ur Leukocyte Esterase Negative (NEGATIVE) Urine RBC 0-5 /HPF Urine WBC 0-5 (0-5/HPF) /HPF Ur Epithelial Cells Few (NOT SEEN) /HPF Urine Bacteria Not seen (0-FEW/HPF) /HPF SARS-CoV-2 RNA (VÍCTOR) (NEGATIVE) 03/31/21 03/31/21 03/31/21 Range/Units 09:36 09:36 09:36 WBC (5.0-10.0) 10^3/uL RBC (4.2-5.4) 10^6/uL Hgb (12.0-16.0) g/dL Hct (37.0-47.0) % MCV (80-100) fL MCH (27.0-34.0) pg MCHC (33.0-35.0) g/dL Plt Count (150-450) 10^3/uL Neut % (Auto) (42.2-75.2) % Lymph % (Auto) (20.5-50.1) % Clare % (Auto) (2-8) % Eos % (Auto) (1.0-3.0) % Baso % (Auto) (0.0-1.0) % PT (9.0-12.0) SEC INR (0.9-1.2) Sodium (136-145) mmol/L Potassium (3.5-5.1) mmol/L Chloride (98-107) mmol/L Carbon Dioxide (21-32) mmol/L Anion Gap (7-13) mEq/L BUN (7-18) mg/dL Creatinine (0.55-1.02) mg/dL Est Cr Clr Drug Dosing mL/min Estimated GFR (MDRD) BUN/Creatinine Ratio (No establ ref range) Glucose (70-99) mg/dL POC Glucose (70-99) mg/dL Lactic Acid 1.3 (0.4-2.0) mmol/L Calcium (8.5-10.1) mg/dL Magnesium (1.8-2.4) mg/dL Iron 62 (50-175) ug/dL TIBC 376 (250-450) ug/dL % Saturation 16.5 L (20.0-50.0) % Ferritin 63 (8-252) mg/mL Total Bilirubin (0.2-1.0) mg/dL Direct Bilirubin 0.5 H (0.0-0.2) mg/dL AST (15-37) U/L ALT (14-59) U/L Alkaline Phosphatase (46-116) U/L Total Protein (6.4-8.2) g/dL Albumin (3.4-5.0) g/dL Globulin Albumin/Globulin Ratio Free T4 (0.76-1.46) ng/dL TSH, Ultra Sensitive (0.36-3.74) uIU/mL Urine Color (YELLOW) Urine Appearance (CLEAR) Urine pH (5.0-9.0) Ur Specific [place] (1.005-1.030) Urine Protein (NEGATIVE) Urine Glucose (UA) (NEGATIVE) Urine Ketones (NEGATIVE) Urine Occult Blood (NEGATIVE) Urine Nitrite (NEGATIVE) Urine Bilirubin (NEGATIVE) Urine Urobilinogen (0.2-1.0) mg/dL Ur Leukocyte Esterase (NEGATIVE) Urine RBC /HPF Urine WBC (0-5/HPF) /HPF Ur Epithelial Cells (NOT SEEN) /HPF Urine Bacteria (0-FEW/HPF) /HPF SARS-CoV-2 RNA (VÍCTOR) (NEGATIVE) 03/31/21 03/31/21 03/31/21 Range/Units 09:36 13:26 13:40 WBC (5.0-10.0) 10^3/uL RBC (4.2-5.4) 10^6/uL Hgb (12.0-16.0) g/dL Hct (37.0-47.0) % MCV (80-100) fL MCH (27.0-34.0) pg MCHC (33.0-35.0) g/dL Plt Count (150-450) 10^3/uL Neut % (Auto) (42.2-75.2) % Lymph % (Auto) (20.5-50.1) % Clare % (Auto) (2-8) % Eos % (Auto) (1.0-3.0) % Baso % (Auto) (0.0-1.0) % PT (9.0-12.0) SEC INR (0.9-1.2) Sodium (136-145) mmol/L Potassium (3.5-5.1) mmol/L Chloride (98-107) mmol/L Carbon Dioxide (21-32) mmol/L Anion Gap (7-13) mEq/L BUN (7-18) mg/dL Creatinine (0.55-1.02) mg/dL Est Cr Clr Drug Dosing mL/min Estimated GFR (MDRD) BUN/Creatinine Ratio (No establ ref range) Glucose (70-99) mg/dL POC Glucose 79 (70-99) mg/dL Lactic Acid (0.4-2.0) mmol/L Calcium (8.5-10.1) mg/dL Magnesium (1.8-2.4) mg/dL Iron (50-175) ug/dL TIBC (250-450) ug/dL % Saturation (20.0-50.0) % Ferritin (8-252) mg/mL Total Bilirubin (0.2-1.0) mg/dL Direct Bilirubin (0.0-0.2) mg/dL AST (15-37) U/L ALT (14-59) U/L Alkaline Phosphatase (46-116) U/L Total Protein (6.4-8.2) g/dL Albumin (3.4-5.0) g/dL Globulin Albumin/Globulin Ratio Free T4 1.48 H (0.76-1.46) ng/dL TSH, Ultra Sensitive 23.38 H (0.36-3.74) uIU/mL Urine Color (YELLOW) Urine Appearance (CLEAR) Urine pH (5.0-9.0) Ur Specific [place] (1.005-1.030) Urine Protein (NEGATIVE) Urine Glucose (UA) (NEGATIVE) Urine Ketones (NEGATIVE) Urine Occult Blood (NEGATIVE) Urine Nitrite (NEGATIVE) Urine Bilirubin (NEGATIVE) Urine Urobilinogen (0.2-1.0) mg/dL Ur Leukocyte Esterase (NEGATIVE) Urine RBC /HPF Urine WBC (0-5/HPF) /HPF Ur Epithelial Cells (NOT SEEN) /HPF Urine Bacteria (0-FEW/HPF) /HPF SARS-CoV-2 RNA (VÍCTOR) Negative (NEGATIVE) 03/31/21 03/31/21 03/31/21 Range/Units 14:09 16:47 18:00 WBC (5.0-10.0) 10^3/uL RBC (4.2-5.4) 10^6/uL Hgb (12.0-16.0) g/dL Hct (37.0-47.0) % MCV (80-100) fL MCH (27.0-34.0) pg MCHC (33.0-35.0) g/dL Plt Count (150-450) 10^3/uL Neut % (Auto) (42.2-75.2) % Lymph % (Auto) (20.5-50.1) % Clare % (Auto) (2-8) % Eos % (Auto) (1.0-3.0) % Baso % (Auto) (0.0-1.0) % PT (9.0-12.0) SEC INR (0.9-1.2) Sodium (136-145) mmol/L Potassium (3.5-5.1) mmol/L Chloride (98-107) mmol/L Carbon Dioxide (21-32) mmol/L Anion Gap (7-13) mEq/L BUN (7-18) mg/dL Creatinine (0.55-1.02) mg/dL Est Cr Clr Drug Dosing mL/min Estimated GFR (MDRD) BUN/Creatinine Ratio (No establ ref range) Glucose (70-99) mg/dL POC Glucose 61 L 66 L 60 L (70-99) mg/dL Lactic Acid (0.4-2.0) mmol/L Calcium (8.5-10.1) mg/dL Magnesium (1.8-2.4) mg/dL Iron (50-175) ug/dL TIBC (250-450) ug/dL % Saturation (20.0-50.0) % Ferritin (8-252) mg/mL Total Bilirubin (0.2-1.0) mg/dL Direct Bilirubin (0.0-0.2) mg/dL AST (15-37) U/L ALT (14-59) U/L Alkaline Phosphatase (46-116) U/L Total Protein (6.4-8.2) g/dL Albumin (3.4-5.0) g/dL Globulin Albumin/Globulin Ratio Free T4 (0.76-1.46) ng/dL TSH, Ultra Sensitive (0.36-3.74) uIU/mL Urine Color (YELLOW) Urine Appearance (CLEAR) Urine pH (5.0-9.0) Ur Specific [place] (1.005-1.030) Urine Protein (NEGATIVE) Urine Glucose (UA) (NEGATIVE) Urine Ketones (NEGATIVE) Urine Occult Blood (NEGATIVE) Urine Nitrite (NEGATIVE) Urine Bilirubin (NEGATIVE) Urine Urobilinogen (0.2-1.0) mg/dL Ur Leukocyte Esterase (NEGATIVE) Urine RBC /HPF Urine WBC (0-5/HPF) /HPF Ur Epithelial Cells (NOT SEEN) /HPF Urine Bacteria (0-FEW/HPF) /HPF SARS-CoV-2 RNA (VÍCTOR) (NEGATIVE) 03/31/21 03/31/21 04/01/21 Range/Units 20:30 21:42 01:56 WBC (5.0-10.0) 10^3/uL RBC (4.2-5.4) 10^6/uL Hgb (12.0-16.0) g/dL Hct (37.0-47.0) % MCV (80-100) fL MCH (27.0-34.0) pg MCHC (33.0-35.0) g/dL Plt Count (150-450) 10^3/uL Neut % (Auto) (42.2-75.2) % Lymph % (Auto) (20.5-50.1) % Clare % (Auto) (2-8) % Eos % (Auto) (1.0-3.0) % Baso % (Auto) (0.0-1.0) % PT 20.4 H D (9.0-12.0) SEC INR 2.1 H (0.9-1.2) Sodium (136-145) mmol/L Potassium (3.5-5.1) mmol/L Chloride (98-107) mmol/L Carbon Dioxide (21-32) mmol/L Anion Gap (7-13) mEq/L BUN (7-18) mg/dL Creatinine (0.55-1.02) mg/dL Est Cr Clr Drug Dosing mL/min Estimated GFR (MDRD) BUN/Creatinine Ratio (No establ ref range) Glucose (70-99) mg/dL POC Glucose 86 100 H (70-99) mg/dL Lactic Acid (0.4-2.0) mmol/L Calcium (8.5-10.1) mg/dL Magnesium (1.8-2.4) mg/dL Iron (50-175) ug/dL TIBC (250-450) ug/dL % Saturation (20.0-50.0) % Ferritin (8-252) mg/mL Total Bilirubin (0.2-1.0) mg/dL Direct Bilirubin (0.0-0.2) mg/dL AST (15-37) U/L ALT (14-59) U/L Alkaline Phosphatase (46-116) U/L Total Protein (6.4-8.2) g/dL Albumin (3.4-5.0) g/dL Globulin Albumin/Globulin Ratio Free T4 (0.76-1.46) ng/dL TSH, Ultra Sensitive (0.36-3.74) uIU/mL Urine Color (YELLOW) Urine Appearance (CLEAR) Urine pH (5.0-9.0) Ur Specific [place] (1.005-1.030) Urine Protein (NEGATIVE) Urine Glucose (UA) (NEGATIVE) Urine Ketones (NEGATIVE) Urine Occult Blood (NEGATIVE) Urine Nitrite (NEGATIVE) Urine Bilirubin (NEGATIVE) Urine Urobilinogen (0.2-1.0) mg/dL Ur Leukocyte Esterase (NEGATIVE) Urine RBC /HPF Urine WBC (0-5/HPF) /HPF Ur Epithelial Cells (NOT SEEN) /HPF Urine Bacteria (0-FEW/HPF) /HPF SARS-CoV-2 RNA (VÍCTOR) (NEGATIVE) 04/01/21 04/01/21 Range/Units 05:50 05:55 WBC (5.0-10.0) 10^3/uL RBC (4.2-5.4) 10^6/uL Hgb (12.0-16.0) g/dL Hct (37.0-47.0) % MCV (80-100) fL MCH (27.0-34.0) pg MCHC (33.0-35.0) g/dL Plt Count (150-450) 10^3/uL Neut % (Auto) (42.2-75.2) % Lymph % (Auto) (20.5-50.1) % Clare % (Auto) (2-8) % Eos % (Auto) (1.0-3.0) % Baso % (Auto) (0.0-1.0) % PT (9.0-12.0) SEC INR (0.9-1.2) Sodium 133 L (136-145) mmol/L Potassium 3.5 (3.5-5.1) mmol/L Chloride 98 (98-107) mmol/L Carbon Dioxide 27 (21-32) mmol/L Anion Gap 11.5 (7-13) mEq/L BUN 5 L (7-18) mg/dL Creatinine 0.68 (0.55-1.02) mg/dL Est Cr Clr Drug Dosing 51.29 mL/min Estimated GFR (MDRD) > 60 BUN/Creatinine Ratio 7.4 (No establ ref range) Glucose 110 H (70-99) mg/dL POC Glucose 105 H (70-99) mg/dL Lactic Acid (0.4-2.0) mmol/L Calcium 7.4 L (8.5-10.1) mg/dL Magnesium 1.8 (1.8-2.4) mg/dL Iron (50-175) ug/dL TIBC (250-450) ug/dL % Saturation (20.0-50.0) % Ferritin (8-252) mg/mL Total Bilirubin 1.5 H (0.2-1.0) mg/dL Direct Bilirubin (0.0-0.2) mg/dL AST 32 (15-37) U/L ALT 18 (14-59) U/L Alkaline Phosphatase 93 (46-116) U/L Total Protein 5.7 L (6.4-8.2) g/dL Albumin 2.5 L (3.4-5.0) g/dL Globulin 3.2 Albumin/Globulin Ratio 0.78 Free T4 (0.76-1.46) ng/dL TSH, Ultra Sensitive (0.36-3.74) uIU/mL Urine Color (YELLOW) Urine Appearance (CLEAR) Urine pH (5.0-9.0) Ur Specific [place] (1.005-1.030) Urine Protein (NEGATIVE) Urine Glucose (UA) (NEGATIVE) Urine Ketones (NEGATIVE) Urine Occult Blood (NEGATIVE) Urine Nitrite (NEGATIVE) Urine Bilirubin (NEGATIVE) Urine Urobilinogen (0.2-1.0) mg/dL Ur Leukocyte Esterase (NEGATIVE) Urine RBC /HPF Urine WBC (0-5/HPF) /HPF Ur Epithelial Cells (NOT SEEN) /HPF Urine Bacteria (0-FEW/HPF) /HPF SARS-CoV-2 RNA (VÍCTOR) (NEGATIVE) Med Orders - Current: Current Medications Acetaminophen (Acetaminophen 325 Mg Tab) 650 mg PO Q4H PRN PRN Reason: Pain (Mild 1-3)/fever Last Admin: 04/01/21 02:00 Dose: 650 mg Documented by: Dextrose/Water (50% Dextrose In Water 50 Ml Syringe) 50 ml IVPUSH Q15M PRN PRN Reason: Hypoglycemia Glucagon (Glucagon,Human Recombinant 1 Mg Vial) 1 mg IM Q15M PRN PRN Reason: Hypoglycemia Dextrose/Sodium Chloride (Dextrose 5%-Normal Saline) 1,000 mls @ 75 mls/hr IV ASDIRECTED LO Last Admin: 04/01/21 07:00 Dose: 75 mls/hr Documented by: Insulin Human Lispro (Insulin Lispro 100 Units/Ml 3 Ml Vial) 0 unit SUBCUT Q4H LO; Protocol Last Admin: 04/01/21 06:02 Dose: Not Given Documented by: Morphine Sulfate (Morphine 2 Mg/Ml Syringe) 1 mg IVPUSH Q4H PRN PRN Reason: Pain (severe 7-10) Ondansetron HCl (Ondansetron 4 Mg/2 Ml Sdv) 4 mg IVPUSH Q4H PRN PRN Reason: Nausea/Vomiting Oxycodone/Acetaminophen (Acetaminophen/Oxycodone 325-5 Mg Tab) 1 tab PO Q4H PRN PRN Reason: Pain (moderate 4-6) Last Admin: 04/01/21 02:59 Dose: 1 tab Documented by: Sodium Chloride (Sodium Chloride 0.9% 10 Ml Syringe) 10 ml FLUSH ASDIRECTED PRN PRN Reason: Keep Vein Open Discontinued Medications Acetaminophen (Acetaminophen 500 Mg Tab) 1,000 mg PO ONETIME ONE Stop: 03/31/21 09:59 Last Admin: 03/31/21 10:13 Dose: 1,000 mg Documented by: Acetaminophen (Acetaminophen 500 Mg Tab) 1,000 mg PO ONETIME ONE Stop: 03/31/21 16:09 Last Admin: 03/31/21 16:18 Dose: 1,000 mg Documented by: Acetaminophen (Acetaminophen 500 Mg Tab) Confirm Administered Dose 1,000 mg .ROUTE .STK-MED ONE Stop: 03/31/21 16:45 Last Admin: 03/31/21 22:48 Dose: Not Given Documented by: Potassium Chloride 20 meq/ (Premix) 100 mls @ 50 mls/hr IV ONETIME ONE Stop: 03/31/21 12:36 Last Admin: 03/31/21 10:53 Dose: 50 mls/hr Documented by: Magnesium Sulfate 2 gm/ Premix 50 mls @ 25 mls/hr IV ONETIME ONE Stop: 03/31/21 12:36 Last Admin: 03/31/21 10:53 Dose: 25 mls/hr Documented by: Sodium Chloride (Normal Saline) 500 mls @ 999 mls/hr IV .BOLUS ONE Stop: 03/31/21 13:16 Last Admin: 03/31/21 12:47 Dose: 999 mls/hr Documented by: Lidocaine HCl (Lidocaine 1% 30 Ml Sdv) 1 ml INJECT ONETIME ONE Stop: 03/31/21 10:42 Last Admin: 03/31/21 10:53 Dose: 1 ml Documented by: Potassium Chloride (Potassium Chloride 10 Meq Tab.Er) 40 meq PO ONETIME ONE Stop: 03/31/21 17:59 Last Admin: 03/31/21 18:12 Dose: 40 meq Documented by: - Exam General: Alert, Oriented HEENT: Pupils Equal, Pupils Reactive, EOMI, Mucous Membr. Moist/[place] Neck: Supple Lungs: Clear to Auscultation, Normal Respiratory Effort Cardiovascular: Regular Rate, Regular Rhythm GI/Abdominal Exam: Normal Bowel Sounds, Soft, Non-Tender, No Organomegaly, No Distention, No Abnormal Bruit, No Mass, Pelvis Stable Back Exam: Paraspinal Tenderness. No: Normal Inspection, Full Range of Motion Extremities: Normal Inspection, Normal Range of Motion, Non-Tender, No Pedal Edema, Normal Capillary Refill Peripheral Pulses: 2+: Carotid (L), Carotid (R), Brachial (L), Brachial (R), Radial (L), Radial (R), Femoral (L), Femoral (R), Popliteal (L), Popliteal (R), Posterior Tibial (L), Posterior Tibial (R), Dorsalis Pedis (L), Dorsalis Pedis (R) Skin: Warm, Dry, Intact Wound/Incisions: Healing Well Neurological: No New Focal Deficit Psy/Mental Status: Alert, Normal Affect, Normal Mood - Patient Data Lab Results Last 24 hrs: Laboratory Results - last 24 hr 03/31/21 03/31/21 03/31/21 Range/Units 09:28 09:36 09:36 WBC 8.0 (5.0-10.0) 10^3/uL RBC 5.04 (4.2-5.4) 10^6/uL Hgb 12.8 D (12.0-16.0) g/dL Hct 39.1 (37.0-47.0) % MCV 77.6 L D (80-100) fL MCH 25.4 L (27.0-34.0) pg MCHC 32.7 L (33.0-35.0) g/dL Plt Count 194 (150-450) 10^3/uL Neut % (Auto) 77.6 H (42.2-75.2) % Lymph % (Auto) 7.4 L (20.5-50.1) % Clare % (Auto) 10.4 H (2-8) % Eos % (Auto) 4.1 H (1.0-3.0) % Baso % (Auto) 0.5 (0.0-1.0) % PT (9.0-12.0) SEC INR (0.9-1.2) Sodium 132 L (136-145) mmol/L Potassium 3.1 L (3.5-5.1) mmol/L Chloride 93 L (98-107) mmol/L Carbon Dioxide 28 (21-32) mmol/L Anion Gap 14.1 H (7-13) mEq/L BUN 8 (7-18) mg/dL Creatinine 0.81 (0.55-1.02) mg/dL Est Cr Clr Drug Dosing 45.28 mL/min Estimated GFR (MDRD) > 60 BUN/Creatinine Ratio 9.9 (No establ ref range) Glucose 146 H (70-99) mg/dL POC Glucose (70-99) mg/dL Lactic Acid (0.4-2.0) mmol/L Calcium 8.0 L (8.5-10.1) mg/dL Magnesium 1.5 L (1.8-2.4) mg/dL Iron (50-175) ug/dL TIBC (250-450) ug/dL % Saturation (20.0-50.0) % Ferritin (8-252) mg/mL Total Bilirubin 2.3 H (0.2-1.0) mg/dL Direct Bilirubin (0.0-0.2) mg/dL AST 51 H (15-37) U/L ALT 27 (14-59) U/L Alkaline Phosphatase 129 H (46-116) U/L Total Protein 7.3 (6.4-8.2) g/dL Albumin 3.2 L (3.4-5.0) g/dL Globulin 4.1 Albumin/Globulin Ratio 0.78 Free T4 (0.76-1.46) ng/dL TSH, Ultra Sensitive (0.36-3.74) uIU/mL Urine Color Yellow (YELLOW) Urine Appearance Clear (CLEAR) Urine pH 7.0 (5.0-9.0) Ur Specific [place] 1.020 (1.005-1.030) Urine Protein Negative (NEGATIVE) Urine Glucose (UA) 100 H (NEGATIVE) Urine Ketones >=160 H (NEGATIVE) Urine Occult Blood Trace-intact H (NEGATIVE) Urine Nitrite Negative (NEGATIVE) Urine Bilirubin Negative (NEGATIVE) Urine Urobilinogen 1.0 (0.2-1.0) mg/dL Ur Leukocyte Esterase Negative (NEGATIVE) Urine RBC 0-5 /HPF Urine WBC 0-5 (0-5/HPF) /HPF Ur Epithelial Cells Few (NOT SEEN) /HPF Urine Bacteria Not seen (0-FEW/HPF) /HPF SARS-CoV-2 RNA (VÍCTOR) (NEGATIVE) 03/31/21 03/31/21 03/31/21 Range/Units 09:36 09:36 09:36 WBC (5.0-10.0) 10^3/uL RBC (4.2-5.4) 10^6/uL Hgb (12.0-16.0) g/dL Hct (37.0-47.0) % MCV (80-100) fL MCH (27.0-34.0) pg MCHC (33.0-35.0) g/dL Plt Count (150-450) 10^3/uL Neut % (Auto) (42.2-75.2) % Lymph % (Auto) (20.5-50.1) % Clare % (Auto) (2-8) % Eos % (Auto) (1.0-3.0) % Baso % (Auto) (0.0-1.0) % PT (9.0-12.0) SEC INR (0.9-1.2) Sodium (136-145) mmol/L Potassium (3.5-5.1) mmol/L Chloride (98-107) mmol/L Carbon Dioxide (21-32) mmol/L Anion Gap (7-13) mEq/L BUN (7-18) mg/dL Creatinine (0.55-1.02) mg/dL Est Cr Clr Drug Dosing mL/min Estimated GFR (MDRD) BUN/Creatinine Ratio (No establ ref range) Glucose (70-99) mg/dL POC Glucose (70-99) mg/dL Lactic Acid 1.3 (0.4-2.0) mmol/L Calcium (8.5-10.1) mg/dL Magnesium (1.8-2.4) mg/dL Iron 62 (50-175) ug/dL TIBC 376 (250-450) ug/dL % Saturation 16.5 L (20.0-50.0) % Ferritin 63 (8-252) mg/mL Total Bilirubin (0.2-1.0) mg/dL Direct Bilirubin 0.5 H (0.0-0.2) mg/dL AST (15-37) U/L ALT (14-59) U/L Alkaline Phosphatase (46-116) U/L Total Protein (6.4-8.2) g/dL Albumin (3.4-5.0) g/dL Globulin Albumin/Globulin Ratio Free T4 (0.76-1.46) ng/dL TSH, Ultra Sensitive (0.36-3.74) uIU/mL Urine Color (YELLOW) Urine Appearance (CLEAR) Urine pH (5.0-9.0) Ur Specific [place] (1.005-1.030) Urine Protein (NEGATIVE) Urine Glucose (UA) (NEGATIVE) Urine Ketones (NEGATIVE) Urine Occult Blood (NEGATIVE) Urine Nitrite (NEGATIVE) Urine Bilirubin (NEGATIVE) Urine Urobilinogen (0.2-1.0) mg/dL Ur Leukocyte Esterase (NEGATIVE) Urine RBC /HPF Urine WBC (0-5/HPF) /HPF Ur Epithelial Cells (NOT SEEN) /HPF Urine Bacteria (0-FEW/HPF) /HPF SARS-CoV-2 RNA (VÍCTOR) (NEGATIVE) 03/31/21 03/31/21 03/31/21 Range/Units 09:36 13:26 13:40 WBC (5.0-10.0) 10^3/uL RBC (4.2-5.4) 10^6/uL Hgb (12.0-16.0) g/dL Hct (37.0-47.0) % MCV (80-100) fL MCH (27.0-34.0) pg MCHC (33.0-35.0) g/dL Plt Count (150-450) 10^3/uL Neut % (Auto) (42.2-75.2) % Lymph % (Auto) (20.5-50.1) % Clare % (Auto) (2-8) % Eos % (Auto) (1.0-3.0) % Baso % (Auto) (0.0-1.0) % PT (9.0-12.0) SEC INR (0.9-1.2) Sodium (136-145) mmol/L Potassium (3.5-5.1) mmol/L Chloride (98-107) mmol/L Carbon Dioxide (21-32) mmol/L Anion Gap (7-13) mEq/L BUN (7-18) mg/dL Creatinine (0.55-1.02) mg/dL Est Cr Clr Drug Dosing mL/min Estimated GFR (MDRD) BUN/Creatinine Ratio (No establ ref range) Glucose (70-99) mg/dL POC Glucose 79 (70-99) mg/dL Lactic Acid (0.4-2.0) mmol/L Calcium (8.5-10.1) mg/dL Magnesium (1.8-2.4) mg/dL Iron (50-175) ug/dL TIBC (250-450) ug/dL % Saturation (20.0-50.0) % Ferritin (8-252) mg/mL Total Bilirubin (0.2-1.0) mg/dL Direct Bilirubin (0.0-0.2) mg/dL AST (15-37) U/L ALT (14-59) U/L Alkaline Phosphatase (46-116) U/L Total Protein (6.4-8.2) g/dL Albumin (3.4-5.0) g/dL Globulin Albumin/Globulin Ratio Free T4 1.48 H (0.76-1.46) ng/dL TSH, Ultra Sensitive 23.38 H (0.36-3.74) uIU/mL Urine Color (YELLOW) Urine Appearance (CLEAR) Urine pH (5.0-9.0) Ur Specific [place] (1.005-1.030) Urine Protein (NEGATIVE) Urine Glucose (UA) (NEGATIVE) Urine Ketones (NEGATIVE) Urine Occult Blood (NEGATIVE) Urine Nitrite (NEGATIVE) Urine Bilirubin (NEGATIVE) Urine Urobilinogen (0.2-1.0) mg/dL Ur Leukocyte Esterase (NEGATIVE) Urine RBC /HPF Urine WBC (0-5/HPF) /HPF Ur Epithelial Cells (NOT SEEN) /HPF Urine Bacteria (0-FEW/HPF) /HPF SARS-CoV-2 RNA (VÍCTOR) Negative (NEGATIVE) 03/31/21 03/31/21 03/31/21 Range/Units 14:09 16:47 18:00 WBC (5.0-10.0) 10^3/uL RBC (4.2-5.4) 10^6/uL Hgb (12.0-16.0) g/dL Hct (37.0-47.0) % MCV (80-100) fL MCH (27.0-34.0) pg MCHC (33.0-35.0) g/dL Plt Count (150-450) 10^3/uL Neut % (Auto) (42.2-75.2) % Lymph % (Auto) (20.5-50.1) % Clare % (Auto) (2-8) % Eos % (Auto) (1.0-3.0) % Baso % (Auto) (0.0-1.0) % PT (9.0-12.0) SEC INR (0.9-1.2) Sodium (136-145) mmol/L Potassium (3.5-5.1) mmol/L Chloride (98-107) mmol/L Carbon Dioxide (21-32) mmol/L Anion Gap (7-13) mEq/L BUN (7-18) mg/dL Creatinine (0.55-1.02) mg/dL Est Cr Clr Drug Dosing mL/min Estimated GFR (MDRD) BUN/Creatinine Ratio (No establ ref range) Glucose (70-99) mg/dL POC Glucose 61 L 66 L 60 L (70-99) mg/dL Lactic Acid (0.4-2.0) mmol/L Calcium (8.5-10.1) mg/dL Magnesium (1.8-2.4) mg/dL Iron (50-175) ug/dL TIBC (250-450) ug/dL % Saturation (20.0-50.0) % Ferritin (8-252) mg/mL Total Bilirubin (0.2-1.0) mg/dL Direct Bilirubin (0.0-0.2) mg/dL AST (15-37) U/L ALT (14-59) U/L Alkaline Phosphatase (46-116) U/L Total Protein (6.4-8.2) g/dL Albumin (3.4-5.0) g/dL Globulin Albumin/Globulin Ratio Free T4 (0.76-1.46) ng/dL TSH, Ultra Sensitive (0.36-3.74) uIU/mL Urine Color (YELLOW) Urine Appearance (CLEAR) Urine pH (5.0-9.0) Ur Specific [place] (1.005-1.030) Urine Protein (NEGATIVE) Urine Glucose (UA) (NEGATIVE) Urine Ketones (NEGATIVE) Urine Occult Blood (NEGATIVE) Urine Nitrite (NEGATIVE) Urine Bilirubin (NEGATIVE) Urine Urobilinogen (0.2-1.0) mg/dL Ur Leukocyte Esterase (NEGATIVE) Urine RBC /HPF Urine WBC (0-5/HPF) /HPF Ur Epithelial Cells (NOT SEEN) /HPF Urine Bacteria (0-FEW/HPF) /HPF SARS-CoV-2 RNA (VÍCTOR) (NEGATIVE) 03/31/21 03/31/21 04/01/21 Range/Units 20:30 21:42 01:56 WBC (5.0-10.0) 10^3/uL RBC (4.2-5.4) 10^6/uL Hgb (12.0-16.0) g/dL Hct (37.0-47.0) % MCV (80-100) fL MCH (27.0-34.0) pg MCHC (33.0-35.0) g/dL Plt Count (150-450) 10^3/uL Neut % (Auto) (42.2-75.2) % Lymph % (Auto) (20.5-50.1) % Clare % (Auto) (2-8) % Eos % (Auto) (1.0-3.0) % Baso % (Auto) (0.0-1.0) % PT 20.4 H D (9.0-12.0) SEC INR 2.1 H (0.9-1.2) Sodium (136-145) mmol/L Potassium (3.5-5.1) mmol/L Chloride (98-107) mmol/L Carbon Dioxide (21-32) mmol/L Anion Gap (7-13) mEq/L BUN (7-18) mg/dL Creatinine (0.55-1.02) mg/dL Est Cr Clr Drug Dosing mL/min Estimated GFR (MDRD) BUN/Creatinine Ratio (No establ ref range) Glucose (70-99) mg/dL POC Glucose 86 100 H (70-99) mg/dL Lactic Acid (0.4-2.0) mmol/L Calcium (8.5-10.1) mg/dL Magnesium (1.8-2.4) mg/dL Iron (50-175) ug/dL TIBC (250-450) ug/dL % Saturation (20.0-50.0) % Ferritin (8-252) mg/mL Total Bilirubin (0.2-1.0) mg/dL Direct Bilirubin (0.0-0.2) mg/dL AST (15-37) U/L ALT (14-59) U/L Alkaline Phosphatase (46-116) U/L Total Protein (6.4-8.2) g/dL Albumin (3.4-5.0) g/dL Globulin Albumin/Globulin Ratio Free T4 (0.76-1.46) ng/dL TSH, Ultra Sensitive (0.36-3.74) uIU/mL Urine Color (YELLOW) Urine Appearance (CLEAR) Urine pH (5.0-9.0) Ur Specific [place] (1.005-1.030) Urine Protein (NEGATIVE) Urine Glucose (UA) (NEGATIVE) Urine Ketones (NEGATIVE) Urine Occult Blood (NEGATIVE) Urine Nitrite (NEGATIVE) Urine Bilirubin (NEGATIVE) Urine Urobilinogen (0.2-1.0) mg/dL Ur Leukocyte Esterase (NEGATIVE) Urine RBC /HPF Urine WBC (0-5/HPF) /HPF Ur Epithelial Cells (NOT SEEN) /HPF Urine Bacteria (0-FEW/HPF) /HPF SARS-CoV-2 RNA (VÍCTOR) (NEGATIVE) 04/01/21 04/01/21 Range/Units 05:50 05:55 WBC (5.0-10.0) 10^3/uL RBC (4.2-5.4) 10^6/uL Hgb (12.0-16.0) g/dL Hct (37.0-47.0) % MCV (80-100) fL MCH (27.0-34.0) pg MCHC (33.0-35.0) g/dL Plt Count (150-450) 10^3/uL Neut % (Auto) (42.2-75.2) % Lymph % (Auto) (20.5-50.1) % Clare % (Auto) (2-8) % Eos % (Auto) (1.0-3.0) % Baso % (Auto) (0.0-1.0) % PT (9.0-12.0) SEC INR (0.9-1.2) Sodium 133 L (136-145) mmol/L Potassium 3.5 (3.5-5.1) mmol/L Chloride 98 (98-107) mmol/L Carbon Dioxide 27 (21-32) mmol/L Anion Gap 11.5 (7-13) mEq/L BUN 5 L (7-18) mg/dL Creatinine 0.68 (0.55-1.02) mg/dL Est Cr Clr Drug Dosing 51.29 mL/min Estimated GFR (MDRD) > 60 BUN/Creatinine Ratio 7.4 (No establ ref range) Glucose 110 H (70-99) mg/dL POC Glucose 105 H (70-99) mg/dL Lactic Acid (0.4-2.0) mmol/L Calcium 7.4 L (8.5-10.1) mg/dL Magnesium 1.8 (1.8-2.4) mg/dL Iron (50-175) ug/dL TIBC (250-450) ug/dL % Saturation (20.0-50.0) % Ferritin (8-252) mg/mL Total Bilirubin 1.5 H (0.2-1.0) mg/dL Direct Bilirubin (0.0-0.2) mg/dL AST 32 (15-37) U/L ALT 18 (14-59) U/L Alkaline Phosphatase 93 (46-116) U/L Total Protein 5.7 L (6.4-8.2) g/dL Albumin 2.5 L (3.4-5.0) g/dL Globulin 3.2 Albumin/Globulin Ratio 0.78 Free T4 (0.76-1.46) ng/dL TSH, Ultra Sensitive (0.36-3.74) uIU/mL Urine Color (YELLOW) Urine Appearance (CLEAR) Urine pH (5.0-9.0) Ur Specific [place] (1.005-1.030) Urine Protein (NEGATIVE) Urine Glucose (UA) (NEGATIVE) Urine Ketones (NEGATIVE) Urine Occult Blood (NEGATIVE) Urine Nitrite (NEGATIVE) Urine Bilirubin (NEGATIVE) Urine Urobilinogen (0.2-1.0) mg/dL Ur Leukocyte Esterase (NEGATIVE) Urine RBC /HPF Urine WBC (0-5/HPF) /HPF Ur Epithelial Cells (NOT SEEN) /HPF Urine Bacteria (0-FEW/HPF) /HPF SARS-CoV-2 RNA (VÍCTOR) (NEGATIVE) Result Diagrams: 03/31/21 09:36 04/01/21 05:50 Sepsis Event Note - Evaluation Sepsis Screening Result: No Definite Risk - Focused Exam Vital Signs: Vital Signs Temp Pulse Resp BP Pulse Ox 04/01/21 06:00 98.4 F 66 18 116/64 96 03/31/21 23:19 97.5 F 60 20 107/55 L 94 L - Problem List Review Problem List Initiated/Reviewed/Updated: Yes - My Orders Last 24 Hours: My Active Orders 03/31/21 Dinner Consistent Carbohydrate Diet [DIET] 03/31/21 17:55 Bedrest Bedside Commode [RC] 08,20 Blood Glucose Check, Bedside [RC] Q4H Vital Signs [RC] 00,04,08,12,16,20 Consult to Case Management/Weed Control Inspector [CONS] Routine Acetaminophen [TylenoL] 650 mg PO Q4H PRN Acetaminophen/oxyCODONE [Percocet 325-5 MG] 1 tab PO Q4H PRN Morphine 1 mg IVPUSH Q4H PRN Ondansetron [Zofran] 4 mg IVPUSH Q4H PRN Sodium Chloride 0.9% [Saline Flush] 10 ml FLUSH ASDIRECTED PRN Peripheral IV Insertion Adult [OM.PC] Routine Sequential Compression Device [OM.PC] Per Unit Routine Resuscitation Status Routine 03/31/21 17:56 Antiembolic Devices [RC] Peripheral IV Care [RC] . DIRECTED 03/31/21 17:59 OCCULT BLOOD DIAGNOSTIC [OP] Routine 03/31/21 18:00 Dextrose 5%-0.9% NaCl [Dextrose 5%-Normal Saline] 1,000 ml IV ASDIRECTED Dextrose 50% in Water 50 ml IVPUSH Q15M PRN Glucagon,Human Recombinant [GlucaGen] 1 mg IM Q15M PRN Insulin Lispro [HumaLOG] See Protocol SUBCUT Q4H 03/31/21 18:01 Communication Order [RC] 08,03/31/21 18:09 PT Evaluation and Treatment [CONS] Routine 04/02/21 05:00 CMP [COMPREHENSIVE METABOLIC PN,CMP] [CHEM] Routine INR,PT,PROTHROMBIN TIME [COAG] Routine - Plan Plan:: Surgical History: Cholecystectomy, appendectomy, tonsillectomy, adenoidectomy, ventral herniorrhaphy, CABG, bilateral cataract surgery, cardiac septal defect repair, bioprosthetic aortic valve replacement, subsequent TAVR Family History: Stroke, diabetes, hypertension, hyperlipidemia Social History: Tobacco: Never Alcohol: Denies Caffeine: Coffee Drugs: Never Allergies: Iodine, adhesive tape, ibuprofen, Keflex Code Status: Full Assessment / Plan: Acute T12 compression fracture. Per staffing emergency department, the patient was discussed with neurosurgery who indicated that transfer was not necessary. As needed analgesia. Patient will need to be fitted with TLSO brace. Physical therapy consult. Hypomagnesemia. Will monitor magnesium levels intermittently and supplement as necessary Hypoglycemia. Will monitor serum glucose levels every 4 hours. IV D5 NS at 75 mils per hour Hypokalemia. Will monitor potassium levels intermittently and supplement as necessary Hyponatremia, chronic, intermittent. Will monitor sodium levels intermittently. IV D5 NS at 75 mils per hour Microcytosis. Check serum ferritin, iron panel, fecal occult blood Osteoporosis Hypothyroidism. Check TSH, check free T4 Hyperbilirubinemia, chronic. Will monitor LFTs periodically with CMP COPD Grade 1 diastolic dysfunction Moderate tricuspid regurgitation Moderate pulmonary regurgitation Coronary artery disease, status post PR, status post CABG Diabetes. Will check fingerstick glucose every 4 hours and provide insulin sign scale GERD Hyperlipidemia Hypertension History of aortic stenosis, status post bioprosthetic aortic valve replacement [place]'s disease Anxiety Constipation Seasonal allergies Osteoarthritis Dementia Scleroderma History of esophageal stricture with history of dilatation Spinal stenosis Cough syndrome DVT prophylaxis. Bilateral SCD Disposition: I requested case management evaluate the patient along with physical therapy to determine discharge planning as the patient may require rehabilitation and swing bed versus residential placement. The patient's home medications were not yet input to the EMR/DHR system. Once they are, they will be reviewed and reconciled END OF DOCTOR EMAMIS HISTORY AND PHYSICAL / CONSULTATION NOTE
[2021-04-01 12:21] VITALS: BP 132/54; PULSE 73
--- NOTE | 2021-04-01 12:55 | PCM.DCSUM1 ---
Discharge Summary - Hospital Course Free Text/Narrative:: START OF DOCTOR DEYSI DISCHARGE SUMMARY Date of Admission: March 31, 2021 Date of Discharge: 12:50 PM on April 01, 2021 Primary Diagnosis: Acute T12 compression fracture Secondary Diagnosis: Hypomagnesemia, s resolved Hyperglycemia, resolved Hypokalemia, resolved Hyponatremia, chronic, intermittent Microcytosis Osteoporosis Hypothyroidism Hyperbilirubinemia, chronic COPD Grade 1 diastolic dysfunction Moderate tricuspid regurgitation Moderate pulmonary regurgitation Coronary artery disease, status post CO, status post CABG Diabetes GERD Hyperlipidemia Hypertension History of aortic stenosis, status post bioprosthetic aortic valve replacement [place]'s disease Anxiety Constipation Seasonal allergies Osteoarthritis Dementia Scleroderma History of esophageal stricture with history of dilatation Spinal stenosis Crest syndrome Consultations: None Condition on Discharge: Fair Disposition: The patient will be advised to follow-up with gastroenterology 10 to 14 days post discharge or as directed for her history of esophageal stricture with history of dilatation The patient is advised to follow-up with neurosurgery or orthopedic spine as soon as possible for diagnosis of acute T12 compression fracture. Patient will require referral from neurosurgery or orthopedic surgeryspine to be fitted for TLSO brace by orthotics and prosthetics Home health care referral for physical therapy Discharge Medications: [place] 5/325 mg p.o. every 4 hours as needed severe pain. Quantity 30. 0 refills Lamisil 81% cream to be applied to affected area twice daily Tylenol 500 mg p.o. every 6 hours as needed mild pain Alogliptin 25 mg p.o. daily Fosamax 70 mg p.o. weekly DuoNeb every 4 hours as needed shortness of breath or wheeze Carbidopa/levodopa: 25/100 m tab p.o. 3 times daily Multivitamin 1 tab p.o. daily Colace 100 g p.o. nightly Vitamin D 2000 IU p.o. twice daily Aldactone 50 mg p.o. daily K-Dur 10 EQ p.o. daily Nitroglycerin 0.4 mg sublingually every 5 minutes as needed chest pain. She is to call 911 if there is no resolution of chest pain after third dose Singular 10 mg p.o. nightly Losartan 100 mg p.o. daily Claritin 10 mg p.o. daily Synthroid 200 mcg p.o. daily Hydrocortisone 20 mg p.o. daily and 10 mg p.o. nightly Advair Diskus: 500/50 mc puff twice daily Fludrocortisone 0.1 mg p.o. daily END OF DOCTOR EMAMIS DISCHARGE SUMMARY - Discharge Data Discharge Date: 04/01/21 Discharge Disposition: Home, Self-Care 01 Condition: Fair - Referral to Home Health Primary Care Physician: PCP None - Patient Summary/Data Consults: Consultations 03/31/21 17:55 Consult to Case Management/Beer Coil Cleaner [CONS] Routine 03/31/21 18:09 PT Evaluation and Treatment [CONS] Routine - Patient Instructions Diet: Heart Healthy Diet, Low Sodium, Fluid Restriction, Diabetic Diet Activity: As Tolerated - Discharge Plan Prescriptions/Med Rec: Acetaminophen/HYDROcodone [[place] 325-5 MG] 1 tab PO Q4H PRN 30 Days #30 tab PRN Reason: Pain (Severe 7-10) Home Medications: Home Meds Fludrocortisone [Florinef] 0.1 mg PO WITHBREAKFAST 11/28/13 [History] Montelukast Sodium 10 mg PO BEDTIME 11/28/13 [History] Albuterol/Ipratropium [DuoNeb 3.0-0.5 MG/3 ML] 3 ml NEB Q4HR PRN 01/14/15 [History] Spironolactone [Aldactone] 50 mg PO DAILY 11/03/19 [History] Alendronate Sodium 70 mg PO WEEKLY 12/05/19 [History] Alogliptin Benzoate [Alogliptin] 1 tab PO DAILY 12/05/19 [History] Carboxymethylcellulose Sodium [Refresh Celluvisc] 1 - 2 drop EYELF QID 12/05/19 [History] Cholecalciferol (Vitamin D3) [Vitamin D3] 2 cap PO BID 12/05/19 [History] Docusate Sodium 100 mg PO BEDTIME 12/05/19 [History] Fluticasone Propion/Salmeterol [Fluticasone-Salmeterol 500-50] 1 puff INH BID 0 12/05/19 [History] Loratadine 1 tab PO DAILY 12/05/19 [History] Nitroglycerin [Nitrostat] 0.4 mg SL Q5M PRN 12/05/19 [History] Acetaminophen 500 mg PO Q6H PRN 04/01/21 [History] Acetaminophen/HYDROcodone [[place] 325-5 MG] 1 tab PO Q4H PRN 30 Days #30 tab 04/01/21 [Rx] Go/Vit B12/Folic Acid/Vit B6 [Folic Acid-Vit B6-Vit B12 Tab] 1 tab PO DAILY 04/01/21 [History] Carbidopa/Levodopa [Carbidopa-Levodopa 25-100] 1 tab PO TID 04/01/21 [History] Hydrocortisone 10 mg PO WITHDINNER 04/01/21 [History] Hydrocortisone 20 mg PO DAILY 04/01/21 [History] Levothyroxine 112 mcg PO ACBREAKFAST 04/01/21 [History] Losartan Potassium 100 mg PO DAILY 04/01/21 [History] Potassium Chloride 10 meq PO WITHBREAKFAST 04/01/21 [History] Terbinafine [LamISIL AT 1% Crm] 1 gm TOP BID 04/01/21 [History] Patient Handouts: Acetaminophen; Hydrocodone tablets or capsules, Type 2 Diabetes Mellitus, Self Care, Adult, [id number], Thoracic Spine Fracture, [id number], Hypoglycemia, [id number] - Discharge Summary/Plan Comment DC Time >30 min.: Yes - Review of Systems General: Reports: No Symptoms HEENT: Reports: No Symptoms Pulmonary: Reports: No Symptoms Cardiovascular: Reports: No Symptoms Gastrointestinal: Reports: No Symptoms Genitourinary: Reports: No Symptoms Musculoskeletal: Reports: Back Pain Skin: Reports: No Symptoms Neurological: Reports: No Symptoms Psychiatric: Reports: No Symptoms - Patient Data Vitals - Most Recent: Last Vital Signs Temp 97.7 F 04/01/21 12:18 Pulse 73 04/01/21 12:18 Resp 20 04/01/21 12:18 BP 132/54 L 04/01/21 12:18 Pulse Ox 97 04/01/21 12:18 Weight - Most Recent: 100 lb 3.2 oz I&O - Last 24 hours: Intake & Output 03/31/21 04/01/21 04/01/21 22:59 06:59 14:59 Intake Total 50 250 Balance 50 250 Lab Results - Last 24 hrs: Laboratory Results - last 24 hr 03/31/21 03/31/21 03/31/21 Range/Units 09:36 09:36 13:26 PT (9.0-12.0) SEC INR (0.9-1.2) Sodium (136-145) mmol/L Potassium (3.5-5.1) mmol/L Chloride (98-107) mmol/L Carbon Dioxide (21-32) mmol/L Anion Gap (7-13) mEq/L BUN (7-18) mg/dL Creatinine (0.55-1.02) mg/dL Est Cr Clr Drug Dosing mL/min Estimated GFR (MDRD) BUN/Creatinine Ratio (No establ ref range) Glucose (70-99) mg/dL POC Glucose 79 (70-99) mg/dL Calcium (8.5-10.1) mg/dL Magnesium (1.8-2.4) mg/dL Iron 62 (50-175) ug/dL TIBC 376 (250-450) ug/dL % Saturation 16.5 L (20.0-50.0) % Ferritin 63 (8-252) mg/mL Total Bilirubin (0.2-1.0) mg/dL AST (15-37) U/L ALT (14-59) U/L Alkaline Phosphatase (46-116) U/L Total Protein (6.4-8.2) g/dL Albumin (3.4-5.0) g/dL Globulin Albumin/Globulin Ratio Free T4 1.48 H (0.76-1.46) ng/dL TSH, Ultra Sensitive 23.38 H (0.36-3.74) uIU/mL SARS-CoV-2 RNA (VÍCTOR) (NEGATIVE) 03/31/21 03/31/21 03/31/21 Range/Units 13:40 14:09 16:47 PT (9.0-12.0) SEC INR (0.9-1.2) Sodium (136-145) mmol/L Potassium (3.5-5.1) mmol/L Chloride (98-107) mmol/L Carbon Dioxide (21-32) mmol/L Anion Gap (7-13) mEq/L BUN (7-18) mg/dL Creatinine (0.55-1.02) mg/dL Est Cr Clr Drug Dosing mL/min Estimated GFR (MDRD) BUN/Creatinine Ratio (No establ ref range) Glucose (70-99) mg/dL POC Glucose 61 L 66 L (70-99) mg/dL Calcium (8.5-10.1) mg/dL Magnesium (1.8-2.4) mg/dL Iron (50-175) ug/dL TIBC (250-450) ug/dL % Saturation (20.0-50.0) % Ferritin (8-252) mg/mL Total Bilirubin (0.2-1.0) mg/dL AST (15-37) U/L ALT (14-59) U/L Alkaline Phosphatase (46-116) U/L Total Protein (6.4-8.2) g/dL Albumin (3.4-5.0) g/dL Globulin Albumin/Globulin Ratio Free T4 (0.76-1.46) ng/dL TSH, Ultra Sensitive (0.36-3.74) uIU/mL SARS-CoV-2 RNA (VÍCTOR) Negative (NEGATIVE) 03/31/21 03/31/21 03/31/21 Range/Units 18:00 20:30 21:42 PT 20.4 H D (9.0-12.0) SEC INR 2.1 H (0.9-1.2) Sodium (136-145) mmol/L Potassium (3.5-5.1) mmol/L Chloride (98-107) mmol/L Carbon Dioxide (21-32) mmol/L Anion Gap (7-13) mEq/L BUN (7-18) mg/dL Creatinine (0.55-1.02) mg/dL Est Cr Clr Drug Dosing mL/min Estimated GFR (MDRD) BUN/Creatinine Ratio (No establ ref range) Glucose (70-99) mg/dL POC Glucose 60 L 86 (70-99) mg/dL Calcium (8.5-10.1) mg/dL Magnesium (1.8-2.4) mg/dL Iron (50-175) ug/dL TIBC (250-450) ug/dL % Saturation (20.0-50.0) % Ferritin (8-252) mg/mL Total Bilirubin (0.2-1.0) mg/dL AST (15-37) U/L ALT (14-59) U/L Alkaline Phosphatase (46-116) U/L Total Protein (6.4-8.2) g/dL Albumin (3.4-5.0) g/dL Globulin Albumin/Globulin Ratio Free T4 (0.76-1.46) ng/dL TSH, Ultra Sensitive (0.36-3.74) uIU/mL SARS-CoV-2 RNA (VÍCTOR) (NEGATIVE) 04/01/21 04/01/21 04/01/21 Range/Units 01:56 05:50 05:55 PT (9.0-12.0) SEC INR (0.9-1.2) Sodium 133 L (136-145) mmol/L Potassium 3.5 (3.5-5.1) mmol/L Chloride 98 (98-107) mmol/L Carbon Dioxide 27 (21-32) mmol/L Anion Gap 11.5 (7-13) mEq/L BUN 5 L (7-18) mg/dL Creatinine 0.68 (0.55-1.02) mg/dL Est Cr Clr Drug Dosing 51.29 mL/min Estimated GFR (MDRD) > 60 BUN/Creatinine Ratio 7.4 (No establ ref range) Glucose 110 H (70-99) mg/dL POC Glucose 100 H 105 H (70-99) mg/dL Calcium 7.4 L (8.5-10.1) mg/dL Magnesium 1.8 (1.8-2.4) mg/dL Iron (50-175) ug/dL TIBC (250-450) ug/dL % Saturation (20.0-50.0) % Ferritin (8-252) mg/mL Total Bilirubin 1.5 H (0.2-1.0) mg/dL AST 32 (15-37) U/L ALT 18 (14-59) U/L Alkaline Phosphatase 93 (46-116) U/L Total Protein 5.7 L (6.4-8.2) g/dL Albumin 2.5 L (3.4-5.0) g/dL Globulin 3.2 Albumin/Globulin Ratio 0.78 Free T4 (0.76-1.46) ng/dL TSH, Ultra Sensitive (0.36-3.74) uIU/mL SARS-CoV-2 RNA (VÍCTOR) (NEGATIVE) 04/01/21 04/01/21 Range/Units 08:07 12:00 PT (9.0-12.0) SEC INR (0.9-1.2) Sodium (136-145) mmol/L Potassium (3.5-5.1) mmol/L Chloride (98-107) mmol/L Carbon Dioxide (21-32) mmol/L Anion Gap (7-13) mEq/L BUN (7-18) mg/dL Creatinine (0.55-1.02) mg/dL Est Cr Clr Drug Dosing mL/min Estimated GFR (MDRD) BUN/Creatinine Ratio (No establ ref range) Glucose (70-99) mg/dL POC Glucose 101 H 121 H (70-99) mg/dL Calcium (8.5-10.1) mg/dL Magnesium (1.8-2.4) mg/dL Iron (50-175) ug/dL TIBC (250-450) ug/dL % Saturation (20.0-50.0) % Ferritin (8-252) mg/mL Total Bilirubin (0.2-1.0) mg/dL AST (15-37) U/L ALT (14-59) U/L Alkaline Phosphatase (46-116) U/L Total Protein (6.4-8.2) g/dL Albumin (3.4-5.0) g/dL Globulin Albumin/Globulin Ratio Free T4 (0.76-1.46) ng/dL TSH, Ultra Sensitive (0.36-3.74) uIU/mL SARS-CoV-2 RNA (VÍCTOR) (NEGATIVE) Med Orders - Current: Current Medications Acetaminophen (Acetaminophen 325 Mg Tab) 650 mg PO Q4H PRN PRN Reason: Pain (Mild 1-3)/fever Last Admin: 04/01/21 02:00 Dose: 650 mg Documented by: Dextrose/Water (50% Dextrose In Water 50 Ml Syringe) 50 ml IVPUSH Q15M PRN PRN Reason: Hypoglycemia Glucagon (Glucagon,Human Recombinant 1 Mg Vial) 1 mg IM Q15M PRN PRN Reason: Hypoglycemia Dextrose/Sodium Chloride (Dextrose 5%-Normal Saline) 1,000 mls @ 75 mls/hr IV ASDIRECTED LO Last Admin: 04/01/21 07:00 Dose: 75 mls/hr Documented by: Insulin Human Lispro (Insulin Lispro 100 Units/Ml 3 Ml Vial) 0 unit SUBCUT Q4H [facility]; Protocol Last Admin: 04/01/21 12:47 Dose: Not Given Documented by: Morphine Sulfate (Morphine 2 Mg/Ml Syringe) 1 mg IVPUSH Q4H PRN PRN Reason: Pain (severe 7-10) Ondansetron HCl (Ondansetron 4 Mg/2 Ml Sdv) 4 mg IVPUSH Q4H PRN PRN Reason: Nausea/Vomiting Oxycodone/Acetaminophen (Acetaminophen/Oxycodone 325-5 Mg Tab) 1 tab PO Q4H PRN PRN Reason: Pain (moderate 4-6) Last Admin: 04/01/21 02:59 Dose: 1 tab Documented by: Sodium Chloride (Sodium Chloride 0.9% 10 Ml Syringe) 10 ml FLUSH ASDIRECTED PRN PRN Reason: Keep Vein Open Discontinued Medications Acetaminophen (Acetaminophen 500 Mg Tab) 1,000 mg PO ONETIME ONE Stop: 03/31/21 09:59 Last Admin: 03/31/21 10:13 Dose: 1,000 mg Documented by: Acetaminophen (Acetaminophen 500 Mg Tab) 1,000 mg PO ONETIME ONE Stop: 03/31/21 16:09 Last Admin: 03/31/21 16:18 Dose: 1,000 mg Documented by: Acetaminophen (Acetaminophen 500 Mg Tab) Confirm Administered Dose 1,000 mg .ROUTE .STK-MED ONE Stop: 03/31/21 16:45 Last Admin: 03/31/21 22:48 Dose: Not Given Documented by: Potassium Chloride 20 meq/ (Premix) 100 mls @ 50 mls/hr IV ONETIME ONE Stop: 03/31/21 12:36 Last Admin: 03/31/21 10:53 Dose: 50 mls/hr Documented by: Magnesium Sulfate 2 gm/ Premix 50 mls @ 25 mls/hr IV ONETIME ONE Stop: 03/31/21 12:36 Last Admin: 03/31/21 10:53 Dose: 25 mls/hr Documented by: Sodium Chloride (Normal Saline) 500 mls @ 999 mls/hr IV .BOLUS ONE Stop: 03/31/21 13:16 Last Admin: 03/31/21 12:47 Dose: 999 mls/hr Documented by: Lidocaine HCl (Lidocaine 1% 30 Ml Sdv) 1 ml INJECT ONETIME ONE Stop: 03/31/21 10:42 Last Admin: 03/31/21 10:53 Dose: 1 ml Documented by: Potassium Chloride (Potassium Chloride 10 Meq Tab.Er) 40 meq PO ONETIME ONE Stop: 03/31/21 17:59 Last Admin: 06/29/21 18:12 Dose: 40 meq Documented by: - Exam General: Reports: Alert, Oriented HEENT: Reports: Pupils Equal, Pupils Reactive, EOMI, Mucous Membr. Moist/[place]: Reports: Supple Lungs: Reports: Clear to Auscultation, Normal Respiratory Effort Cardiovascular: Reports: Regular Rate, Regular Rhythm GI/Abdominal Exam: Normal Bowel Sounds, Soft, Non-Tender, No Organomegaly, No Distention, No Abnormal Bruit, No Mass, Pelvis Stable Back Exam: Reports: Paraspinal Tenderness Extremities: Normal Inspection, Normal Range of Motion, Non-Tender, No Pedal Edema, Normal Capillary Refill Skin: Reports: Warm, Dry, Intact Wound/Incisions: Reports: Healing Well Neurological: Reports: No New Focal Deficit Psy/Mental Status: Reports: Alert, Normal Affect, Normal Mood
== END 2021-04-01 15:45 | disposition home or self-care (01) ==
LOC: DL.ED 09:02 → DL.MS 17:20
PROVIDERS: ADMIT Internal Medicine; ATTEND Internal Medicine
DX: M80.88XA Other osteoporosis with current pathological fracture, vertebra(e), initial encounter for fracture (principal); E03.9 Hypothyroidism, unspecified; E83.42 Hypomagnesemia; E87.6 Hypokalemia; E87.1 Hypo-osmolality and hyponatremia; D50.9 Iron deficiency anemia, unspecified; E80.6 Other disorders of bilirubin metabolism; J44.9 Chronic obstructive pulmonary disease, unspecified; I34.0 Nonrheumatic mitral (valve) insufficiency; I37.1 Nonrheumatic pulmonary valve insufficiency; I25.10 Atherosclerotic heart disease of native coronary artery without angina pectoris; I25.2 Old myocardial infarction; K21.9 Gastro-esophageal reflux disease without esophagitis; E78.5 Hyperlipidemia, unspecified; I10 Essential (primary) hypertension; E27.1 Primary adrenocortical insufficiency; F41.9 Anxiety disorder, unspecified; K59.00 Constipation, unspecified; M19.90 Unspecified osteoarthritis, unspecified site; E11.65 Type 2 diabetes mellitus with hyperglycemia; F03.90 Unspecified dementia, unspecified severity, without behavioral disturbance, psychotic disturbance, mood disturbance, and anxiety; M34.9 Systemic sclerosis, unspecified; M48.00 Spinal stenosis, site unspecified; M34.1 CR(E)ST syndrome; R62.7 Adult failure to thrive; Z20.822 Contact with and (suspected) exposure to COVID-19; Z95.1 Presence of aortocoronary bypass graft; Z91.09 Other allergy status, other than to drugs and biological substances; Z79.82 Long term (current) use of aspirin; Z79.84 Long term (current) use of oral hypoglycemic drugs; Z79.899 Other long term (current) drug therapy; Z79.890 Hormone replacement therapy; Z98.890 Other specified postprocedural states
CPT/HCPCS: 36415; 72100; 72220; 80053; 81001; 82248; 82728; 82947; 83540; 83550; 83605; 83735; 84439; 84443; 85025; 85610; 96365; 96366; 96368; 97161-GP; 99284; 99285-25; A9270-GY; G0378; J3475; J3480; J7030; J7042; U0002